=== PATIENT | female | born 1950 | race Caucasian/White ===

== ENCOUNTER 2023-09-29 11:23 | Emergency (ER) | payer MEDICARE, SELFPAY ==
[2023-09-29] VITALS (23 sets, daily range): BP systolic 127–183; BP diastolic 52–72; PULSE 76–106; RESP 14–29; TEMP 36.6; O2SAT 78–97
--- NOTE | ~2023-09-29 | CT_ITS ---
EXAMINATION: CT abd pelvis lumbar w con INDICATION: Lower abdominal pain TECHNIQUE: Computed tomographic images of the abdomen, pelvis, and lumbar spine were obtained after t he administration of 100 cc of Omnipaque 350 intravenous contrast. The dose-length product (DLP) was 1201.33 mGy-cm. Automated exposure control and iterative reconstruction technique were employed. COMPARISON: 04/05/2015 FINDINGS: Abdomen/pelvis CT: Minimal dependent atelectasis is present in the lung bases. The heart size is norm al. There is a small sliding hiatal hernia. A trace pericardial effusion is noted. Punctate calcifica tions in an otherwise normal spleen likely represent healed granulomatous disease. The liver is diffu sely low in attenuation when compared with the spleen, consistent with hepatic steatosis. The pancrea s, gallbladder, and adrenal glands are unremarkable. The kidneys are unremarkable. No pathologically enlarged abdominal or pelvic lymph nodes are identified. No free intraperitoneal gas or evidence of b owel obstruction. There is a surgical staple line in the rectum. The appendix is normal. There is marcio cified atherosclerosis of the aorta and many of the other arteries. There are changes of mesh ventral hernia repair. There are midline hernias containing fat just above the level of the hernia repair. Lumbar spine CT: An interbody device is present at L4-5. The vertebral body heights are maintained. T here is mild loss of intervertebral disc space height at L3-4. There is no fracture. There is moderat e facet joint osteoarthritis of the lower lumbar spine. IMPRESSION: 1. No acute findings of the abdomen or pelvis. 2. Mild lumbar spondylosis without acute findings. Reviewed, dictated and finalized at location B. NSKEEPER SUPERVISOR
--- NOTE | 2023-09-29 11:38 | ED.FALL ---
HPI - Fall General Chief Complaint: Fall Stated Complaint: GLF BACK AND COCCYX PAIN Time Seen by Provider: 09/29/23 11:34 History of Present Illness HPI Narrative: 73-year-old female history of diabetes presents to the emergency room for evaluation of low back pain. Patient states that she was at the [facility] earlier today when she experienced a ground-level fall, landing on her lower back. Patient states that she was able to stand herself up walk to her car and drive herself home. Patient states the pain was so bad that she ended up calling EMS and presented to the emergency room via the ambulance. In route patient was given 100 mcg fentanyl. States pain has not improved. Denies any numbness or tingling in her lower extremities, weakness. Patient states that she has been experiencing intermittent bowel and bladder incontinence for 4 to 6 weeks. Denies saddle anesthesia. Denies fevers. Denies IV drug use. Related Data Allergies Allergy/AdvReac Type Severity Reaction Status Date / Time ciprofloxacin Allergy Mild Verified 03/27/15 13:58 codeine Allergy Unknown Verified 06/12/10 08:29 Review of Systems Review of Systems: CONSTITUTIONAL: Denies fever, chills, or sweats. EYES: Denies visual changes, redness, or discharge. ENT: Denies rhinorrhea, congestion, sore throat, or otalgia. CARDIOVASCULAR: Denies chest pain, palpitations, or edema. RESPIRATORY: Denies cough or dyspnea. GASTROINTESTINAL: Denies abdominal pain, nausea, vomiting, or diarrhea. GENITOURINARY: Denies dysuria or hematuria. SKIN: Denies rash or itching. MUSCULOSKELETAL: Reports lower back pain NEUROLOGIC: Denies headache, numbness, dizziness, or weakness. PSYCHIATRIC: Denies anxiety or depression. Exam Narrative: GENERAL: Well-appearing, well-nourished, no physical limitations, and in no acute distress. HEAD: Normocephalic, atraumatic. EYES: Conjunctivae normal, PERRLA and EOMI. CHEST: Clear to auscultation. No respiratory distress. No wheezes rales or rhonchi. HEART: Regular rate and rhythm. No murmur heard. Normal peripheral pulses. ABDOMEN: Soft, lower abdominal tenderness, nondistended, normal active bowel sounds. BACK: Midline lumbar and coccyx tenderness with no step-offs. EXTREMITIES: FROM SKIN: Warm, dry, no rash. No noted wounds NEURO: No focal deficits. Alert and oriented x3. MAEW. CN's II-XI intact bilaterally PSYCH: Cooperative. Normal mood and affect. Course Vital Signs Vital signs: Vital Signs Temperature 36.6 C 09/29/23 11:53 Oxygen Delivery Room Air 09/29/23 11:53 Temperature 36.6 C 09/29/23 11:59 Pulse Rate 88 09/29/23 14:01 Respiratory Rate 14 09/29/23 14:38 Blood Pressure 183/69 H 09/29/23 14:38 Pulse Oximetry 95 09/29/23 14:38 Oxygen Delivery Room Air 09/29/23 11:53 MDM - Fall MDM Narrative Medical decision making narrative: 73-year-old female presented to the emergency room for evaluation of low back pain status post fall. Patient denies syncopal episode prior to the fall. Patient was at the [facility] when she was found on the ground. Patient was incontinent of stool and bladder. States that she is she has been experiencing bladder incontinence for several weeks. Patient was able to stand up and drive herself home.. Period of time, patient's back pain became worse and called EMS to come to the hospital. Imaging of her lower back showed no acute injuries. Lab work looked unremarkable. Patient does have a UTI. Patient was given fentanyl and Dilaudid for back pain and responded well to the pain medicine. We will send patient home with some antibiotics and anti-inflammatories. Lab Data 09/29/23 11:57 09/29/23 11:57 Labs: Lab Results 09/29/23 09/29/23 Range/Units 11:57 16:03 WBC 8.9 (4.5-10.0) K/mm3 RBC 4.76 (4.2-5.4) M/mm3 Hgb 13.2 (12.0-15.0) g/dL Hct 41.0 (37.0-47.0) % MCV 86.1 (80-100) fl MCH 27.7 (26-34) pg MCHC
--- NOTE | 2023-09-29 11:42 | ECG_ITS ---
Measurements Intervals [place] Rate: 73 P: 61 LA: 176 QRS: 11 QRSD: 86 T: 9 QT: 403 QTc: 446 Interpretive Statements SINUS RHYTHM CONSIDER INFERIOR INFARCT, AGE INDETERMINATE BASELINE ARTIFACT- I, II, III, AVR, AVL, AVF ABNORMAL ECG NO PREVIOUS ECG AVAILABLE FOR COMPARISON Electronically Signed On 09-29-2023 13:12:46 CORRECTIONAL AGENCY DIRECTOR by Jimmy Montes D.O.
[2023-09-29 12:03] LABS: Basophils Percent Auto 0.5 % (0.2-1.2); Eosinophils Absolute Auto 0.1 K/mm3 (0-0.3); Eosinophils Percent Auto 1.1 % (0-4.4); Hemoglobin 13.2 g/dL (12.0-15.0); Immature Granulocyte Absolute 0.04 K/mm3 (0.00-0.031); Immature Granulocyte Percent A 0.5 % (0-0.5); Lymphocytes Absolute Auto 1.89 K/mm3 (0.9-3.2); Lymphocytes Percent Auto 21.3 % (18.3-44.2); Mean Corpuscular HGB Conc 32.2 g/dl (32-36); Mean Corpuscular Hemoglobin 27.7 pg (26-34); Mean Corpuscular Volume 86.1 fl (80-100); Mean Platelet Volume 9.2 fl (7.4-10.4); Monocytes Absolute Auto 0.6 K/mm3 (0.1-0.6); Monocytes Percent Auto 6.3 % (2.6-8.5); Neutrophils Absolute Auto 6.3 K/mm3 (1.3-6.7); Neutrophils Percent Auto 70.3 % (45.5-73.1); Platelet Count Result 244 k/mm3 (150-375); Red Blood Count 4.76 M/mm3 (4.2-5.4); Red Cell Distribution Width 14.6 % (11.5-14.5); White Blood Count 8.9 K/mm3 (4.5-10.0)
[2023-09-29 12:16] LABS: Alanine Aminotransferase 11 U/L (6-35); Albumin Level 3.5 g/dL (3.5-5.1); Alkaline Phosphatase 134 U/L (38-126); Anion Gap 6 mmol/L (8-16); Aspartate Amino Transferase 16 U/L (14-36); Bilirubin,Total 0.6 mg/dL (0.2-1.3); Blood Urea Nitrogen 12 mg/dL (7-17); Calcium 8.4 mg/dL (8.4-10.2); Carbon Dioxide 25 mmol/L (22-30); Chloride 103 mmol/L (98-107); Estimated CRCL calculation 68 ml/min; Estimated Glomerular Filt Rate > 60; Glucose 191 mg/dL (65-110); Potassium 3.6 mmol/L (3.4-5.0); Sodium 134 mmol/L (137-145)
[2023-09-29 12:31] LABS: Troponin I < 0.012 ng/mL (0.000-0.034)
--- NOTE | 2023-09-29 12:57 | PC.NURSE ---
Pt is refusing straight cath.
[2023-09-29] MEDS: HYDROmorphone HCL INJ (*CRX) 1 MG/ML SYR IV PUSH (13:01)
[2023-09-29] MEDS: ONDANSETRON INJ 4 MG/2 ML VIAL IV PUSH ×2 (13:51→15:56)
[2023-09-29 16:29] LABS: Appearance Urine Cloudy (Clear); Bacteria Urine 4+ /hpf; Bilirubin Urine Negative (Negative); Blood Urine Negative (Negative); Color Urine Yellow (Yellow); Glucose Urine UA Negative (Negative); Hyaline Casts Urine Present /lpf; Ketones Urine Negative (Negative); Leukocyte Esterase Ur Trace LEU/UL (Negative); Nitrate Urine Positive (Negative); Non Pathogenic Casts 0-2; Protein Urine Trace mg/dL (Negative); Squamous Epithelial Cell Urine Few /hpf (Few); Urobilinogen Urine 0.2 mg/dL (<2.0); pH Urine 5.5 (5.0-9.0)
[2023-09-29 16:31] LABS: Add Urine Microscopic? YES; Specific Grav Ur 1.074 (1.001-1.035)
== END 2023-09-29 16:55 | disposition home or self-care (01) ==
PROVIDERS: Emergency Provider Nurse Practitioner Family
DX: S39.92XA Unspecified injury of lower back, initial encounter (principal); N39.0 Urinary tract infection, site not specified; R94.31 Abnormal electrocardiogram [ECG] [EKG]; W18.30XA Fall on same level, unspecified, initial encounter
CPT/HCPCS: 36415; 72132; 74177; 80053; 81001; 84484; 85025; 87086; 87088; 93005; 96374; 96375; 96376; 99284; J1170; J2405; Q9967

== ENCOUNTER 2023-10-08 21:08 | Inpatient (IN) | payer MEDICARE, SELFPAY ==
--- NOTE | ~2023-10-08 | CT_ITS ---
EXAMINATION: CT abdomen pelvis w con DATE: 10/09/2023 02:53 INDICATION: Nausea and vomiting. TECHNIQUE: Computed tomography (CT) of the abdomen and pelvis was performed with 100 mL Omnipaque 350 intravenous contrast. Automated exposure control and iterative reconstruction technique were employe d. The dose-length product was 1227.29 mGy-cm. COMPARISON: CT abdomen and pelvis 09/29/2023, 04/05/2015 FINDINGS: The visualized portions of the lung bases demonstrate mild atelectasis. Cardiomegaly is not ed. There are coronary artery calcifications. No pericardial effusion. There is a small sliding hiata l hernia. The liver, gallbladder, and pancreas are normal. Calcifications in the spleen are consisten t with old granulomatous disease. There is nodular thickening of the adrenal glands, stable from 04/05, likely benign. The kidneys are normal. There is calcified atherosclerosis of the aorta and man y of the other arteries. There are changes of ventral hernia repair. There are two supraumbilical corin tral hernias containing fat. There are no dilated loops of bowel. The appendix is normal. There are n o pathologically enlarged lymph nodes. There is no free intraperitoneal fluid. There are changes of a nterior fusion procedure at L5-S1. There is mild lumbar spondylosis. IMPRESSION: 1. Small sliding hiatal hernia. 2. Two supraumbilical ventral hernias containing fat. Reviewed, dictated and finalized at location E. SERVICE COUNTER CLERK
--- NOTE | ~2023-10-08 | XR_ITS ---
EXAMINATION: XR chest 1V DATE: 10/09/2023 02:56 INDICATION: Nausea and vomiting. TECHNIQUE: A single frontal view of the chest was obtained. COMPARISON: Chest 2 views 11/29/13, CT abdomen and pelvis 10/09/2023 FINDINGS: There is mild atelectasis in the lower lung zones. There are airspace opacities in right mi dlung zone. No pleural effusion or pneumothorax. Cardiomegaly is noted. IMPRESSION: 1. Airspace opacities in right midlung zone, consistent with pneumonia. 2. Cardiomegaly. Reviewed, dictated and finalized at location E. CHBOARD WIRE WORKER HELPER
[2023-10-08 21:42] VITALS: BP 154/72; PULSE 100; RESP 16; TEMP 36.6; O2SAT 98
[2023-10-08 21:50] LABS: Glucose Point of Care 224 mg/dl (65-105)
[2023-10-08 21:57] LABS: Basophils Absolute Auto 0.1 K/mm3 (0.0-0.1); Basophils Percent Auto 0.5 % (0.2-1.2); Eosinophils Percent Auto 0.2 % (0-4.4); Hematocrit 43.2 % (37.0-47.0); Hemoglobin 13.8 g/dL (12.0-15.0); Immature Granulocyte Absolute 0.05 K/mm3 (0.00-0.031); Immature Granulocyte Percent A 0.5 % (0-0.5); Lymphocytes Absolute Auto 2.05 K/mm3 (0.9-3.2); Lymphocytes Percent Auto 19.9 % (18.3-44.2); Mean Corpuscular HGB Conc 31.9 g/dl (32-36); Mean Corpuscular Hemoglobin 27.6 pg (26-34); Mean Corpuscular Volume 86.4 fl (80-100); Mean Platelet Volume 10.1 fl (7.4-10.4); Monocytes Absolute Auto 0.8 K/mm3 (0.1-0.6); Monocytes Percent Auto 7.7 % (2.6-8.5); Neutrophils Absolute Auto 7.4 K/mm3 (1.3-6.7); Neutrophils Percent Auto 71.2 % (45.5-73.1); Platelet Count Result 209 k/mm3 (150-375); Red Cell Distribution Width 14.6 % (11.5-14.5); White Blood Count 10.3 K/mm3 (4.5-10.0)
[2023-10-08 22:17] LABS: Alanine Aminotransferase 11 U/L (6-35); Albumin Level 3.8 g/dL (3.5-5.1); Alkaline Phosphatase 135 U/L (38-126); Anion Gap 9 mmol/L (8-16); Aspartate Amino Transferase 13 U/L (14-36); Blood Urea Nitrogen 9 mg/dL (7-17); Carbon Dioxide 28 mmol/L (22-30); Chloride 96 mmol/L (98-107); Estimated CRCL calculation 64 ml/min; Estimated Glomerular Filt Rate > 60; Glucose 222 mg/dL (65-110); Lipase 48 U/L (23-300); Potassium 3.1 mmol/L (3.4-5.0); Sodium 133 mmol/L (137-145)
[2023-10-09] VITALS (36 sets, daily range): BP systolic 131–188; BP diastolic 44–130; PULSE 73–96; RESP 14–25; TEMP 36.4–37.2; O2SAT 90–100; BMI 35.6
[2023-10-09 01:39] LABS: Appearance Urine Cloudy (Clear); Bacteria Urine 4+ /hpf; Bilirubin Urine Negative (Negative); Blood Urine Trace (Negative); Color Urine Yellow (Yellow); Glucose Urine UA 2+ mg/dL (Negative); Ketones Urine Trace mg/dL (Negative); Leukocyte Esterase Ur 1+ LEU/UL (Negative); Need Manual Microscopic Reviewed; Nitrate Urine Positive (Negative); Non Pathogenic Casts 0-2; Protein Urine 1+ mg/dL (Negative); Specific Grav Ur 1.021 (1.001-1.035); Squamous Epithelial Cell Urine None seen /hpf (Few); Urobilinogen Urine 0.2 mg/dL (<2.0); WBC Urine 21-50 /hpf; pH Urine 5.5 (5.0-9.0)
[2023-10-09 01:40] LABS: Add Urine Microscopic? YES
--- NOTE | 2023-10-09 02:32 | ED.NAVMDI ---
HPI - Nausea/Vomiting/Diarrhea General Chief complaint: Nausea/Vomiting/Diarrhea Stated complaint: vomiting Time Seen by Provider: 10/09/23 00:22 Source: patient and family Limitations: no limitations History of Present Illness HPI Narrative: Patient is a 73-year-old female presents to the emergency department accompanied by her son for nausea and vomiting this started approximately 24 hours ago. Patient denies anyone having similar symptoms around her. Patient missed approximately 15 episodes of vomiting since onset and she has not been able to keep anything down. patient denies any blood or bile in the emesis. Patient admits to chronic urinary incontinence and has not noticed any urinary discomfort her hematuria. Patient denies diarrhea or melena or hematochezia. patient admits to recent treatment for UTI and which she completed her antibiotics yesterday. Patient denies abdominal pain, chest pain, shortness of breath, cough, fever, sore throat, nasal congestion, rash. Related Data Allergies Allergy/AdvReac Type Severity Reaction Status Date / Time ciprofloxacin Allergy Mild Verified 03/27/15 13:58 codeine Allergy Unknown Verified 06/12/10 08:29 Review of Systems Review of Systems: A 10 system review of systems was completed on the patient and is negative except for what is stated in the HPI. Nursing and ancillary documentation was reviewed. [facility] Comments At time of signature, I have reviewed and agree with nursing past medical, surgical, social and family history unless otherwise noted. Please see the nursing chart for further information. There is no relevant family history pertinent to the presenting complaint. Exam Narrative: CONST: No acute distress. HENMT: Head is normocephalic and atraumatic. Dry mucous membranes. No posterior oropharynx erythema. EYES: No conjunctival icterus, injection, or pallor. PERRL. NECK: No meningeal signs. RESP: Able to speak in full sentences. Normal respiratory effort. CTAB. CARDIO: Regular rate. Regular rhythm. 2+ DP and radial pulses bilaterally. GI: Nondistended. No tenderness to palpation. Soft. : No CVA tenderness to palpation. No perineal erythema or tenderness to palpation. SKIN: No rashes or lesions noted on exposed skin. NEURO: Oriented x3. Moves all extremities. EXTREM/MSK/BACK: No pedal edema. PSYCH: Normal affect. Course Vital Signs Vital signs: Vital Signs Temperature 97.8 F 10/08/23 21:42 Pulse Rate 100 10/08/23 21:42 Respiratory Rate 16 10/08/23 21:42 Blood Pressure 154/72 H 10/08/23 21:42 Pulse Oximetry 98 10/08/23 21:42 Oxygen Delivery Room Air 10/08/23 21:42 Temperature 97.8 F 10/08/23 21:42 Pulse Rate 81 10/09/23 07:15 Respiratory Rate 24 H 10/09/23 07:15 Blood Pressure 157/71 H 10/09/23 07:01 Pulse Oximetry 94 10/09/23 07:01 Oxygen Delivery Room Air 10/09/23 01:12 MDM - Nausea/Vomiting/Diarrhea MDM Narrative Medical decision making narrative: Patient presents with the above complaint. Initial vitals are remarkable for no significant abnormalities. Physical examination as noted above. Plan discussed: laboratory analysis, EKG, chest x-ray, CT of the abdomen and pelvis with contrast, 1 g of Rocephin IV piggyback for UTI, famotidine 20 mg IV push, potassium chloride 20 mEq IV piggyback for hypokalemia, Zofran 4 mg IV push for nausea, 1 L bolus of IV fluids normal saline for hydration. Patient was reassessed at the bedside. Counseled patient regarding diagnostic results and potential diagnosis. Patient given cefuroxime and doxycycline for pneumonia. Cefuroxime will also cover for UTI. Son present at bedside notes that he is concerned about the patient's ability to perform activities of daily living and care for herself and she is currently living on her own and he would like to have the patient either get placement into a facility or obtain home health care as no one is able to prov
--- NOTE | 2023-10-09 02:33 | ECG_ITS ---
Measurements Intervals [place] Rate: 93 P: 48 AR: 193 QRS: 1 QRSD: 89 T: 40 QT: 369 QTc: 461 Interpretive Statements SINUS RHYTHM CONSIDER INFERIOR INFARCT, AGE INDETERMINATE BORDERLINE ST-T WAVE ABNORMALITY- ANTEROLAT/HIGH LAT LEADS BASELINE ARTIFACT- I, II, III, AVR, AVL, AVF, V1, V4-V6 ABNORMAL ECG COMPARED TO ECG 09/29/2023 12:01:03 NO SIGNIFICANT CHANGES Electronically Signed On 10-09-2023 7:42:27 APPROVER by Jimmy Montes D.O.
[2023-10-09 02:46] LABS: Magnesium 2.2 mg/dL (1.6-2.3)
[2023-10-09] MEDS: SODIUM CHLORIDE 0.9% IV 1,000 ML 999 ML IV CONT (02:58)
[2023-10-09 02:59] LABS: Troponin I < 0.012 ng/mL (0.000-0.034)
[2023-10-09] MEDS: ONDANSETRON INJ 4 MG/2 ML VIAL IV PUSH (02:59)
[2023-10-09] MEDS: FAMOTIDINE 20 MG/2 ML VIAL IV PUSH (02:59)
[2023-10-09] MEDS: KCL 20 MEQ/SW 100 ML 100 ML 50 MEQ IVPB (03:29)
[2023-10-09] MEDS: DOXYCYCLINE HYCLATE 100 MG TABLET PO (06:32)
[2023-10-09] MEDS: CEFUROXIME AXETIL 250 MG TABLET 500 MG PO (06:33)
--- NOTE | 2023-10-09 07:13 | PC.NURSE ---
Report given to JOSE Basilio at this time.
--- NOTE | 2023-10-09 08:52 | PM.IMHP ---
H&P: HPI History of Present Illness Date/Time: 10/09/23 08:52 Chief Complaint: Nausea/vomiting Narrative: 73-year-old female presents to the emergency department accompanied by her son for nausea and vomiting this started 1-2 days ago. Review of Systems Review of Systems: 12 point review of systems was assessed and was negative except as noted in the HPI [facility] Past Medical History Medical History (Updated 10/09/23 @ 12:35 by Shruthi Feliciano, DO) Adult failure to thrive Chronic anticoagulation Hyperlipidemia Insulin dependent type 2 diabetes mellitus Social History Social History Smoking packs per day: 2 Smoking cigarettes per day: 40.0 Smoking status: Current every day smoker Tobacco type: cigarettes Alcohol intake: never Substance use: never Lack of Transportation: No Lack of Food: Never True Current Housing: I Have Housing Concerned About Future Housing: No Difficulty Paying Gas/Electric Bills: No Difficulty Paying for Meds: No Currently Unemployed: No Education: Bachelor's Degree Difficulty w/ Childcare or Family Care: No Spiritual care concerns: Yes (Sabianism) Meds Home Medications and Allergies Home Medications Medication Instructions Recorded Confirmed Type atorvastatin 20 mg tablet 20 mg PO DAILY 10/09/23 10/09/23 History cefuroxime axetil 500 mg tablet 500 mg PO BID 5 days #10 tabs 10/09/23 Rx doxycycline hyclate 100 mg capsule 100 mg PO BID 5 days #10 caps 10/09/23 Rx insulin glargine 100 unit/mL (3 45 unit subcut DAILY 10/09/23 10/09/23 History mL) subcutaneous pen (Lantus Solostar U-100 Insulin) ondansetron 4 mg disintegrating 4 mg PO Q8H PRN nausea and 10/09/23 Rx tablet vomiting #14 tabs pen needle, diabetic 32 gauge x 10/09/23 10/09/23 History warfarin 4 mg tablet 4 mg PO DAILY 10/09/23 10/09/23 History Allergies Allergy/AdvReac Type Severity Reaction Status Date / Time ciprofloxacin Allergy Mild Verified 03/27/15 13:58 codeine Allergy Unknown Verified 06/12/10 08:29 Vital Signs Vital Signs - 24 hr 10/08/23 21:42 10/09/23 01:12 10/09/23 01:18 Temperature 97.8 F Pulse Rate 100 74 73 Respiratory Rate 16 20 24 H Blood Pressure 154/72 H 158/67 H 161/72 H Pulse Oximetry 98 95 94 Oxygen Delivery Room Air Room Air 10/09/23 01:32 10/09/23 01:47 10/09/23 02:02 Temperature Pulse Rate 73 77 73 Respiratory Rate 20 16 18 Blood Pressure 155/70 H 174/66 H 159/70 H Pulse Oximetry 95 97 Oxygen Delivery 10/09/23 02:17 10/09/23 02:32 10/09/23 03:08 Temperature Pulse Rate 73 80 95 Respiratory Rate 19 17 17 Blood Pressure 164/66 H 159/62 H 188/68 H Pulse Oximetry 98 99 97 Oxygen Delivery 10/09/23 03:17 10/09/23 03:32 10/09/23 04:02 Temperature Pulse Rate 90 92 88 Respiratory Rate 23 H 22 H 19 Blood Pressure 181/69 H 168/72 H 171/73 H Pulse Oximetry 97 92 94 Oxygen Delivery 10/09/23 04:31 10/09/23 05:01 10/09/23 05:31 Temperature Pulse Rate 92 81 82 Respiratory Rate 19 20 19 Blood Pressure 157/72 H 162/67 H 141/68 H Pulse Oximetry 94 95 90 Oxygen Delivery 10/09/23 06:15 10/09/23 06:30 10/09/23 06:31 Temperature Pulse Rate 79 81 86 Respiratory Rate 20 17 25 H Blood Pressure 173/69 H 173/69 H Pulse Oximetry 90 90 92 Oxygen Delivery 10/09/23 06:45 10/09/23 07:00 10/09/23 07:01 Temperature Pulse Rate 81 89 83 Respiratory Rate 22 H 21 H 24 H Blood Pressure 157/71 H Pulse Oximetry 93 100 94 Oxygen Delivery 10/09/23 07:15 Temperature Pulse Rate 81 Respiratory Rate 24 H Blood Pressure Pulse Oximetry Oxygen Delivery Exam Narrative: General: No acute distress, alert and oriented per baseline HEENT: Atraumatic, normocephalic, mucous membranes moist CV: Regular rate and rhythm, S1, S2 Lungs: Clear to auscultation bilaterally, no rales or crackles noted, no wheezes, go
[2023-10-09 12:21] LABS: Glucose Point of Care 201 mg/dl (65-105)
[2023-10-09 13:16] LABS: INR 1.9; Prothrombin Time 23.1 Seconds (11.1-14.7)
[2023-10-09 13:18] LABS: Hemoglobin A1C 6.9 % (<5.7)
[2023-10-09] MEDS: ATORVASTATIN 20 MG TABLET PO (15:26)
[2023-10-09] MEDS: INSULIN GLARGINE (*BKC) 100 UNITS/ML 20 UNITS SUB-Q (15:26)
[2023-10-09] MEDS: AZITHROMYCIN 500 MG/NS 250 ML 500 MG/250 ML BAG 250 MG IVPB (15:26)
--- NOTE | 2023-10-09 15:43 | PCCCNOTE ---
CC was called to consult with pt and her son, Cj in the ED. If pt was going to be discharged, they were needing home health. If patient is admitted they are going to decide whether they want placement for therapy or in home health. Spoke with them and explained that once the ER doctor decides upon admission or discharge is when I can try to help them with placement, which would be private pay, or home health. Pt. is being admitted, I explained to the pt and son that a daycare manager would follow up on the needs of the pt day by day. The pt. son, states that the pt gets very confused, [place] where she is. He said she is unable to care for herself with her daily needs, including eating, changing herself after she has soiled in her depends, and taking her medications properly. He feels as though it is not safe for her to return home by herself.
[2023-10-09 16:53] LABS: Glucose Point of Care 186 mg/dl (65-105)
[2023-10-09] MEDS: WARFARIN (*PBKC) 4 MG TABLET PO (17:06)
[2023-10-09 20:52] LABS: Glucose Point of Care 237 mg/dl (65-105)
[2023-10-10 05:03] VITALS: O2SAT 87
[2023-10-10 05:35] VITALS: BP 137/62; PULSE 89; RESP 14; TEMP 36.6; O2SAT 93
[2023-10-10 07:26] LABS: Basophils Percent Auto 0.5 % (0.2-1.2); Eosinophils Absolute Auto 0.2 K/mm3 (0-0.3); Eosinophils Percent Auto 2.3 % (0-4.4); Hematocrit 38.2 % (37.0-47.0); Hemoglobin 12.4 g/dL (12.0-15.0); Immature Granulocyte Absolute 0.03 K/mm3 (0.00-0.031); Immature Granulocyte Percent A 0.4 % (0-0.5); Lymphocytes Absolute Auto 1.62 K/mm3 (0.9-3.2); Lymphocytes Percent Auto 19.8 % (18.3-44.2); Mean Corpuscular HGB Conc 32.5 g/dl (32-36); Mean Corpuscular Hemoglobin 27.7 pg (26-34); Mean Corpuscular Volume 85.5 fl (80-100); Mean Platelet Volume 9.8 fl (7.4-10.4); Monocytes Absolute Auto 0.7 K/mm3 (0.1-0.6); Monocytes Percent Auto 7.9 % (2.6-8.5); Neutrophils Absolute Auto 5.7 K/mm3 (1.3-6.7); Neutrophils Percent Auto 69.1 % (45.5-73.1); Platelet Count Result 197 k/mm3 (150-375); Red Blood Count 4.47 M/mm3 (4.2-5.4); Red Cell Distribution Width 14.2 % (11.5-14.5); White Blood Count 8.2 K/mm3 (4.5-10.0)
[2023-10-10 07:38] LABS: Alanine Aminotransferase 9 U/L (6-35); Albumin Level 3.1 g/dL (3.5-5.1); Alkaline Phosphatase 116 U/L (38-126); Anion Gap 4 mmol/L (8-16); Aspartate Amino Transferase 13 U/L (14-36); Bilirubin,Total 0.8 mg/dL (0.2-1.3); Blood Urea Nitrogen 6 mg/dL (7-17); Calcium 8.4 mg/dL (8.4-10.2); Carbon Dioxide 31 mmol/L (22-30); Chloride 100 mmol/L (98-107); Estimated CRCL calculation 73 ml/min; Estimated Glomerular Filt Rate > 60; Glucose 174 mg/dL (65-110); Potassium 3.4 mmol/L (3.4-5.0); Sodium 135 mmol/L (137-145)
[2023-10-10 07:58] LABS: INR 1.9; Prothrombin Time 23.1 Seconds (11.1-14.7)
[2023-10-10 08:26] LABS: Glucose Point of Care 168 mg/dl (65-105)
[2023-10-10] MEDS: ATORVASTATIN 20 MG TABLET PO (08:28)
[2023-10-10 08:30] VITALS: O2SAT 94
--- NOTE | 2023-10-10 08:42 | PM.IMPN ---
Progress Note: A&P Assessment and Plan (1) Adult failure to thrive: Code(s): R62.7 - Adult failure to thrive Status: Acute Assessment and Plan: 10/09/23: PT and OT eval (2) Hyperlipidemia: Code(s): E78.5 - Hyperlipidemia, unspecified Status: Acute Assessment and Plan: 10/09/23: Continue Lipitor (3) Insulin dependent type 2 diabetes mellitus: Code(s): E11.9 - Type 2 diabetes mellitus without complications; Z79.4 - [facility]FP (current) use of insulin Status: Acute Assessment and Plan: 10/09/23: Accu checks, SSI, and lantus ordered BG ranging 168-174 (4) Pneumonia: Qualifiers: Laterality: right Lung location: middle lobe of lung Pneumonia type: due to unspecified organism Qualified Code(s): J18.9 - Pneumonia, unspecified organism Code(s): J18.9 - Pneumonia, unspecified organism Status: Acute Assessment and Plan: 10/09/23: Chest x-ray showing pneumonia Continue Rocephin and azithromycin (5) UTI (urinary tract infection): Qualifiers: Hematuria presence: with hematuria Urinary tract infection type: site unspecified Qualified Code(s): N39.0 - Urinary tract infection, site not specified; R31.9 - Hematuria, unspecified Code(s): N39.0 - Urinary tract infection, site not specified Status: Acute Assessment and Plan: 10/09/23: UA showing 1+ protein, 2+ glucose, trace ketones, positive nitrates, 1+ leukocytes, 4+ bacteria Urine culture obtained and is pending Continue with Rocephin and azithromycin Patient denies any urinary symptoms (6) Chronic anticoagulation: Code(s): Z79.01 - [facility]FP (current) use of anticoagulants Status: Acute Assessment and Plan: 10/09/23: On warfarin (7) Nausea & vomiting: Code(s): R11.2 - Nausea with vomiting, unspecified Status: Acute Assessment and Plan: 10/09/23: Denies at this time. Zofran ordered Time Spent With Patient Time with patient: Greater than 35 minutes Subjective Date/time seen: 10/10/23 08:42 Interval history: This is a 73 year old female who presented to the hospital on 10/09/23 with complaints of nausea and vomiting that started 1-2 days ago. Work up in hospital included a chest x-ray which shown airspace opacities in the right midlung zone, consistent with pneumonia, cardiomegaly. CT of the abdomen/pelvis revealed small sliding hiatal hernia, two supraumbilical ventral hernias containing fat. UA revealed protein 1+, glucose 2+, trace ketones, positive nitrates, leukocyte 1+, bacteria 4+, many urine RBC and WBC. Urine culture obtained and pending. Patient was started on Rocephin and Azithromycin. On examination today patient is alert and oriented x4, she is lying in the bed. VSS, she is afebrile, she is currently on room air. She denies any pain or discomfort at this time. She denies any fever, chills, nausea, vomiting, diarrhea, abdominal pain, shortness of breath, or chest pain. Labs today reveal PT 23.1, INR 1.9, Na+ 135, K+ 3.4, Bicarb 31, BUN 6, Creatinine 0.70, blood glucose 168-211, AST 13, Albumin 3.1. CBC is unremarkable. UC is still pending. Patient will continue on Rocephin and Azithromycin until results of culture comes back. Review of Systems Review of Systems: 12 point review of systems was assessed and was negative except as noted in the HPI All systems reviewed & are unremarkable except as noted in HPI and below Constitutional: Constitutional: Reports as per HPI and Reports no additional constitutional complaints Eyes: Eyes: Reports as per HPI and Reports no additional eye complaints ENT: Reports system reviewed and no additional complaints, except as documented and Reports as per HPI Cardiovascular: Cardiovascular: Reports as per HPI and Reports no additional cardiovascular complaints Respiratory: Respiratory: Reports as per HPI and Reports no additional respiratory complaints Ga
--- NOTE | 2023-10-10 10:24 | PCOTNOTE ---
Attempted OT evaluation. Patient was educated on ON and importance of evaluation. Patient still refuses at this time. Will follow.
--- NOTE | 2023-10-10 10:24 | PCPTNOTE ---
Attempted to see for therapy evaluation, pt refused stating she is too fatigued to get out of bed. Education on the benefits of ambulation, will continue to follow.
[2023-10-10 11:45] LABS: Glucose Point of Care 211 mg/dl (65-105)
[2023-10-10] MEDS: INSULIN ASPART (*BKC) 100 UNITS/ML SUB-Q (11:53)
[2023-10-10] MEDS: AZITHROMYCIN 500 MG/NS 250 ML 500 MG/250 ML BAG 250 MG IVPB (13:22)
[2023-10-10 14:00] VITALS: BP 132/58; PULSE 79; RESP 16; TEMP 36.8; O2SAT 96
[2023-10-10] MEDS: WARFARIN (*PBKC) 4 MG TABLET PO (16:05)
[2023-10-10] MEDS: ONDANSETRON INJ 4 MG/2 ML VIAL (16:05)
[2023-10-10 17:50] LABS: Glucose Point of Care 99 mg/dl (65-105)
[2023-10-10 20:00] VITALS: O2SAT 91
[2023-10-10 20:06] LABS: Glucose Point of Care 169 mg/dl (65-105)
[2023-10-10 20:10] VITALS: BP 141/52; PULSE 77; RESP 18; TEMP 37; O2SAT 91
[2023-10-11 05:53] VITALS: BP 161/57; PULSE 74; RESP 17; TEMP 36.9; O2SAT 92
[2023-10-11 07:16] LABS: Basophils Percent Auto 0.6 % (0.2-1.2); Eosinophils Absolute Auto 0.2 K/mm3 (0-0.3); Eosinophils Percent Auto 3.3 % (0-4.4); Hematocrit 38.8 % (37.0-47.0); Hemoglobin 12.3 g/dL (12.0-15.0); Immature Granulocyte Absolute 0.03 K/mm3 (0.00-0.031); Immature Granulocyte Percent A 0.4 % (0-0.5); Lymphocytes Absolute Auto 1.58 K/mm3 (0.9-3.2); Lymphocytes Percent Auto 21.8 % (18.3-44.2); Mean Corpuscular HGB Conc 31.7 g/dl (32-36); Mean Corpuscular Hemoglobin 27.3 pg (26-34); Mean Platelet Volume 9.9 fl (7.4-10.4); Monocytes Absolute Auto 0.6 K/mm3 (0.1-0.6); Monocytes Percent Auto 7.7 % (2.6-8.5); Neutrophils Absolute Auto 4.8 K/mm3 (1.3-6.7); Neutrophils Percent Auto 66.2 % (45.5-73.1); Platelet Count Result 208 k/mm3 (150-375); Red Blood Count 4.51 M/mm3 (4.2-5.4); Red Cell Distribution Width 14.2 % (11.5-14.5); White Blood Count 7.2 K/mm3 (4.5-10.0)
--- NOTE | 2023-10-11 07:21 | P.PNIM_ITS ---
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 Status: Acute Assessment and Plan: 10/10/23: * Accu checks, SSI, and lantus ordered * BG ranging 168-174 10/11/23: * No change to current treatment plan (4) Pneumonia: Qualifiers: Laterality: right Lung location: middle lobe of lung Pneumonia type: due to unspecified organism Qualified Code(s): J18.9 - Pneumonia, unspecified organism Code(s): J18.9 - Pneumonia, unspecified organism Status: Acute Assessment and Plan: 10/10/23: * Chest x-ray showing pneumonia * Continue Rocephin and azithromycin 10/11/23: * Azithromycin discontinued, continue Rocephin (5) UTI (urinary tract infection): Qualifiers: Hematuria presence: with hematuria Urinary tract infection type: site unspecified Qualified Code(s): N39.0 - Urinary tract infection, site not specified; R31.9 - Hematuria, unspecified Code(s): N39.0 - Urinary tract infection, site not specified Status: Acute Assessment and Plan: 10/10/23: * UA showing 1+ protein, 2+ glucose, trace ketones, positive nitrates, 1+ leukocytes, 4+ bacteria * Urine culture obtained and is pending * Continue with Rocephin and azithromycin * Patient denies any urinary symptoms 10/11/23: * Urine culture showing E coli and Morganella Morganii on preliminary read, awaiting sensitivites. 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 * Zofran ordered 10/11/23: * Denies this time * No change to current treatment plan Time Spent With Patient Time with patient: 25 - 35 minutes Subjective Date/time seen: 10/11/23 07:21 Interval history: Interval history: 10/10/23: This is a 73 year old female who presented to the hospital on 10/09/23 with complaints of nausea and vomiting that started 1-2 days ago. Work up in hospital included a chest x-ray which shown airspace opacities in the right midlung zone, consistent with pneumonia, cardiomegaly. CT of the abdomen/pelvis revealed small sliding hiatal hernia, two supraumbilical ventral hernias containing fat. UA revealed protein 1+, glucose 2+, trace ketones, positive nitrates, leukocyte 1+, bacteria 4+, many urine RBC and WBC. Urine culture obtained and pending. Patient was started on Rocephin and Azithromycin. On examination today patient is alert and oriented x4, she is lying in the bed. VSS, she is afebrile, she is currently on room air. She denies any pain or discomfort at this time. She denies any fever, chills, nausea, vomiting, diarrhea, abdominal pain, shortness of breath, or chest pain. Labs today rev
--- NOTE | 2023-10-11 07:21 | PM.IMPN ---
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 Status: Acute Assessment and Plan: 10/10/23: Accu checks, SSI, and lantus ordered BG ranging 168-174 10/11/23: No change to current treatment plan (4) Pneumonia: Qualifiers: Laterality: right Lung location: middle lobe of lung Pneumonia type: due to unspecified organism Qualified Code(s): J18.9 - Pneumonia, unspecified organism Code(s): J18.9 - Pneumonia, unspecified organism Status: Acute Assessment and Plan: 10/10/23: Chest x-ray showing pneumonia Continue Rocephin and azithromycin 10/11/23: Azithromycin discontinued, continue Rocephin (5) UTI (urinary tract infection): Qualifiers: Hematuria presence: with hematuria Urinary tract infection type: site unspecified Qualified Code(s): N39.0 - Urinary tract infection, site not specified; R31.9 - Hematuria, unspecified Code(s): N39.0 - Urinary tract infection, site not specified Status: Acute Assessment and Plan: 10/10/23: UA showing 1+ protein, 2+ glucose, trace ketones, positive nitrates, 1+ leukocytes, 4+ bacteria Urine culture obtained and is pending Continue with Rocephin and azithromycin Patient denies any urinary symptoms 10/11/23: Urine culture showing E coli and Morganella Morganii on preliminary read, awaiting sensitivites. Continue with Rocephin (6) Chronic anticoagulation: Code(s): Z79.01 - shelter (current) use of anticoagulants Status: Acute Assessment and Plan: 10/10/23: On warfarin 10/11/23: No change to current treatment plan (7) Nausea & vomiting: Code(s): R11.2 - Nausea with vomiting, unspecified Status: Acute Assessment and Plan: 10/10/23: Denies at this time. Pavithraan ordered 10/11/23: Denies this time No change to current treatment plan Time Spent With Patient Time with patient: 25 - 35 minutes Subjective Date/time seen: 10/11/23 07:21 Interval history: Interval history: 10/10/23: This is a 73 year old female who presented to the hospital on 10/09/23 with complaints of nausea and vomiting that started 1-2 days ago. Work up in hospital included a chest x-ray which shown airspace opacities in the right midlung zone, consistent with pneumonia, cardiomegaly. CT of the abdomen/pelvis revealed small sliding hiatal hernia, two supraumbilical ventral hernias containing fat. UA revealed protein 1+, glucose 2+, trace ketones, positive nitrates, leukocyte 1+, bacteria 4+, many urine RBC and WBC. Urine culture obtained and pending. Patient was started on Rocephin and Azithromycin. On examination today patient is alert and oriented x4, she is lying in the bed. VSS, she is afebrile, she is currently on room air. She denies any pain or discomfort at this time. She denies any fever, chills, nausea, vomiting, diarrhea, abdominal pain, shortness of breath, or chest pain. Labs today reveal PT 23.1, INR 1.9, Na+ 135, K+ 3.4, Bicarb 31, BUN 6, Creatinine 0.70, blood glucose 168-211, AST 13, Albumin 3.1. CBC is unremarkable. UC is still pending. Patient will continue on Rocephin and Azithromycin until results of culture comes back. 10/11/23: On examination today patient is alert oriented x3, lying in the bed eating lunch. Family is at the bedside. Vital signs have been stable, she has been afebrile, she is currently on room air. She denies
[2023-10-11 07:27] LABS: INR 2.2; Prothrombin Time 25.8 Seconds (11.1-14.7)
[2023-10-11 07:30] LABS: Alanine Aminotransferase 8 U/L (6-35); Albumin Level 3.1 g/dL (3.5-5.1); Alkaline Phosphatase 119 U/L (38-126); Anion Gap 6 mmol/L (8-16); Aspartate Amino Transferase 13 U/L (14-36); Bilirubin,Total 0.8 mg/dL (0.2-1.3); Blood Urea Nitrogen 6 mg/dL (7-17); Calcium 8.1 mg/dL (8.4-10.2); Carbon Dioxide 29 mmol/L (22-30); Chloride 99 mmol/L (98-107); Estimated CRCL calculation 73 ml/min; Estimated Glomerular Filt Rate > 60; Glucose 160 mg/dL (65-110); Potassium 3.4 mmol/L (3.4-5.0); Sodium 134 mmol/L (137-145)
[2023-10-11 08:13] LABS: Glucose Point of Care 156 mg/dl (65-105)
[2023-10-11 09:00] VITALS: O2SAT 93
[2023-10-11] MEDS: ATORVASTATIN 20 MG TABLET PO (09:25)
[2023-10-11 12:15] LABS: Glucose Point of Care 229 mg/dl (65-105)
[2023-10-11] MEDS: INSULIN ASPART (*BKC) 100 UNITS/ML SUB-Q ×2 (12:26→17:29)
[2023-10-11 14:40] VITALS: BP 127/56; PULSE 84; RESP 18; TEMP 37.1; O2SAT 93
[2023-10-11] MEDS: WARFARIN (*PBKC) 4 MG TABLET PO (17:29)
[2023-10-11 18:19] LABS: Glucose Point of Care 204 mg/dl (65-105)
[2023-10-11 20:00] VITALS: PULSE 74; RESP 20; O2SAT 94
[2023-10-11] MEDS: INSULIN GLARGINE (*BKC) 100 UNITS/ML 10 UNITS SUB-Q (20:50)
[2023-10-11 21:36] LABS: Glucose Point of Care 211 mg/dl (65-105)
[2023-10-11 21:49] VITALS: BP 147/72; PULSE 74; RESP 20; TEMP 37.2; O2SAT 94
[2023-10-12 06:00] VITALS: BP 141/54; PULSE 68; RESP 18; TEMP 36.8; O2SAT 92
[2023-10-12 06:35] LABS: Basophils Percent Auto 0.5 % (0.2-1.2); Eosinophils Absolute Auto 0.3 K/mm3 (0-0.3); Hematocrit 38.9 % (37.0-47.0); Hemoglobin 12.5 g/dL (12.0-15.0); Immature Granulocyte Absolute 0.02 K/mm3 (0.00-0.031); Immature Granulocyte Percent A 0.3 % (0-0.5); Lymphocytes Absolute Auto 1.61 K/mm3 (0.9-3.2); Lymphocytes Percent Auto 21.7 % (18.3-44.2); Mean Corpuscular HGB Conc 32.1 g/dl (32-36); Mean Corpuscular Hemoglobin 27.5 pg (26-34); Mean Corpuscular Volume 85.5 fl (80-100); Mean Platelet Volume 9.7 fl (7.4-10.4); Monocytes Absolute Auto 0.7 K/mm3 (0.1-0.6); Neutrophils Absolute Auto 4.8 K/mm3 (1.3-6.7); Neutrophils Percent Auto 64.5 % (45.5-73.1); Platelet Count Result 226 k/mm3 (150-375); Red Blood Count 4.55 M/mm3 (4.2-5.4); Red Cell Distribution Width 14.2 % (11.5-14.5); White Blood Count 7.4 K/mm3 (4.5-10.0)
[2023-10-12 06:56] LABS: Alanine Aminotransferase 8 U/L (6-35); Albumin Level 3.2 g/dL (3.5-5.1); Alkaline Phosphatase 129 U/L (38-126); Anion Gap 7 mmol/L (8-16); Aspartate Amino Transferase 14 U/L (14-36); Bilirubin,Total 0.7 mg/dL (0.2-1.3); Blood Urea Nitrogen 6 mg/dL (7-17); Calcium 8.3 mg/dL (8.4-10.2); Carbon Dioxide 29 mmol/L (22-30); Chloride 98 mmol/L (98-107); Estimated CRCL calculation 73 ml/min; Estimated Glomerular Filt Rate > 60; Glucose 157 mg/dL (65-110); Potassium 3.4 mmol/L (3.4-5.0); Sodium 134 mmol/L (137-145)
[2023-10-12 07:08] LABS: INR 2.5; Prothrombin Time 28.8 Seconds (11.1-14.7)
[2023-10-12 07:52] LABS: Glucose Point of Care 156 mg/dl (65-105)
[2023-10-12] MEDS: ATORVASTATIN 20 MG TABLET PO (08:27)
[2023-10-12 08:28] VITALS: PULSE 73; O2SAT 91
[2023-10-12 11:35] LABS: Glucose Point of Care 172 mg/dl (65-105)
[2023-10-12 14:00] VITALS: BP 118/51; PULSE 89; RESP 14; TEMP 36.8; O2SAT 94
--- NOTE | 2023-10-12 14:55 | PCOTNOTE ---
Attempted to see pt for OT however pt stated she was too tired after working with PT earlier and did not want to do anything at this time. Pt educated that working with therapy is in her best interest but still politely declines. Will continue to follow.
--- NOTE | 2023-10-12 16:17 | P.PNIM_ITS ---
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 Status: Acute Assessment and Plan: 10/10/23: * Accu checks, SSI, and lantus ordered * BG ranging 168-174 10/11/23: * No change to current treatment plan (4) Pneumonia: Qualifiers: Laterality: right Lung location: middle lobe of lung Pneumonia type: due to unspecified organism Qualified Code(s): J18.9 - Pneumonia, unspecified organism Code(s): J18.9 - Pneumonia, unspecified organism Status: Acute Assessment and Plan: 10/10/23: * Chest x-ray showing pneumonia * Continue Rocephin and azithromycin 10/11/23: * Azithromycin discontinued, continue Rocephin 10/12/23: * Continue Rocephin IV, awaiting UC sensitivites (5) UTI (urinary tract infection): Qualifiers: Hematuria presence: with hematuria Urinary tract infection type: site unspecified Qualified Code(s): N39.0 - Urinary tract infection, site not spe cified; R31.9 - Hematuria, unspecified Code(s): N39.0 - Urinary tract infection, site not specified Status: Acute Assessment and Plan: 10/10/23: * UA showing 1+ protein, 2+ glucose, trace ketones, positive nitrates, 1+ leukocytes, 4+ bacteria * Urine culture obtained and is pending * Continue with Rocephin and azithromycin * Patient denies any urinary symptoms 10/11/23: * Urine culture showing E coli and Morganella Morganii on preliminary read, awaiting sensitivites. 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 * Zofran ordered 10/11/23: * Denies this time * No change to current treatment plan Time Spent With Patient Time with patient: 25 - 35 minutes Subjective Date/time seen: 10/12/23 16:17 Interval history: Interval history: 10/10/23: This is a 73 year old female who presented to the hospital on 10/09/23 with complaints of nausea and vomiting that started 1-2 days ago. Work up in hospital included a chest x-ray which shown airspace opacities in the right midlung zone, consistent with pneumonia, cardiomegaly. CT of the abdomen/pelvis revealed small sliding hiatal hernia, two supraumbilical ventral hernias containing fat. UA revealed protein 1+, glucose 2+, trace ketones, positive nitrates, leukocyte 1+, bacteria 4+, many urine RBC and WBC. Urine culture obtained and pending. Patient was started on Rocephin and Azithromycin. On examination today pat
--- NOTE | 2023-10-12 16:17 | PM.IMPN ---
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 Status: Acute Assessment and Plan: 10/10/23: Accu checks, SSI, and lantus ordered BG ranging 168-174 10/11/23: No change to current treatment plan (4) Pneumonia: Qualifiers: Laterality: right Lung location: middle lobe of lung Pneumonia type: due to unspecified organism Qualified Code(s): J18.9 - Pneumonia, unspecified organism Code(s): J18.9 - Pneumonia, unspecified organism Status: Acute Assessment and Plan: 10/10/23: Chest x-ray showing pneumonia Continue Rocephin and azithromycin 10/11/23: Azithromycin discontinued, continue Rocephin 10/12/23: Continue Rocephin IV, awaiting UC sensitivites (5) UTI (urinary tract infection): Qualifiers: Hematuria presence: with hematuria Urinary tract infection type: site unspecified Qualified Code(s): N39.0 - Urinary tract infection, site not specified; R31.9 - Hematuria, unspecified Code(s): N39.0 - Urinary tract infection, site not specified Status: Acute Assessment and Plan: 10/10/23: UA showing 1+ protein, 2+ glucose, trace ketones, positive nitrates, 1+ leukocytes, 4+ bacteria Urine culture obtained and is pending Continue with Rocephin and azithromycin Patient denies any urinary symptoms 10/11/23: Urine culture showing E coli and Morganella Morganii on preliminary read, awaiting sensitivites. Continue with Rocephin 10/12/23: Awaiting sensitivities on urine culture, lab reports that they should be available tomorrow Continue IV Rocephin (6) Chronic anticoagulation: Code(s): Z79.01 - snf (current) use of anticoagulants Status: Acute Assessment and Plan: 10/10/23: On warfarin 10/11/23: No change to current treatment plan (7) Nausea & vomiting: Code(s): R11.2 - Nausea with vomiting, unspecified Status: Acute Assessment and Plan: 10/10/23: Denies at this time. Zofran ordered 10/11/23: Denies this time No change to current treatment plan Time Spent With Patient Time with patient: 25 - 35 minutes Subjective Date/time seen: 10/12/23 16:17 Interval history: Interval history: 10/10/23: This is a 73 year old female who presented to the hospital on 10/09/23 with complaints of nausea and vomiting that started 1-2 days ago. Work up in hospital included a chest x-ray which shown airspace opacities in the right midlung zone, consistent with pneumonia, cardiomegaly. CT of the abdomen/pelvis revealed small sliding hiatal hernia, two supraumbilical ventral hernias containing fat. UA revealed protein 1+, glucose 2+, trace ketones, positive nitrates, leukocyte 1+, bacteria 4+, many urine RBC and WBC. Urine culture obtained and pending. Patient was started on Rocephin and Azithromycin. On examination today patient is alert and oriented x4, she is lying in the bed. VSS, she is afebrile, she is currently on room air. She denies any pain or discomfort at this time. She denies any fever, chills, nausea, vomiting, diarrhea, abdominal pain, shortness of breath, or chest pain. Labs today reveal PT 23.1, INR 1.9, Na+ 135, K+ 3.4, Bicarb 31, BUN 6, Creatinine 0.70, blood glucose 168-211, AST 13, Albumin 3.1. CBC is unremarkable. UC is still pending. Patient will continue on Rocephin and Azithromycin until results
[2023-10-12 16:22] LABS: Glucose Point of Care 191 mg/dl (65-105)
[2023-10-12] MEDS: WARFARIN (*PBKC) 4 MG TABLET PO (18:26)
[2023-10-12 20:00] VITALS: PULSE 72; RESP 18; O2SAT 93
[2023-10-12 20:45] VITALS: BP 136/58; PULSE 72; RESP 18; TEMP 36.6; O2SAT 93
[2023-10-12 20:57] LABS: Glucose Point of Care 205 mg/dl (65-105)
[2023-10-12] MEDS: INSULIN GLARGINE (*BKC) 100 UNITS/ML 10 UNITS SUB-Q (21:03)
[2023-10-13 04:27] VITALS: BP 148/59; PULSE 68; RESP 16; TEMP 36.6; O2SAT 95
[2023-10-13 06:41] LABS: Basophils Percent Auto 0.7 % (0.2-1.2); Eosinophils Absolute Auto 0.2 K/mm3 (0-0.3); Eosinophils Percent Auto 3.6 % (0-4.4); Hematocrit 40.5 % (37.0-47.0); Hemoglobin 12.9 g/dL (12.0-15.0); Immature Granulocyte Absolute 0.03 K/mm3 (0.00-0.031); Immature Granulocyte Percent A 0.5 % (0-0.5); Lymphocytes Absolute Auto 1.77 K/mm3 (0.9-3.2); Lymphocytes Percent Auto 28.9 % (18.3-44.2); Mean Corpuscular HGB Conc 31.9 g/dl (32-36); Mean Corpuscular Hemoglobin 27.4 pg (26-34); Mean Corpuscular Volume 86.2 fl (80-100); Mean Platelet Volume 9.5 fl (7.4-10.4); Monocytes Absolute Auto 0.6 K/mm3 (0.1-0.6); Monocytes Percent Auto 9.1 % (2.6-8.5); Neutrophils Absolute Auto 3.5 K/mm3 (1.3-6.7); Neutrophils Percent Auto 57.2 % (45.5-73.1); Platelet Count Result 230 k/mm3 (150-375); Red Cell Distribution Width 14.1 % (11.5-14.5); White Blood Count 6.1 K/mm3 (4.5-10.0)
[2023-10-13 07:04] LABS: Alanine Aminotransferase 10 U/L (6-35); Albumin Level 3.2 g/dL (3.5-5.1); Alkaline Phosphatase 125 U/L (38-126); Anion Gap 7 mmol/L (8-16); Aspartate Amino Transferase 14 U/L (14-36); Bilirubin,Total 0.6 mg/dL (0.2-1.3); Blood Urea Nitrogen 6 mg/dL (7-17); Calcium 8.4 mg/dL (8.4-10.2); Carbon Dioxide 31 mmol/L (22-30); Chloride 98 mmol/L (98-107); Estimated CRCL calculation 73 ml/min; Estimated Glomerular Filt Rate > 60; Glucose 140 mg/dL (65-110); INR 2.8; Potassium 3.5 mmol/L (3.4-5.0); Prothrombin Time 31.7 Seconds (11.1-14.7); Sodium 136 mmol/L (137-145)
[2023-10-13 07:39] LABS: Glucose Point of Care 143 mg/dl (65-105)
[2023-10-13 09:01] VITALS: O2SAT 94
[2023-10-13] MEDS: ATORVASTATIN 20 MG TABLET PO (09:23)
[2023-10-13 11:35] LABS: Glucose Point of Care 174 mg/dl (65-105)
--- NOTE | 2023-10-13 12:23 | PM.DS ---
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 Status: Acute (4) Pneumonia: Qualifiers: Laterality: right Lung location: middle lobe of lung Pneumonia type: due to unspecified organism Qualified Code(s): J18.9 - Pneumonia, unspecified organism Code(s): J18.9 - Pneumonia, unspecified organism Status: Acute (5) UTI (urinary tract infection): Qualifiers: Hematuria presence: with hematuria Urinary tract infection type: site unspecified Qualified Code(s): N39.0 - Urinary tract infection, site not specified; R31.9 - Hematuria, unspecified Code(s): N39.0 - Urinary tract infection, site not specified Status: Acute (6) Chronic anticoagulation: Code(s): 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 Zofran ordered 10/11/23: Denies this time No change to current treatment plan DS: Summary Hospital Course Hospital Course: This is a 73-year-old female with a past medical history of diabetes, hyperlipidemia and on chronic anticoagulation for unknown reasons that presented to the ED on 10/09/2023 due to nausea vomiting. Patient's workup revealed chest x-ray showing pneumonia patient started on Rocephin azithromycin as well as UA suspicious for UTI. Rocephin covering for urinary bacteria. Urine culture showing Morganella morganii sensitive to Bactrim. Bactrim will cover both the urine and pneumonia. Patient having difficulties at home with taking care of herself such as forgetting to eat as well as having frequent falls. PT and OT ordered and patient was recommended for [facility]. She was accepted [facility] but then stated she no longer wanted to go to rehab. Patient lost her bed [facility]. Couple hours later patient was willing to go to rehab although she had already lost her bed and another 1 would not be available for several days. This was explained to the patient and she refused to go anywhere else and wanted to be discharged unless she had a bed [facility]. Home health was set up for the patient . Patient's symptoms of nausea vomiting resolved she does have some lingering weakness but is working well with therapy. Her labs and vital signs are stable she is medically clear for discharge at this time. Time Spent with Patient Time attestation: Total time spent providing and/or coordinating discharge services: DS: Data Data Completed and Pending Labs on day of discharge: Labs from last 24 hours 10/13/23 10/13/23 10/13/23 11:31 07:34 06:26 WBC 6.1 RBC 4.70 Hgb 12.9 Hct 40.5 MCV 86.2 MCH 27.4 MCHC 31.9 L RDW 14.1 Plt Count 230 MPV 9.5 Immature Gran % (Auto) 0.5 Neut % (Auto) 57.2 Lymph % (Auto) 28.9 Morrow % (Auto) 9.1 H Eos % (Auto) 3.6 Baso % (Auto) 0.7 Lymph # (Auto) 1.77 Morrow # (Auto) 0.6 Eos # (Auto) 0.2 Baso # (Auto) 0.0 Abs Immat Gran (auto) 0.03 Absolute Neuts (auto) 3.5 Absolute Nucleated RBC 0.0 Nucleated RBC % 0.0 PT 31.7 H INR 2.8 Sodium 136 L Potassium 3.5 Chloride 98 Carbon Dioxide 31 H Anion Gap 7 L BUN 6 L Creatinine 0.70 Estim Creat Clear Calc 73 Estimated GFR > 60 Glucose 140 H POC Capillary Glucose 174 H 143 H Calcium 8
[2023-10-13 14:00] VITALS: BP 148/60; PULSE 95; RESP 20; TEMP 36.9; O2SAT 92
--- NOTE | 2023-10-13 18:43 | PC.NURSE ---
At time of D/C, pt voiced concern over why she was not going to [facility]. Pt reminded that early in the shift, she had told this RN that she wanted to go home and that her 's friend often helps her with things around the house and that he lives in the same apartment building as her. Pt son Trent stated that they all thought she would be going to [facility]. Call made to Kallie, congregational care pastor, to review discharge plan. Kallie, stan RN, son Trent, and pt all discussed that this morning when she was offered the bed at [facility] she was uncertain if she wanted to go. [facility] to bedside and accepted pt. Again pt wanting to return home. Pt worked with therapy who also voiced encouragement with [facility] discharge. Pt finally agreeable. Care coordination states she called [facility], but they no longer had her bed. She told pt that she could call over to [facility] and inquire with Radha who said it might be possible to direct from community admit her. Son voiced understanding. This RN encouraged pt to be thinking and be ready in case [facility] calls her and to call them on Wednesday to inquire about a bed. Pt voices understanding. [facility] to follow; son and pt reminded that they will be following up outpt.
--- NOTE | 2023-10-15 08:18 | PC.NURSE ---
Patient's son called stating they never received the printed script for Zofran and asked if it can be sent to [facility] in [place]. Medication electronically transmitted to [facility] per family request.
== END 2023-10-13 16:45 | disposition home health service (06) | DRG 689 ==
LOC: ANHED 10-09 08:37 → ANH3MEDSUR 10-09 09:29
PROVIDERS: Emergency Medicine; Admitting Provider Student in an Organized Health Care Education/Training Program; Emergency Provider Student in an Organized Health Care Education/Training Program; PCP Family Medicine; Visit Provider Internal Medicine Critical Care Medicine
DX: N39.0 Urinary tract infection, site not specified (principal); J18.9 Pneumonia, unspecified organism; E78.5 Hyperlipidemia, unspecified; E11.9 Type 2 diabetes mellitus without complications; K43.9 Ventral hernia without obstruction or gangrene; K44.9 Diaphragmatic hernia without obstruction or gangrene; R62.7 Adult failure to thrive; R11.2 Nausea with vomiting, unspecified; B96.20 Unspecified Escherichia coli [E. coli] as the cause of diseases classified elsewhere; B96.89 Other specified bacterial agents as the cause of diseases classified elsewhere; F17.210 Nicotine dependence, cigarettes, uncomplicated; Z79.01 Long term (current) use of anticoagulants; Z68.35 Body mass index [BMI] 35.0-35.9, adult; Z79.82 Long term (current) use of aspirin; Z79.4 Long term (current) use of insulin
CPT/HCPCS: 36415; 71045; 74177; 80053; 81001; 82948; 83036; 83690; 83735; 84484; 85025; 85610; 87077; 87086; 87186; 93005; 96365; 96366; 96367; 96375; 97110; 97116; 97161; 97166; 97530; 97535; 99285; A9270; G0378; J0456; J0696; J1815; J2405; J3480; J7030; Q9967

== ENCOUNTER 2023-12-02 15:38 | Inpatient (IN) | payer MEDICARE, SELFPAY ==
--- NOTE | ~2023-12-02 | US_ITS ---
EXAMINATION: US venous doppler [facility] DATE: 12/03/2023 08:43 INDICATION: Lower limb pain and swelling. Suspicion for deep venous thrombosis in the right iliac vei ns on prior CT. TECHNIQUE: Grayscale ultrasound images without and with compression and Doppler ultrasound images of the bilateral lower extremity veins were obtained. COMPARISON: None. FINDINGS: There is extensive nearly occlusive appearing deep venous thrombosis throughout the visualized portio ns of right common femoral vein, profunda (deep) femoral vein, femoral vein, popliteal vein, posterio r tibial veins, peroneal veins, gastrocnemius vein, the greater saphenous vein at the thigh and lesse r saphenous vein. The more distal right greater saphenous vein at the calf is patent and compressible . The visualized portions of left common femoral vein, profunda femoral vein, peroneal veins, gastrocne mius vein and greater saphenous vein outflow are patent. The venous thrombosis in the partially compr essible mid to distal left femoral vein and in the noncompressible left popliteal and posterior tibia l veins. IMPRESSION: 1. Extensive bilateral deep venous thrombosis involving all of the deep veins in the right lower kahn b as well as the right greater saphenous vein above the calf and in the mid left femoral vein to the left posterior tibial veins. Reviewed, dictated and finalized at location A. YSIS MGR IMPRESSION: 1. Extensive bilateral deep venous thrombosis involving all of the deep veins in the right lower limb as well as the right greater saphenous vein above the c janelle and in the mid left femoral vein to the left posterior tibial veins.
--- NOTE | ~2023-12-02 | CT_ITS ---
EXAMINATION: CT abdomen pelvis w con DATE: 12/02/2023 22:43 INDICATION: Abdominal pain and vomiting TECHNIQUE: Computed tomography (CT) of the abdomen and pelvis was performed with 100 mL Omnipaque-350 intravenous contrast. Automated exposure control and iterative reconstruction technique were employe d. The dose-length product was 1016.74 mGy-cm. COMPARISON: 10/09/2023, 09/29/2023 and 04/05/2015 FINDINGS: Mild dependent atelectasis in the bilateral lower lobes. Mild cardiomegaly. Atherosclerotic coronary artery calcification. No pericardial or pleural effusion. Small sliding-type hiatal hernia. There is circumferential wall thickening the distal esophagus suggestive of esophagitis which could be related to reported history of vomiting. 1.7 cm hemangioma in the right hepatic lobe which is low-density cu rrent study but with varying degrees of enhancement on prior studies with characteristic peripheral p uddling on study dated 09/29/2023. Gallbladder, pancreas are normal. Chronic nodular thickening of the bilateral adrenal glands likely benign. Splenic calcific lesions consistent with old granulomatous d isease. Bilateral kidneys are normal. Postoperative change along the anterior abdominal wall of prior sensitive ventral hernia mesh repair. Consider couple small fat-containing ventral hernias cephalad to the mesh repair. Bladder, uterus and bilateral adnexa are normal. Normal appendix. Anastomotic sut ure line at the sigmoid colon suggesting prior partial colectomy. No free intraperitoneal gas or flui d. No pathologically enlarged abdominal or pelvic lymphadenopathy. There is calcified atherosclerosis of the aorta and many of the other arteries. There is asymmetric new relative dilation of the right common and external iliac vein relative to the left and relative to the prior study. There is suggest ion of a central lower density filling defect suspicious for deep venous thrombosis however specifici ty is limited by the phase of contrast and appearance could be artifact of contrast mixing. Anterior fusion with interbody fusion device at L4-L5. IMPRESSION: 1. Possible deep venous thrombosis in the right common and external iliac veins however specificity i s limited by the phase of contrast and appearance could be artifact of contrast mixing. Consider lowe r extremity Doppler for further evaluation. 2. Small sliding-type hiatal hernia with wall thickening in the distal esophagus which could be relat ed to esophagitis such as in the setting of vomiting. 3. Mild cardiomegaly. Reviewed, dictated and finalized at location A. HAND IMPRESSION: 1. Possible deep venous thrombosis in the right common and external iliac veins however specificity is limited by the phase of contrast and appearance could b e artifact of contrast mixing. Consider lower extremity Doppler for further nighat luation. 2. Small sliding-type hiatal hernia with wall thickening in the distal esophagu s which could be related to esophagitis such as in the setting of vomiting. 3. Mild cardiomegaly.
--- NOTE | ~2023-12-02 | CT_ITS ---
EXAMINATION: CT brain wo con DATE: 12/02/2023 22:40 INDICATION: Fall with increasing weakness, dizziness and altered mental status. TECHNIQUE: Computed tomography (CT) of the head was performed without intravenous contrast. Sagittal and coronal reconstructions were performed. The mA was adjusted according to patient size. Iterative reconstruction technique was employed. The dose-length product was 605.33 mGy-cm. COMPARISON: None FINDINGS: No fracture. No acute intracranial hemorrhage, acute infarction or abnormal extra axial fluid collect ion. Small old lacunar infarct at the right thalamus. There is moderate scattered white matter hypoat tenuation consistent with chronic small vessel ischemic disease. Symmetric prominence of the sulci co nsistent with moderate age-appropriate diffuse cerebral volume loss. Ventricles are normal and symmet blayne. No mass/mass effect. Intracranial calcified cerebral atherosclerosis is noted. The orbits, paran yogesh sinuses and mastoid air cells are normal. IMPRESSION: 1. No fracture or acute intracranial process. 2. Small old lacunar infarct at the right thalamus. 3. Age-related changes including moderate diffuse volume loss and moderate scattered white matter hyp oattenuation consistent with chronic small vessel ischemic disease. Reviewed, dictated and finalized at location A. BANDER OPERATOR IMPRESSION: 1. No fracture or acute intracranial process. 2. Small old lacunar infarct at the right thalamus. 3. Age-related changes including moderate diffuse volume loss and moderate scat tered white matter hypoattenuation consistent with chronic small vessel ischemi c disease.
[2023-12-02 15:39] VITALS: BP 126/71; PULSE 92; RESP 16; TEMP 36.8; O2SAT 100
[2023-12-02 18:33] VITALS: BP 128/71; PULSE 99; TEMP 37.1; O2SAT 100
[2023-12-02] MEDS: ONDANSETRON INJ 4 MG/2 ML VIAL IV PUSH (22:00)
[2023-12-02] MEDS: SODIUM CHLORIDE 0.9% IV 500 ML 999 ML IV CONT ×2 (22:00→23:56)
[2023-12-02 22:11] LABS: Basophils Absolute Auto 0.1 K/mm3 (0.0-0.1); Basophils Percent Auto 0.4 % (0.2-1.2); Eosinophils Percent Auto 0.1 % (0-4.4); Hematocrit 42.8 % (37.0-47.0); Hemoglobin 13.6 g/dL (12.0-15.0); Immature Granulocyte Absolute 0.07 K/mm3 (0.00-0.031); Immature Granulocyte Percent A 0.5 % (0-0.5); Lymphocytes Absolute Auto 1.39 K/mm3 (0.9-3.2); Lymphocytes Percent Auto 10.4 % (18.3-44.2); Mean Corpuscular HGB Conc 31.8 g/dl (32-36); Mean Corpuscular Hemoglobin 27.7 pg (26-34); Mean Corpuscular Volume 87.2 fl (80-100); Mean Platelet Volume 9.6 fl (7.4-10.4); Monocytes Absolute Auto 0.8 K/mm3 (0.1-0.6); Monocytes Percent Auto 5.8 % (2.6-8.5); Neutrophils Absolute Auto 11.1 K/mm3 (1.3-6.7); Neutrophils Percent Auto 82.8 % (45.5-73.1); Platelet Count Result 181 k/mm3 (150-375); Red Blood Count 4.91 M/mm3 (4.2-5.4); Red Cell Distribution Width 15.7 % (11.5-14.5); White Blood Count 13.4 K/mm3 (4.5-10.0)
--- NOTE | 2023-12-02 22:17 | ED.NAVMDI ---
HPI - Nausea/Vomiting/Diarrhea General Chief complaint: Nausea/Vomiting/Diarrhea Stated complaint: dehydration, abd pain, nausea Time Seen by Provider: 12/02/23 20:35 Source: patient and family Mode of arrival: EMS Limitations: no limitations History of Present Illness HPI Narrative: This is a 73-year-old female that presents to the emergency department for abdominal pain, nausea and vomiting. Ongoing over the last 4 days. Reports she has not been able to keep much down. Denies fevers, diarrhea, dysuria, or hematuria. Family provides additional history that she has not been taking very good care of herself and they are concerned if she is taking her medications properly. They report she has had some falls and her house is not suitable for living. Related Data Home Medications Medication Instructions Recorded Confirmed insulin glargine 100 unit/mL (3 45 unit subcut DAILY 10/09/23 11/17/23 mL) subcutaneous pen (Lantus Solostar U-100 Insulin) pen needle, diabetic 32 gauge x 10/09/23 11/17/23 vit C 250 mg-vit E 90 mg-zinc 40 1 tablet PO BID 10/10/23 11/17/23 mg-copper 1 [id number] capsule (PreserVision AREDS-2) rivaroxaban 10 mg tablet (Xarelto) 10 mg PO DAILY 10/19/23 11/17/23 Allergies Allergy/AdvReac Type Severity Reaction Status Date / Time ciprofloxacin Allergy Mild Vomiting Verified 11/25/23 08:34 codeine Allergy Unknown vomiting Verified 11/25/23 08:34 Review of Systems Review of Systems: CONSTITUTIONAL: Denies fever GASTROINTESTINAL: Reports abdominal pain, nausea, vomiting. Denies diarrhea. GENITOURINARY: Denies dysuria or hematuria. All systems reviewed & are unremarkable except as noted in HPI and below PMFSH Past Medical History Medical History Acute diverticulitis of intestine Adult failure to thrive Atherosclerosis of aorta with gangrene Chronic anticoagulation Coronary atherosclerosis Epidermal cyst of face Factor V deficiency Hx of deep venous thrombosis Hyperlipidemia Insulin dependent type 2 diabetes mellitus Sliding hiatal hernia Tobacco abuse Surgical History Surgical History H/O breast biopsy H/O colonoscopy with polypectomy 2012 History of lumbar fusion L5-S1 History of partial colectomy History of removal of cyst 2022, orbital, cheek and neck S/P recurrent ventral herniorrhaphy Social History Social History (Updated 11/25/23 @ 08:35 by Evelina Castillo) Social History: Smoking packs per day: 2 Smoking cigarettes per day: 40.0 Years smoked: 24 Smoking pack-years: 48.00 Smoking status: Current every day smoker Tobacco type: cigarettes Alcohol intake: current Drinks per week: 8 Alcohol use details: beer Substance use: never Substance use type: does not use Do You Feel Safe in your Home?: Yes Lack of Transportation: No Lack of Food: Never True Current Housing: I Have Housing Concerned About Future Housing: No Difficulty Paying Gas/Electric Bills: No Difficulty Paying for Meds: No Currently Unemployed: YES Education: Bachelor's Degree Difficulty w/ Childcare or Family Care: No Living arrangements: alone Occupation/Education: retired Gender identity (if verbalized by the patient): Female Sexual Orientation (if Verbalized by the Patient): Straight or Heterosexual Spiritual care concerns: Yes (Orthodoxy) Agree to blood products: Yes Exam Narrative: GENERAL: Well-appearing, well-nourished, and in no acute distress. HEAD: Normocephalic, atraumatic. EYES: PERRLA and EOMI. ENT: Nares clear, no rhinorrhea or epistaxis. Mucous membranes moist. Oropharynx without tonsillar hypertrophy exudate or other lesions. Bilateral TMs pearly stovall non-bulging NECK: Supple. No adenopathy or masses. CHEST: Clear to auscultation. No respiratory distress. No wheezes rales or rhonchi HEART: Regular ra
[2023-12-02 22:20] LABS: Alanine Aminotransferase 13 U/L (6-35); Albumin Level 3.8 g/dL (3.5-5.1); Alkaline Phosphatase 146 U/L (38-126); Anion Gap 11 mmol/L (8-16); Aspartate Amino Transferase 19 U/L (14-36); Bilirubin,Total 1.8 mg/dL (0.2-1.3); Blood Urea Nitrogen 22 mg/dL (7-17); Calcium 8.8 mg/dL (8.4-10.2); Carbon Dioxide 35 mmol/L (22-30); Chloride 92 mmol/L (98-107); Estimated CRCL calculation 45 ml/min; Estimated Glomerular Filt Rate 44; Glucose 173 mg/dL (65-110); Lipase 54 U/L (23-300); Potassium 3.2 mmol/L (3.4-5.0); Sodium 138 mmol/L (137-145)
[2023-12-02 22:59] LABS: Magnesium 2.3 mg/dL (1.6-2.3)
[2023-12-02] MEDS: POTASSIUM CHLORIDE INJ 40 MEQ in SODIUM CHLORIDE 0.9% IV 500 ML 130 MEQ IVPB (23:17)
[2023-12-02 23:37] VITALS: BP 132/58; PULSE 98; RESP 16; O2SAT 100
[2023-12-02 23:40] LABS: Bacteria Urine 4+ /hpf; Non Pathogenic Casts >20; RBC Urine >100 /hpf (0-2); Squamous Epithelial Cell Urine Occasional /hpf (Few); WBC Urine >100 /hpf
[2023-12-02 23:42] LABS: Appearance Urine Cloudy (Clear); Color Urine Dark Yellow (Yellow)
[2023-12-02 23:43] LABS: Glucose Urine UA Negative (Negative); Protein Urine 2+ mg/dL (Negative); Specific Grav Ur 1.025 (1.001-1.035)
[2023-12-02 23:44] LABS: Add Urine Microscopic? YES; Bilirubin Urine 1+ (Negative); Blood Urine 1+ (Negative); Ketones Urine Trace mg/dL (Negative); Leukocyte Esterase Ur 1+ LEU/UL (Negative); Nitrate Urine Positive (Negative)
[2023-12-03] VITALS (9 sets, daily range): BP systolic 105–153; BP diastolic 50–56; PULSE 65–89; RESP 12–20; TEMP 36.3–37.2; O2SAT 94–97; BMI 31.7
--- NOTE | 2023-12-03 00:30 | PM.IMHP ---
H&P: HPI History of Present Illness Date/Time: 12/03/23 00:30 Chief Complaint: Fall Narrative: This is a 73-year-old female with past medical history significant for insulin-dependent diabetes mellitus, factor V Leiden deficiency, coronary artery disease, deep vein thrombosis, tobacco abuse. Patient was brought to the emergency room for evaluation according to family patient was found at her [place] was in disarray and is felt that she has not been taking care of herself not taking her medications. Patient was unable to provide much history contributory in a meaningful way to history taking. Patient states that she had a fall. Has had nausea and vomiting unable to take her medications according to family. preliminary workup was significant for urinalysis with numerous WBCs present. Has been admitted for further evaluation management and treatment. EXAMINATION: CT abdomen pelvis w con DATE: 12/02/2023 22:43 INDICATION: Abdominal pain and vomiting TECHNIQUE: Computed tomography (CT) of the abdomen and pelvis was performed with 100 mL Omnipaque-350 intravenous contrast. Automated exposure control and iterative reconstruction technique were employed. The dose-length product was 1016.74 mGy-cm. COMPARISON: 10/09/2023, 09/29/2023 and 04/05/2015 FINDINGS: Mild dependent atelectasis in the bilateral lower lobes. Mild cardiomegaly. Atherosclerotic coronary artery calcification. No pericardial or pleural effusion. Small sliding-type hiatal hernia. There is circumferential wall thickening the distal esophagus suggestive of esophagitis which could be related to reported history of vomiting. 1.7 cm hemangioma in the right hepatic lobe which is low-density current study but with varying degrees of enhancement on prior studies with characteristic peripheral puddling on study dated 09/29/2023. Gallbladder, pancreas are normal. Chronic nodular thickening of the bilateral adrenal glands likely benign. Splenic calcific lesions consistent with old granulomatous disease. Bilateral kidneys are normal. Postoperative change along the anterior abdominal wall of prior sensitive ventral hernia mesh repair. Consider couple small fat-containing ventral hernias cephalad to the mesh repair. Bladder, uterus and bilateral adnexa are normal. Normal appendix. Anastomotic suture line at the sigmoid colon suggesting prior partial colectomy. No free intraperitoneal gas or fluid. No pathologically enlarged abdominal or pelvic lymphadenopathy. There is calcified atherosclerosis of the aorta and many of the other arteries. There is asymmetric new relative dilation of the right common and external iliac vein relative to the left and relative to the prior study. There is suggestion of a central lower density filling defect suspicious for deep venous thrombosis however specificity is limited by the phase of contrast and appearance could be artifact of contrast mixing. Anterior fusion with interbody fusion device at L4-L5. IMPRESSION: 1. Possible deep venous thrombosis in the right common and external iliac veins however specificity is limited by the phase of contrast and appearance could be artifact of contrast mixing. Consider lower extremity Doppler for further evaluation. 2. Small sliding-type hiatal hernia with wall thickening in the distal esophagus which could be related to esophagitis such as in the setting of vomiting. 3. Mild cardiomegaly. Review of Systems Review of Systems: ROS unobtainable: Yes unobtainable due to mental status (Confusion) [facility] Past Medical History Medical History Acute diverticulitis of intestine Adult failure to thrive Atherosclerosis of aorta with gangrene Chronic anticoagulation Coronary atherosclerosis Epidermal cyst of face Factor V deficiency Hx of deep venous thrombosis Hyperlipidemia Insulin dependent type 2 diabetes mellitus Sliding hiatal hernia Tobacco abuse Surgical History
[2023-12-03] MEDS: ENOXAPARIN 100 MG/ML SYRINGE SUB-Q (01:15)
--- NOTE | 2023-12-03 03:38 | ADMGEN ---
This patient, Diamond Pratt, was admitted to 2 Medical Room 240-. Patient/family oriented to hospital policies and general routines including ID bracelet, bed and alarms, visiting hours, pain management, procedures, bathroom and other care routines, personal items, smoking policy, room service/diet, and visiting hours. Information on how to activate the Rapid Response Team has been discussed. Patient/Family are encouraged to report perceived risks to care and to ask questions if they do not understand what they are told or what they should do.
--- NOTE | 2023-12-03 03:43 | PC.NURSE ---
Administration of Rocephin and Lovenox during downtime and documented on paper charting; back charted once system back up.
[2023-12-03 07:26] LABS: Basophils Percent Auto 0.3 % (0.2-1.2); Eosinophils Absolute Auto 0.1 K/mm3 (0-0.3); Eosinophils Percent Auto 0.7 % (0-4.4); Hematocrit 34.9 % (37.0-47.0); Hemoglobin 11.2 g/dL (12.0-15.0); Immature Granulocyte Absolute 0.04 K/mm3 (0.00-0.031); Immature Granulocyte Percent A 0.4 % (0-0.5); Lymphocytes Absolute Auto 1.98 K/mm3 (0.9-3.2); Lymphocytes Percent Auto 18.5 % (18.3-44.2); Mean Corpuscular HGB Conc 32.1 g/dl (32-36); Mean Corpuscular Hemoglobin 27.7 pg (26-34); Mean Corpuscular Volume 86.4 fl (80-100); Mean Platelet Volume 9.3 fl (7.4-10.4); Monocytes Absolute Auto 0.7 K/mm3 (0.1-0.6); Monocytes Percent Auto 6.9 % (2.6-8.5); Neutrophils Absolute Auto 7.8 K/mm3 (1.3-6.7); Neutrophils Percent Auto 73.2 % (45.5-73.1); Platelet Count Result 143 k/mm3 (150-375); Red Blood Count 4.04 M/mm3 (4.2-5.4); Red Cell Distribution Width 15.6 % (11.5-14.5); White Blood Count 10.7 K/mm3 (4.5-10.0)
[2023-12-03 07:42] LABS: Alanine Aminotransferase 7 U/L (6-35); Alkaline Phosphatase 113 U/L (38-126); Anion Gap 6 mmol/L (8-16); Aspartate Amino Transferase 15 U/L (14-36); Blood Urea Nitrogen 18 mg/dL (7-17); Calcium 7.7 mg/dL (8.4-10.2); Carbon Dioxide 29 mmol/L (22-30); Chloride 102 mmol/L (98-107); Cholesterol 150 mg/dL (0-200); Estimated CRCL calculation 61 ml/min; Estimated Glomerular Filt Rate > 60; Glucose 115 mg/dL (65-110); HDL Direct 43 mg/dL; Potassium 3.4 mmol/L (3.4-5.0); Sodium 137 mmol/L (137-145); Triglycerides 117 mg/dL (<150)
[2023-12-03 07:53] LABS: LDL Cholesterol Direct 76 mg/dL
[2023-12-03 09:20] LABS: Glucose Point of Care 118 mg/dl (65-105)
[2023-12-03] MEDS: OPTI-GEN TAB 1 TABLET PO ×2 (09:21→17:30)
[2023-12-03] MEDS: ATORVASTATIN 20 MG TABLET PO (09:21)
[2023-12-03] MEDS: PANTOPRAZOLE 40 MG TABLET PO (09:21)
[2023-12-03] MEDS: POTASSIUM CHLORIDE 20 MEQ PACKET (FOR LIQUID) 40 MEQ PO (09:22)
[2023-12-03] MEDS: INSULIN GLARGINE (*BKC) 100 UNITS/ML 45 UNITS SUB-Q (09:24)
--- NOTE | 2023-12-03 11:14 | PM.IMPN ---
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 - Hereditary deficiency of other clotting factors Status: Acute (6) Chronic anticoagulation: Code(s): Z79.01 - jail (current) use of anticoagulants Status: Acute (7) Adult failure to thrive: Code(s): R62.7 - Adult failure to thrive Status: Acute (8) Insulin dependent type 2 diabetes mellitus: Code(s): E11.9 - Type 2 diabetes mellitus without complications; Z79.4 - jail (current) use of insulin Status: Acute (9) Nausea & vomiting: Qualifiers: Vomiting type: unspecified Qualified Code(s): R11.2 - Nausea with vomiting, unspecified Code(s): R11.2 - Nausea with vomiting, unspecified Status: Acute (10) Acute DVT (deep venous thrombosis): Qualifiers: DVT location: lower extremity Affected thrombotic vein of extremity: other lower extremity vein Laterality: bilateral Qualified Code(s): I82.493 - Acute embolism and thrombosis of other specified deep vein of lower extremity, bilateral Code(s): I82.409 - Acute embolism and thrombosis of unspecified deep veins of unspecified lower extremity Status: Acute Plan Generalized Weakness -Secondary to UTI -Failure to thrive -PT/OT pending -COVID/Influenza/RSV pending Acute DVT -HX dvt/Factor V deficiency -Had been non complaint with Xarelto for 6 days -Dopplers showing extensive Bilateral DVT's -resumed patient Xarelto -education on medication compliance given UTI -Urine cultures and blood cultures -Continue IV hydration. -Monitor CBC, CMP watch for sepsis. -Monitor vital signs. -Rocephin pending cultures -Monitor for obstructive uropathy and pyelonephritis Factor V deficiency -Xarelto/HX DVT and acute -can follow-up with a tin assorter O/P Diabetes -Juan Carlosu-Shaun alston HS -sliding scale insulin -resume patient's home long-acting -Diabetic diet -consult to dietitian -Watch for hypoglycemia/hypoglycemic protocol ordered Code status: Full code per patient DVT prophylaxis: Xarelto Stress ulcer prophylaxis: Protonix 40 daily PT/OT notes: PT/OT pending Disposition: Patient continues admission for continued generalized weakness, pending urinary cultures. PT/OT pending for recommendations post discharge patient at this time is refusing any rehab or home health with re-assess following PT/OT evaluation. -Patient's previous records reviewed on admission -ER notes reviewed in detail on admission -discussed all findings and current treatment plan with patient/Family/POA -Consultations reviewed for recommendations -Patient's disposition for safe discharge discussed with case fitter Dictation performed by [employer] direct speech recognition software, therefore internal controls analyst variants and typographical errors may occur. Time Spent With Patient Time with patient: 25 - 35 minutes Subjective Date/time seen: 12/03/23 11:14 Interval history: This is a 73-year-old female with past medical history significant for insulin-dependent diabetes mellitus, factor V Leiden deficiency, coronary artery disease, deep vein thrombosis, tobacco abuse.? Patient was brought to the emergency room for evaluation according to family patient was found at her condomin[place] place was in disarray and is felt that she has not been taking care of herself not taking her medications.? Patient was unable to provide much history contributory in a meaningful way to history taking.? Patient states that she had
[2023-12-03 12:04] LABS: Glucose Point of Care 148 mg/dl (65-105)
[2023-12-03 14:17] LABS: Influenza A QL RT-PCR Negative (Negative); Influenza B QL RT-PCR Negative (Negative); RSV RNA, RT-PCR Negative (Negative); SARS-CoV-2 RNA PCR Negative (Negative)
--- NOTE | 2023-12-03 15:21 | PCPTNOTE ---
attempted PT eval 1450- pt refused, stated she was too tired Unable to convince her to get OOB. Said she would try tomorrow.
[2023-12-03 16:58] LABS: Glucose Point of Care 83 mg/dl (65-105)
[2023-12-03] MEDS: RIVAROXABAN 10 MG TABLET PO (17:30)
[2023-12-03 21:55] LABS: Glucose Point of Care 88 mg/dl (65-105)
[2023-12-04] VITALS (12 sets, daily range): BP systolic 115–134; BP diastolic 45–56; PULSE 61–87; RESP 16–18; TEMP 36.3–36.6; O2SAT 92–96
[2023-12-04 07:23] LABS: Basophils Percent Auto 0.5 % (0.2-1.2); Eosinophils Absolute Auto 0.2 K/mm3 (0-0.3); Eosinophils Percent Auto 2.7 % (0-4.4); Hematocrit 35.1 % (37.0-47.0); Hemoglobin 10.8 g/dL (12.0-15.0); Immature Granulocyte Absolute 0.05 K/mm3 (0.00-0.031); Immature Granulocyte Percent A 0.6 % (0-0.5); Lymphocytes Absolute Auto 1.83 K/mm3 (0.9-3.2); Lymphocytes Percent Auto 20.9 % (18.3-44.2); Mean Corpuscular HGB Conc 30.8 g/dl (32-36); Mean Corpuscular Hemoglobin 27.4 pg (26-34); Mean Corpuscular Volume 89.1 fl (80-100); Mean Platelet Volume 9.1 fl (7.4-10.4); Monocytes Absolute Auto 0.7 K/mm3 (0.1-0.6); Monocytes Percent Auto 7.9 % (2.6-8.5); Neutrophils Absolute Auto 5.9 K/mm3 (1.3-6.7); Neutrophils Percent Auto 67.4 % (45.5-73.1); Platelet Count Result 154 k/mm3 (150-375); Red Blood Count 3.94 M/mm3 (4.2-5.4); Red Cell Distribution Width 15.8 % (11.5-14.5); White Blood Count 8.8 K/mm3 (4.5-10.0)
[2023-12-04 07:37] LABS: Alanine Aminotransferase 6 U/L (6-35); Alkaline Phosphatase 110 U/L (38-126); Anion Gap 3 mmol/L (8-16); Aspartate Amino Transferase 16 U/L (14-36); Bilirubin,Total 0.9 mg/dL (0.2-1.3); Blood Urea Nitrogen 11 mg/dL (7-17); Calcium 8.1 mg/dL (8.4-10.2); Carbon Dioxide 34 mmol/L (22-30); Chloride 100 mmol/L (98-107); Estimated CRCL calculation 61 ml/min; Estimated Glomerular Filt Rate > 60; Glucose 70 mg/dL (65-110); Potassium 3.4 mmol/L (3.4-5.0); Sodium 137 mmol/L (137-145)
[2023-12-04 08:33] LABS: Glucose Point of Care 71 mg/dl (65-105)
[2023-12-04] MEDS: OPTI-GEN TAB 1 TABLET PO ×2 (08:58→17:17)
[2023-12-04] MEDS: PANTOPRAZOLE 40 MG TABLET PO (08:59)
[2023-12-04] MEDS: ATORVASTATIN 20 MG TABLET PO (08:59)
--- NOTE | 2023-12-04 09:05 | PM.IMPN ---
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 - Hereditary deficiency of other clotting factors Status: Acute (6) Chronic anticoagulation: Code(s): Z79.01 - [facility] (current) use of anticoagulants Status: Acute (7) Adult failure to thrive: Code(s): R62.7 - Adult failure to thrive Status: Acute (8) Insulin dependent type 2 diabetes mellitus: Code(s): E11.9 - Type 2 diabetes mellitus without complications; Z79.4 - [facility] (current) use of insulin Status: Acute (9) Nausea & vomiting: Qualifiers: Vomiting type: unspecified Qualified Code(s): R11.2 - Nausea with vomiting, unspecified Code(s): R11.2 - Nausea with vomiting, unspecified Status: Acute (10) Acute DVT (deep venous thrombosis): Qualifiers: DVT location: lower extremity Affected thrombotic vein of extremity: other lower extremity vein Laterality: bilateral Qualified Code(s): I82.493 - Acute embolism and thrombosis of other specified deep vein of lower extremity, bilateral Code(s): I82.409 - Acute embolism and thrombosis of unspecified deep veins of unspecified lower extremity Status: Acute Plan Generalized Weakness -Secondary to UTI -Failure to thrive -PT/OT pending refused by patient 12/03/2023 -COVID/Influenza/RSV negative Acute DVT -HX dvt/Factor V deficiency -Had been non complaint with Xarelto for 6 days -Dopplers showing extensive Bilateral DVT's -resumed patient Xarelto -H&H stable -education on medication compliance given UTI -Urine cultures and blood cultures -Continue IV hydration. -Monitor CBC, CMP watch for sepsis. -Monitor vital signs. -Rocephin pending cultures -Monitor for obstructive uropathy and pyelonephritis Factor V deficiency -Xarelto/HX DVT and acute -can follow-up with a wheelchair rental clerk O/P Diabetes -Accu-Shaun a.cEduardo HS -sliding scale insulin -resume patient's home long-acting -Diabetic diet -consult to dietitian -Watch for hypoglycemia/hypoglycemic protocol ordered Code status: Full code per patient DVT prophylaxis: Xarelto Stress ulcer prophylaxis: Protonix 40 daily PT/OT notes: PT/OT pending Disposition: Patient continues admission for continued generalized weakness, pending urinary cultures. PT/OT pending for recommendations post discharge patient at this time is refusing any rehab or home health with re-assess following PT/OT evaluation. -Patient's previous records reviewed on admission -ER notes reviewed in detail on admission -discussed all findings and current treatment plan with patient/Family/POA -Consultations reviewed for recommendations -Patient's disposition for safe discharge discussed with employment case manager Dictation performed by [employer] direct speech recognition software, therefore health service worker variants and typographical errors may occur. Time Spent With Patient Time with patient: 15 - 25 minutes Subjective Date/time seen: 12/04/23 09:05 Interval history: This is a 73-year-old female with past medical history significant for insulin-dependent diabetes mellitus, factor V Leiden deficiency, coronary artery disease, deep vein thrombosis, tobacco abuse.? Patient was brought to the emergency room for evaluation according to family patient was found at her condominium place was in disarray and is felt that she has not been taking care of herself not taking her medications.? Patient was unable to provide much history contributory in a meaningful way to hi
[2023-12-04 12:16] LABS: Glucose Point of Care 126 mg/dl (65-105)
--- NOTE | 2023-12-04 13:28 | PCOTNOTE ---
Attempted to see patient for OT evaluation. Patient declining any/all activity at this time stating she doesn't feel well. Offered to help her to a chair and she declined. Will continue to attempt.
[2023-12-04 17:03] LABS: Glucose Point of Care 100 mg/dl (65-105)
[2023-12-04] MEDS: ONDANSETRON INJ 4 MG/2 ML VIAL IV PUSH (17:17)
[2023-12-04] MEDS: RIVAROXABAN 10 MG TABLET PO (17:17)
[2023-12-04 21:53] LABS: Glucose Point of Care 130 mg/dl (65-105)
[2023-12-05] VITALS (11 sets, daily range): BP systolic 106–148; BP diastolic 44–64; PULSE 71–97; RESP 14–18; TEMP 36.1–37.5; O2SAT 93–100
[2023-12-05 07:41] LABS: Hematocrit 33.9 % (37.0-47.0); Hemoglobin 10.5 g/dL (12.0-15.0); Mean Corpuscular Hemoglobin 27.2 pg (26-34); Mean Corpuscular Volume 87.8 fl (80-100); Mean Platelet Volume 9.4 fl (7.4-10.4); Platelet Count Result 165 k/mm3 (150-375); Red Blood Count 3.86 M/mm3 (4.2-5.4); Red Cell Distribution Width 15.7 % (11.5-14.5); White Blood Count 5.9 K/mm3 (4.5-10.0)
[2023-12-05 08:05] LABS: Alanine Aminotransferase 8 U/L (6-35); Alkaline Phosphatase 106 U/L (38-126); Anion Gap 4 mmol/L (8-16); Aspartate Amino Transferase 17 U/L (14-36); Blood Urea Nitrogen 8 mg/dL (7-17); Calcium 8.2 mg/dL (8.4-10.2); Carbon Dioxide 33 mmol/L (22-30); Chloride 97 mmol/L (98-107); Estimated CRCL calculation 69 ml/min; Estimated Glomerular Filt Rate > 60; Glucose 112 mg/dL (65-110); Potassium 3.5 mmol/L (3.4-5.0); Sodium 134 mmol/L (137-145)
[2023-12-05 08:26] LABS: Glucose Point of Care 127 mg/dl (65-105)
[2023-12-05] MEDS: ATORVASTATIN 20 MG TABLET PO (09:04)
[2023-12-05] MEDS: PANTOPRAZOLE 40 MG TABLET PO (09:04)
[2023-12-05] MEDS: SULFAMETHOXAZOLE/TRIMETHOPRIM 800/160 MG DS TABLET 1 TAB PO ×2 (09:05→19:59)
[2023-12-05] MEDS: OPTI-GEN TAB 1 TABLET PO ×2 (09:05→17:08)
--- NOTE | 2023-12-05 10:06 | PM.IMPN ---
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 - Hereditary deficiency of other clotting factors Status: Acute (6) Chronic anticoagulation: Code(s): Z79.01 - snf (current) use of anticoagulants Status: Acute (7) Adult failure to thrive: Code(s): R62.7 - Adult failure to thrive Status: Acute (8) Insulin dependent type 2 diabetes mellitus: Code(s): E11.9 - Type 2 diabetes mellitus without complications; Z79.4 - snf (current) use of insulin Status: Acute (9) Nausea & vomiting: Qualifiers: Vomiting type: unspecified Qualified Code(s): R11.2 - Nausea with vomiting, unspecified Code(s): R11.2 - Nausea with vomiting, unspecified Status: Acute (10) Acute DVT (deep venous thrombosis): Qualifiers: DVT location: lower extremity Affected thrombotic vein of extremity: other lower extremity vein Laterality: bilateral Qualified Code(s): I82.493 - Acute embolism and thrombosis of other specified deep vein of lower extremity, bilateral Code(s): I82.409 - Acute embolism and thrombosis of unspecified deep veins of unspecified lower extremity Status: Acute Plan Generalized Weakness -Secondary to UTI -Failure to thrive -PT/OT Rehab candidate -COVID/Influenza/RSV pending Acute DVT -HX dvt/Factor V deficiency -Had been non complaint with Xarelto for 6 days -Dopplers showing extensive Bilateral DVT's -resumed patient Xarelto -education on medication compliance given UTI -Urine cultures klebsiella variicola -Continue IV hydration. -Monitor CBC, CMP watch for sepsis. -Monitor vital signs. -Rocephin switch to oral bactrim -Monitor for obstructive uropathy and pyelonephritis Factor V deficiency -Xarelto/HX DVT and acute -can follow-up with a mainframe analyst O/P -H&H stable Diabetes -Accu-Cristelaks a.cEduardo HS -sliding scale insulin -resume patient's home long-acting -Diabetic diet -consult to dietitian -Watch for hypoglycemia/hypoglycemic protocol ordered Code status: Full code per patient DVT prophylaxis: Xarelto Stress ulcer prophylaxis: Protonix 40 daily PT/OT notes: PT/OT pending Disposition: Patient continues admission for continued generalized weakness and UTI needs to work with PT/OT re-educated on the need. Patient has been reluctant to go to rehab but today states she is interested will update CC tomorrow. -Patient's previous records reviewed on admission -ER notes reviewed in detail on admission -discussed all findings and current treatment plan with patient/Family/POA -Consultations reviewed for recommendations -Patient's disposition for safe discharge discussed with manager of case Dictation performed by [employer] direct speech recognition software, therefore flooring machine operator variants and typographical errors may occur. Time Spent With Patient Time with patient: 15 - 25 minutes Subjective Date/time seen: 12/05/23 10:06 Interval history: This is a 73-year-old female with past medical history significant for insulin-dependent diabetes mellitus, factor V Leiden deficiency, coronary artery disease, deep vein thrombosis, tobacco abuse.? Patient was brought to the emergency room for evaluation according to family patient was found at her condominium place was in disarray and is felt that she has not been taking care of herself not taking her medications.? Patient was unable to provide much history contributory in a meaningful way to history taking.? Patient states that
[2023-12-05 12:06] LABS: Glucose Point of Care 153 mg/dl (65-105)
[2023-12-05] MEDS: RIVAROXABAN 10 MG TABLET PO (17:08)
[2023-12-05 17:28] LABS: Glucose Point of Care 145 mg/dl (65-105)
[2023-12-05] MEDS: ONDANSETRON INJ 4 MG/2 ML VIAL IV PUSH (20:00)
[2023-12-05 20:41] LABS: Glucose Point of Care 142 mg/dl (65-105)
[2023-12-06] VITALS (8 sets, daily range): BP systolic 113–145; BP diastolic 44–61; PULSE 68–96; RESP 16–20; TEMP 36.1–37.6; O2SAT 91–100
[2023-12-06 05:44] LABS: Hematocrit 32.2 % (37.0-47.0); Hemoglobin 10.5 g/dL (12.0-15.0); Mean Corpuscular HGB Conc 32.6 g/dl (32-36); Mean Corpuscular Hemoglobin 27.7 pg (26-34); Mean Platelet Volume 9.4 fl (7.4-10.4); Platelet Count Result 171 k/mm3 (150-375); Red Blood Count 3.79 M/mm3 (4.2-5.4); Red Cell Distribution Width 15.6 % (11.5-14.5); White Blood Count 5.5 K/mm3 (4.5-10.0)
[2023-12-06 05:50] LABS: Alanine Aminotransferase 6 U/L (6-35); Alkaline Phosphatase 104 U/L (38-126); Anion Gap 4 mmol/L (8-16); Aspartate Amino Transferase 14 U/L (14-36); Bilirubin,Total 0.7 mg/dL (0.2-1.3); Blood Urea Nitrogen 7 mg/dL (7-17); Calcium 8.1 mg/dL (8.4-10.2); Carbon Dioxide 30 mmol/L (22-30); Chloride 97 mmol/L (98-107); Estimated CRCL calculation 61 ml/min; Estimated Glomerular Filt Rate > 60; Glucose 110 mg/dL (65-110); Potassium 3.5 mmol/L (3.4-5.0); Sodium 131 mmol/L (137-145)
--- NOTE | 2023-12-06 08:26 | PCPTNOTE ---
Patient refused treatment this session. Patient reported she wanted to eat breakfast first and did not want to get up to chair for breakfast. Educated patient on the importance of therapy and participating with PT. Patient continued to refuse.
[2023-12-06] MEDS: ATORVASTATIN 20 MG TABLET PO (08:44)
[2023-12-06] MEDS: SULFAMETHOXAZOLE/TRIMETHOPRIM 800/160 MG DS TABLET 1 TAB PO ×2 (08:44→21:02)
[2023-12-06] MEDS: PANTOPRAZOLE 40 MG TABLET PO (08:44)
[2023-12-06] MEDS: OPTI-GEN TAB 1 TABLET PO ×2 (08:44→17:58)
[2023-12-06] MEDS: INSULIN GLARGINE (*BKC) 100 UNITS/ML 45 UNITS SUB-Q (08:45)
[2023-12-06 08:47] LABS: Glucose Point of Care 118 mg/dl (65-105)
--- NOTE | 2023-12-06 09:47 | PM.IMPN ---
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 - Hereditary deficiency of other clotting factors Status: Acute (6) Chronic anticoagulation: Code(s): Z79.01 - FPC (current) use of anticoagulants Status: Acute (7) Adult failure to thrive: Code(s): R62.7 - Adult failure to thrive Status: Acute (8) Insulin dependent type 2 diabetes mellitus: Code(s): E11.9 - Type 2 diabetes mellitus without complications; Z79.4 - FPC (current) use of insulin Status: Acute (9) Nausea & vomiting: Qualifiers: Vomiting type: unspecified Qualified Code(s): R11.2 - Nausea with vomiting, unspecified Code(s): R11.2 - Nausea with vomiting, unspecified Status: Acute (10) Acute DVT (deep venous thrombosis): Qualifiers: DVT location: lower extremity Affected thrombotic vein of extremity: other lower extremity vein Laterality: bilateral Qualified Code(s): I82.493 - Acute embolism and thrombosis of other specified deep vein of lower extremity, bilateral Code(s): I82.409 - Acute embolism and thrombosis of unspecified deep veins of unspecified lower extremity Status: Acute Plan Generalized Weakness -Secondary to UTI -Failure to thrive -PT/OT Rehab candidate -COVID/Influenza/RSV Negative Acute DVT -HX dvt/Factor V deficiency -Had been non complaint with Xarelto for 6 days -Dopplers showing extensive Bilateral DVT's -resumed patient Xarelto -education on medication compliance given UTI -Urine cultures klebsiella variicola -Continue IV hydration. -Monitor CBC, CMP watch for sepsis. -Monitor vital signs. -Rocephin switch to oral Bactrim Factor V deficiency -Xarelto/HX DVT and acute -can follow-up with a plumber's helper O/P Dr. Valente -H&H stable [facility] -sliding scale insulin -resume patient's home long-acting -Diabetic diet -consult to dietitian -Watch for hypoglycemia/hypoglycemic protocol ordered Code status: Full code per patient DVT prophylaxis: Xarelto Stress ulcer prophylaxis: Protonix 40 daily PT/OT notes: PT/OT Rehab recommended Disposition: Patient continues admission for continued generalized weakness and UTI needs to work with PT/OT re-educated on the need. Patient agreeable to go to rehab CC assisting in placement, medically cleared when placement found. -Patient's previous records reviewed on admission -ER notes reviewed in detail on admission -discussed all findings and current treatment plan with patient/Family/POA -Consultations reviewed for recommendations -Patient's disposition for safe discharge discussed with case resolution specialist Dictation performed by edupristine direct speech recognition software, therefore bi data modeler variants and typographical errors may occur. Time Spent With Patient Time with patient: less than 15 minutes Subjective Date/time seen: 12/06/23 09:47 Interval history: This is a 73-year-old female with past medical history significant for insulin-dependent diabetes mellitus, factor V Leiden deficiency, coronary artery disease, deep vein thrombosis, tobacco abuse.? Patient was brought to the emergency room for evaluation according to family patient was found at her condominium place was in disarray and is felt that she has not been taking care of herself not taking her medications.? Patient was unable to provide much history contributory in a meaningful way to history taking.? Patient states that she had a fall.? Has had na
[2023-12-06 12:07] LABS: Glucose Point of Care 118 mg/dl (65-105)
[2023-12-06] MEDS: ONDANSETRON INJ 4 MG/2 ML VIAL IV PUSH (14:04)
--- NOTE | 2023-12-06 15:23 | PCPTNOTE ---
Attempted to see patient for PT, however patient refused. Patient did not give reason why.
[2023-12-06 17:00] LABS: Glucose Point of Care 131 mg/dl (65-105)
[2023-12-06] MEDS: RIVAROXABAN 10 MG TABLET PO (17:58)
[2023-12-06 22:16] LABS: Glucose Point of Care 121 mg/dl (65-105)
[2023-12-07] VITALS: BP 134/49; PULSE 69; PULSE 70; RESP 20; TEMP 35.8; O2SAT 97
[2023-12-07 04:00] VITALS: BP 119/49; PULSE 64; RESP 18; TEMP 36.1; O2SAT 95
[2023-12-07 05:57] LABS: Hemoglobin 10.6 g/dL (12.0-15.0); Mean Corpuscular HGB Conc 31.2 g/dl (32-36); Mean Corpuscular Hemoglobin 27.4 pg (26-34); Mean Corpuscular Volume 87.9 fl (80-100); Mean Platelet Volume 11.1 fl (7.4-10.4); Platelet Count Result 176 k/mm3 (150-375); Red Blood Count 3.87 M/mm3 (4.2-5.4); Red Cell Distribution Width 15.9 % (11.5-14.5); White Blood Count 5.9 K/mm3 (4.5-10.0)
[2023-12-07 06:30] LABS: Albumin Level 2.9 g/dL (3.5-5.1); Alkaline Phosphatase 88 U/L (38-126); Anion Gap 7 mmol/L (8-16); Aspartate Amino Transferase 16 U/L (14-36); Bilirubin,Total 0.6 mg/dL (0.2-1.3); Blood Urea Nitrogen 9 mg/dL (7-17); Calcium 8.4 mg/dL (8.4-10.2); Carbon Dioxide 28 mmol/L (22-30); Chloride 95 mmol/L (98-107); Estimated CRCL calculation 55 ml/min; Estimated Glomerular Filt Rate > 60; Glucose 96 mg/dL (65-110); Potassium 4.4 mmol/L (3.4-5.0); Sodium 130 mmol/L (137-145)
[2023-12-07 07:16] LABS: Alanine Aminotransferase < 6 U/L (6-35)
[2023-12-07 07:27] VITALS: BP 118/45; PULSE 71; RESP 14; TEMP 37.2; O2SAT 98
[2023-12-07 07:59] LABS: Glucose Point of Care 88 mg/dl (65-105)
[2023-12-07] MEDS: ONDANSETRON INJ 4 MG/2 ML VIAL IV PUSH (08:11)
--- NOTE | 2023-12-07 08:35 | P.CDI_ITS ---
CDI Query Clarification Request BMI 31.7 Nutritional Diagnostic Statement Moderate protein calorie malnutrition as related to inadequate oral intake in the setting of nausea and vomiting at home as evidenced by significant weight loss of 10% (22 lbs) in 6 weeks and <75% of EER for >7days. Please refer to the comprehensive nutrition assessment for further information. Please clarify severity of protein calorie malnutrition if known: * Mild * Moderate * Severe * Other/ Unspecified <Loreta Rosales RN - Last Filed: 12/07/23 08:41> Clarified Diagnosis Clarified Diagnosis: Moderate protein calorie malnutrition <Loreta Milian APRN - Last Filed: 12/07/23 09:50> Provider Comments -Protein shakes with each meal <Loreta Milian APRN - Last Filed: 12/07/23 09:50>
[2023-12-07] MEDS: INSULIN GLARGINE (*BKC) 100 UNITS/ML 45 UNITS SUB-Q (08:47)
[2023-12-07] MEDS: SULFAMETHOXAZOLE/TRIMETHOPRIM 800/160 MG DS TABLET 1 TAB PO (08:47)
[2023-12-07] MEDS: OPTI-GEN TAB 1 TABLET PO (08:47)
[2023-12-07] MEDS: PANTOPRAZOLE 40 MG TABLET PO (08:47)
[2023-12-07] MEDS: ATORVASTATIN 20 MG TABLET PO (08:47)
--- NOTE | 2023-12-07 09:51 | PM.DS ---
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 - Hereditary deficiency of other clotting factors Status: Acute (6) Chronic anticoagulation: Code(s): Z79.01 - group home (current) use of anticoagulants Status: Acute (7) Adult failure to thrive: Code(s): R62.7 - Adult failure to thrive Status: Acute (8) Insulin dependent type 2 diabetes mellitus: Code(s): E11.9 - Type 2 diabetes mellitus without complications; Z79.4 - buttermaker continuous churn (current) use of insulin Status: Acute (9) Nausea & vomiting: Qualifiers: Vomiting type: unspecified Qualified Code(s): R11.2 - Nausea with vomiting, unspecified Code(s): R11.2 - Nausea with vomiting, unspecified Status: Acute (10) Acute DVT (deep venous thrombosis): Qualifiers: DVT location: lower extremity Affected thrombotic vein of extremity: other lower extremity vein Laterality: bilateral Qualified Code(s): I82.493 - Acute embolism and thrombosis of other specified deep vein of lower extremity, bilateral Code(s): I82.409 - Acute embolism and thrombosis of unspecified deep veins of unspecified lower extremity Status: Acute (11) Moderate protein malnutrition: Code(s): E44.0 - Moderate protein-calorie malnutrition Status: Acute Plan Generalized Weakness -Failure to thrive -PT/OT SNF placement Acute DVT -HX dvt/Factor V deficiency -resumed patient Xarelto -education on medication compliance given -Education on Xarelto UTI -Complete Bactrim as prescribed -Urinary hygiene Factor V deficiency -Xarelto -can follow-up with a auto transmission specialist O/P Dr. Valente Diabetes -Accu-Cheks a.c. HS -resume patient's home long-acting -Diabetic diet Moderate protein malnutrition -Protein shake with each meals -zofran PRN for Nausea DS: Summary Hospital Course Reason for hospitalization: UTI/Generalized weakness/Failure to Thrive/DVT Hospital Course: Interval history: This was a 73-year-old female with past medical history significant for insulin-dependent diabetes mellitus, factor V Leiden deficiency, coronary artery disease, deep vein thrombosis, tobacco abuse.? Patient was brought to the emergency room for evaluation according to family patient was found at her condominium place was in disarray and is felt that she has not been taking care of herself not taking her medications.? Patient was unable to provide much history contributory in a meaningful way to history taking.? Patient states that she had a fall.? Has had nausea and vomiting unable to take her medications according to family. preliminary workup was significant for urinalysis with numerous WBCs present.? Has been admitted for further evaluation management and treatment. 12/03/2023:??Patient still reporting generalized weakness, denies CP, SOB, N/V.? Patient did report she had been unable to fill her Xarelto for 6 days prior to arrival venous dopplers show extensive bilateral DVT involving all the deep veins RLL and LT posterior tibial veins.? Xarelto was resumed likely cause was non-compliance to medication regiment.? Patient educated on the continued need for compliance and risk factors for non-compliance.? Urine cultures pending. 12/04/2023:? Patient still reporting weakness and just overall not feeling well.? Patient refused PT/OT yesterday explained the need for therapy.? She does not want
[2023-12-07 12:00] VITALS: BP 102/55; PULSE 73; RESP 18; TEMP 36.1; O2SAT 95
[2023-12-07 12:11] LABS: Glucose Point of Care 176 mg/dl (65-105)
== END 2023-12-07 15:55 | DRG 690 ==
LOC: ANHED 12-03 00:36 → ANH2MED 12-03 02:57
PROVIDERS: Admitting Provider Internal Medicine; Emergency Provider Physician Assistant; PCP Family Medicine; Visit Provider Nurse Practitioner Family
DX: N39.0 Urinary tract infection, site not specified (principal); N17.9 Acute kidney failure, unspecified; I82.421 Acute embolism and thrombosis of right iliac vein; D68.2 Hereditary deficiency of other clotting factors; I82.411 Acute embolism and thrombosis of right femoral vein; I82.431 Acute embolism and thrombosis of right popliteal vein; I82.441 Acute embolism and thrombosis of right tibial vein; I82.451 Acute embolism and thrombosis of right peroneal vein; I82.811 Embolism and thrombosis of superficial veins of right lower extremity; E44.0 Moderate protein-calorie malnutrition; Z91.148 Patient's other noncompliance with medication regimen for other reason; B96.1 Klebsiella pneumoniae [K. pneumoniae] as the cause of diseases classified elsewhere; E87.6 Hypokalemia; I25.10 Atherosclerotic heart disease of native coronary artery without angina pectoris; F17.210 Nicotine dependence, cigarettes, uncomplicated; R62.7 Adult failure to thrive; E11.9 Type 2 diabetes mellitus without complications; W19.XXXA Unspecified fall, initial encounter; Z98.1 Arthrodesis status; Z79.4 Long term (current) use of insulin; Z79.01 Long term (current) use of anticoagulants; Z68.31 Body mass index [BMI] 31.0-31.9, adult
CPT/HCPCS: 36415; 70450; 74177; 80053; 80061; 81001; 82948; 83690; 83735; 85025; 85027; 87040; 87077; 87086; 87186; 87637; 93970; 96361; 96365; 96372; 96375; 97110; 97161; 97165; 97530; 97535; 99285; A9270; G0378; J0696; J1650; J1815; J2405; J3480; J7040; Q9967

== ENCOUNTER 2023-12-28 16:39 | Inpatient (IN) | payer MEDICARE, SELFPAY ==
[2023-12-28] VITALS (10 sets, daily range): BP systolic 100–135; BP diastolic 53–85; PULSE 70–109; RESP 8–22; TEMP 36.1; O2SAT 95–100
--- NOTE | ~2023-12-28 | CT_ITS ---
EXAMINATION: CTA chest PE protocol DATE: 12/29/2023 10:42 INDICATION: Shortness of breath, history of breast cancer TECHNIQUE: Computed tomography angiography (CTA) of the chest was performed with 100 mL Omnipaque-350 intravenous contrast timed to evaluate the pulmonary arteries. Coronal maximum intensity projection 3D-reconstructions were created by the technologist. The dose-length product (DLP) was 399.86 mGy-cm. Automated exposure control and iterative reconstruction technique were employed. COMPARISON: None. FINDINGS: The pulmonary arteries are well-opacified. No pulmonary embolism is identified. No patholog ically enlarged thoracic lymph nodes are identified. The heart size is normal. There is calcified cor onary artery atherosclerosis. Subendocardial fat deposition in the left ventricular apex could reflec t prior myocardial infarction. There is moderate emphysema. There are dependent airspace opacities ri ght upper lobe. There is mild dependent atelectasis of the lower lobes. There is moderate thoracic sp ondylosis. IMPRESSION: 1. No pulmonary embolus identified. 2. Minimal dependent airspace opacities of the right upper lobe, consistent with atelectasis versus p neumonia. Reviewed, dictated and finalized at location B. TAILER IMPRESSION: 1. No pulmonary embolus identified. 2. Minimal dependent airspace opacities of the right upper lobe, consistent wit h atelectasis versus pneumonia.
--- NOTE | ~2023-12-28 | CT_ITS ---
EXAMINATION: CT abdomen pelvis w con DATE: 12/28/2023 20:26 INDICATION: abdominal pain TECHNIQUE: Computed tomography (CT) of the abdomen and pelvis was performed with 100 mL Omnipaque-350 intravenous contrast. Automated exposure control and iterative reconstruction technique were employe d. The dose-length product was 774.24 mGy-cm. COMPARISON: 12/02/2023; bilateral ultrasound venous Doppler 12/03/2023. FINDINGS: Lower thorax: Coronary artery and mitral calcifications. Dependent atelectasis. Liver: 1.7 cm right lobe hemangioma. Biliary/Gallbladder: Gallbladder is normal. No bile duct dilation. Pancreas: No mass or duct dilation. Spleen: Normal. Adrenals: Stable bilateral nodular thickening. Kidneys: No suspicious mass, obstructing stone, or hydronephrosis. GI tract: Mild distal esophageal and gastric wall edema. Uncomplicated rectosigmoid anastomosis. No s mall or large bowel dilation. Normal appendix. Mesentery/Peritoneum: No ascites, mass, or free air. Retroperitoneum: No mass. Atherosclerotic abdominal aortic and/or arterial calcifications. Venous thr ombosis involving the left superficial and deep femoral veins and the right superficial femoral, deep femoral, external iliac, internal iliac, and common iliac veins, some of which are new or have progr essed slightly. Pelvis: Pelvic organs are within normal limits. Soft Tissues: Anterior hernia mesh. Small uncomplicated fat-containing ventral hernias above the leve l of the mesh. Bones: No acute osseous finding. Stable interbody devices at L4-5. IMPRESSION: Mild esophagitis/gastritis. Pelvic and femoral vein thromboses, with evidence of interval progression. Reviewed, dictated and finalized at location K. RO[facility] EM[facility]Y SERVICES MANAGER
[2023-12-28 18:20] LABS: Basophils Absolute Auto 0.1 K/mm3 (0.0-0.1); Basophils Percent Auto 0.6 % (0.2-1.2); Eosinophils Absolute Auto 0.2 K/mm3 (0-0.3); Eosinophils Percent Auto 2.3 % (0-4.4); Hematocrit 40.3 % (37.0-47.0); Hemoglobin 12.7 g/dL (12.0-15.0); Immature Granulocyte Absolute 0.06 K/mm3 (0.00-0.031); Immature Granulocyte Percent A 0.7 % (0-0.5); Lymphocytes Absolute Auto 1.51 K/mm3 (0.9-3.2); Lymphocytes Percent Auto 17.1 % (18.3-44.2); Mean Corpuscular HGB Conc 31.5 g/dl (32-36); Mean Corpuscular Hemoglobin 27.7 pg (26-34); Mean Corpuscular Volume 87.8 fl (80-100); Mean Platelet Volume 8.9 fl (7.4-10.4); Monocytes Absolute Auto 0.5 K/mm3 (0.1-0.6); Monocytes Percent Auto 5.7 % (2.6-8.5); Neutrophils Absolute Auto 6.5 K/mm3 (1.3-6.7); Neutrophils Percent Auto 73.6 % (45.5-73.1); Platelet Count Result 168 k/mm3 (150-375); Red Blood Count 4.59 M/mm3 (4.2-5.4); Red Cell Distribution Width 18.6 % (11.5-14.5); White Blood Count 8.8 K/mm3 (4.5-10.0)
[2023-12-28 18:36] LABS: Alanine Aminotransferase 13 U/L (6-35); Albumin Level 3.4 g/dL (3.5-5.1); Alkaline Phosphatase 140 U/L (38-126); Anion Gap 8 mmol/L (8-16); Aspartate Amino Transferase 28 U/L (14-36); Bilirubin,Total 0.8 mg/dL (0.2-1.3); Blood Urea Nitrogen 9 mg/dL (7-17); Calcium 8.8 mg/dL (8.4-10.2); Carbon Dioxide 28 mmol/L (22-30); Chloride 100 mmol/L (98-107); Estimated Glomerular Filt Rate > 60; Glucose 187 mg/dL (65-110); Lipase 125 U/L (23-300); Potassium 3.7 mmol/L (3.4-5.0); Sodium 136 mmol/L (137-145)
[2023-12-28 19:11] LABS: Appearance Urine Clear (Clear); Bacteria Urine None Seen /hpf; Bilirubin Urine Negative (Negative); Blood Urine Negative (Negative); Color Urine Dark Yellow (Yellow); Glucose Urine UA Negative (Negative); Ketones Urine Trace mg/dL (Negative); Leukocyte Esterase Ur Negative LEU/UL (Negative); Nitrate Urine Negative (Negative); Non Pathogenic Casts 0-2; Protein Urine 1+ mg/dL (Negative); Specific Grav Ur 1.028 (1.001-1.035); Squamous Epithelial Cell Urine None seen /hpf (Few); Urobilinogen Urine 0.2 mg/dL (<2.0); WBC Urine 0-5 /hpf; pH Urine 5.5 (5.0-9.0)
[2023-12-28 19:16] LABS: Add Urine Microscopic? YES
[2023-12-28] MEDS: SODIUM CHLORIDE 0.9% IV 1,000 ML 999 ML IV CONT (19:54)
[2023-12-28] MEDS: MORPHINE SULFATE (*CRX) 4 MG/ML INJ 2 MG IV PUSH (19:55)
[2023-12-28] MEDS: ONDANSETRON INJ 4 MG/2 ML VIAL IV PUSH ×2 (19:55→22:30)
[2023-12-28 20:20] LABS: Lactic Acid Reflex 1.4 mmol/L (0.7-2.0)
--- NOTE | 2023-12-28 23:33 | ED.GENADULT ---
HPI - General Adult General Chief complaint: Abdominal Pain Stated complaint: abd pain Time Seen by Provider: 12/28/23 19:09 History of Present Illness HPI narrative: patient 73-year-old female who presents emergency department with chief complaint of abdominal pain. The patient reports that she has been having worsening discomfort around her umbilicus the patient states that she does have prior history of factor 5 and also has had multiple DVTs the patient was on a [place] act is been managed by her primary duplication specialist at [place] the patient denies chest pain denies shortness of breath Related Data Home Medications Medication Instructions Recorded Confirmed pen needle, diabetic 32 gauge x 10/09/23 12/24/23 vit C 250 mg-vit E 90 mg-zinc 40 1 tablet PO BID 10/10/23 12/24/23 mg-copper 1 [id number] capsule (PreserVision AREDS-2) Allergies Allergy/AdvReac Type Severity Reaction Status Date / Time ciprofloxacin AdvReac Mild Vomiting Verified 12/28/23 18:07 codeine AdvReac Unknown vomiting Verified 12/28/23 18:07 Review of Systems Review of Systems: A 10 system review of systems was completed on the patient and is negative except for what is stated in the HPI. Nursing and ancillary documentation was reviewed. [facility] Past Medical History Medical History Acute diverticulitis of intestine Adult failure to thrive Atherosclerosis of aorta with gangrene Chronic anticoagulation Coronary atherosclerosis Epidermal cyst of face Factor V deficiency Hx of deep venous thrombosis Hyperlipidemia Insulin dependent type 2 diabetes mellitus Sliding hiatal hernia Tobacco abuse Surgical History Surgical History H/O breast biopsy H/O colonoscopy with polypectomy 2011 History of lumbar fusion L5-S1 History of partial colectomy History of removal of cyst 2022, orbital, cheek and neck S/P recurrent ventral herniorrhaphy Social History Social History Social History: Smoking packs per day: 1 Smoking cigarettes per day: 20.0 Years smoked: 40 Smoking pack-years: 40.00 Smoking status: Current every day smoker Tobacco type: cigarettes Alcohol intake: former Substance use: never Substance use type: does not use Do You Feel Safe in your Home?: Yes Lack of Transportation: No Lack of Food: Never True Current Housing: I Have Housing Concerned About Future Housing: No Difficulty Paying Gas/Electric Bills: No Difficulty Paying for Meds: No Currently Unemployed: No Education: Bachelor's Degree Difficulty w/ Childcare or Family Care: No Living arrangements: alone Occupation/Education: retired Gender identity (if verbalized by the patient): Female Sexual Orientation (if Verbalized by the Patient): Straight or Heterosexual Spiritual care concerns: No Agree to blood products: Yes Exam Narrative: GENERAL: Well-appearing, well-nourished, and in no acute distress. HEAD: Normocephalic, atraumatic. EYES: PERRLA and EOMI. ENT: Nares clear, no rhinorrhea or epistaxis. Mucous membranes moist. NECK: Supple. CHEST: Clear to auscultation. No respiratory distress. HEART: Regular rate and rhythm. No murmur heard. Normal peripheral pulses. ABDOMEN: Soft, diffuse mild tenderness, nondistended, normal active bowel sounds. EXTREMITIES: Normal range of motion. No edema. SKIN: Warm, dry, no rash. NEURO: No focal deficits. Alert and oriented x3. PSYCH: Normal mood and affect. Course Vital Signs Vital signs: Vital Signs Temperature 36.1 C L 12/28/23 17:04 Pulse Rate 109 H 12/28/23 17:04 Respiratory Rate 22 H 12/28/23 17:04 Blood Pressure 100/55 L 12/28/23 17:04 Pulse Oximetry 100 12/28/23 17:04 Oxygen Delivery Room Air 12/28/23 17:04 Temperature 3
[2023-12-29] MEDS: HEPARIN SODIUM 5,000 UNITS/ML VIAL 6500 UNITS IV PUSH (00:06)
[2023-12-29] MEDS: HEPARIN SOD/D5W 100 UNITS/ML 25,000 UNITS/250 ML BAG 12 UNITS IV CONT (00:07)
[2023-12-29 00:38] VITALS: BP 129/67; PULSE 68; RESP 16; O2SAT 98
[2023-12-29 01:10] LABS: INR 1.2; Prothrombin Time 15.7 Seconds (11.1-14.7)
--- NOTE | 2023-12-29 01:16 | ADMGEN ---
This patient, Diamond Pratt, was admitted to Medical Room 252-01. Patient/family oriented to hospital policies and general routines including ID bracelet, bed and alarms, visiting hours, pain management, procedures, bathroom and other care routines, personal items, smoking policy, room service/diet, and visiting hours. Information on how to activate the Rapid Response Team has been discussed. Patient/Family are encouraged to report perceived risks to care and to ask questions if they do not understand what they are told or what they should do.
[2023-12-29 01:34] VITALS: BP 113/52; PULSE 81; RESP 16; TEMP 36.4; O2SAT 100
[2023-12-29 01:35] VITALS: BMI 13.0
[2023-12-29] MEDS: MORPHINE SULFATE (*CRX) 2 MG/ML INJ IV PUSH ×3 (03:58→14:15)
[2023-12-29 05:38] LABS: Basophils Percent Auto 0.5 % (0.2-1.2); Eosinophils Absolute Auto 0.1 K/mm3 (0-0.3); Eosinophils Percent Auto 0.9 % (0-4.4); Hematocrit 34.3 % (37.0-47.0); Hemoglobin 10.9 g/dL (12.0-15.0); Immature Granulocyte Absolute 0.04 K/mm3 (0.00-0.031); Immature Granulocyte Percent A 0.5 % (0-0.5); Lymphocytes Absolute Auto 2.15 K/mm3 (0.9-3.2); Lymphocytes Percent Auto 28.5 % (18.3-44.2); Mean Corpuscular HGB Conc 31.8 g/dl (32-36); Mean Corpuscular Hemoglobin 28.2 pg (26-34); Mean Corpuscular Volume 88.6 fl (80-100); Mean Platelet Volume 8.8 fl (7.4-10.4); Monocytes Absolute Auto 0.5 K/mm3 (0.1-0.6); Monocytes Percent Auto 6.5 % (2.6-8.5); Neutrophils Absolute Auto 4.8 K/mm3 (1.3-6.7); Neutrophils Percent Auto 63.1 % (45.5-73.1); Platelet Count Result 131 k/mm3 (150-375); Red Blood Count 3.87 M/mm3 (4.2-5.4); Red Cell Distribution Width 18.3 % (11.5-14.5); White Blood Count 7.6 K/mm3 (4.5-10.0)
[2023-12-29 05:50] LABS: Partial Thromboplastin Time 58.6 SECONDS (22.3-36.8)
[2023-12-29 06:00] VITALS: BP 131/53; PULSE 74; RESP 16; TEMP 36.6; O2SAT 97
[2023-12-29] MEDS: HEPARIN SODIUM 5,000 UNITS/ML VIAL 2500 UNITS IV PUSH (06:06)
[2023-12-29] MEDS: ACETAMINOPHEN 325 MG TABLET 650 MG PO (06:13)
--- NOTE | 2023-12-29 08:08 | PM.IMHP ---
H&P: HPI History of Present Illness Date/Time: 12/29/23 08:08 Chief Complaint: Abdominal pain Narrative: This is a 73 year old female with a significant past medical history of acute diverticulitis, adult failure to thrive, CAD, Factor V deficiency on Xarelto and followed at [facility], hyperlipidemia, Insulin dependent type 2 DM, DVT who presented to the hospital with complaints of abdominal pain. Patient states that she has had abdominal pain for the last 5 days and was seen by her primary care physician on the . She has had nausea vomiting along with it. According to her office visit note patient was not participating in PT, not eating, not doing her Accu-Cheks and was reported to have low blood sugars for the last 4-5 days. Work up in hospital includes abdomen/pelvis CT which shown mild esophagitis/gastritis, pelvic and femoral vein thromboses, with evidence of slight interval progression. Labs revealed hemoglobin of 10.9, hematocrit 34.3, platelet count 131, PTT 50.6, sodium 136, blood sugars ranging 176-187, lactic acid 0.4, alk-phos 140, 3.4. UA was obtained and showed 1+ protein, trace ketones, 3-5 urine RBCs. Patient was given 1 L of normal saline, morphine for pain, 3 doses of Zofran for nausea and started on heparin infusion. CTA of the chest was negative for PE. On examination today patient is alert oriented x3, lying in the bed. She denies Any fever, chills, shortness of breath, chest pain, nausea, vomiting, diarrhea, abdominal pain. Heparin infusion was discontinued and patient was placed back on her Xarelto at her current dose. Of note, patient was seen here recently and was noted to have these DVT's on that admission. She was started on Xarelto. Cardiology was consulted for IVC filter however she is a high risk candidate and would likely need transfer if there is a need for this. Patient was discharged last admission to [facility] however it has been reported that she has not been participating in any of the rehab and has barely been eating according to her last office note in the EMR. Patient seen by primary care physician for depression workup On December 24, 2023. Review of Systems Review of Systems: All systems reviewed & are unremarkable except as noted in HPI and below Constitutional: Constitutional: Reports as per HPI and Reports no additional constitutional complaints Eyes: Eyes: Reports as per HPI and Reports no additional eye complaints ENT: Reports system reviewed and no additional complaints, except as documented and Reports as per HPI Cardiovascular: Cardiovascular: Reports as per HPI and Reports no additional cardiovascular complaints Respiratory: Respiratory: Reports as per HPI and Reports no additional respiratory complaints Gastrointestinal: Gastrointestinal: Reports as per HPI and Reports no additional gastrointestinal complaints Genitourinary: Genitourinary: Reports no additional female genitourinary complaints and Reports as per HPI Musculoskeletal: Musculoskeletal: Reports no additional musculoskeletal complaints and Reports as per HPI Integumentary/Breasts: Skin/Breast: Reports system reviewed and no additional complaints, except as docu and Reports as per HPI Neurologic: Reports system reviewed and no additional complaints, except as documented and Reports as per HPI Psychiatric: Psychiatric: Reports no additional psychiatric complaints and Reports as per HPI [facility] Past Medical History Medical History Acute diverticulitis of intestine Adult failure to thrive Atherosclerosis of aorta with gangrene Chronic anticoagulation Coronary atherosclerosis Epidermal cyst of face Factor V deficiency Hx of deep venous thrombosis Hyperlipidemia Insulin dependent type 2 diabetes mellitus Sliding hiatal hernia Tobacco abuse Surgical History Surgical History H/O breast biopsy H/O colonoscopy with polyp
[2023-12-29 08:16] VITALS: O2SAT 93
[2023-12-29] MEDS: ONDANSETRON INJ 4 MG/2 ML VIAL IV PUSH ×2 (10:24→14:15)
[2023-12-29 12:39] LABS: Partial Thromboplastin Time 73.8 SECONDS (22.3-36.8)
[2023-12-29 13:18] VITALS: BMI 30.8
[2023-12-29] MEDS: ATORVASTATIN 20 MG TABLET PO (14:10)
[2023-12-29] MEDS: RIVAROXABAN 20 MG TABLET PO (14:10)
[2023-12-29] MEDS: OPTI-GEN TAB 1 TABLET PO (14:10)
[2023-12-29 14:55] VITALS: BP 112/46; PULSE 58; RESP 16; TEMP 36.3; O2SAT 98
[2023-12-29 17:24] LABS: Glucose Point of Care 96 mg/dl (65-105)
[2023-12-29 19:52] VITALS: BP 123/55; PULSE 80; RESP 18; TEMP 36.6; O2SAT 98
[2023-12-29] MEDS: SERTRALINE HCL 25 MG TABLET PO (20:07)
[2023-12-29 20:30] LABS: Glucose Point of Care 111 mg/dl (65-105)
[2023-12-30 06:00] VITALS: BP 115/65; PULSE 73; RESP 18; TEMP 37.1; O2SAT 99
[2023-12-30 08:12] LABS: Glucose Point of Care 102 mg/dl (65-105)
[2023-12-30] MEDS: GLIMEPIRIDE 1 MG TABLET PO ×2 (08:57→17:11)
[2023-12-30] MEDS: ATORVASTATIN 20 MG TABLET PO (08:57)
[2023-12-30] MEDS: SERTRALINE HCL 25 MG TABLET PO ×2 (08:58→20:40)
[2023-12-30] MEDS: ONDANSETRON INJ 4 MG/2 ML VIAL IV PUSH (09:15)
--- NOTE | 2023-12-30 11:10 | PC.NURSE ---
On 12/30/23, the student, [Sam Zepeda], provided care and completed [facility] documentation on this patient. I have reviewed the student's documentation and agree with the findings.
[2023-12-30] MEDS: MORPHINE SULFATE (*CRX) 2 MG/ML INJ IV PUSH ×2 (11:23→18:00)
--- NOTE | 2023-12-30 11:39 | P.CDI_ITS ---
severe protein malnutrition CDI Query Clarification Request BMI 30.8 Nutritional Diagnostic Statement Severe protein calorie malnutrition related to chronic loss of appetite as evidenced by weight loss 11%/3 month, inadequate intake <75% needs >1 month; muscle wasting to temporalis, clavicle and fat loss to cheeks. Please refer to the comprehensive nutrition assessment for further information. Please clarify severity of protein calorie malnutrition if known: * Mild * Moderate * Severe * Other/Unspecified
[2023-12-30 12:05] LABS: Glucose Point of Care 102 mg/dl (65-105)
[2023-12-30 13:40] VITALS: BP 133/64; PULSE 90; RESP 18; TEMP 36; O2SAT 97
--- NOTE | 2023-12-30 15:34 | P.PNIM_ITS ---
Progress Note: A&P Assessment and Plan (1) Abdominal pain: Code(s): R10.9 - Unspecified abdominal pain Status: Acute Assessment and Plan: * reporting abdominal pain across her mid abdomen for the last 5 days with associated nausea and vomiting however she was not eating or participating in activities at her assisted living facility and was found to have a low blood sugar on those days. She was seen by her primary care physician on the 2nd and was worked up for depression. * CT of the abdomen pelvis showed mild esophagitis /gastritis, no AAA, or obstruction noted, pelvic and femoral vein thrombosis with evidence of slight interval progression * CTA of chest negative for PE * Workup so far has been negative * Lipase 125 * Will order a stool occult blood, however no active signs of bleeding. Currently on Xarelto. (2) Adult failure to thrive: Code(s): R62.7 - Adult failure to thrive Status: Acute Assessment and Plan: * was reported not to be participating with physical therapy, eating, checking her blood sugars at her assisted nursing facility * was seen at her primary care physician's office on the 2nd and was worked up for depression. * She does state that she is still mourning the loss of her 's which could be contributing to her failure to thrive. 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 - Hereditary deficiency of other clotting factors Status: Chronic Assessment and Plan: * patient has known DVTs and bilateral lower extremities extending up into the pelvis and was started on Xarelto * currently followed by a [facility]ology * continue Xarelto (6) Acute deep vein thrombosis (DVT) of pelvic vein: Code(s): I82.890 - Acute embolism and thrombosis of other specified veins Status: Acute Assessment and Plan: see above (7) Malnutrition: Code(s): E46 - Unspecified protein-calorie malnutrition Status: Acute Assessment and Plan: * Meeting severe protein calorie malnutrition due to chronic loss of appetite 11% weight loss in the last 3 months, muscle wasting, fat loss * BMI 30.8, 84 kg * patient has not been eating for the last 5 days and reports that she does not feel hungry. (8) MDD (major depressive disorder), recurrent episode, moderate: Code(s): F33.1 - Major depressive disorder, recurrent, moderate Status: Acute Assessment and Plan: * Continue Zoloft Time Spent With Patient Time with patient: 25 - 35 minutes Subjective Date/time seen: 12/30/23 15:34 Interval history: 12/29/23: This is a 73 year old female with a significant past medical history of acute diverticulitis, adult failure to thrive, CAD, Factor V deficiency on Xarelto and followed at [facility], hyperlipidemia, Insulin dependent type 2 DM, DVT who presented to the hospital with complaints of abdominal pain. Patient states that she has had abdominal pain for the last 5 days and was seen by her primary care physician on the 2nd. ? She has had nausea vomiting along with it. According to her office visit note patient was not participating in PT, not eating, not doing her Accu-Cheks an
--- NOTE | 2023-12-30 15:34 | PM.IMPN ---
Progress Note: A&P Assessment and Plan (1) Abdominal pain: Code(s): R10.9 - Unspecified abdominal pain Status: Acute Assessment and Plan: reporting abdominal pain across her mid abdomen for the last 5 days with associated nausea and vomiting however she was not eating or participating in activities at her assisted living facility and was found to have a low blood sugar on those days. She was seen by her primary care physician on the 2nd and was worked up for depression. 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 Currently on Xarelto. (2) Adult failure to thrive: Code(s): R62.7 - Adult failure to thrive Status: Acute Assessment and Plan: was reported not to be participating with physical therapy, eating, checking her blood sugars at her assisted nursing facility was seen at her primary care physician's office on the 2nd and was worked up for depression. She does state that she is still mourning the loss of her 's which could be contributing to her failure to thrive. 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 Status: Chronic Assessment and Plan: patient has known DVTs and bilateral lower extremities extending up into the pelvis and was started on Xarelto currently followed by a [facility] hematology continue Xarelto (6) Acute deep vein thrombosis (DVT) of pelvic vein: Code(s): I82.890 - Acute embolism and thrombosis of other specified veins Status: Acute Assessment and Plan: see above (7) Malnutrition: Code(s): E46 - Unspecified protein-calorie malnutrition Status: Acute Assessment and Plan: Meeting severe protein calorie malnutrition due to chronic loss of appetite 11% weight loss in the last 3 months, muscle wasting, fat loss BMI 30.8, 84 kg patient has not been eating for the last 5 days and reports that she does not feel hungry. (8) MDD (major depressive disorder), recurrent episode, moderate: Code(s): F33.1 - Major depressive disorder, recurrent, moderate Status: Acute Assessment and Plan: Continue Zoloft Time Spent With Patient Time with patient: 25 - 35 minutes Subjective Date/time seen: 12/30/23 15:34 Interval history: 12/29/23: This is a 73 year old female with a significant past medical history of acute diverticulitis, adult failure to thrive, CAD, Factor V deficiency on Xarelto and followed at [facility], hyperlipidemia, Insulin dependent type 2 DM, DVT who presented to the hospital with complaints of abdominal pain. Patient states that she has had abdominal pain for the last 5 days and was seen by her primary care physician on the . ? She has had nausea vomiting along with it. According to her office visit note patient was not participating in PT, not eating, not doing her Accu-Cheks and was reported to have low blood sugars for the last 4-5 days. Work up in hospital includes abdomen/pelvis CT which shown mild esophagitis/gastritis, pelvic and femoral vein thromboses, with evidence of slight interval progression.? Labs revealed hemoglobin of 10.9, hematocrit 34.3, platelet count 131, PTT 50.6, sodium 136, blood sugars ranging 176-187, lactic acid 0.4, alk-phos 140, 3.4.? UA was obta
--- NOTE | 2023-12-30 16:12 | PCOTNOTE ---
Attempted to see pt. for occupational therapy evaluation. Pt. declined to participate at this time, stating every time I move I puke. Pt. encouraged to participate and educated on benefits of out of bed activity, with repeated decline and report to try tomorrow. Nursing aware. Following
[2023-12-30 17:08] LABS: Glucose Point of Care 86 mg/dl (65-105)
[2023-12-30] MEDS: RIVAROXABAN 20 MG TABLET PO (17:11)
[2023-12-30 21:00] VITALS: BP 121/63; PULSE 80; RESP 18; TEMP 36.3; O2SAT 91
[2023-12-30 21:06] LABS: Glucose Point of Care 118 mg/dl (65-105)
[2023-12-30 22:12] LABS: Hematocrit 35.1 % (37.0-47.0); Mean Corpuscular HGB Conc 31.3 g/dl (32-36); Mean Corpuscular Hemoglobin 27.5 pg (26-34); Mean Corpuscular Volume 87.8 fl (80-100); Mean Platelet Volume 8.9 fl (7.4-10.4); Platelet Count Result 166 k/mm3 (150-375); Red Cell Distribution Width 18.7 % (11.5-14.5); White Blood Count 7.1 K/mm3 (4.5-10.0)
[2023-12-30 22:21] LABS: Alanine Aminotransferase 8 U/L (6-35); Albumin Level 2.8 g/dL (3.5-5.1); Alkaline Phosphatase 112 U/L (38-126); Anion Gap 2 mmol/L (8-16); Aspartate Amino Transferase 23 U/L (14-36); Bilirubin,Total 0.5 mg/dL (0.2-1.3); Blood Urea Nitrogen 8 mg/dL (7-17); Calcium 8.2 mg/dL (8.4-10.2); Carbon Dioxide 31 mmol/L (22-30); Chloride 103 mmol/L (98-107); Estimated CRCL calculation 60 ml/min; Estimated Glomerular Filt Rate > 60; Glucose 110 mg/dL (65-110); Potassium 3.5 mmol/L (3.4-5.0); Sodium 136 mmol/L (137-145)
[2023-12-30 22:28] VITALS: O2SAT 92
[2023-12-31] MEDS: MORPHINE SULFATE (*CRX) 2 MG/ML INJ IV PUSH ×2 (02:39→20:36)
[2023-12-31 04:50] VITALS: BP 128/60; PULSE 73; RESP 18; TEMP 36; O2SAT 94
[2023-12-31 06:16] LABS: Hematocrit 33.4 % (37.0-47.0); Hemoglobin 10.6 g/dL (12.0-15.0); Mean Corpuscular HGB Conc 31.7 g/dl (32-36); Mean Corpuscular Volume 88.1 fl (80-100); Mean Platelet Volume 8.8 fl (7.4-10.4); Platelet Count Result 157 k/mm3 (150-375); Red Blood Count 3.79 M/mm3 (4.2-5.4); Red Cell Distribution Width 18.5 % (11.5-14.5); White Blood Count 6.1 K/mm3 (4.5-10.0)
[2023-12-31 06:28] LABS: Alanine Aminotransferase 7 U/L (6-35); Albumin Level 2.7 g/dL (3.5-5.1); Alkaline Phosphatase 110 U/L (38-126); Anion Gap 2 mmol/L (8-16); Aspartate Amino Transferase 25 U/L (14-36); Bilirubin,Total 0.6 mg/dL (0.2-1.3); Blood Urea Nitrogen 7 mg/dL (7-17); Carbon Dioxide 31 mmol/L (22-30); Chloride 104 mmol/L (98-107); Estimated CRCL calculation 68 ml/min; Estimated Glomerular Filt Rate > 60; Glucose 73 mg/dL (65-110); Potassium 3.4 mmol/L (3.4-5.0); Sodium 137 mmol/L (137-145)
[2023-12-31 08:01] LABS: Glucose Point of Care 76 mg/dl (65-105)
[2023-12-31] MEDS: ATORVASTATIN 20 MG TABLET PO (08:29)
[2023-12-31] MEDS: GLIMEPIRIDE 1 MG TABLET PO ×2 (08:29→16:05)
[2023-12-31] MEDS: OPTI-GEN TAB 1 TABLET PO (08:29)
[2023-12-31] MEDS: SERTRALINE HCL 25 MG TABLET PO ×2 (08:29→20:10)
[2023-12-31 08:46] LABS: INR 1.4; Prothrombin Time 17.9 Seconds (11.1-14.7)
[2023-12-31 08:47] LABS: Partial Thromboplastin Time 24.3 SECONDS (22.3-36.8)
[2023-12-31] MEDS: ACETAMINOPHEN 325 MG TABLET 650 MG PO ×2 (09:53→17:35)
[2023-12-31] MEDS: ONDANSETRON INJ 4 MG/2 ML VIAL IV PUSH (09:55)
--- NOTE | 2023-12-31 10:29 | PCOTNOTE ---
Attempted to see pt. for OT evaluation. Pt. declined to participate in therapy services at this time, pt. stating reason for decline I don't feel good . Pt. encouraged at educated on benefits of therapy, repeatedly declined. Nursing aware. Following.
--- NOTE | 2023-12-31 10:36 | P.PNIM_ITS ---
Progress Note: A&P Assessment and Plan (1) Abdominal pain: Code(s): R10.9 - Unspecified abdominal pain Status: Acute Assessment and Plan: 12/30/23: * reporting abdominal pain across her mid abdomen for the last 5 days with associated nausea and vomiting however she was not eating or participating in activities at her assisted living facility and was found to have a low blood sugar on those days. She was seen by her primary care physician on the and was worked up for depression. * CT of the abdomen pelvis showed mild esophagitis /gastritis, no AAA, or obstruction noted, pelvic and femoral vein thrombosis with evidence of slight interval progression * CTA of chest negative for PE * Workup so far has been negative * Lipase 125 * Will order a stool occult blood, however no active signs of bleeding. 12/31: suspect that the majority of her pain is results of pelvic thrombosis with interval progression, will discontinue Xarelto and bridge to warfarin as recommended by Hematology at [facility] (2) Chronic anticoagulation: Code(s): Z79.01 - director long term care (current) use of anticoagulants Status: Acute Assessment and Plan: * continue Xarelto, stop heparin infusion * CTA of the chest negative for PE 12/31: Stop Xarelto, will have to bridge with heparin or Lovenox until therapeutic on warfarin (3) Factor V Leiden: Code(s): D68.51 - Activated protein C resistance Status: Acute Assessment and Plan: 12/30/23: * patient has known DVTs and bilateral lower extremities extending up into the pelvis and was started on Xarelto * currently followed by a [facility] hematology * continue Xarelto 12/31: Stop Xarelto, will have to bridge with heparin or Lovenox until therapeutic on warfarin (4) Adult failure to thrive: Code(s): R62.7 - Adult failure to thrive Status: Acute Assessment and Plan: * was reported not to be participating with physical therapy, eating, checking her blood sugars at her assisted nursing facility * was seen at her primary care physician's office on the and was worked up for depression. * She does state that she is still mourning the loss of her 's which could be contributing to her failure to thrive. * PT/OT ordered (5) Acute deep vein thrombosis (DVT) of pelvic vein: Code(s): I82.890 - Acute embolism and thrombosis of other specified veins Status: Acute Assessment and Plan: see above (6) Malnutrition: Qualifiers: Malnutrition type: protein-calorie malnutrition Protein-calorie malnutrition severity: severe Qualified Code(s): E43 - Unspecified severe protein-calorie malnutrition Code(s): E46 - Unspecified protein-calorie malnutrition Status: Acute Assessment and Plan: * Meeting severe protein calorie malnutrition due to chronic loss of appetite with 24 pound weight loss/11% weight loss in the last 3 months, muscle wasting, fat loss * BMI 30.8, 84 kg * patient has not been eating for the last 5 days and reports that she does not feel hungry. SNF reports patient barely eating anything for a month. (7) MDD (major depressive disorder), recurrent episode, moderate: Code(s): F33.1 - Major depressive disorder, recurrent, moderate Status: Acute Assessment and Plan: * Continue Zoloft (8) Hyperlipidemia: Code(s): E78.5 - Hyperlipidemia, unspecified Status: Chronic Assessment and Plan: * Continue atorvastatin Time Spent With Patient Time with patient: Greater than 35 minutes
--- NOTE | 2023-12-31 10:36 | PM.IMPN ---
Progress Note: A&P Assessment and Plan (1) Abdominal pain: Code(s): R10.9 - Unspecified abdominal pain Status: Acute Assessment and Plan: 12/30/23: reporting abdominal pain across her mid abdomen for the last 5 days with associated nausea and vomiting however she was not eating or participating in activities at her assisted living facility and was found to have a low blood sugar on those days. She was seen by her primary care physician on the and was worked up for depression. 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 of anticoagulants Status: Acute Assessment and Plan: continue Xarelto, stop heparin infusion CTA of the chest negative for PE 12/31: Stop Xarelto, will have to bridge with heparin or Lovenox until therapeutic on warfarin (3) Factor V Leiden: Code(s): D68.51 - Activated protein C resistance Status: Acute Assessment and Plan: 12/30/23: patient has known DVTs and bilateral lower extremities extending up into the pelvis and was started on Xarelto currently followed by a [facility] hematology continue Xarelto 12/31: Stop Xarelto, will have to bridge with heparin or Lovenox until therapeutic on warfarin (4) Adult failure to thrive: Code(s): R62.7 - Adult failure to thrive Status: Acute Assessment and Plan: was reported not to be participating with physical therapy, eating, checking her blood sugars at her assisted nursing facility was seen at her primary care physician's office on the and was worked up for depression. She does state that she is still mourning the loss of her 's which could be contributing to her failure to thrive. PT/OT ordered (5) Acute deep vein thrombosis (DVT) of pelvic vein: Code(s): I82.890 - Acute embolism and thrombosis of other specified veins Status: Acute Assessment and Plan: see above (6) Malnutrition: Qualifiers: Malnutrition type: protein-calorie malnutrition Protein-calorie malnutrition severity: severe Qualified Code(s): E43 - Unspecified severe protein-calorie malnutrition Code(s): E46 - Unspecified protein-calorie malnutrition Status: Acute Assessment and Plan: Meeting severe protein calorie malnutrition due to chronic loss of appetite with 24 pound weight loss/11% weight loss in the last 3 months, muscle wasting, fat loss BMI 30.8, 84 kg patient has not been eating for the last 5 days and reports that she does not feel hungry. SNF reports patient barely eating anything for a month. (7) MDD (major depressive disorder), recurrent episode, moderate: Code(s): F33.1 - Major depressive disorder, recurrent, moderate Status: Acute Assessment and Plan: Continue Zoloft (8) Hyperlipidemia: Code(s): E78.5 - Hyperlipidemia, unspecified Status: Chronic Assessment and Plan: Continue atorvastatin Time Spent With Patient Time with patient: Greater than 35 minutes Subjective Date/time seen: 12/31/23 7:36 Interval history: 12/29/23: This is a 73 year old female with a significant past medical history of acute diverticulitis, adult failure to thrive, CAD, Factor V deficiency on Xarelto and followed at [facility], hyperlipidemia, Insulin dependent type 2 DM, DVT who presented to the hospital with complaints of abdominal pain. Patient states that she has had abdominal
[2023-12-31 12:15] LABS: Glucose Point of Care 100 mg/dl (65-105)
[2023-12-31 13:54] VITALS: BP 130/66; PULSE 73; RESP 16; TEMP 37; O2SAT 99
[2023-12-31] MEDS: HEPARIN SOD/D5W 100 UNITS/ML 25,000 UNITS/250 ML BAG 12 UNITS IV CONT (16:05)
[2023-12-31 17:15] LABS: Glucose Point of Care 91 mg/dl (65-105)
[2023-12-31 20:00] VITALS: PULSE 69; RESP 16; O2SAT 100
[2023-12-31 20:03] LABS: Glucose Point of Care 90 mg/dl (65-105)
[2023-12-31 20:11] VITALS: BP 132/57; PULSE 69; RESP 16; TEMP 36.5; O2SAT 100
[2023-12-31 21:48] VITALS: O2SAT 99
[2023-12-31 22:29] LABS: Partial Thromboplastin Time 49.5 SECONDS (22.3-36.8)
[2023-12-31] MEDS: HEPARIN SODIUM 5,000 UNITS/ML VIAL 5500 UNITS IV PUSH (22:45)
[2024-01-01 05:12] VITALS: BP 130/52; PULSE 64; RESP 16; TEMP 36.4; O2SAT 96
[2024-01-01] MEDS: MORPHINE SULFATE (*CRX) 2 MG/ML INJ IV PUSH ×5 (05:17→21:50)
[2024-01-01 05:27] LABS: Partial Thromboplastin Time 58.8 SECONDS (22.3-36.8)
[2024-01-01] MEDS: HEPARIN SOD/D5W 100 UNITS/ML 25,000 UNITS/250 ML BAG 16 UNITS IV CONT (05:46)
[2024-01-01] MEDS: HEPARIN SODIUM 5,000 UNITS/ML VIAL 2500 UNITS IV PUSH ×2 (05:46→19:47)
[2024-01-01 07:49] LABS: Glucose Point of Care 98 mg/dl (65-105)
[2024-01-01] MEDS: GLIMEPIRIDE 1 MG TABLET PO ×2 (08:53→17:38)
[2024-01-01] MEDS: OPTI-GEN TAB 1 TABLET PO (08:53)
[2024-01-01] MEDS: ATORVASTATIN 20 MG TABLET PO (08:53)
[2024-01-01] MEDS: SERTRALINE HCL 25 MG TABLET PO ×2 (08:53→20:08)
[2024-01-01 09:03] LABS: Hematocrit 34.1 % (37.0-47.0); Hemoglobin 10.9 g/dL (12.0-15.0); Mean Corpuscular Hemoglobin 28.2 pg (26-34); Mean Corpuscular Volume 88.1 fl (80-100); Mean Platelet Volume 9.4 fl (7.4-10.4); Platelet Count Result 183 k/mm3 (150-375); Red Blood Count 3.87 M/mm3 (4.2-5.4); Red Cell Distribution Width 18.6 % (11.5-14.5); White Blood Count 6.7 K/mm3 (4.5-10.0)
[2024-01-01 09:21] LABS: Anion Gap 3 mmol/L (8-16); Blood Urea Nitrogen 7 mg/dL (7-17); Calcium 8.2 mg/dL (8.4-10.2); Carbon Dioxide 29 mmol/L (22-30); Chloride 104 mmol/L (98-107); Estimated CRCL calculation 68 ml/min; Estimated Glomerular Filt Rate > 60; Glucose 85 mg/dL (65-110); Potassium 3.5 mmol/L (3.4-5.0); Sodium 136 mmol/L (137-145)
[2024-01-01 11:41] LABS: Glucose Point of Care 95 mg/dl (65-105)
[2024-01-01 11:45] LABS: Partial Thromboplastin Time 136.1 SECONDS (22.3-36.8)
--- NOTE | 2024-01-01 12:52 | PM.IMPN ---
Progress Note: A&P Assessment and Plan (1) Abdominal pain: Code(s): R10.9 - Unspecified abdominal pain Status: Acute Assessment and Plan: 12/30/23: reporting abdominal pain across her mid abdomen for the last 5 days with associated nausea and vomiting however she was not eating or participating in activities at her assisted living facility and was found to have a low blood sugar on those days. She was seen by her primary care physician on the and was worked up for depression. 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 12/31: suspect that the majority of her pain is results of pelvic thrombosis with interval progression, will discontinue Xarelto and bridge to warfarin as recommended by Hematology at [facility] 01/01: Reports that eating causes nausea/vomiting and worsened abdominal pain but she can tolerate orange sherbert. Discussed Ensure and Megace. Patient agrees to try both. 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 (3) Factor V Leiden: Code(s): D68.51 - Activated protein C resistance Status: Acute Assessment and Plan: 12/30/23: patient has known DVTs and bilateral lower extremities extending up into the pelvis and was started on Xarelto currently followed by a [facility] hematology continue Xarelto 12/31: Stop Xarelto, will have to bridge with heparin or Lovenox until therapeutic on warfarin 01/01: Heparin therapeutic. Add warfarin today. (4) Adult failure to thrive: Code(s): R62.7 - Adult failure to thrive Status: Acute Assessment and Plan: was reported not to be participating with physical therapy, eating, checking her blood sugars at her assisted nursing facility was seen at her primary care physician's office on the and was worked up for depression. She does state that she is still mourning the loss of her 's which could be contributing to her failure to thrive. PT/OT ordered 01/01: Ordered Megace, patient to try to eat/drink more calories. (5) Acute deep vein thrombosis (DVT) of pelvic vein: Code(s): I82.890 - Acute embolism and thrombosis of other specified veins Status: Acute Assessment and Plan: see above (6) Malnutrition: Qualifiers: Malnutrition type: protein-calorie malnutrition Protein-calorie malnutrition severity: severe Qualified Code(s): E43 - Unspecified severe protein-calorie malnutrition Code(s): E46 - Unspecified protein-calorie malnutrition Status: Acute Assessment and Plan: Meeting severe protein calorie malnutrition due to chronic loss of appetite with 24 pound weight loss/11% weight loss in the last 3 months, muscle wasting, fat loss BMI 30.8, 84 kg patient has not been eating for the last 5 days and reports that she does not feel hungry. SNF reports patient barely eating anything for a month. 01/01: Add Megace and Ensure. (7) MDD (major depressive disorder), recurrent episode, moderate: Code(s): F33.1 - Major depressive disorder, recurrent, moderate Status: Acute Assessment and Plan: Continue Zoloft (8) Hyperlipidemia: Code(s): E78.5 - Hyperlipidemia, unspecified Status: Chronic Assessment and Plan: Continue atorvastatin Time Spent With Patient Time with patient: Greater than 35 minutes Subjective Date/time seen: 01/01
[2024-01-01] MEDS: ONDANSETRON INJ 4 MG/2 ML VIAL IV PUSH ×2 (13:18→17:38)
[2024-01-01 13:22] VITALS: BP 123/67
[2024-01-01 14:00] VITALS: BP 115/56; PULSE 63; RESP 14; TEMP 36.5; O2SAT 97
[2024-01-01 17:08] LABS: Glucose Point of Care 95 mg/dl (65-105)
[2024-01-01] MEDS: MEGESTROL ACETATE (*CHEMO) 40 MG TABLET PO (17:38)
[2024-01-01] MEDS: WARFARIN (*PBKC) 5 MG TABLET PO (17:38)
[2024-01-01 19:23] LABS: Partial Thromboplastin Time 61.1 SECONDS (22.3-36.8)
[2024-01-01] MEDS: HEPARIN SOD/D5W 100 UNITS/ML 25,000 UNITS/250 ML BAG 15 UNITS IV CONT (19:54)
[2024-01-01 20:17] VITALS: BP 116/61; PULSE 68; RESP 16; TEMP 36.7; O2SAT 98
[2024-01-01 21:36] LABS: Glucose Point of Care 125 mg/dl (65-105)
[2024-01-02 02:14] LABS: Basophils Percent Auto 0.6 % (0.2-1.2); Eosinophils Absolute Auto 0.3 K/mm3 (0-0.3); Eosinophils Percent Auto 4.2 % (0-4.4); Hematocrit 34.7 % (37.0-47.0); Hemoglobin 10.9 g/dL (12.0-15.0); Immature Granulocyte Absolute 0.05 K/mm3 (0.00-0.031); Immature Granulocyte Percent A 0.7 % (0-0.5); Lymphocytes Absolute Auto 2.48 K/mm3 (0.9-3.2); Lymphocytes Percent Auto 34.7 % (18.3-44.2); Mean Corpuscular HGB Conc 31.4 g/dl (32-36); Mean Corpuscular Hemoglobin 27.8 pg (26-34); Mean Corpuscular Volume 88.5 fl (80-100); Monocytes Absolute Auto 0.4 K/mm3 (0.1-0.6); Monocytes Percent Auto 5.6 % (2.6-8.5); Neutrophils Absolute Auto 3.9 K/mm3 (1.3-6.7); Neutrophils Percent Auto 54.2 % (45.5-73.1); Platelet Count Result 192 k/mm3 (150-375); Red Blood Count 3.92 M/mm3 (4.2-5.4); Red Cell Distribution Width 18.8 % (11.5-14.5); White Blood Count 7.1 K/mm3 (4.5-10.0)
[2024-01-02 02:29] LABS: Alanine Aminotransferase 8 U/L (6-35); Albumin Level 2.8 g/dL (3.5-5.1); Alkaline Phosphatase 115 U/L (38-126); Anion Gap 0 mmol/L (8-16); Aspartate Amino Transferase 20 U/L (14-36); Bilirubin,Total 0.4 mg/dL (0.2-1.3); Blood Urea Nitrogen 9 mg/dL (7-17); Calcium 8.2 mg/dL (8.4-10.2); Carbon Dioxide 32 mmol/L (22-30); Chloride 100 mmol/L (98-107); Estimated CRCL calculation 60 ml/min; Estimated Glomerular Filt Rate > 60; Glucose 80 mg/dL (65-110); INR 1.3; Magnesium 2.2 mg/dL (1.6-2.3); Potassium 3.3 mmol/L (3.4-5.0); Prothrombin Time 17.2 Seconds (11.1-14.7); Sodium 132 mmol/L (137-145)
[2024-01-02] MEDS: MORPHINE SULFATE (*CRX) 2 MG/ML INJ IV PUSH ×5 (02:51→21:17)
[2024-01-02 02:55] LABS: Partial Thromboplastin Time > 200.0 SECONDS (22.3-36.8)
[2024-01-02 06:00] VITALS: BP 101/57; PULSE 63; RESP 16; TEMP 36.6; O2SAT 97
[2024-01-02] MEDS: MEGESTROL ACETATE (*CHEMO) 40 MG TABLET PO ×3 (06:19→17:19)
--- NOTE | 2024-01-02 07:52 | PM.IMPN ---
Progress Note: A&P Assessment and Plan (1) Abdominal pain: Code(s): R10.9 - Unspecified abdominal pain Status: Acute Assessment and Plan: 12/30/23: reporting abdominal pain across her mid abdomen for the last 5 days with associated nausea and vomiting however she was not eating or participating in activities at her assisted living facility and was found to have a low blood sugar on those days. She was seen by her primary care physician on the and was worked up for depression. 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 12/31: suspect that the majority of her pain is results of pelvic thrombosis with interval progression, will discontinue Xarelto and bridge to warfarin as recommended by Hematology at [facility] 01/01: Reports that eating causes nausea/vomiting and worsened abdominal pain but she can tolerate orange sherbert. Discussed Ensure and Megace. Patient agrees to try both. 01/02: Will add metoclopramide TID AC 5 mg IV to see if this and Megace help promote more calorie intake/tolerance (2) Chronic anticoagulation: Code(s): Z79.01 - alf (current) use of anticoagulants Status: Acute Assessment and Plan: continue Xarelto, stop heparin infusion CTA of the chest negative for PE 12/31: Stop Xarelto, will have to bridge with heparin or Lovenox until therapeutic on warfarin 01/01: Heparin drip ongoing, warfarin to start today. 01/02: Heparin supratherapeutic. Will hold for 3 hours and drop by 3 units/kg/hr. (3) Factor V Leiden: Code(s): D68.51 - Activated protein C resistance Status: Acute Assessment and Plan: 12/30/23: patient has known DVTs and bilateral lower extremities extending up into the pelvis and was started on Xarelto currently followed by a [facility] hematology continue Xarelto 12/31: Stop Xarelto, will have to bridge with heparin or Lovenox until therapeutic on warfarin 01/01: Heparin therapeutic. Add warfarin today. 01/02: Heparin supratherapeutic, INR 1.3. (4) Adult failure to thrive: Code(s): R62.7 - Adult failure to thrive Status: Acute Assessment and Plan: was reported not to be participating with physical therapy, eating, checking her blood sugars at her assisted nursing facility was seen at her primary care physician's office on the and was worked up for depression. She does state that she is still mourning the loss of her 's which could be contributing to her failure to thrive. PT/OT ordered 01/01: Ordered Megace, patient to try to eat/drink more calories. 01/02: Will add metoclopramide TID AC 5 mg IV to see if this and Megace help promote more calorie intake/tolerance (5) Acute deep vein thrombosis (DVT) of pelvic vein: Code(s): I82.890 - Acute embolism and thrombosis of other specified veins Status: Acute Assessment and Plan: see above (6) Malnutrition: Qualifiers: Malnutrition type: protein-calorie malnutrition Protein-calorie malnutrition severity: severe Qualified Code(s): E43 - Unspecified severe protein-calorie malnutrition Code(s): E46 - Unspecified protein-calorie malnutrition Status: Acute Assessment and Plan: Meeting severe protein calorie malnutrition due to chronic loss of appetite with 24 pound weight loss/11% weight loss in the last 3 months, muscle wasting, fat loss BMI 30.8, 84 kg patient has not been eating for the last 5 days and reports that she does not feel hungry. SNF reports patient barely eating anything for a month. 01/01: Add Megace and Ensure. 01/02: Will add metoclopramide TID AC 5 mg IV to see if this and Megace help promote more calorie intake/rosa
[2024-01-02 08:01] LABS: Glucose Point of Care 87 mg/dl (65-105)
[2024-01-02] MEDS: OPTI-GEN TAB 1 TABLET PO (08:54)
[2024-01-02] MEDS: SERTRALINE HCL 25 MG TABLET PO ×2 (08:55→20:30)
[2024-01-02] MEDS: ATORVASTATIN 20 MG TABLET PO (08:55)
[2024-01-02] MEDS: POTASSIUM CHLORIDE 20 MEQ PACKET (FOR LIQUID) 40 MEQ PO (08:55)
[2024-01-02] MEDS: GLIMEPIRIDE 1 MG TABLET PO ×2 (08:55→17:19)
[2024-01-02 11:13] LABS: Partial Thromboplastin Time > 200.0 SECONDS (22.3-36.8)
[2024-01-02] MEDS: ONDANSETRON INJ 4 MG/2 ML VIAL IV PUSH (11:14)
[2024-01-02] MEDS: METOCLOPRAMIDE HCL INJ 10 MG/2 ML VIAL 5 MG IV PUSH ×2 (11:48→17:25)
[2024-01-02 11:56] LABS: Glucose Point of Care 79 mg/dl (65-105)
[2024-01-02 14:00] VITALS: BP 114/53; PULSE 71; RESP 12; TEMP 36.5; O2SAT 100
--- NOTE | 2024-01-02 15:01 | PC.NURSE ---
Spoke with Shai in pharmacy, let him know that hospitalist wanted heparin adjusted not according to taper protocol. Hold heparin for 3 hours instead of one and decrease by 3 when resumed
[2024-01-02 16:56] LABS: Glucose Point of Care 74 mg/dl (65-105)
[2024-01-02] MEDS: WARFARIN (*PBKC) 5 MG TABLET PO (17:19)
[2024-01-02] MEDS: HEPARIN SOD/D5W 100 UNITS/ML 25,000 UNITS/250 ML BAG 10 UNITS IV CONT (20:30)
[2024-01-02 21:11] LABS: Partial Thromboplastin Time 37.4 SECONDS (22.3-36.8)
[2024-01-02 21:19] VITALS: BP 118/54; PULSE 71; RESP 16; TEMP 36.4; O2SAT 100
[2024-01-02] MEDS: HEPARIN SODIUM 5,000 UNITS/ML VIAL 5500 UNITS IV PUSH (21:22)
[2024-01-02 21:44] LABS: Glucose Point of Care 48 mg/dl (65-105)
[2024-01-02 21:44] LABS: Glucose Point of Care 56 mg/dl (65-105)
[2024-01-02] MEDS: GLUCOSE ORAL GEL 15 GM OF GLUCSE IN 37.5 GM TUBE PO (21:56)
[2024-01-02 22:34] LABS: Glucose Point of Care 119 mg/dl (65-105)
[2024-01-03 04:16] LABS: Basophils Absolute Auto 0.1 K/mm3 (0.0-0.1); Basophils Percent Auto 0.5 % (0.2-1.2); Eosinophils Absolute Auto 0.2 K/mm3 (0-0.3); Eosinophils Percent Auto 2.4 % (0-4.4); Hematocrit 33.6 % (37.0-47.0); Immature Granulocyte Absolute 0.06 K/mm3 (0.00-0.031); Immature Granulocyte Percent A 0.6 % (0-0.5); Lymphocytes Absolute Auto 2.78 K/mm3 (0.9-3.2); Lymphocytes Percent Auto 27.7 % (18.3-44.2); Mean Corpuscular HGB Conc 32.7 g/dl (32-36); Mean Corpuscular Hemoglobin 28.2 pg (26-34); Mean Corpuscular Volume 86.2 fl (80-100); Mean Platelet Volume 9.2 fl (7.4-10.4); Monocytes Absolute Auto 0.8 K/mm3 (0.1-0.6); Monocytes Percent Auto 7.5 % (2.6-8.5); Neutrophils Absolute Auto 6.1 K/mm3 (1.3-6.7); Neutrophils Percent Auto 61.3 % (45.5-73.1); Platelet Count Result 218 k/mm3 (150-375); Red Cell Distribution Width 18.6 % (11.5-14.5)
[2024-01-03] MEDS: MORPHINE SULFATE (*CRX) 2 MG/ML INJ IV PUSH ×4 (04:32→20:34)
[2024-01-03 04:39] VITALS: BP 122/63; PULSE 69; RESP 16; TEMP 36.4; O2SAT 91
[2024-01-03 04:51] LABS: INR 2.3; Prothrombin Time 26.8 Seconds (11.1-14.7)
[2024-01-03 04:54] LABS: Alanine Aminotransferase 8 U/L (6-35); Albumin Level 2.8 g/dL (3.5-5.1); Alkaline Phosphatase 120 U/L (38-126); Anion Gap 2 mmol/L (8-16); Aspartate Amino Transferase 20 U/L (14-36); Bilirubin,Total 0.4 mg/dL (0.2-1.3); Blood Urea Nitrogen 8 mg/dL (7-17); Calcium 8.3 mg/dL (8.4-10.2); Carbon Dioxide 31 mmol/L (22-30); Chloride 99 mmol/L (98-107); Estimated CRCL calculation 68 ml/min; Estimated Glomerular Filt Rate > 60; Glucose 52 mg/dL (65-110); Magnesium 2.1 mg/dL (1.6-2.3); Potassium 3.1 mmol/L (3.4-5.0); Sodium 132 mmol/L (137-145)
[2024-01-03] MEDS: METOCLOPRAMIDE HCL INJ 10 MG/2 ML VIAL 5 MG IV PUSH ×3 (06:02→16:30)
[2024-01-03] MEDS: DEXTROSE 10% 1,000 ML 100 ML IV CONT ×2 (06:02→23:06)
[2024-01-03] MEDS: MEGESTROL ACETATE (*CHEMO) 40 MG TABLET PO ×3 (06:16→16:29)
[2024-01-03] MEDS: HEPARIN SOD/D5W 100 UNITS/ML 25,000 UNITS/250 ML BAG 11 UNITS IV CONT (06:18)
[2024-01-03 08:18] LABS: Glucose Point of Care 125 mg/dl (65-105)
--- NOTE | 2024-01-03 08:23 | PCPTNOTE ---
Patient refused treatment this session. Patient did not give reason why, patient stated not today. Encouraged patient to participate in PT and get up to chair, patient continued to refuse and stated again not today.
[2024-01-03] MEDS: ATORVASTATIN 20 MG TABLET PO (08:32)
[2024-01-03] MEDS: SERTRALINE HCL 25 MG TABLET PO ×2 (08:32→20:35)
[2024-01-03] MEDS: OPTI-GEN TAB 1 TABLET PO (08:32)
[2024-01-03] MEDS: POTASSIUM CHLORIDE 20 MEQ ER TABLET 40 MEQ PO (08:32)
--- NOTE | 2024-01-03 08:53 | P.PNIM_ITS ---
Progress Note: A&P Assessment and Plan (1) Abdominal pain: Code(s): R10.9 - Unspecified abdominal pain Status: Acute Assessment and Plan: 12/30/23: * reporting abdominal pain across her mid abdomen for the last 5 days with associated nausea and vomiting however she was not eating or participating in activities at her assisted living facility and was found to have a low blood sugar on those days. She was seen by her primary care physician on the and was worked up for depression. * CT of the abdomen pelvis showed mild esophagitis /gastritis, no AAA, or obstruction noted, pelvic and femoral vein thrombosis with evidence of slight interval progression * CTA of chest negative for PE * Workup so far has been negative * Lipase 125 * Will order a stool occult blood, however no active signs of bleeding. 12/31: suspect that the majority of her pain is results of pelvic thrombosis with interval progression, will discontinue Xarelto and bridge to warfarin as recommended by Hematology at [facility] 01/01: Reports that eating causes nausea/vomiting and worsened abdominal pain but she can tolerate orange sherbert. Discussed Ensure and Megace. Patient agrees to try both. 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 01/02: Heparin supratherapeutic. Will hold for 3 hours and drop by 3 units/kg/hr. 01/02/24: * Heparin drip stopped * Continue with warfarin * INR therapeutic today at 2.3 * Continue to trend labs (3) Factor V Leiden: Code(s): D68.51 - Activated protein C resistance Status: Acute Assessment and Plan: 12/30/23: * patient has known DVTs and bilateral lower extremities extending up into the pelvis and was started on Xarelto * currently followed by a [facility] hematology * continue Xarelto 12/31: Stop Xarelto, will have to bridge with heparin or Lovenox until the rapeutic on warfarin 01/01: Heparin therapeutic. Add warfarin today. 01/02: Heparin supratherapeutic, INR 1.3. 01/03/24: * INR therapeutic today at 2.3 * Heparin infusion stopped (4) Adult failure to thrive: Code(s): R62.7 - Adult failure to thrive Status: Acute Assessment and Plan: 12/31: * was reported not to be participating with physical therapy, eating, checking her blood sugars at her assisted nursing facility * was seen at her primary care physician's office on the and was worked up for depression. * She does state that she is still mourning the loss of her 's which could be contributing to her failure to thrive. * PT/OT ordered 01/01: Ordered Megace, patient to try to eat/drink more calories. 01/02: Will add metoclopramide TID AC 5 mg IV to see if this and Megace help promote more calorie intake/tolerance 01/03/24: * Continue with current treatment plan (5) Acute deep vein thrombosis (DVT) of pelvic vein: Code(s): I82.890 - Acute embolism and thrombosis of other specified veins Status: Acute Assessment and Plan: see above (6) Malnutrition: Qualifiers: Desire
--- NOTE | 2024-01-03 08:53 | PM.IMPN ---
Progress Note: A&P Assessment and Plan (1) Abdominal pain: Code(s): R10.9 - Unspecified abdominal pain Status: Acute Assessment and Plan: 12/30/23: reporting abdominal pain across her mid abdomen for the last 5 days with associated nausea and vomiting however she was not eating or participating in activities at her assisted living facility and was found to have a low blood sugar on those days. She was seen by her primary care physician on the and was worked up for depression. 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 12/31: suspect that the majority of her pain is results of pelvic thrombosis with interval progression, will discontinue Xarelto and bridge to warfarin as recommended by Hematology at [facility] 01/01: Reports that eating causes nausea/vomiting and worsened abdominal pain but she can tolerate orange sherbert. Discussed Ensure and Megace. Patient agrees to try both. 01/02: Will add metoclopramide TID AC 5 mg IV to see if this and Megace help promote more calorie intake/tolerance 01/03/24: No change to current treatment plan Pain is more controlled today (2) Chronic anticoagulation: Code(s): Z79.01 - [facility] (current) use of anticoagulants Status: Acute Assessment and Plan: 12/30/23: continue Xarelto, stop heparin infusion CTA of the chest negative for PE 12/31: Stop Xarelto, will have to bridge with heparin or Lovenox until therapeutic on warfarin 01/01: Heparin drip ongoing, warfarin to start today. 01/02: Heparin supratherapeutic. Will hold for 3 hours and drop by 3 units/kg/hr. 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 Add warfarin today. 01/02: Heparin supratherapeutic, INR 1.3. 01/03/24: INR therapeutic today at 2.3 Heparin infusion stopped (4) Adult failure to thrive: Code(s): R62.7 - Adult failure to thrive Status: Acute Assessment and Plan: 12/31: was reported not to be participating with physical therapy, eating, checking her blood sugars at her assisted nursing facility was seen at her primary care physician's office on the and was worked up for depression. She does state that she is still mourning the loss of her 's which could be contributing to her failure to thrive. PT/OT ordered 01/01: Ordered Megace, patient to try to eat/drink more calories. 01/02: Will add metoclopramide TID AC 5 mg IV to see if this and Megace help promote more calorie intake/tolerance 01/03/24: Continue with current treatment plan (5) Acute deep vein thrombosis (DVT) of pelvic vein: Code(s): I82.890 - Acute embolism and thrombosis of other specified veins Status: Acute Assessment and Plan: see above (6) Malnutrition: Qualifiers: Malnutrition type: protein-calorie malnutrition Protein-calorie malnutrition severity: severe Qualified Code(s): E43 - Unspecified severe protein-calorie malnutrition Code(s): E46 - Unspecified protein-calorie malnutrition Status: Acute Assessment and Plan: 12/31: Meeting severe protein calorie malnutrition due to chronic loss of appetite with 24 pound weight loss/11% weight loss in the last 3 month
[2024-01-03 12:03] LABS: Glucose Point of Care 103 mg/dl (65-105)
--- NOTE | 2024-01-03 14:21 | PCNFU ---
Nutrition Follow-Up Complete: Severe protein calorie malnutrition related to chronic loss of appetite as evidenced by weight loss 11%/3 months, inadequate intake <75% needs >1 month; muscle wasting to temporalis, clavicle and fat loss to cheeks Goal: Improve PO intake to at least 50% meals and supplements - Not meeting goal. Continue with same goal Pt current nutrition is Heart healthy diet. Intakes 0-10% with some incidents of vomiting on the meal tray. Ensure Compact BID for additional 220 kcal and 10 g protein each Nutrition recommendation: Continue with current nutrition care plan and supplement orders. Agree with orders Last recorded weight is 84 kg. Bowel Motility: +1 BM 01/02/23 Labs Reviewed: Hgb 11.0, Hct 33.6, Alb 2.8, Na 132, K+ 3.1 Meds Noted: Megace, Reglan started Skin: WNL Additional Notes: MD started Megace and Reglan for patient's persistent nausea, vomiting and poor appetite. Pt does not think it is working yet. 10% lunch. Continue current care plan. May need to try another appetite stimulant if Megace is not effective. Monitoring intakes, weights, labs, supplement tolerance, plan of care Follow up in 5 days
--- NOTE | 2024-01-03 14:26 | PCPTNOTE ---
Patient refused treatment this session. Patient did not give reason why, other then reporting she did not want to work with PT today.
[2024-01-03 14:47] VITALS: BP 106/46; PULSE 85; RESP 16; TEMP 36.5; O2SAT 96
[2024-01-03] MEDS: WARFARIN (*PBKC) 5 MG TABLET PO (16:29)
[2024-01-03 17:03] LABS: Glucose Point of Care 143 mg/dl (65-105)
[2024-01-03] MEDS: ONDANSETRON INJ 4 MG/2 ML VIAL IV PUSH (20:34)
[2024-01-03 20:44] LABS: Glucose Point of Care 137 mg/dl (65-105)
[2024-01-03 21:14] VITALS: BP 99/59; PULSE 75; RESP 18; TEMP 36.5; O2SAT 97
[2024-01-04 00:35] LABS: Glucose Point of Care 168 mg/dl (65-105)
[2024-01-04] MEDS: METOCLOPRAMIDE HCL INJ 10 MG/2 ML VIAL 5 MG IV PUSH ×3 (05:28→17:13)
[2024-01-04] MEDS: MEGESTROL ACETATE (*CHEMO) 40 MG TABLET PO ×3 (05:28→17:12)
[2024-01-04 05:51] VITALS: BP 140/64; PULSE 68; RESP 18; TEMP 36.6; O2SAT 98
[2024-01-04] MEDS: MORPHINE SULFATE (*CRX) 2 MG/ML INJ IV PUSH ×2 (05:55→10:02)
[2024-01-04 06:21] LABS: Glucose Point of Care 177 mg/dl (65-105)
[2024-01-04 06:21] LABS: Glucose Point of Care 159 mg/dl (65-105)
[2024-01-04 06:24] LABS: Basophils Percent Auto 0.4 % (0.2-1.2); Eosinophils Absolute Auto 0.1 K/mm3 (0-0.3); Eosinophils Percent Auto 1.4 % (0-4.4); Hemoglobin 11.7 g/dL (12.0-15.0); Immature Granulocyte Absolute 0.05 K/mm3 (0.00-0.031); Immature Granulocyte Percent A 0.6 % (0-0.5); Lymphocytes Absolute Auto 2.33 K/mm3 (0.9-3.2); Lymphocytes Percent Auto 28.9 % (18.3-44.2); Mean Corpuscular HGB Conc 32.5 g/dl (32-36); Mean Corpuscular Hemoglobin 28.1 pg (26-34); Mean Corpuscular Volume 86.3 fl (80-100); Monocytes Absolute Auto 0.5 K/mm3 (0.1-0.6); Monocytes Percent Auto 6.2 % (2.6-8.5); Neutrophils Percent Auto 62.5 % (45.5-73.1); Platelet Count Result 222 k/mm3 (150-375); Red Blood Count 4.17 M/mm3 (4.2-5.4); Red Cell Distribution Width 18.7 % (11.5-14.5); White Blood Count 8.1 K/mm3 (4.5-10.0)
[2024-01-04 06:37] LABS: INR 3.7; Prothrombin Time 39.5 Seconds (11.1-14.7)
[2024-01-04 06:40] LABS: Alanine Aminotransferase 13 U/L (6-35); Albumin Level 3.1 g/dL (3.5-5.1); Alkaline Phosphatase 121 U/L (38-126); Anion Gap 7 mmol/L (8-16); Aspartate Amino Transferase 22 U/L (14-36); Bilirubin,Total 0.4 mg/dL (0.2-1.3); Blood Urea Nitrogen 4 mg/dL (7-17); Calcium 8.6 mg/dL (8.4-10.2); Carbon Dioxide 26 mmol/L (22-30); Chloride 99 mmol/L (98-107); Estimated CRCL calculation 78 ml/min; Estimated Glomerular Filt Rate > 60; Glucose 148 mg/dL (65-110); Magnesium 2.1 mg/dL (1.6-2.3); Potassium 3.3 mmol/L (3.4-5.0); Sodium 132 mmol/L (137-145)
[2024-01-04 07:31] LABS: Glucose Point of Care 200 mg/dl (65-105)
[2024-01-04] MEDS: OPTI-GEN TAB 1 TABLET PO (08:58)
[2024-01-04] MEDS: ATORVASTATIN 20 MG TABLET PO (08:58)
[2024-01-04] MEDS: SERTRALINE HCL 25 MG TABLET PO ×2 (08:58→20:17)
--- NOTE | 2024-01-04 09:52 | PCPTNOTE ---
Patient refused treatment this session. Patient reported she was up all night sick and can not work with therapy now. Encouraged patient to participate with PT and educated patient on the importance of therapy. Patient continued to refuse.
[2024-01-04 11:18] LABS: Glucose Point of Care 176 mg/dl (65-105)
--- NOTE | 2024-01-04 13:57 | PCPTNOTE ---
Patient refused treatment this session. Patient reported she did not feel like working with therapy.
[2024-01-04 14:00] VITALS: BP 122/60; PULSE 79; RESP 14; TEMP 36.3; O2SAT 100
--- NOTE | 2024-01-04 14:46 | P.PNIM_ITS ---
Progress Note: A&P Assessment and Plan (1) Abdominal pain: Code(s): R10.9 - Unspecified abdominal pain Status: Acute Assessment and Plan: 12/30/23: * reporting abdominal pain across her mid abdomen for the last 5 days with associated nausea and vomiting however she was not eating or participating in activities at her assisted living facility and was found to have a low blood sugar on those days. She was seen by her primary care physician on the and was worked up for depression. * CT of the abdomen pelvis showed mild esophagitis /gastritis, no AAA, or obstruction noted, pelvic and femoral vein thrombosis with evidence of slight interval progression * CTA of chest negative for PE * Workup so far has been negative * Lipase 125 * Will order a stool occult blood, however no active signs of bleeding. 12/31: suspect that the majority of her pain is results of pelvic thrombosis with interval progression, will discontinue Xarelto and bridge to warfarin as recommended by Hematology at [place] 01/01: Reports that eating causes nausea/vomiting and worsened abdominal pain but she can tolerate orange sherbert. Discussed Ensure and Megace. Patient agrees to try both. 01/02: Will add metoclopramide TID AC 5 mg IV to see if this and Megace help promote more calorie intake/tolerance 01/03/24: * No change to current treatment plan * Pain is more controlled today 01/04/24: * No change to current treatment plan (2) Chronic anticoagulation: Code(s): Z79.01 - [facility] (current) use of anticoagulants Status: Acute Assessment and Plan: 12/30/23: * continue Xarelto, stop heparin infusion * CTA of the chest negative for PE 12/31: Stop Xarelto, will have to bridge with heparin or Lovenox until therapeutic on warfarin 01/01: Heparin drip ongoing, warfarin to start today. 01/02: Heparin supratherapeutic. Will hold for 3 hours and drop by 3 units /kg/hr. 01/03/24: * Heparin drip stopped * Continue with warfarin * INR therapeutic today at 2.3 * Continue to trend labs 01/04/24: * Continue warfarin, will decrease warfarin to 4mg tonight due to INR 3.7 today * Will likely switch patient back to Xarelto tomorrow, awaiting hematology at [facility] opinion. 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 Add warfarin today. 01/02: Heparin supratherapeutic, INR 1.3. 01/03/24: * INR therapeutic today at 2.3 * Heparin infusion stopped 01/04/24: * INR supratherapeutic 3.7 * Coumadin ajusted (4) Adult failure to thrive: Code(s): R62.7 - Adult failure to thrive Status: Acute Assessment and Plan: 12/31: * was reported not to be participating with physical therapy, eating, checking her blood sugars at her assisted nursing facility * was seen at her primary care physician's office on the and was worked up for depression. * She does state that she is still mourning the loss of her 's which could be contributing to her failure to thrive. * PT/OT ordered 01/01: Ordered Megace, patient to try to eat/drink more calories. 01/02: Will add metoclopramide TID AC 5 mg IV to see if this and Megace help promote more calorie intake/tolerance
--- NOTE | 2024-01-04 14:46 | PM.IMPN ---
Progress Note: A&P Assessment and Plan (1) Abdominal pain: Code(s): R10.9 - Unspecified abdominal pain Status: Acute Assessment and Plan: 12/30/23: reporting abdominal pain across her mid abdomen for the last 5 days with associated nausea and vomiting however she was not eating or participating in activities at her assisted living facility and was found to have a low blood sugar on those days. She was seen by her primary care physician on the and was worked up for depression. 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 12/31: suspect that the majority of her pain is results of pelvic thrombosis with interval progression, will discontinue Xarelto and bridge to warfarin as recommended by Hematology at [place] 01/01: Reports that eating causes nausea/vomiting and worsened abdominal pain but she can tolerate orange sherbert. Discussed Ensure and Megace. Patient agrees to try both. 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 01/02: Heparin supratherapeutic. Will hold for 3 hours and drop by 3 units/kg/hr. 01/03/24: Heparin drip stopped Continue with warfarin INR therapeutic today at 2.3 Continue to trend labs 01/04/24: Continue warfarin, will decrease warfarin to 4mg tonight due to INR 3.7 today Will likely switch patient back to Xarelto tomorrow, awaiting hematology at [facility] opinion. 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 Add warfarin today. 01/02: Heparin supratherapeutic, INR 1.3. 01/03/24: INR therapeutic today at 2.3 Heparin infusion stopped 01/04/24: INR supratherapeutic 3.7 Coumadin ajusted (4) Adult failure to thrive: Code(s): R62.7 - Adult failure to thrive Status: Acute Assessment and Plan: 12/31: was reported not to be participating with physical therapy, eating, checking her blood sugars at her assisted nursing facility was seen at her primary care physician's office on the and was worked up for depression. She does state that she is still mourning the loss of her 's which could be contributing to her failure to thrive. PT/OT ordered 01/01: Ordered Megace, patient to try to eat/drink more calories. 01/02: Will add metoclopramide TID AC 5 mg IV to see if this and Megace help promote more calorie intake/tolerance 01/03/24: Continue with current treatment plan (5) Acute deep vein thrombosis (DVT) of pelvic vein: Code(s): I82.890 - Acute embolism and thrombosis of other specified veins Status: Acute Assessment and Plan: see above (6) Malnutrition: Qualifiers: Malnutrition type: protein-calorie malnutrition Protein-calorie malnutrition severity: severe Qualified Code(s): E43 - Unspecified severe
[2024-01-04 16:07] LABS: Glucose Point of Care 159 mg/dl (65-105)
[2024-01-04] MEDS: WARFARIN (*PBKC) 4 MG TABLET PO (17:13)
[2024-01-04 20:04] VITALS: BP 109/62; PULSE 82; RESP 18; TEMP 36.3; O2SAT 98
[2024-01-04 21:45] LABS: Glucose Point of Care 159 mg/dl (65-105)
[2024-01-05 03:16] LABS: Glucose Point of Care 108 mg/dl (65-105)
[2024-01-05 03:22] VITALS: BP 120/68; PULSE 93; RESP 18; TEMP 36; O2SAT 97
[2024-01-05] MEDS: METOCLOPRAMIDE HCL INJ 10 MG/2 ML VIAL 5 MG IV PUSH ×3 (05:23→16:06)
[2024-01-05] MEDS: MEGESTROL ACETATE (*CHEMO) 40 MG TABLET PO ×3 (05:23→16:06)
[2024-01-05 05:28] LABS: Basophils Percent Auto 0.6 % (0.2-1.2); Eosinophils Absolute Auto 0.2 K/mm3 (0-0.3); Eosinophils Percent Auto 2.9 % (0-4.4); Hematocrit 35.3 % (37.0-47.0); Hemoglobin 11.5 g/dL (12.0-15.0); Immature Granulocyte Absolute 0.04 K/mm3 (0.00-0.031); Immature Granulocyte Percent A 0.6 % (0-0.5); Lymphocytes Absolute Auto 2.02 K/mm3 (0.9-3.2); Lymphocytes Percent Auto 31.3 % (18.3-44.2); Mean Corpuscular HGB Conc 32.6 g/dl (32-36); Mean Corpuscular Volume 85.9 fl (80-100); Mean Platelet Volume 9.1 fl (7.4-10.4); Monocytes Absolute Auto 0.5 K/mm3 (0.1-0.6); Monocytes Percent Auto 7.9 % (2.6-8.5); Neutrophils Absolute Auto 3.7 K/mm3 (1.3-6.7); Neutrophils Percent Auto 56.7 % (45.5-73.1); Platelet Count Result 203 k/mm3 (150-375); Red Blood Count 4.11 M/mm3 (4.2-5.4); Red Cell Distribution Width 19.1 % (11.5-14.5); White Blood Count 6.5 K/mm3 (4.5-10.0)
[2024-01-05 05:39] LABS: INR 4.6; Prothrombin Time 47.2 Seconds (11.1-14.7)
[2024-01-05 05:45] LABS: Alanine Aminotransferase 10 U/L (6-35); Albumin Level 2.9 g/dL (3.5-5.1); Alkaline Phosphatase 131 U/L (38-126); Anion Gap 4 mmol/L (8-16); Aspartate Amino Transferase 21 U/L (14-36); Bilirubin,Total 0.4 mg/dL (0.2-1.3); Blood Urea Nitrogen 4 mg/dL (7-17); Calcium 8.6 mg/dL (8.4-10.2); Carbon Dioxide 30 mmol/L (22-30); Chloride 99 mmol/L (98-107); Estimated CRCL calculation 68 ml/min; Estimated Glomerular Filt Rate > 60; Glucose 107 mg/dL (65-110); Magnesium 2.2 mg/dL (1.6-2.3); Potassium 3.4 mmol/L (3.4-5.0); Sodium 133 mmol/L (137-145)
[2024-01-05 08:03] LABS: Glucose Point of Care 107 mg/dl (65-105)
[2024-01-05] MEDS: ATORVASTATIN 20 MG TABLET PO (08:15)
[2024-01-05] MEDS: OPTI-GEN TAB 1 TABLET PO (08:15)
[2024-01-05] MEDS: SERTRALINE HCL 25 MG TABLET PO ×2 (08:15→20:24)
[2024-01-05] MEDS: MORPHINE SULFATE (*CRX) 2 MG/ML INJ IV PUSH (09:42)
[2024-01-05 12:07] LABS: Glucose Point of Care 200 mg/dl (65-105)
--- NOTE | 2024-01-05 12:58 | PCPTNOTE ---
Attempted to see patient for PT, however patient refused due to not feeling good.
[2024-01-05 13:49] VITALS: BP 121/44; PULSE 98; RESP 17; TEMP 37.2; O2SAT 100
--- NOTE | 2024-01-05 15:32 | P.PNIM_ITS ---
Progress Note: A&P Assessment and Plan (1) Abdominal pain: Code(s): R10.9 - Unspecified abdominal pain Status: Acute Assessment and Plan: 12/30/23: * reporting abdominal pain across her mid abdomen for the last 5 days with associated nausea and vomiting however she was not eating or participating in activities at her assisted living facility and was found to have a low blood sugar on those days. She was seen by her primary care physician on the and was worked up for depression. * CT of the abdomen pelvis showed mild esophagitis /gastritis, no AAA, or obstruction noted, pelvic and femoral vein thrombosis with evidence of slight interval progression * CTA of chest negative for PE * Workup so far has been negative * Lipase 125 * Will order a stool occult blood, however no active signs of bleeding. 12/31: suspect that the majority of her pain is results of pelvic thrombosis with interval progression, will discontinue Xarelto and bridge to warfarin as recommended by Hematology at [place] 01/01: Reports that eating causes nausea/vomiting and worsened abdominal pain but she can tolerate orange sherbert. Discussed Ensure and Megace. Patient agrees to try both. 01/02: Will add metoclopramide TID AC 5 mg IV to see if this and Megace help promote more calorie intake/tolerance 01/03/24: * No change to current treatment plan * Pain is more controlled today 01/04/24: * Switch pain med to Toradol 15 mg IV push x1 now and Ultram 25 mg q.6 * Start with Tylenol 1st * Morphine DC'd (2) Chronic anticoagulation: Code(s): Z79.01 - long-term (current) use of anticoagulants Status: Acute Assessment and Plan: 12/30/23: * continue Xarelto, stop heparin infusion * CTA of the chest negative for PE 12/31: Stop Xarelto, will have to bridge with heparin or Lovenox until therapeutic on warfarin 01/01: Heparin drip ongoing, warfarin to start today. 01/02: Heparin supratherapeutic. Will hold for 3 hours and drop by 3 units/kg/hr. 01/03/24: * Heparin drip stopped * Continue with warfarin * INR therapeutic today at 2.3 * Continue to trend labs 01/04/24: * Continue warfarin, will decrease warfarin to 4mg tonight due to INR 3.7 today * Will likely switch patient back to Xarelto tomorrow, awaiting hematology at [facility] opinion. 01/05/24: * Patient switch back to Xarelto today after talking with the network support analyst at [facility] * She will be following up with Dr. 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 Add warfarin today. 01/02: Heparin supratherapeutic, INR 1.3. 01/03/24: * INR therapeutic today at 2.3 * Heparin infusion stopped 01/04/24: * INR supratherapeutic 3.7 * Coumadin adjusted 01/05/2024: * INR supratherapeutic at 4.6 today * Coumadin discontinued * Will start Xarelto once INR is down to 2.0 or below per [facility] Hematology recommendations (4) Adult failure to thrive: Code(s): R62.7 - Adult failure to thrive Status: Acute Assessment and Plan: 12/31: * was reported not to be participating with physical therapy, eating, checking her blood sugars at her assisted nursing facility * was seen at her primary
--- NOTE | 2024-01-05 15:32 | PM.IMPN ---
Progress Note: A&P Assessment and Plan (1) Abdominal pain: Code(s): R10.9 - Unspecified abdominal pain Status: Acute Assessment and Plan: 12/30/23: reporting abdominal pain across her mid abdomen for the last 5 days with associated nausea and vomiting however she was not eating or participating in activities at her assisted living facility and was found to have a low blood sugar on those days. She was seen by her primary care physician on the and was worked up for depression. 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 12/31: suspect that the majority of her pain is results of pelvic thrombosis with interval progression, will discontinue Xarelto and bridge to warfarin as recommended by Hematology at [place] 01/01: Reports that eating causes nausea/vomiting and worsened abdominal pain but she can tolerate orange sherbert. Discussed Ensure and Megace. Patient agrees to try both. 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 01/02: Heparin supratherapeutic. Will hold for 3 hours and drop by 3 units/kg/hr. 01/03/24: Heparin drip stopped Continue with warfarin INR therapeutic today at 2.3 Continue to trend labs 01/04/24: Continue warfarin, will decrease warfarin to 4mg tonight due to INR 3.7 today Will likely switch patient back to Xarelto tomorrow, awaiting hematology at [facility] opinion. 01/05/24: Patient switch back to Xarelto today after talking with the drop hammer mechanic at [facility] She will be following up with Dr. 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 Add warfarin today. 01/02: Heparin supratherapeutic, INR 1.3. 01/03/24: INR therapeutic today at 2.3 Heparin infusion stopped 01/04/24: INR supratherapeutic 3.7 Coumadin adjusted 01/05/2024: INR supratherapeutic at 4.6 today Coumadin discontinued Will start Xarelto once INR is down to 2.0 or below per [facility] Hematology recommendations (4) Adult failure to thrive: Code(s): R62.7 - Adult failure to thrive Status: Acute Assessment and Plan: 12/31: was reported not to be participating with physical therapy, eating, checking her blood sugars at her assisted nursing facility was seen at her primary care physician's office on the and was worked up for depression. She does state that she is still mourning the loss of her 's which could be contributing to her failure to thrive. PT/OT ordered 01/01: Ordered Megace, patient to try to eat/drink more calories. 01/02: Will add metoclopramide TID AC 5 mg IV to see if this and Megace help promote more calorie intake/tolerance 01/03/24: Continue with current treatment plan
[2024-01-05] MEDS: KETOROLAC 15 MG/ML VIAL (*BKC) IV PUSH (16:06)
[2024-01-05] MEDS: RIVAROXABAN 20 MG TABLET PO (16:06)
[2024-01-05 17:25] LABS: Glucose Point of Care 132 mg/dl (65-105)
[2024-01-05 17:32] LABS: Glucose Point of Care 116 mg/dl (65-105)
[2024-01-05 19:48] VITALS: BP 113/58; PULSE 84; RESP 18; TEMP 35.8; O2SAT 98
[2024-01-05 21:52] LABS: Glucose Point of Care 160 mg/dl (65-105)
[2024-01-06 03:19] VITALS: BP 134/54; PULSE 83; RESP 18; TEMP 36.4; O2SAT 96
[2024-01-06 05:11] LABS: Basophils Percent Auto 0.5 % (0.2-1.2); Eosinophils Absolute Auto 0.3 K/mm3 (0-0.3); Eosinophils Percent Auto 3.5 % (0-4.4); Hematocrit 34.7 % (37.0-47.0); Hemoglobin 11.4 g/dL (12.0-15.0); Immature Granulocyte Absolute 0.04 K/mm3 (0.00-0.031); Immature Granulocyte Percent A 0.5 % (0-0.5); Lymphocytes Absolute Auto 2.89 K/mm3 (0.9-3.2); Lymphocytes Percent Auto 35.3 % (18.3-44.2); Mean Corpuscular HGB Conc 32.9 g/dl (32-36); Mean Corpuscular Hemoglobin 28.1 pg (26-34); Mean Corpuscular Volume 85.5 fl (80-100); Monocytes Absolute Auto 0.6 K/mm3 (0.1-0.6); Monocytes Percent Auto 7.5 % (2.6-8.5); Neutrophils Absolute Auto 4.3 K/mm3 (1.3-6.7); Neutrophils Percent Auto 52.7 % (45.5-73.1); Platelet Count Result 212 k/mm3 (150-375); Red Blood Count 4.06 M/mm3 (4.2-5.4); Red Cell Distribution Width 19.2 % (11.5-14.5); White Blood Count 8.2 K/mm3 (4.5-10.0)
[2024-01-06 05:21] LABS: Alanine Aminotransferase 11 U/L (6-35); Albumin Level 2.7 g/dL (3.5-5.1); Alkaline Phosphatase 129 U/L (38-126); Anion Gap 5 mmol/L (8-16); Aspartate Amino Transferase 19 U/L (14-36); Bilirubin,Total 0.4 mg/dL (0.2-1.3); Blood Urea Nitrogen 8 mg/dL (7-17); Calcium 8.1 mg/dL (8.4-10.2); Carbon Dioxide 28 mmol/L (22-30); Chloride 100 mmol/L (98-107); Estimated CRCL calculation 68 ml/min; Estimated Glomerular Filt Rate > 60; Glucose 116 mg/dL (65-110); Magnesium 2.2 mg/dL (1.6-2.3); Potassium 3.5 mmol/L (3.4-5.0); Sodium 133 mmol/L (137-145)
[2024-01-06 05:27] LABS: Prothrombin Time 61.9 Seconds (11.1-14.7)
[2024-01-06] MEDS: METOCLOPRAMIDE HCL INJ 10 MG/2 ML VIAL 5 MG IV PUSH ×3 (05:27→16:39)
[2024-01-06] MEDS: MEGESTROL ACETATE (*CHEMO) 40 MG TABLET PO ×3 (05:27→16:39)
[2024-01-06 05:44] LABS: INR 6.4
[2024-01-06 08:02] LABS: Glucose Point of Care 145 mg/dl (65-105)
[2024-01-06] MEDS: ATORVASTATIN 20 MG TABLET PO (08:56)
[2024-01-06] MEDS: SERTRALINE HCL 25 MG TABLET PO ×2 (08:56→20:10)
[2024-01-06] MEDS: OPTI-GEN TAB 1 TABLET PO (08:56)
--- NOTE | 2024-01-06 09:55 | PM.IMPN ---
Progress Note: A&P Assessment and Plan (1) Abdominal pain: Code(s): R10.9 - Unspecified abdominal pain Status: Acute Assessment and Plan: 12/30/23: reporting abdominal pain across her mid abdomen for the last 5 days with associated nausea and vomiting however she was not eating or participating in activities at her assisted living facility and was found to have a low blood sugar on those days. She was seen by her primary care physician on the and was worked up for depression. 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 12/31: suspect that the majority of her pain is results of pelvic thrombosis with interval progression, will discontinue Xarelto and bridge to warfarin as recommended by Hematology at [place] 01/01: Reports that eating causes nausea/vomiting and worsened abdominal pain but she can tolerate orange sherbert. Discussed Ensure and Megace. Patient agrees to try both. 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 01/02: Heparin supratherapeutic. Will hold for 3 hours and drop by 3 units/kg/hr. 01/03/24: Heparin drip stopped Continue with warfarin INR therapeutic today at 2.3 Continue to trend labs 01/04/24: Continue warfarin, will decrease warfarin to 4mg tonight due to INR 3.7 today Will likely switch patient back to Xarelto tomorrow, awaiting hematology at [facility] opinion. 01/05/24: Patient switch back to Xarelto today after talking with the bottom presser at [facility] She will be following up with Dr. 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 Add warfarin today. 01/02: Heparin supratherapeutic, INR 1.3. 01/03/24: INR therapeutic today at 2.3 Heparin infusion stopped 01/04/24: INR supratherapeutic 3.7 Coumadin adjusted 01/05/2024: INR supratherapeutic at 4.6 today Coumadin discontinued Will start Xarelto once INR is down to 2.[address] [facility] Hematology recommendations 01/06/2024: INR is supratherapeutic at 6.4 today Xarelto is on hold until INR is down to 2.0 or below per [facility] ([facility]) (4) Adult failure to thrive: Code(s): R62.7 - Adult failure to thrive Status: Acute Assessment and Plan: 12/31: was reported not to be participating with physical therapy, eating, checking her blood sugars at her assisted nursing facility was seen at her primary care physician's office on the and was worked up for depression. She does state that she is still mourning the loss of her 's which could be contributing to her failure to thrive. PT/OT ordered 01/01: Ordered Jovany, patient to try to eat/drink more calories.
--- NOTE | 2024-01-06 09:55 | P.PNIM_ITS ---
Progress Note: A&P Assessment and Plan (1) Abdominal pain: Code(s): R10.9 - Unspecified abdominal pain Status: Acute Assessment and Plan: 12/30/23: * reporting abdominal pain across her mid abdomen for the last 5 days with associated nausea and vomiting however she was not eating or participating in activities at her assisted living facility and was found to have a low blood sugar on those days. She was seen by her primary care physician on the and was worked up for depression. * CT of the abdomen pelvis showed mild esophagitis /gastritis, no AAA, or obstruction noted, pelvic and femoral vein thrombosis with evidence of slight interval progression * CTA of chest negative for PE * Workup so far has been negative * Lipase 125 * Will order a stool occult blood, however no active signs of bleeding. 12/31: suspect that the majority of her pain is results of pelvic thrombosis with interval progression, will discontinue Xarelto and bridge to warfarin as recommended by Hematology at [place] 01/01: Reports that eating causes nausea/vomiting and worsened abdominal pain but she can tolerate orange sherbert. Discussed Ensure and Megace. Patient agrees to try both. 01/02: Will add metoclopramide TID AC 5 mg IV to see if this and Megace help promote more calorie intake/tolerance 01/03/24: * No change to current treatment plan * Pain is more controlled today 01/04/24: * Switch pain med to Toradol 15 mg IV push x1 now and Ultram 25 mg q.6 * Start with Tylenol 1st * Morphine DC'd (2) Chronic anticoagulation: Code(s): Z79.01 - snf (current) use of anticoagulants Status: Acute Assessment and Plan: 12/30/23: * continue Xarelto, stop heparin infusion * CTA of the chest negative for PE 12/31: Stop Xarelto, will have to bridge with heparin or Lovenox until therapeutic on warfarin 01/01: Heparin drip ongoing, warfarin to start today. 01/02: Heparin supratherapeutic. Will hold for 3 hours and drop by 3 units/kg/hr. 01/03/24: * Heparin drip stopped * Continue with warfarin * INR therapeutic today at 2.3 * Continue to trend labs 01/04/24: * Continue warfarin, will decrease warfarin to 4mg tonight due to INR 3.7 today * Will likely switch patient back to Xarelto tomorrow, awaiting hematology at [facility] opinion. 01/05/24: * Patient switch back to Xarelto today after talking with the integration project manager at [facility] * She will be following up with Dr. 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 Add warfarin today. 01/02: Heparin supratherapeutic, INR 1.3. 01/03/24: * INR therapeutic today at 2.3 * Heparin infusion stopped 01/04/24: * INR supratherapeutic 3.7 * Coumadin adjusted 01/05/2024: * INR supratherapeutic at 4.6 today * Coumadin discontinued * Will start Xarelto once INR is down to 2.0 or below per [facility] Hematology recommendations 01/06/2024: INR is supratherapeutic at 6.4 today Xarelto is on hold until INR is down to 2.0 or below per [facility] ([facility]) (4) Adult failure to thrive: Code(s): R62.7 - Adult failure to thrive Status: Acute Assessment and
[2024-01-06 12:07] LABS: Glucose Point of Care 135 mg/dl (65-105)
--- NOTE | 2024-01-06 12:42 | PCPTNOTE ---
Attempted to see patient for Physical Therapy. Patient declined to participate for therapy for today. Patient stated that she was going to be leaving and stated she would work where she was going. RN notified.
[2024-01-06 13:13] VITALS: BP 110/49; PULSE 77; RESP 16; TEMP 36.3; O2SAT 96
[2024-01-06 16:57] LABS: Glucose Point of Care 130 mg/dl (65-105)
[2024-01-06 19:41] VITALS: BP 118/51; PULSE 70; RESP 18; TEMP 36.2; O2SAT 96
[2024-01-06 20:40] LABS: Glucose Point of Care 164 mg/dl (65-105)
[2024-01-07 04:42] VITALS: BP 122/53; PULSE 84; RESP 18; TEMP 36.1; O2SAT 99
[2024-01-07] MEDS: MEGESTROL ACETATE (*CHEMO) 40 MG TABLET PO ×3 (05:32→17:50)
[2024-01-07] MEDS: METOCLOPRAMIDE HCL INJ 10 MG/2 ML VIAL 5 MG IV PUSH (05:32)
[2024-01-07 05:56] LABS: Basophils Percent Auto 0.6 % (0.2-1.2); Eosinophils Absolute Auto 0.3 K/mm3 (0-0.3); Eosinophils Percent Auto 4.1 % (0-4.4); Hematocrit 35.3 % (37.0-47.0); Hemoglobin 11.4 g/dL (12.0-15.0); Immature Granulocyte Absolute 0.03 K/mm3 (0.00-0.031); Immature Granulocyte Percent A 0.5 % (0-0.5); Lymphocytes Absolute Auto 2.76 K/mm3 (0.9-3.2); Lymphocytes Percent Auto 43.9 % (18.3-44.2); Mean Corpuscular HGB Conc 32.3 g/dl (32-36); Mean Corpuscular Hemoglobin 27.9 pg (26-34); Mean Corpuscular Volume 86.3 fl (80-100); Monocytes Absolute Auto 0.4 K/mm3 (0.1-0.6); Neutrophils Absolute Auto 2.8 K/mm3 (1.3-6.7); Neutrophils Percent Auto 43.9 % (45.5-73.1); Platelet Count Result 229 k/mm3 (150-375); Red Blood Count 4.09 M/mm3 (4.2-5.4); Red Cell Distribution Width 19.2 % (11.5-14.5); White Blood Count 6.3 K/mm3 (4.5-10.0)
[2024-01-07 06:10] LABS: Alanine Aminotransferase 9 U/L (6-35); Albumin Level 2.6 g/dL (3.5-5.1); Alkaline Phosphatase 113 U/L (38-126); Anion Gap 4 mmol/L (8-16); Aspartate Amino Transferase 18 U/L (14-36); Bilirubin,Total 0.5 mg/dL (0.2-1.3); Blood Urea Nitrogen 7 mg/dL (7-17); Calcium 8.1 mg/dL (8.4-10.2); Carbon Dioxide 28 mmol/L (22-30); Chloride 101 mmol/L (98-107); Estimated CRCL calculation 68 ml/min; Estimated Glomerular Filt Rate > 60; Glucose 103 mg/dL (65-110); Magnesium 2.2 mg/dL (1.6-2.3); Potassium 3.4 mmol/L (3.4-5.0); Sodium 133 mmol/L (137-145)
[2024-01-07 06:23] LABS: Prothrombin Time 52.9 Seconds (11.1-14.7)
[2024-01-07 06:32] LABS: INR 5.3
[2024-01-07 08:19] LABS: Glucose Point of Care 108 mg/dl (65-105)
[2024-01-07] MEDS: SERTRALINE HCL 25 MG TABLET PO ×2 (08:50→20:04)
[2024-01-07] MEDS: ATORVASTATIN 20 MG TABLET PO (08:50)
[2024-01-07] MEDS: OPTI-GEN TAB 1 TABLET PO (08:50)
--- NOTE | 2024-01-07 11:13 | P.PNIM_ITS ---
Progress Note: A&P Assessment and Plan (1) Abdominal pain: Code(s): R10.9 - Unspecified abdominal pain Status: Acute Assessment and Plan: 12/30/23: * reporting abdominal pain across her mid abdomen for the last 5 days with associated nausea and vomiting however she was not eating or participating in activities at her assisted living facility and was found to have a low blood sugar on those days. She was seen by her primary care physician on the and was worked up for depression. * CT of the abdomen pelvis showed mild esophagitis /gastritis, no AAA, or obstruction noted, pelvic and femoral vein thrombosis with evidence of slight interval progression * CTA of chest negative for PE * Workup so far has been negative * Lipase 125 * Will order a stool occult blood, however no active signs of bleeding. 12/31: suspect that the majority of her pain is results of pelvic thrombosis with interval progression, will discontinue Xarelto and bridge to warfarin as recommended by Hematology at [place] 01/01: Reports that eating causes nausea/vomiting and worsened abdominal pain but she can tolerate orange sherbert. Discussed Ensure and Megace. Patient agrees to try both. 01/02: Will add metoclopramide TID AC 5 mg IV to see if this and Megace help promote more calorie intake/tolerance 01/03/24: * No change to current treatment plan * Pain is more controlled today 01/04/24: * Switch pain med to Toradol 15 mg IV push x1 now and Ultram 25 mg q.6 * Start with Tylenol 1st * Morphine DC'd 01/07/2024: -continue with plan above (2) Chronic anticoagulation: Code(s): Z79.01 - residential (current) use of anticoagulants Status: Acute Assessment and Plan: 12/30/23: * continue Xarelto, stop heparin infusion * CTA of the chest negative for PE 12/31: Stop Xarelto, will have to bridge with heparin or Lovenox until therapeutic on warfarin 01/01: Heparin drip ongoing, warfarin to start today. 01/02: Heparin supratherapeutic. Will hold for 3 hours and drop by 3 units/kg/hr. 01/03/24: * Heparin drip stopped * Continue with warfarin * INR therapeutic today at 2.3 * Continue to trend labs 01/04/24: * Continue warfarin, will decrease warfarin to 4mg tonight due to INR 3.7 today * Will likely switch patient back to Xarelto tomorrow, awaiting hematology at [facility] opinion. 01/05/24: * Patient switch back to Xarelto today after talking with the varnishing machine operator at [facility] * She will be following up with Dr. 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 Add warfarin today. 01/02: Heparin supratherapeutic, INR 1.3. 01/03/24: * INR therapeutic today at 2.3 * Heparin infusion stopped 01/04/24: * INR supratherapeutic 3.7 * Coumadin adjusted 01/05/2024: * INR supratherapeutic at 4.6 today * Coumadin discontinued * Will start Xarelto once INR is down to 2.[address] [facility] Hematology recommendations 01/06/2024: INR is supratherapeutic at 6.4 today Xarelto is on hold until INR is down to 2.0 or below per [facility] ([facility]) 01/07/2024: INR is supr
--- NOTE | 2024-01-07 11:13 | PM.IMPN ---
Progress Note: A&P Assessment and Plan (1) Abdominal pain: Code(s): R10.9 - Unspecified abdominal pain Status: Acute Assessment and Plan: 12/30/23: reporting abdominal pain across her mid abdomen for the last 5 days with associated nausea and vomiting however she was not eating or participating in activities at her assisted living facility and was found to have a low blood sugar on those days. She was seen by her primary care physician on the and was worked up for depression. 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 12/31: suspect that the majority of her pain is results of pelvic thrombosis with interval progression, will discontinue Xarelto and bridge to warfarin as recommended by Hematology at [place] 01/01: Reports that eating causes nausea/vomiting and worsened abdominal pain but she can tolerate orange sherbert. Discussed Ensure and Megace. Patient agrees to try both. 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 01/02: Heparin supratherapeutic. Will hold for 3 hours and drop by 3 units/kg/hr. 01/03/24: Heparin drip stopped Continue with warfarin INR therapeutic today at 2.3 Continue to trend labs 01/04/24: Continue warfarin, will decrease warfarin to 4mg tonight due to INR 3.7 today Will likely switch patient back to Xarelto tomorrow, awaiting hematology at [facility] opinion. 01/05/24: Patient switch back to Xarelto today after talking with the velocity shooter at [facility] She will be following up with Dr. 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 Add warfarin today. 01/02: Heparin supratherapeutic, INR 1.3. 01/03/24: INR therapeutic today at 2.3 Heparin infusion stopped 01/04/24: INR supratherapeutic 3.7 Coumadin adjusted 01/05/2024: INR supratherapeutic at 4.6 today Coumadin discontinued Will start Xarelto once INR is down to 2.0 or below per [facility] Hematology recommendations 01/06/2024: INR is supratherapeutic at 6.4 today Xarelto is on hold until INR is down to 2.0 or below per [facility] ([facility]) 01/07/2024: INR is supratherapeutic 5.3 (4) Adult failure to thrive: Code(s): R62.7 - Adult failure to thrive Status: Acute Assessment and Plan: 12/31: was reported not to be participating with physical therapy, eating, checking her blood sugars at her assisted nursing facility was seen at her primary care physician's office on the and was worked up for depression. She does state that she is still mourning the loss of her 's which could b
[2024-01-07 12:01] LABS: Glucose Point of Care 128 mg/dl (65-105)
[2024-01-07 14:49] VITALS: BP 118/51; PULSE 72; RESP 17; TEMP 36.7; O2SAT 100
[2024-01-07 17:17] LABS: Glucose Point of Care 132 mg/dl (65-105)
[2024-01-07 19:21] VITALS: BP 119/47; PULSE 78; RESP 16; TEMP 36.4; O2SAT 98
[2024-01-07 20:40] LABS: Glucose Point of Care 176 mg/dl (65-105)
[2024-01-08 03:25] VITALS: BP 135/60; PULSE 70; RESP 16; TEMP 36.6; O2SAT 96
[2024-01-08] MEDS: MEGESTROL ACETATE (*CHEMO) 40 MG TABLET PO ×3 (05:35→17:27)
[2024-01-08] MEDS: METOCLOPRAMIDE HCL INJ 10 MG/2 ML VIAL 5 MG IV PUSH (05:35)
[2024-01-08 05:43] LABS: Basophils Absolute Auto 0.1 K/mm3 (0.0-0.1); Basophils Percent Auto 0.9 % (0.2-1.2); Eosinophils Absolute Auto 0.2 K/mm3 (0-0.3); Eosinophils Percent Auto 3.1 % (0-4.4); Hematocrit 35.6 % (37.0-47.0); Hemoglobin 11.2 g/dL (12.0-15.0); Immature Granulocyte Absolute 0.03 K/mm3 (0.00-0.031); Immature Granulocyte Percent A 0.4 % (0-0.5); Lymphocytes Absolute Auto 2.55 K/mm3 (0.9-3.2); Lymphocytes Percent Auto 37.1 % (18.3-44.2); Mean Corpuscular HGB Conc 31.5 g/dl (32-36); Mean Corpuscular Hemoglobin 27.9 pg (26-34); Mean Corpuscular Volume 88.6 fl (80-100); Mean Platelet Volume 9.5 fl (7.4-10.4); Monocytes Absolute Auto 0.5 K/mm3 (0.1-0.6); Monocytes Percent Auto 7.8 % (2.6-8.5); Neutrophils Absolute Auto 3.5 K/mm3 (1.3-6.7); Neutrophils Percent Auto 50.7 % (45.5-73.1); Platelet Count Result 259 k/mm3 (150-375); Red Blood Count 4.02 M/mm3 (4.2-5.4); Red Cell Distribution Width 19.1 % (11.5-14.5); White Blood Count 6.9 K/mm3 (4.5-10.0)
[2024-01-08 05:53] LABS: Alanine Aminotransferase 9 U/L (6-35); Albumin Level 2.8 g/dL (3.5-5.1); Alkaline Phosphatase 112 U/L (38-126); Anion Gap 2 mmol/L (8-16); Aspartate Amino Transferase 16 U/L (14-36); Bilirubin,Total 0.6 mg/dL (0.2-1.3); Blood Urea Nitrogen 6 mg/dL (7-17); Calcium 8.3 mg/dL (8.4-10.2); Carbon Dioxide 26 mmol/L (22-30); Chloride 104 mmol/L (98-107); Estimated CRCL calculation 78 ml/min; Estimated Glomerular Filt Rate > 60; Glucose 111 mg/dL (65-110); Magnesium 2.1 mg/dL (1.6-2.3); Potassium 3.5 mmol/L (3.4-5.0); Sodium 132 mmol/L (137-145)
[2024-01-08 07:54] LABS: Glucose Point of Care 117 mg/dl (65-105)
[2024-01-08] MEDS: ATORVASTATIN 20 MG TABLET PO (09:57)
[2024-01-08] MEDS: SERTRALINE HCL 25 MG TABLET PO (09:57)
[2024-01-08] MEDS: OPTI-GEN TAB 1 TABLET PO (09:57)
--- NOTE | 2024-01-08 10:13 | P.PNIM_ITS ---
Progress Note: A&P Assessment and Plan (1) Abdominal pain: Code(s): R10.9 - Unspecified abdominal pain Status: Acute Assessment and Plan: 12/30/23: * reporting abdominal pain across her mid abdomen for the last 5 days with associated nausea and vomiting however she was not eating or participating in activities at her assisted living facility and was found to have a low blood sugar on those days. She was seen by her primary care physician on the and was worked up for depression. * CT of the abdomen pelvis showed mild esophagitis /gastritis, no AAA, or obstruction noted, pelvic and femoral vein thrombosis with evidence of slight interval progression * CTA of chest negative for PE * Workup so far has been negative * Lipase 125 * Will order a stool occult blood, however no active signs of bleeding. 12/31: suspect that the majority of her pain is results of pelvic thrombosis with interval progression, will discontinue Xarelto and bridge to warfarin as recommended by Hematology at [place] 01/01: Reports that eating causes nausea/vomiting and worsened abdominal pain but she can tolerate orange sherbert. Discussed Ensure and Megace. Patient agrees to try both. 01/02: Will add metoclopramide TID AC 5 mg IV to see if this and Megace help promote more calorie intake/tolerance 01/03/24: * No change to current treatment plan * Pain is more controlled today 01/04/24: * Switch pain med to Toradol 15 mg IV push x1 now and Ultram 25 mg q.6 * Start with Tylenol 1st * Morphine DC'd 01/07/2024: -continue with plan above 01/08/2024 --continue with plan above (2) Chronic anticoagulation: Code(s): Z79.01 - [facility] (current) use of anticoagulants Status: Acute Assessment and Plan: 12/30/23: * continue Xarelto, stop heparin infusion * CTA of the chest negative for PE 12/31: Stop Xarelto, will have to bridge with heparin or Lovenox until therapeutic on warfarin 01/01: Heparin drip ongoing, warfarin to start today. 01/02: Heparin supratherapeutic. Will hold for 3 hours and drop by 3 units/kg/hr. 01/03/24: * Heparin drip stopped * Continue with warfarin * INR therapeutic today at 2.3 * Continue to trend labs 01/04/24: * Continue warfarin, will decrease warfarin to 4mg tonight due to INR 3.7 today * Will likely switch patient back to Xarelto tomorrow, awaiting hematology at [facility] opinion. 01/05/24: * Patient switch back to Xarelto today after talking with the electronics recycler at [facility] * She will be following up with Dr. 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 Add warfarin today. 01/02: Heparin supratherapeutic, INR 1.3. 01/03/24: * INR therapeutic today at 2.3 * Heparin infusion stopped 01/04/24: * INR supratherapeutic 3.7 * Coumadin adjusted 01/05/2024: * INR supratherapeutic at 4.6 today * Coumadin discontinued * Will start Xarelto once INR is down to 2.0 or below per [facility] Hematology recommendations 01/06/2024: INR is supratherapeutic at 6.4 today Xarelto is on hold un
--- NOTE | 2024-01-08 10:13 | PM.IMPN ---
Progress Note: A&P Assessment and Plan (1) Abdominal pain: Code(s): R10.9 - Unspecified abdominal pain Status: Acute Assessment and Plan: 12/30/23: reporting abdominal pain across her mid abdomen for the last 5 days with associated nausea and vomiting however she was not eating or participating in activities at her assisted living facility and was found to have a low blood sugar on those days. She was seen by her primary care physician on the and was worked up for depression. 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 12/31: suspect that the majority of her pain is results of pelvic thrombosis with interval progression, will discontinue Xarelto and bridge to warfarin as recommended by Hematology at [place] 01/01: Reports that eating causes nausea/vomiting and worsened abdominal pain but she can tolerate orange sherbert. Discussed Ensure and Megace. Patient agrees to try both. 01/02: Will add metoclopramide TID AC 5 mg IV to see if this and Megace help promote more calorie intake/tolerance 01/03/24: No change to current treatment plan Pain is more controlled today 01/04/24: Switch pain med to Toradol 15 mg IV push x1 now and Ultram 25 mg q.6 Start with Tylenol 1st Morphine DC'd 01/07/2024: -continue with plan above 01/08/2024 --continue with plan above (2) Chronic anticoagulation: Code(s): Z79.01 - longterm (current) use of anticoagulants Status: Acute Assessment and Plan: 12/30/23: continue Xarelto, stop heparin infusion CTA of the chest negative for PE 12/31: Stop Xarelto, will have to bridge with heparin or Lovenox until therapeutic on warfarin 01/01: Heparin drip ongoing, warfarin to start today. 01/02: Heparin supratherapeutic. Will hold for 3 hours and drop by 3 units/kg/hr. 01/03/24: Heparin drip stopped Continue with warfarin INR therapeutic today at 2.3 Continue to trend labs 01/04/24: Continue warfarin, will decrease warfarin to 4mg tonight due to INR 3.7 today Will likely switch patient back to Xarelto tomorrow, awaiting hematology at [facility] opinion. 01/05/24: Patient switch back to Xarelto today after talking with the guest service supervisor at [facility] She will be following up with Dr. 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 Add warfarin today. 01/02: Heparin supratherapeutic, INR 1.3. 01/03/24: INR therapeutic today at 2.3 Heparin infusion stopped 01/04/24: INR supratherapeutic 3.7 Coumadin adjusted 01/05/2024: INR supratherapeutic at 4.6 today Coumadin discontinued Will start Xarelto once INR is down to 2.0 or below per [facility] Hematology recommendations 01/06/2024: INR is supratherapeutic at 6.4 today Xarelto is on hold until INR is down to 2.0 or below per [facility] ([facility]) 01/07/2024: INR is supratherapeutic 5.3 01/08/2024 -INR is currently 3.6 (4) Adult failure to thrive: Code(s): R62.7 - Adult failure to thrive Status: Acute Assessment and Plan: 12/31: was reported not to be participating with physical therapy, eating, checking her blood sugars at her assisted nursing facility was seen at her primary care physician's office on the and was worked u
[2024-01-08 10:33] LABS: INR 3.6; Prothrombin Time 38.9 Seconds (11.1-14.7)
[2024-01-08] MEDS: traMADol HCL (*CRX) 25 MG TABLET PO ×2 (10:38→18:21)
--- NOTE | 2024-01-08 11:48 | PCPTNOTE ---
Patient refused treatment this date due to not feeling well. RN notified. Will continue per PT plan of care.
[2024-01-08 12:42] LABS: Glucose Point of Care 177 mg/dl (65-105)
--- NOTE | 2024-01-08 15:29 | PC.NURSE ---
Addendum entered by Mckenzie Lucas RN 01/08/24 16:03: Student was not logged in under script writer when charting assessment. [place] Guide reviewed student's assessment and agrees with findings Original Note: Student, Tomasz Valera, charted assessment under script writer. [place] [facility] [place] Guide reviewed and agrees with all assessment findings.
[2024-01-08 15:35] VITALS: BP 117/52; PULSE 76; RESP 18; TEMP 36.8; O2SAT 100
[2024-01-08 17:13] LABS: Glucose Point of Care 160 mg/dl (65-105)
[2024-01-08 19:25] VITALS: BP 115/54; PULSE 64; RESP 16; TEMP 36.4; O2SAT 95
[2024-01-08 20:50] LABS: Glucose Point of Care 144 mg/dl (65-105)
[2024-01-09] MEDS: METOCLOPRAMIDE HCL INJ 10 MG/2 ML VIAL 5 MG IV PUSH ×3 (05:43→16:27)
[2024-01-09 06:00] VITALS: BP 117/58; PULSE 71; RESP 16; TEMP 36.6; O2SAT 100
[2024-01-09 06:04] LABS: Basophils Absolute Auto 0.1 K/mm3 (0.0-0.1); Basophils Percent Auto 0.7 % (0.2-1.2); Eosinophils Absolute Auto 0.3 K/mm3 (0-0.3); Eosinophils Percent Auto 3.1 % (0-4.4); Hematocrit 36.4 % (37.0-47.0); Hemoglobin 11.5 g/dL (12.0-15.0); Immature Granulocyte Absolute 0.04 K/mm3 (0.00-0.031); Immature Granulocyte Percent A 0.5 % (0-0.5); Lymphocytes Absolute Auto 2.51 K/mm3 (0.9-3.2); Lymphocytes Percent Auto 31.1 % (18.3-44.2); Mean Corpuscular HGB Conc 31.6 g/dl (32-36); Mean Corpuscular Volume 88.6 fl (80-100); Mean Platelet Volume 9.2 fl (7.4-10.4); Monocytes Absolute Auto 0.6 K/mm3 (0.1-0.6); Monocytes Percent Auto 7.2 % (2.6-8.5); Neutrophils Absolute Auto 4.6 K/mm3 (1.3-6.7); Neutrophils Percent Auto 57.4 % (45.5-73.1); Platelet Count Result 262 k/mm3 (150-375); Red Blood Count 4.11 M/mm3 (4.2-5.4); Red Cell Distribution Width 19.1 % (11.5-14.5); White Blood Count 8.1 K/mm3 (4.5-10.0)
[2024-01-09 06:05] LABS: Alanine Aminotransferase 8 U/L (6-35); Albumin Level 2.9 g/dL (3.5-5.1); Alkaline Phosphatase 116 U/L (38-126); Anion Gap 4 mmol/L (8-16); Aspartate Amino Transferase 16 U/L (14-36); Bilirubin,Total 0.6 mg/dL (0.2-1.3); Blood Urea Nitrogen 7 mg/dL (7-17); Calcium 8.1 mg/dL (8.4-10.2); Carbon Dioxide 24 mmol/L (22-30); Chloride 101 mmol/L (98-107); Estimated CRCL calculation 78 ml/min; Estimated Glomerular Filt Rate > 60; Glucose 109 mg/dL (65-110); Magnesium 2.2 mg/dL (1.6-2.3); Potassium 3.4 mmol/L (3.4-5.0); Sodium 129 mmol/L (137-145)
[2024-01-09 08:18] LABS: Glucose Point of Care 100 mg/dl (65-105)
[2024-01-09] MEDS: SERTRALINE HCL 25 MG TABLET PO ×2 (08:26→20:39)
[2024-01-09] MEDS: OPTI-GEN TAB 1 TABLET PO (08:26)
[2024-01-09] MEDS: ATORVASTATIN 20 MG TABLET PO (08:34)
[2024-01-09 08:46] LABS: Prothrombin Time 33.5 Seconds (11.1-14.7)
--- NOTE | 2024-01-09 10:00 | PCPTNOTE ---
Patient refused therapy treatment at this time. She states that she just wants to take a nap. The patient was educated on benefits of participating in therapy but still refused. RN notified. Will continue per PT plan of care.
--- NOTE | 2024-01-09 11:30 | P.PNIM_ITS ---
Progress Note: A&P Assessment and Plan (1) Abdominal pain: Code(s): R10.9 - Unspecified abdominal pain Status: Acute Assessment and Plan: 12/30/23: * reporting abdominal pain across her mid abdomen for the last 5 days with associated nausea and vomiting however she was not eating or participating in activities at her assisted living facility and was found to have a low blood sugar on those days. She was seen by her primary care physician on the and was worked up for depression. * CT of the abdomen pelvis showed mild esophagitis /gastritis, no AAA, or obstruction noted, pelvic and femoral vein thrombosis with evidence of slight interval progression * CTA of chest negative for PE * Workup so far has been negative * Lipase 125 * Will order a stool occult blood, however no active signs of bleeding. 12/31: suspect that the majority of her pain is results of pelvic thrombosis with interval progression, will discontinue Xarelto and bridge to warfarin as recommended by Hematology at [place] 01/01: Reports that eating causes nausea/vomiting and worsened abdominal pain but she can tolerate orange sherbert. Discussed Ensure and Megace. Patient agrees to try both. 01/02: Will add metoclopramide TID AC 5 mg IV to see if this and Megace help promote more calorie intake/tolerance 01/03/24: * No change to current treatment plan * Pain is more controlled today 01/04/24: * Switch pain med to Toradol 15 mg IV push x1 now and Ultram 25 mg q.6 * Start with Tylenol 1st * Morphine DC'd 01/07/2024: -continue with plan above 01/08/2024 --continue with plan above -01/09/2024 Continue plan above (2) Chronic anticoagulation: Code(s): Z79.01 - [facility] (current) use of anticoagulants Status: Acute Assessment and Plan: 12/30/23: * continue Xarelto, stop heparin infusion * CTA of the chest negative for PE 12/31: Stop Xarelto, will have to bridge with heparin or Lovenox until therapeutic on warfarin 01/01: Heparin drip ongoing, warfarin to start today. 01/02: Heparin supratherapeutic. Will hold for 3 hours and drop by 3 units/kg/hr. 01/03/24: * Heparin drip stopped * Continue with warfarin * INR therapeutic today at 2.3 * Continue to trend labs 01/04/24: * Continue warfarin, will decrease warfarin to 4mg tonight due to INR 3.7 today * Will likely switch patient back to Xarelto tomorrow, awaiting hematology at [facility] opinion. 01/05/24: * Patient switch back to Xarelto today after talking with the human resources designate at [facility] * She will be following up with Dr. Valente in 1 month 01/06/2024: continue with plan above 01/07/2024: INR is currently 5.3 01/08/2024 INR is currently 3.6 01/09/2024 INR is currently 3.0 (3) Factor V Leiden: Code(s): D68.51 - Activated protein C resistance Status: Acute Assessment and Plan: 12/30/23: * patient has known DVTs and bilateral lower extremities extending up into the pelvis and was started on Xarelto * currently followed by a [place] hematology * continue Xarelto 12/31: Stop Xarelto, will have to bridge with heparin or Lovenox until therapeutic on warfarin 01/01: Heparin therapeutic. Add warfarin today. 01/02: Heparin supratherapeutic, INR 1.3. 01/03/24: * INR therapeutic today at 2.3 * Heparin infusion stopped 01/04/24: * INR supratherapeutic 3.7 * Coumadin adjusted 01/05/2024: * INR supratherapeutic at 4.6 today * Coumadin discontinued * Will start Xarelto once INR is down to 2.0 or below per [facility] Hematology r
--- NOTE | 2024-01-09 11:30 | PM.IMPN ---
Progress Note: A&P Assessment and Plan (1) Abdominal pain: Code(s): R10.9 - Unspecified abdominal pain Status: Acute Assessment and Plan: 12/30/23: reporting abdominal pain across her mid abdomen for the last 5 days with associated nausea and vomiting however she was not eating or participating in activities at her assisted living facility and was found to have a low blood sugar on those days. She was seen by her primary care physician on the and was worked up for depression. 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 12/31: suspect that the majority of her pain is results of pelvic thrombosis with interval progression, will discontinue Xarelto and bridge to warfarin as recommended by Hematology at [place] 01/01: Reports that eating causes nausea/vomiting and worsened abdominal pain but she can tolerate orange sherbert. Discussed Ensure and Megace. Patient agrees to try both. 01/02: Will add metoclopramide TID AC 5 mg IV to see if this and Megace help promote more calorie intake/tolerance 01/03/24: No change to current treatment plan Pain is more controlled today 01/04/24: Switch pain med to Toradol 15 mg IV push x1 now and Ultram 25 mg q.6 Start with Tylenol 1st Morphine DC'd 01/07/2024: -continue with plan above 01/08/2024 --continue with plan above -01/09/2024 Continue plan above (2) Chronic anticoagulation: Code(s): Z79.01 - shelter (current) use of anticoagulants Status: Acute Assessment and Plan: 12/30/23: continue Xarelto, stop heparin infusion CTA of the chest negative for PE 12/31: Stop Xarelto, will have to bridge with heparin or Lovenox until therapeutic on warfarin 01/01: Heparin drip ongoing, warfarin to start today. 01/02: Heparin supratherapeutic. Will hold for 3 hours and drop by 3 units/kg/hr. 01/03/24: Heparin drip stopped Continue with warfarin INR therapeutic today at 2.3 Continue to trend labs 01/04/24: Continue warfarin, will decrease warfarin to 4mg tonight due to INR 3.7 today Will likely switch patient back to Xarelto tomorrow, awaiting hematology at [facility] opinion. 01/05/24: Patient switch back to Xarelto today after talking with the seismographer at [facility] She will be following up with Dr. Valente in 1 month 01/06/2024: continue with plan above 01/07/2024: INR is currently 5.3 01/08/2024 INR is currently 3.6 01/09/2024 INR is currently 3.0 (3) Factor V Leiden: Code(s): D68.51 - Activated protein C resistance Status: Acute Assessment and Plan: 12/30/23: patient has known DVTs and bilateral lower extremities extending up into the pelvis and was started on Xarelto currently followed by a [place] hematology continue Xarelto 12/31: Stop Xarelto, will have to bridge with heparin or Lovenox until therapeutic on warfarin 01/01: Heparin therapeutic. Add warfarin today. 01/02: Heparin supratherapeutic, INR 1.3. 01/03/24: INR therapeutic today at 2.3 Heparin infusion stopped 01/04/24: INR supratherapeutic 3.7 Coumadin adjusted 01/05/2024: INR supratherapeutic at 4.6 today Coumadin discontinued Will start Xarelto once INR is down to 2.[address] [facility] Hematology recommendations 01/06/2024: INR is supratherapeutic at 6.4 today Xarelto is on hold until INR is down to 2.0 or below per [facility] ([facility]) 01/07/2024: INR is supratherapeutic 5.3 01/08/2024 -INR is currently 3.6 (4) Adult failure to thrive: Code(s): R62.7 - Adult failure to thrive Status: Acute Assessment and Plan: 12/31: was reported not to be participating with physical therapy, eating, checking her blood sugars at her assisted nursing facility w
[2024-01-09 11:50] LABS: Glucose Point of Care 160 mg/dl (65-105)
[2024-01-09] MEDS: MEGESTROL ACETATE (*CHEMO) 40 MG TABLET PO ×2 (12:17→16:27)
[2024-01-09 14:00] VITALS: BP 107/52; PULSE 88; RESP 14; TEMP 37.4; O2SAT 96
[2024-01-09 14:43] LABS: Sodium Urine Random 51 meq/L
[2024-01-09] MEDS: SODIUM CHLORIDE 0.9% IV 1,000 ML 100 ML IV CONT (15:16)
[2024-01-09 17:08] LABS: Glucose Point of Care 113 mg/dl (65-105)
[2024-01-09 20:46] LABS: Glucose Point of Care 169 mg/dl (65-105)
[2024-01-09 20:59] VITALS: BP 115/44; PULSE 78; RESP 16; TEMP 36.7; O2SAT 96
[2024-01-10] MEDS: SODIUM CHLORIDE 0.9% IV 1,000 ML 100 ML IV CONT (01:10)
[2024-01-10 05:09] LABS: Basophils Absolute Auto 0.1 K/mm3 (0.0-0.1); Eosinophils Absolute Auto 0.2 K/mm3 (0-0.3); Hematocrit 33.6 % (37.0-47.0); Hemoglobin 10.8 g/dL (12.0-15.0); Immature Granulocyte Absolute 0.03 K/mm3 (0.00-0.031); Immature Granulocyte Percent A 0.4 % (0-0.5); Lymphocytes Absolute Auto 2.62 K/mm3 (0.9-3.2); Lymphocytes Percent Auto 37.1 % (18.3-44.2); Mean Corpuscular HGB Conc 32.1 g/dl (32-36); Mean Platelet Volume 9.2 fl (7.4-10.4); Monocytes Absolute Auto 0.5 K/mm3 (0.1-0.6); Monocytes Percent Auto 6.9 % (2.6-8.5); Neutrophils Absolute Auto 3.6 K/mm3 (1.3-6.7); Neutrophils Percent Auto 51.6 % (45.5-73.1); Platelet Count Result 259 k/mm3 (150-375); Red Blood Count 3.86 M/mm3 (4.2-5.4); Red Cell Distribution Width 18.6 % (11.5-14.5); White Blood Count 7.1 K/mm3 (4.5-10.0)
[2024-01-10 05:40] VITALS: BP 105/54; PULSE 71; RESP 16; TEMP 36.4; O2SAT 100
[2024-01-10] MEDS: METOCLOPRAMIDE HCL INJ 10 MG/2 ML VIAL 5 MG IV PUSH ×2 (06:06→11:34)
[2024-01-10] MEDS: MEGESTROL ACETATE (*CHEMO) 40 MG TABLET PO ×2 (06:06→11:33)
[2024-01-10 07:14] LABS: INR 2.5; Prothrombin Time 28.4 Seconds (11.1-14.7)
[2024-01-10 07:46] LABS: Alanine Aminotransferase 10 U/L (6-35); Albumin Level 2.6 g/dL (3.5-5.1); Alkaline Phosphatase 109 U/L (38-126); Anion Gap 4 mmol/L (8-16); Aspartate Amino Transferase 16 U/L (14-36); Bilirubin,Total 0.6 mg/dL (0.2-1.3); Blood Urea Nitrogen 5 mg/dL (7-17); Carbon Dioxide 21 mmol/L (22-30); Chloride 107 mmol/L (98-107); Estimated CRCL calculation 78 ml/min; Estimated Glomerular Filt Rate > 60; Glucose 115 mg/dL (65-110); Potassium 3.4 mmol/L (3.4-5.0); Sodium 132 mmol/L (137-145)
[2024-01-10 07:58] LABS: Glucose Point of Care 111 mg/dl (65-105)
[2024-01-10] MEDS: SERTRALINE HCL 25 MG TABLET PO (08:56)
[2024-01-10] MEDS: ATORVASTATIN 20 MG TABLET PO (08:56)
--- NOTE | 2024-01-10 10:20 | PM.DS ---
DS: Admitting Diagnosis Discharge Date 01/10/2024 Admitting Diagnosis Abdominal pain DVT DS: Summary Hospital Course Reason for hospitalization: This is a 73 year old female with a significant past medical history of acute diverticulitis, adult failure to thrive, CAD, Factor V deficiency on Xarelto and followed at [facility], hyperlipidemia, Insulin dependent type 2 DM, DVT who presented to the hospital with complaints of abdominal pain Hospital Course: Patient states that she has had abdominal pain for the last 5 days and was seen by her primary care physician on the . ? She has had nausea vomiting along with it. According to her office visit note patient was not participating in PT, not eating, not doing her Accu-Cheks and was reported to have low blood sugars for the last 4-5 days. Work up in hospital includes abdomen/pelvis CT which shown mild esophagitis/gastritis, pelvic and femoral vein thromboses, with evidence of slight interval progression.? Labs revealed hemoglobin of 10.9, hematocrit 34.3, platelet count 131, PTT 50.6, sodium 136, blood sugars ranging 176-187, lactic acid 0.4, alk-phos 140, 3.4.? UA was obtained and showed 1+ protein, trace ketones, 3-5 urine RBCs.? Patient was given 1 L of normal saline, morphine for pain, 3 doses of Zofran for nausea and started on heparin infusion.? CTA of the chest was negative for PE. On examination today patient is alert oriented x3, lying in the bed. She denies? Any fever, chills, shortness of breath, chest pain, nausea, vomiting, diarrhea, abdominal pain. Heparin infusion was discontinued and patient was placed back on her Xarelto at her current dose. Of note, patient was seen here recently and was noted to have these DVT's on that admission. She was started on Xarelto. Cardiology was consulted for IVC filter however she is a high risk candidate and would likely need transfer if there is a need for this. Patient was discharged last admission to SNF however it has been reported that she has not been participating in any of the rehab and has barely been eating according to her last office note in the EMR. Patient seen by primary care physician for depression workup? On December 24, 2023. 12/30/23: On examination today patient is alert and oriented x3, lying in the bed.? She still is reporting abdominal pain however workup has been negative so far.? She denies any other new complaints today.? Order placed for PT and OT to work with her.? Case management talked with her about rehab however she has declined this option. 12/31: ? Patient still complaining of significant abdominal pain.? Reviewed chart and imaging.? Placed a phone call to hematology at [facility] and spoke to Dr. Whelan covering for Dr. Valente. ? she reports that patient was supposed to be on warfarin and that she had previously been on Xarelto but taken off of such in February of 2023.? Especially in light of worsening clot burden despite Xarelto, recommendation is to bridge patient over to warfarin.? Transfer to [facility] is not recommended at this time.? Further, patient's history is confirmed to be factor 5 Leiden homozygous which is more prothrombotic and significant than heterozygous would be. 01/01:? Discussed poor appetite with patient.? She will try to consume Ensure.? Currently she reports no appetite and states only orange sherbert has been tolerated this admission.? She has had decreased intake for months with worsening in past 1 month.? Discussed with patient the importance of calorie intake.? Patient reports 50 pound weight loss.? Mentioned that if she continued not eating then hospice might be indicated.? Patient expressed desire to stay alive, stated don't let me . ? Patient agreeable to trying Megace to stimulate appetite.? Patient on heparin drip.? Will start Warfarin at 5 mg at 1700 with daily INR.? Will discontinue heparin when INR 2.0-3.0.? Instructed patient that Xarelto is not working for her and Hematology at [facility] wants her on warfarin from now o
[2024-01-10] MEDS: traMADol HCL (*CRX) 25 MG TABLET PO (11:33)
[2024-01-10 12:09] LABS: Glucose Point of Care 110 mg/dl (65-105)
[2024-01-10 15:09] VITALS: BP 108/50; PULSE 68; RESP 17; TEMP 36.9; O2SAT 98
[2024-01-11 00:07] LABS: SARS-CoV-2 RNA PCR Negative (Negative)
[2024-01-11 10:26] LABS: Osmolality, Urine 334 mOsm/kg (50-1200)
== END 2024-01-10 15:15 | DRG 299 ==
LOC: ANHED 23:38 → ANH2MED 23:59
PROVIDERS: Emergency Medicine; Nurse Practitioner; Nurse Practitioner Acute Care; Admitting Provider Internal Medicine; Emergency Provider Emergency Medicine; PCP Family Medicine; Visit Provider Nurse Practitioner
DX: I82.890 Acute embolism and thrombosis of other specified veins (principal); E43 Unspecified severe protein-calorie malnutrition; F33.1 Major depressive disorder, recurrent, moderate; D68.2 Hereditary deficiency of other clotting factors; D68.51 Activated protein C resistance; I82.421 Acute embolism and thrombosis of right iliac vein; I82.412 Acute embolism and thrombosis of left femoral vein; I82.411 Acute embolism and thrombosis of right femoral vein; E11.9 Type 2 diabetes mellitus without complications; E78.5 Hyperlipidemia, unspecified; I25.10 Atherosclerotic heart disease of native coronary artery without angina pectoris; R62.7 Adult failure to thrive; Z68.30 Body mass index [BMI] 30.0-30.9, adult; Z79.01 Long term (current) use of anticoagulants; Z11.52 Encounter for screening for COVID-19
CPT/HCPCS: 36415; 71275; 74177; 80048; 80053; 81001; 82948; 83605; 83690; 83735; 83930; 83935; 84300; 84443; 85025; 85027; 85610; 85730; 87635; 96361; 96365; 96366; 96375; 96376; 97110; 97161; 97165; 97530; 97535; 99285; A9270; G0378; J1644; J1885; J2270; J2405; J2765; J7030; Q9967

== ENCOUNTER 2024-02-02 16:46 | Emergency (ER) | payer MEDICARE, SELFPAY ==
[2024-02-02] VITALS (7 sets, daily range): BP systolic 122–155; BP diastolic 56–86; PULSE 88–98; RESP 13–18; TEMP 36.6–36.7; O2SAT 98–100
--- NOTE | ~2024-02-02 | CT_ITS ---
EXAMINATION: CT abdomen pelvis w con DATE: 02/02/2024 20:01 INDICATION: Lower abdominal pain TECHNIQUE: Computed tomography (CT) of the abdomen and pelvis was performed with 100 cc Omnipaque 350 intravenous contrast. The dose-length product was 605.77 mGy-cm. Automated exposure control and iter ative reconstruction technique were employed. COMPARISON: CT dated 12/28/2023. FINDINGS: Lung bases unremarkable. Heart size normal. Small hiatal hernia with thickening of the dist al esophagus, consistent with esophagitis. Fatty infiltration of the liver. There are changes of vent ral abdominal wall hernia repair. There is atherosclerosis of the aorta without aneurysm. There is pr osthetic disc device at L4-5, position unchanged from prior CT. Possible deep venous thrombosis of th e iliac and femoral veins. Consider correlation with ultrasound. IMPRESSION: 1. No acute abdominal abnormality. 2: Possible deep venous thrombosis of the iliac and femoral veins. Consider correlation with ultrasou nd. 3: Small hiatal hernia with thickening of the distal esophagus, suspicious for esophagitis. Reviewed, dictated and finalized at location A. IMPRESSION: 1. No acute abdominal abnormality. 2: Possible deep venous thrombosis of the iliac and femoral veins. Consider cor relation with ultrasound. 3: Small hiatal hernia with thickening of the distal esophagus, suspicious for esophagitis.
[2024-02-02 17:13] LABS: Basophils Absolute Auto 0.1 K/mm3 (0.0-0.1); Basophils Percent Auto 0.3 % (0.2-1.2); Eosinophils Absolute Auto 0.1 K/mm3 (0-0.3); Eosinophils Percent Auto 0.7 % (0-4.4); Hematocrit 39.7 % (37.0-47.0); Hemoglobin 13.2 g/dL (12.0-15.0); Immature Granulocyte Absolute 0.12 K/mm3 (0.00-0.031); Immature Granulocyte Percent A 0.8 % (0-0.5); Lymphocytes Absolute Auto 3.13 K/mm3 (0.9-3.2); Lymphocytes Percent Auto 20.5 % (18.3-44.2); Mean Corpuscular HGB Conc 33.2 g/dl (32-36); Mean Corpuscular Hemoglobin 28.8 pg (26-34); Mean Corpuscular Volume 86.5 fl (80-100); Monocytes Percent Auto 6.3 % (2.6-8.5); Neutrophils Absolute Auto 10.9 K/mm3 (1.3-6.7); Neutrophils Percent Auto 71.4 % (45.5-73.1); Platelet Count Result 259 k/mm3 (150-375); Red Blood Count 4.59 M/mm3 (4.2-5.4); Red Cell Distribution Width 16.4 % (11.5-14.5); White Blood Count 15.3 K/mm3 (4.5-10.0)
[2024-02-02 17:21] LABS: Alanine Aminotransferase 13 U/L (6-35); Albumin Level 3.8 g/dL (3.5-5.1); Alkaline Phosphatase 115 U/L (38-126); Anion Gap 10 mmol/L (8-16); Aspartate Amino Transferase 23 U/L (14-36); Blood Urea Nitrogen 31 mg/dL (7-17); Carbon Dioxide 27 mmol/L (22-30); Chloride 98 mmol/L (98-107); Estimated Glomerular Filt Rate 49; Glucose 97 mg/dL (65-110); Lipase 99 U/L (23-300); Potassium 3.3 mmol/L (3.4-5.0); Sodium 135 mmol/L (137-145)
[2024-02-02 17:33] LABS: Appearance Urine Turbid (Clear); Bacteria Urine 4+ /hpf; Bilirubin Urine 1+ (Negative); Blood Urine Trace (Negative); Color Urine Dark Yellow (Yellow); Glucose Urine UA Negative (Negative); Hyaline Casts Urine Present /lpf; Ketones Urine Trace mg/dL (Negative); Leukocyte Esterase Ur 3+ LEU/UL (Negative); Nitrate Urine Positive (Negative); Non Pathogenic Casts >20; Protein Urine 1+ mg/dL (Negative); RBC Urine 21-50 /hpf (0-2); Specific Grav Ur 1.023 (1.001-1.035); Squamous Epithelial Cell Urine Few /hpf (Few); WBC Urine >100 /hpf (0-3); pH Urine 5.5 (5.0-9.0)
[2024-02-02 17:36] LABS: Add Urine Microscopic? YES
[2024-02-02] MEDS: ONDANSETRON INJ 4 MG/2 ML VIAL IV PUSH ×2 (17:47→21:48)
[2024-02-02] MEDS: LACTATED RINGERS 1,000 ML 999 ML IV CONT (17:48)
[2024-02-02] MEDS: KCL 20 MEQ/SW 100 ML 100 ML 50 MEQ IVPB (18:06)
--- NOTE | 2024-02-02 18:26 | ED.ABDPAIN ---
HPI - Abdominal Pain General Chief Complaint: Abdominal Pain Stated Complaint: ABD pain with nausea Time Seen by Provider: 02/02/24 16:58 History of Present Illness HPI narrative: Patient reports lower abdominal pain that started today, states that she has had something similar in the past but cannot recall anything more. No nausea or vomiting. Related Data Home Medications Medication Instructions Recorded Confirmed pen needle, diabetic 32 gauge x 10/09/23 01/26/2432 vit C 250 mg-vit E 90 mg-zinc 40 1 tablet PO DAILY 10/10/23 01/26/24 mg-copper 1 [id number]-[id number] capsule (PreserVision AREDS-2) Allergies Allergy/AdvReac Type Severity Reaction Status Date / Time ciprofloxacin AdvReac Mild Vomiting Verified 12/28/23 18:07 codeine AdvReac Unknown vomiting Verified 12/28/23 18:07 Review of Systems Review of Systems: CONST: No fever. HEENT: No sore throat C/V: No chest pain RESP: No cough GI: Reports abdominal pain : No dysuria. M/S: No joint pain. SKIN: No rash. NEURO: [No headache or focal numbness or weakness] PSYCH: [No depression] [facility] Past Medical History Medical History (Updated 02/02/24 @ 20:25 by Maris Romero MD) Acute diverticulitis of intestine Adult failure to thrive Atherosclerosis of aorta with gangrene Chronic anticoagulation Coronary atherosclerosis Epidermal cyst of face Factor V Leiden Hx of deep venous thrombosis Hyperlipidemia Insulin dependent type 2 diabetes mellitus Sliding hiatal hernia Tobacco abuse Surgical History Surgical History H/O breast biopsy H/O colonoscopy with polypectomy 2011 History of lumbar fusion L5-S1 History of partial colectomy History of removal of cyst 2022, orbital, cheek and neck S/P recurrent ventral herniorrhaphy Family History Family History Other Unknown family medical history Social History Social History Social History: Smoking packs per day: 1 Smoking cigarettes per day: 20.0 Years smoked: 40 Smoking pack-years: 40.00 Smoking status: Current some day smoker Tobacco type: cigarettes Alcohol intake: never Substance use: never Substance use type: does not use Do You Feel Safe in your Home?: Yes Lack of Transportation: No Lack of Food: Never True Current Housing: I Have Housing Concerned About Future Housing: No Difficulty Paying Gas/Electric Bills: No Difficulty Paying for Meds: No Currently Unemployed: No Education: Master's Degree or Higher Difficulty w/ Childcare or Family Care: No Living arrangements: alone Occupation/Education: retired Gender identity (if verbalized by the patient): Female Sexual Orientation (if Verbalized by the Patient): Straight or Heterosexual Spiritual care concerns: No Agree to blood products: Yes Exam Narrative: EXAMINATION OF ORGAN SYSTEMS/BODY AREAS: Constitutional: Vital signs per nursing GENERAL:[No acute distress, non-toxic appearing.] HEAD: Normal with no signs of head trauma. EYES: EOMI, conjunctiva normal ENT: Hearing grossly intact LUNGS: Nonlabored breathing. HEART: [Regular rate and rhythm] ABD: [Soft], [very minimally tender to palpation] : with [facility] specialist: no significant adnexal tenderness, no blood in vault EXT: Normal range of motion SKIN: [No rashes or lesions.] NEURO: [Alert and oriented x 3. No gross focal sensory or strength deficits.] PSYCH: Normal affect Course Vital Signs Vital signs: Vital Signs Temperature 98.0 F 02/02/24 17:00 Pulse Rate 98 02/02/24 17:00 Respiratory Rate 16 02/02/24 17:00 Blood Pressure 122/69 02/02/24 17:00 Pulse Oximetry 98 02/02/24 17:00 Temperature 97.8 F 02/02/24 19:00 Pulse Rate 93 02/02/24 19:35 Respiratory Rate 13 02/02/24 19:35 Blood Pressure 155/8
--- NOTE | 2024-02-02 21:46 | PC.NURSE ---
Pt vomiting. EDP notified, new orders placed.
== END 2024-02-02 22:14 | disposition home or self-care (01) ==
PROVIDERS: Emergency Provider Emergency Medicine; PCP Family Medicine
DX: N39.0 Urinary tract infection, site not specified (principal); R10.30 Lower abdominal pain, unspecified; I70.0 Atherosclerosis of aorta; I25.10 Atherosclerotic heart disease of native coronary artery without angina pectoris; D68.51 Activated protein C resistance; Z86.718 Personal history of other venous thrombosis and embolism; E78.5 Hyperlipidemia, unspecified; E11.9 Type 2 diabetes mellitus without complications; Z98.1 Arthrodesis status; Z90.49 Acquired absence of other specified parts of digestive tract; F17.210 Nicotine dependence, cigarettes, uncomplicated; K44.9 Diaphragmatic hernia without obstruction or gangrene; Z79.84 Long term (current) use of oral hypoglycemic drugs; Z79.01 Long term (current) use of anticoagulants
CPT/HCPCS: 36415; 74177; 80053; 83690; 85025; 87077; 87086; 87088; 87186; 96365; 96366; 96367; 96375; 96376; 99284; J0696; J2405; J3480; J7120; Q9967

== ENCOUNTER 2024-02-10 20:12 | Emergency (ER) | payer MEDICARE, SELFPAY ==
--- NOTE | ~2024-02-10 | CT_ITS ---
CT of the Abdomen and Pelvis: Indication: Abdominal pain Technique: 2.5 mm axial scans were obtained through the abdomen and pelvis following intravenous adm inistration of 100 cc of Omnipaque 350. Dose reduction technique was used on this scan by utilizing a utomated exposure control and iterative reconstruction technique. The dose-length product (DLP) was 4 65.15 mGy-cm. COMPARISON: 02/02/2024 Findings: Scans through the lung bases are unremarkable. Focal hypodensity in the liver (axial image 27) probably represent hemangioma based on prior exam. Th e spleen, pancreas, gallbladder, adrenals and kidneys are within normal limits. There are atheroscler otic calcifications of the aorta. No lymphadenopathy. No bowel obstruction or bowel wall thickening. There is no evidence to suggest acute appendicitis. Images through the pelvis were performed. Urinary bladder unremarkable. No adnexal mass seen. No asci jermaine. There is thrombosis of the left common femoral and profunda femoral veins, propagating proximally thr ough the left external iliac vein and probably the left common iliac vein. No thrombus evident within the IVC. Impression: Extensive left-sided DVT, probably extending from the left common iliac vein through the left externa l iliac, left common femoral and left profunda femoral veins. Knee Stable hepatic hemangioma. Reviewed, dictated and finalized at location M. Impression: Extensive left-sided DVT, probably extending from the left common iliac vein th rough the left external iliac, left common femoral and left profunda femoral ve ins. Knee Stable hepatic hemangioma.
[2024-02-10 20:15] VITALS: BP 100/66; PULSE 100; RESP 20; TEMP 36.5
[2024-02-10 22:26] LABS: Basophils Absolute Auto 0.1 K/mm3 (0.0-0.1); Basophils Percent Auto 0.4 % (0.2-1.2); Eosinophils Absolute Auto 0.1 K/mm3 (0-0.3); Eosinophils Percent Auto 0.4 % (0-4.4); Hematocrit 38.3 % (37.0-47.0); Hemoglobin 12.8 g/dL (12.0-15.0); Immature Granulocyte Absolute 0.12 K/mm3 (0.00-0.031); Immature Granulocyte Percent A 0.8 % (0-0.5); Lymphocytes Absolute Auto 2.91 K/mm3 (0.9-3.2); Lymphocytes Percent Auto 18.9 % (18.3-44.2); Mean Corpuscular HGB Conc 33.4 g/dl (32-36); Mean Corpuscular Hemoglobin 28.5 pg (26-34); Mean Corpuscular Volume 85.3 fl (80-100); Mean Platelet Volume 10.1 fl (7.4-10.4); Monocytes Absolute Auto 1.1 K/mm3 (0.1-0.6); Monocytes Percent Auto 7.1 % (2.6-8.5); Neutrophils Absolute Auto 11.2 K/mm3 (1.3-6.7); Neutrophils Percent Auto 72.4 % (45.5-73.1); Platelet Count Result 329 k/mm3 (150-375); Red Blood Count 4.49 M/mm3 (4.2-5.4); Red Cell Distribution Width 15.3 % (11.5-14.5); White Blood Count 15.4 K/mm3 (4.5-10.0)
[2024-02-10 23:02] LABS: Influenza A QL RT-PCR Negative (Negative); Influenza B QL RT-PCR Negative (Negative); RSV RNA, RT-PCR Negative (Negative); SARS-CoV-2 RNA PCR Negative (Negative)
[2024-02-10 23:08] LABS: Alanine Aminotransferase 10 U/L (6-35); Albumin Level 3.7 g/dL (3.5-5.1); Alkaline Phosphatase 105 U/L (38-126); Anion Gap 8 mmol/L (8-16); Aspartate Amino Transferase 30 U/L (14-36); Bilirubin,Total 0.9 mg/dL (0.2-1.3); Blood Urea Nitrogen 19 mg/dL (7-17); Carbon Dioxide 31 mmol/L (22-30); Chloride 95 mmol/L (98-107); Estimated CRCL calculation 58 ml/min; Estimated Glomerular Filt Rate > 60; Glucose 149 mg/dL (65-110); Lipase 59 U/L (23-300); Potassium 2.7 mmol/L (3.4-5.0); Sodium 134 mmol/L (137-145)
[2024-02-10 23:57] VITALS: BP 134/60; PULSE 94; RESP 17; O2SAT 99
[2024-02-11 01:30] VITALS: BP 112/51; PULSE 89; RESP 13; O2SAT 96
--- NOTE | 2024-02-11 01:42 | ED.NAVMDI ---
HPI - Nausea/Vomiting/Diarrhea General Chief complaint: Nausea/Vomiting/Diarrhea <Susana Prescott PA-C - Last Filed: 02/11/24 03:00> Stated complaint: N/V X SEVERAL DAYS, BILAT FOOT PAIN <Susana Prescott PA-C - Last Filed: 02/11/24 03:00> Time Seen by Provider: 02/11/24 00:03 <Susana Perscott PA-C - Last Filed: 02/11/24 03:00> History of Present Illness HPI Narrative: 73-year-old female with history of factor 5 Leiden, hypertension, insulin-dependent type 2 diabetes, hyperlipidemia, chronic anticoagulation with Xarelto presents to the emergency department for abdominal pain, nausea and vomiting for 5 days. 1st patient reports to the middle of her abdomen when describing her abdominal pain is. She is unable to characterize the pain. She reports multiple episodes of emesis that is nonbloody. Last bowel movement was 3 days ago and normal. Denies fever, dysuria or hematuria. Endorses prior abdominal surgeries but is unsure what they were. Per chart review she has a history of a partial colectomy. <Susana Prescott PA-C - Last Filed: 02/11/24 03:00> Related Data Home medications: Home Medications Medication Instructions Recorded Confirmed pen needle, diabetic 32 gauge x 10/09/23 02/02/24 vit C 250 mg-vit E 90 mg-zinc 40 1 tablet PO DAILY 10/10/23 02/02/24 mg-copper 1 [id number]-lalero capsule (PreserVision AREDS-2) <Susana Prescott PA-C - Last Filed: 02/11/24 03:00> Allergies/Adverse reactions: Allergies Allergy/AdvReac Type Severity Reaction Status Date / Time ciprofloxacin AdvReac Mild Vomiting Verified 12/28/23 18:07 codeine AdvReac Unknown vomiting Verified 12/28/23 18:07 <Susana Prescott PA-C - Last Filed: 02/11/24 03:00> Review of Systems Review of Systems: CONSTITUTIONAL: Denies fever, chills, or sweats. EYES: Denies visual changes, redness, or discharge. ENT: Denies rhinorrhea, congestion, sore throat, or otalgia. CARDIOVASCULAR: Denies chest pain, palpitations, or edema. RESPIRATORY: Denies cough or dyspnea. GASTROINTESTINAL: See HPI GENITOURINARY: Denies dysuria or hematuria. SKIN: Denies rash or itching. MUSCULOSKELETAL: Denies back pain, joint pain, or myalgia. NEUROLOGIC: Denies headache, numbness, or weakness. PSYCHIATRIC: Denies anxiety or depression. <Susana Prescott PA-C - Last Filed: 02/11/24 03:00> [facility] Past Medical History Medical History: Medical History Acute diverticulitis of intestine Adult failure to thrive Atherosclerosis of aorta with gangrene Chronic anticoagulation Coronary atherosclerosis Epidermal cyst of face Factor V Leiden Hx of deep venous thrombosis Hyperlipidemia Insulin dependent type 2 diabetes mellitus Sliding hiatal hernia Tobacco abuse <Susana Prescott PA-C - Last Filed: 02/11/24 03:00> Surgical History Surgical History: Surgical History H/O breast biopsy H/O colonoscopy with polypectomy 2011 History of lumbar fusion L5-S1 History of partial colectomy History of removal of cyst 2022, orbital, cheek and neck S/P recurrent ventral herniorrhaphy <Susana Prescott PA-C - Last Filed: 02/11/24 03:00> Family History Family History: Family History Other Unknown family medical history <Susana Prescott PA-C - Last Filed: 02/11/24 03:00> Social History Social History: Social History Social History: Smoking packs per day: 1 Smoking cigarettes per day: 20.0 Years smoked: 40 Smoking pack-years: 40.00 Smoking status: Current some day smoker Tobacco type: cigarettes Alcohol intake: never Substance use: never Substance use type: does not use Do You Feel Safe in your Home?: Yes Lack of Transportati
[2024-02-11 02:11] LABS: Magnesium 2.2 mg/dL (1.6-2.3)
[2024-02-11] MEDS: POTASSIUM CHLORIDE 20 MEQ ER TABLET 40 MEQ PO (02:14)
[2024-02-11] MEDS: ONDANSETRON INJ 4 MG/2 ML VIAL IV PUSH (02:14)
[2024-02-11] MEDS: SODIUM CHLORIDE 0.9% IV 1,000 ML 999 ML IV CONT (02:14)
[2024-02-11] MEDS: POTASSIUM CHLORIDE INJ 40 MEQ in SODIUM CHLORIDE 0.9% IV 500 ML 130 MEQ IVPB (02:15)
[2024-02-11 03:03] VITALS: BP 135/74; PULSE 81; RESP 16; O2SAT 98
[2024-02-11 03:21] LABS: Appearance Urine Clear (Clear); Bacteria Urine None Seen /hpf; Bilirubin Urine 1+ (Negative); Blood Urine Negative (Negative); Color Urine Dark Yellow (Yellow); Glucose Urine UA Negative (Negative); Ketones Urine Trace mg/dL (Negative); Leukocyte Esterase Ur Negative LEU/UL (Negative); Nitrate Urine Negative (Negative); Protein Urine Trace mg/dL (Negative); RBC Urine 0-2 /hpf (0-2); Specific Grav Ur 1.022 (1.001-1.035); Squamous Epithelial Cell Urine None Seen /hpf (Few); Urobilinogen Urine 0.2 mg/dL (<2.0); WBC Urine 0-5 /hpf (0-3); pH Urine 5.5 (5.0-9.0)
[2024-02-11 03:22] LABS: Add Urine Microscopic? YES
[2024-02-11 04:31] VITALS: BP 137/65; PULSE 81; RESP 15; O2SAT 96
--- NOTE | 2024-02-11 04:42 | PC.NURSE ---
Phlebotomy contacted to obtain lactic acid lab specimen.
[2024-02-11 04:46] VITALS: BP 136/63; PULSE 78; RESP 18; O2SAT 95
[2024-02-11 05:01] VITALS: BP 143/67; PULSE 82; RESP 15; O2SAT 96
--- NOTE | 2024-02-11 05:20 | PC.NURSE ---
Two RNs attempted blood draw on pt, phlebotomy contacted and stated they would come to ED as soon as they get the chance .
[2024-02-11 06:44] VITALS: BP 115/53; PULSE 80; RESP 15; TEMP 36.7; O2SAT 97
== END 2024-02-11 06:46 | disposition home or self-care (01) ==
PROVIDERS: Emergency Medicine; Emergency Provider Physician Assistant; PCP Family Medicine
DX: R11.2 Nausea with vomiting, unspecified (principal); R10.9 Unspecified abdominal pain; E87.6 Hypokalemia; Z20.822 Contact with and (suspected) exposure to COVID-19; E11.9 Type 2 diabetes mellitus without complications; E78.5 Hyperlipidemia, unspecified; I25.10 Atherosclerotic heart disease of native coronary artery without angina pectoris; D68.51 Activated protein C resistance; I10 Essential (primary) hypertension; Z98.1 Arthrodesis status; Z86.718 Personal history of other venous thrombosis and embolism; Z86.010 Personal history of colon polyps; Z90.49 Acquired absence of other specified parts of digestive tract; F17.210 Nicotine dependence, cigarettes, uncomplicated; Z79.01 Long term (current) use of anticoagulants; Z79.84 Long term (current) use of oral hypoglycemic drugs; D18.09 Hemangioma of other sites
CPT/HCPCS: 36415; 74177; 80053; 83690; 83735; 85025; 87637; 96365; 96366; 96375; 99284; A9270; J2405; J3480; J7030; J7040; Q9967

== ENCOUNTER 2024-02-22 01:11 | Day surgery (SDC) | payer MEDICARE, SELFPAY ==
[2024-02-15 14:14] VITALS: BMI 29.3
--- NOTE | 2024-02-16 08:52 | PC.NURSE ---
Chart reviewed with Dr. Bryan per Gavino RN, pt. does not need to hold XARELTO due to her extensive DVT'S.
--- NOTE | 2024-02-18 10:52 | SUR.PREOP ---
Patient called regarding upcoming procedure. Voicemail left regarding appointment times.
--- NOTE | 2024-02-18 11:35 | PC.NURSE ---
Spoke with daughter Imelda and she confirmed Pt's son Cj will transport patient to and from procedure 02/22/2024. Called [facility] and left message for Francisca with [facility] that son will be transporting.
[2024-02-22 10:12] LABS: Glucose Point of Care 98 mg/dl (65-105)
[2024-02-22 10:13] VITALS: BP 150/81; PULSE 107; RESP 20; TEMP 36.4; O2SAT 100
--- NOTE | 2024-02-22 10:21 | PM.HPGS ---
History of Present Illness History of Present Illness Consent: Risks, benefits, and alternatives have been discussed and questions answered. Patient agrees to proceed with procedure. Chief complaint: Nausea, esophagitis Narrative: Diamond Pratt is a 73 year old female with recurrent n/v for 3 months, weight loss, Had CT scan that showed possible esophagitis and hiatal hernia, also she is been treated for DVT. Son noted weight loss, she has been in ER at least 2 times and still not getting any better. Here for EGD, had colonoscopy 2011. Liver enzymes and h/h normal. Review of Systems Review of Systems: All systems reviewed & are unremarkable except as noted in HPI and below PMFSH Past Medical History Medical History (Updated 02/22/24 @ 10:26 by Xavier Parmar MD) Acute diverticulitis of intestine Adult failure to thrive Atherosclerosis of aorta with gangrene Chronic anticoagulation Coronary atherosclerosis Epidermal cyst of face Factor V Leiden Hx of deep venous thrombosis Hyperlipidemia Insulin dependent type 2 diabetes mellitus Sliding hiatal hernia Tobacco abuse Weight loss Surgical History Surgical History H/O breast biopsy H/O colonoscopy with polypectomy 2011 History of lumbar fusion L5-S1 History of partial colectomy History of removal of cyst 2022, orbital, cheek and neck S/P recurrent ventral herniorrhaphy Family History Family History Other Unknown family medical history Social History Social History Social History: Smoking packs per day: 1 Smoking cigarettes per day: 20.0 Years smoked: 40 Smoking pack-years: 40.00 Smoking status: Current some day smoker Tobacco type: cigarettes Alcohol intake: never Substance use: never Substance use type: does not use Do You Feel Safe in your Home?: Yes Lack of Transportation: No Lack of Food: Never True Current Housing: I Have Housing Concerned About Future Housing: No Difficulty Paying Gas/Electric Bills: No Difficulty Paying for Meds: No Currently Unemployed: No Education: Master's Degree or Higher Difficulty w/ Childcare or Family Care: No Living arrangements: assisted living Occupation/Education: retired Gender identity (if verbalized by the patient): Female Sexual Orientation (if Verbalized by the Patient): Straight or Heterosexual Spiritual care concerns: No Agree to blood products: Yes Meds Home Medications and Allergies Home Medications Medication Instructions Recorded Confirmed Type pen needle, diabetic 32 gauge x 10/09/23 02/02/24 History atorvastatin 20 mg tablet 20 mg PO DAILY #100 tabs 11/25/23 02/15/24 Rx glimepiride 1 mg tablet 1 mg PO BID #90 tabs 12/24/23 02/15/24 Rx magnesium hydroxide 400 mg/5 mL 5 ml PO DAILY PRN stomach upset 12/24/23 02/15/24 Rx oral suspension (Milk of Magnesia) #3,780 mL sertraline 25 mg tablet 25 mg PO BID #90 tabs 12/24/23 02/15/24 Rx sitagliptin phos 50 mg-metformin 1 tablet PO DAILY #90 tabs 12/24/23 02/15/24 Rx ER 1,000 mg tablet,extend rel 24h mp (Janumet XR) rivaroxaban 20 mg tablet (Xarelto) 20 mg PO DAILY #90 tabs 12/25/23 02/15/24 Rx ondansetron 4 mg disintegrating 4 mg PO Q8H PRN nausea and 02/11/24 02/15/24 Rx tablet vomiting #30 tabs potassium chloride 20 mEq 20 meq PO BID #10 tabs 02/11/24 02/15/24 Rx tablet,extended release budesonide 3 mg 3 mg PO DAILY 02/15/24 02/15/24 History capsule,delayed,extended release Allergies Allergy/AdvReac Type Severity Reaction Status Date / Time ciprofloxacin AdvReac Mild Vomiting Verified 02/22/24 10:12 codeine AdvReac Unknown vomiting Verified 02/22/24 10:12 Vital Signs Vital Signs - 24 hr 02/22/24 10:13 Temperature 97.6 F Pulse Rate 107 H Respiratory Rate 20 Bl
[2024-02-22] MEDS: LACTATED RINGERS 1,000 ML 150 ML IV CONT (10:22)
[2024-02-22 10:52] VITALS: BP 138/77; PULSE 94; RESP 20; O2SAT 100
[2024-02-22 11:02] VITALS: BP 149/86; PULSE 91; RESP 19; O2SAT 100
[2024-02-22 11:12] VITALS: BP 148/83; PULSE 97; RESP 22; O2SAT 100
--- NOTE | 2024-02-25 11:38 | WPDANESEPPF ---
Anes - Initial Pre Proc Eval Procedure: Operation Date: 02/22/24 11:30 Proposed Procedures p Esophagogastroduodenoscopy - Xavier Parmar MD Date/Time: 02/25/24 11:38 Surgeon: Xavier Parmar MD Pre Op Diagnosis: Nausea, esophagitis Patient Data Age: 73 Gender: F Height: 1.65 m Weight: 80 kg Last Vital Signs Temp 97.6 F 02/22/24 10:13 Pulse 97 02/22/24 11:12 Resp 22 H 02/22/24 11:12 BP 148/83 H 02/22/24 11:12 Pulse Ox 100 02/22/24 11:12 O2 Del Method Room Air 02/22/24 11:12 O2 Flow Rate 6 02/22/24 10:52 Allergies Allergy/AdvReac Type Severity Reaction Status Date / Time ciprofloxacin AdvReac Mild Vomiting Verified 02/22/24 10:12 codeine AdvReac Unknown vomiting Verified 02/22/24 10:12 Home Medications Medication Instructions Recorded Confirmed Type pen needle, diabetic 32 gauge x 10/09/23 02/02/24 History atorvastatin 20 mg tablet 20 mg PO DAILY #100 tabs 11/25/23 02/15/24 Rx glimepiride 1 mg tablet 1 mg PO BID #90 tabs 12/24/23 02/15/24 Rx magnesium hydroxide 400 mg/5 mL 5 ml PO DAILY PRN stomach upset 12/24/23 02/15/24 Rx oral suspension (Milk of Magnesia) #3,780 mL sertraline 25 mg tablet 25 mg PO BID #90 tabs 12/24/23 02/15/24 Rx sitagliptin phos 50 mg-metformin 1 tablet PO DAILY #90 tabs 12/24/23 02/15/24 Rx ER 1,000 mg tablet,extend rel 24h mp (Janumet XR) rivaroxaban 20 mg tablet (Xarelto) 20 mg PO DAILY #90 tabs 12/25/23 02/15/24 Rx ondansetron 4 mg disintegrating 4 mg PO Q8H PRN nausea and 02/11/24 02/15/24 Rx tablet vomiting #30 tabs potassium chloride 20 mEq 20 meq PO BID #10 tabs 02/11/24 02/15/24 Rx tablet,extended release budesonide 3 mg 3 mg PO DAILY 02/15/24 02/15/24 History capsule,delayed,extended release pantoprazole 40 mg tablet,delayed 40 mg PO Q12H #60 tabs 02/22/24 Rx release sucralfate 100 mg/mL oral 1 g (10 mL) PO TID #1,000 mL 02/22/24 Rx suspension (Carafate) Patient hx anesthesia problems: none Family hx anesthesia problems: none Results Review: All pre-operative results and documents have been reviewed as part of the pre-operative evaluation. [facility] Past Medical History Medical History (Updated 02/22/24 @ 10:47 by Xavier Parmar MD) Acute diverticulitis of intestine Adult failure to thrive Atherosclerosis of aorta with gangrene Chronic anticoagulation Coronary atherosclerosis Epidermal cyst of face Factor V Leiden Hx of deep venous thrombosis Hyperlipidemia Insulin dependent type 2 diabetes mellitus Neck enlargement Sliding hiatal hernia Tobacco abuse Weight loss Surgical History Surgical History H/O breast biopsy H/O colonoscopy with polypectomy 2011 History of lumbar fusion L5-S1 History of partial colectomy History of removal of cyst 2022, orbital, cheek and neck S/P recurrent ventral herniorrhaphy Family History Family History Other Unknown family medical history Social History Social History Social History: Smoking packs per day: 1 Smoking cigarettes per day: 20.0 Years smoked: 40 Smoking pack-years: 40.00 Smoking status: Current some day smoker Tobacco type: cigarettes Alcohol intake: never Substance use: never Substance use type: does not use Do You Feel Safe in your Home?: Yes Lack of Transportation: No Lack of Food: Never True Current Housing: I Have Housing Concerned About Future Housing: No Difficulty Paying Gas/Electric Bills: No Difficulty Paying for Meds: No Currently Unemployed: No Education: Master's Degree or Higher Difficulty w/ Childcare or Family Care: No Living arrangements: assisted living Occupation/Education: retired Gender identity (if verbalized by the patient): Female Sexual Orientation
== END 2024-02-22 11:27 | disposition home or self-care (01) ==
PROVIDERS: PCP Family Medicine; Visit Provider Internal Medicine Gastroenterology
PROC: 0DJ08ZZ Inspection of Upper Intestinal Tract, Via Natural or Artificial Opening Endoscopic (ICD-10-PCS; CPT 43235; principal; 2024-02-22 11:30)
DX: K21.00 Gastro-esophageal reflux disease with esophagitis, without bleeding (principal); K29.50 Unspecified chronic gastritis without bleeding; K44.9 Diaphragmatic hernia without obstruction or gangrene; I25.10 Atherosclerotic heart disease of native coronary artery without angina pectoris; D68.51 Activated protein C resistance; E78.5 Hyperlipidemia, unspecified; Z98.1 Arthrodesis status; Z90.49 Acquired absence of other specified parts of digestive tract; Z86.718 Personal history of other venous thrombosis and embolism; F17.210 Nicotine dependence, cigarettes, uncomplicated; Z79.84 Long term (current) use of oral hypoglycemic drugs; Z79.01 Long term (current) use of anticoagulants
CPT/HCPCS: 43239; 82948; 88305; 88312; 88342; J0330; J1100; J2405; J2704; J7120

== ENCOUNTER 2024-03-07 08:14 | Inpatient (IN) | payer MEDICARE, SELFPAY ==
[2024-03-07] VITALS (18 sets, daily range): BP systolic 93–127; BP diastolic 53–72; PULSE 90–111; RESP 12–17; TEMP 35.6–36.6; O2SAT 98–100
--- NOTE | ~2024-03-07 | CT_ITS ---
CT of the Abdomen and Pelvis: Indication: Abdominal pain Technique: 2.5 mm axial scans were obtained through the abdomen and pelvis following intravenous adm inistration of 100 cc of Omnipaque 350. Dose reduction technique was used on this scan by utilizing a utomated exposure control and iterative reconstruction technique. The dose-length product (DLP) was 8 22.05 mGy-cm. COMPARISON: 02/11/2024 Findings: Scans through the lung bases are unremarkable. Stable hypodense lesion in the right hepatic lobe (axial image 28). The spleen, pancreas, gallbladder , adrenals and kidneys are within normal limits. There are atherosclerotic calcifications of the aort a. No lymphadenopathy. No bowel obstruction or bowel wall thickening. There is no evidence to suggest acute appendicitis. Zaman spected thrombus again noted in the left external iliac and common femoral veins. Images through the pelvis were performed. Urinary bladder unremarkable. No pelvic mass seen. No ascit es. Impression: Suspected thrombus again noted in the left external iliac and common femoral veins. Stable hypodense lesion right hepatic lobe, likely hemangioma. Reviewed, dictated and finalized at location . Impression: Suspected thrombus again noted in the left external iliac and common femoral ve ins. Stable hypodense lesion right hepatic lobe, likely hemangioma.
--- NOTE | ~2024-03-07 | US_ITS ---
EXAMINATION:US venous doppler LE BI INDICATION:History of deep venous thrombosis. Factor V Leiden deficiency TECHNIQUE: Multiple grayscale, color flow and Doppler images of the right and left lower extremity de ep venous systems were obtained and reviewed. COMPARISON:Ultrasound dated 12/03/2023 FINDINGS: The right common femoral, superficial femoral and popliteal veins demonstrate normal respir atory variation, augmentation and compressibility. Color flow is also seen within the posterior tibi al, peroneal, greater saphenous and profunda veins. There is deep venous thrombosis of the left common femoral, profunda femoral, femoral, popliteal and gastrocnemius veins. IMPRESSION: 1: Extensive deep venous thrombosis of the left lower extremity veins, possibly chronic. Reviewed, dictated and finalized at location B.
--- NOTE | 2024-03-07 08:20 | ED.ABDPAIN ---
HPI - Abdominal Pain General Chief Complaint: Abdominal Pain Stated Complaint: abd pain History of Present Illness HPI narrative: 73-year-old female presenting to the emergency department for evaluation of abdominal pain. Patient was at the assisted living when the assisted-living staff became concerned that the patient was having abdominal pain. EMS was called. Upon arrival to the emergency department patient is quiet but denies any pain complaint at time of examination. Patient did have lower abdominal tenderness to palpation. Related Data Allergies Allergy/AdvReac Type Severity Reaction Status Date / Time ciprofloxacin AdvReac Mild Vomiting Verified 03/07/24 08:22 codeine AdvReac Unknown vomiting Verified 03/07/24 08:22 Review of Systems Review of Systems: All systems reviewed & are unremarkable except as noted in HPI and below PMFSH Past Medical History Medical History (Updated 03/07/24 @ 15:40 by Susu Vilalfana PA-C) Chronic anticoagulation Coronary atherosclerosis Deep venous thrombosis Depression Diverticulitis Esophagitis with gastritis Factor V Leiden Hyperlipidemia Sliding hiatal hernia Tobacco abuse Type 2 diabetes mellitus Surgical History Surgical History (Updated 03/07/24 @ 15:32 by Susu Villafana PA-C) History of breast biopsy History of colonoscopy with polypectomy (2011) History of lumbar fusion L5-S1 History of partial colectomy History of ventral hernia repair Family History Family History Other Unknown family medical history Social History Social History (Updated 03/07/24 @ 15:36 by Susu Villafana PA-C) Social History: Surrogate medical decision maker: Anatoliy or bela Nassar. Code status: Full code. Smoking packs per day: 1 Smoking cigarettes per day: 20.0 Years smoked: 40 Smoking pack-years: 40.00 Smoking status: Former smoker Tobacco type: cigarettes Alcohol intake: never Substance use: never Substance use type: does not use Do You Feel Safe in your Home?: Yes Lack of Transportation: No Lack of Food: Never True Current Housing: I Have Housing Concerned About Future Housing: No Difficulty Paying Gas/Electric Bills: No Difficulty Paying for Meds: No Currently Unemployed: No Education: Bachelor's Degree Difficulty w/ Childcare or Family Care: No Living arrangements: assisted living Additional living arrangements comments: . Lives in assisted living. Occupation/Education: retired Spiritual care concerns: No Agree to blood products: Yes Exam Narrative: APPEARANCE: Well appearing, no pain, no distress, well-nourished. HEAD: normocephalic, atraumatic. EYES: PERRLA/EOMI, conjunctivae clear. NOSE: Normal no drainage NECK: Supple. No adenopathy, no masses. RESPIRATORY: Airway patent, respirations nonlabored. Clear to auscultation bilaterally, no rales, rhonchi, wheezing. CARDIOVASCULAR: Regular rate and rhythm without murmurs rubs or gallops. ABDOMINAL: Diffuse abdominal tenderness, nondistended, normal bowel sounds MUSCULOSKELETAL: Moves all extremities. Strength/ROM intact, No edema, No calf tenderness. NEURO: Alert. Cranial nerves II through XII intact. Good gait. Good coordination SKIN: Warm, dry. Normal Color PSYCHIATRIC: Normal affect/mood. Course Course Emergency Course: Patient was diagnosed with urinary tract infection and admitted to the hospitalist. Vital Signs Vital signs: Vital Signs Temperature 97.8 F 03/07/24 08:14 Pulse Rate 110 H 03/07/24 08:14 Respiratory Rate 03/07/24 08:14 Blood Pressure 114/71 03/07/24 08:14 Pulse Oximetry 100 03/07/24 08:14 Oxygen Delivery Room Air 03/07/24 08:14 Temperature 96.0 F L 03/07/24 14:29 Pulse Rate 94 03/07/24 14:29 Respiratory Rate 16 03/07/24 14:29 Blood Pressure 127/67 03/07/24 14:29 Pulse Oximetry 98 03/07/24 14:29 Oxygen Deli
--- NOTE | 2024-03-07 09:02 | PC.NURSE ---
IV attempted x4 unsuccessful. [facility] Access called, Sandra RN to come start IV
[2024-03-07 09:57] LABS: Alanine Aminotransferase 12 U/L (6-35); Albumin Level 3.8 g/dL (3.5-5.1); Alkaline Phosphatase 104 U/L (38-126); Anion Gap 13 mmol/L (4-12); Aspartate Amino Transferase 33 U/L (14-36); Bilirubin,Total 1.3 mg/dL (0.2-1.3); Blood Urea Nitrogen 23 mg/dL (7-17); Calcium 8.8 mg/dL (8.4-10.2); Carbon Dioxide 25 mmol/L (22-30); Chloride 107 mmol/L (98-107); Estimated CRCL calculation 45 ml/min; Estimated Glomerular Filt Rate > 60; Glucose 150 mg/dL (65-110); Lipase 283 U/L (23-300); Potassium 2.5 mmol/L (3.4-5.0); Sodium 145 mmol/L (137-145)
[2024-03-07] MEDS: BELLADONNA ALK/PHENOB ELIX 10 ML, MAG HYDROX/ALUMINUM HYD/SIMETH 30 ML, LIDOCAINE HCL 2... PO (10:08)
[2024-03-07] MEDS: SODIUM CHLORIDE 0.9% IV 1,000 ML 999 ML IV CONT ×2 (10:08→12:09)
[2024-03-07] MEDS: ONDANSETRON INJ 4 MG/2 ML VIAL IV PUSH (10:23)
--- NOTE | 2024-03-07 10:23 | PC.NURSE ---
Pt began gasping Sao2 dropped to 87%, followed by dry henile, continues to have episodes of gasping Sao2 increased to 97%. Dr. Kay called to bedside & orders received. Notified all blood specimens clotted lab unable to perform test
--- NOTE | 2024-03-07 10:39 | PC.NURSE ---
Amara care performed. Large amount thick white vaginal noted.
[2024-03-07 11:20] LABS: Appearance Urine Turbid (Clear); Bacteria Urine 4+ /hpf; Bilirubin Urine Negative (Negative); Blood Urine Trace (Negative); Color Urine Dark Yellow (Yellow); Glucose Urine UA Negative (Negative); Ketones Urine 1+ mg/dL (Negative); Leukocyte Esterase Ur 3+ LEU/UL (Negative); Need Manual Microscopic Reviewed; Nitrate Urine Negative (Negative); Non Pathogenic Casts >20; Protein Urine 2+ mg/dL (Negative); RBC Urine 51-100 /hpf (0-2); Specific Grav Ur 1.022 (1.001-1.035); Squamous Epithelial Cell Urine Occasional /hpf (Few); WBC Urine >100 /hpf (0-3)
[2024-03-07 11:24] LABS: Add Urine Microscopic? YES
[2024-03-07 11:32] LABS: Basophils Percent Auto 0.2 % (0.2-1.2); Eosinophils Percent Auto 0.4 % (0-4.4); Hematocrit 32.3 % (37.0-47.0); Hemoglobin 10.5 g/dL (12.0-15.0); Immature Granulocyte Absolute 0.02 K/mm3 (0.00-0.031); Immature Granulocyte Percent A 0.4 % (0-0.5); Lymphocytes Absolute Auto 0.98 K/mm3 (0.9-3.2); Lymphocytes Percent Auto 19.7 % (18.3-44.2); Mean Corpuscular HGB Conc 32.5 g/dl (32-36); Mean Corpuscular Hemoglobin 28.2 pg (26-34); Mean Corpuscular Volume 86.6 fl (80-100); Mean Platelet Volume 10.1 fl (7.4-10.4); Monocytes Absolute Auto 0.3 K/mm3 (0.1-0.6); Monocytes Percent Auto 5.2 % (2.6-8.5); Neutrophils Absolute Auto 3.7 K/mm3 (1.3-6.7); Neutrophils Percent Auto 74.1 % (45.5-73.1); Nucleated Red Blood Cells Perc 0.4 % (0.0-0.2); Platelet Count Result 141 k/mm3 (150-375); Red Blood Count 3.73 M/mm3 (4.2-5.4); Red Cell Distribution Width 16.8 % (11.5-14.5)
[2024-03-07 11:46] LABS: Lactic Acid Reflex 2.8 mmol/L (0.7-2.0)
[2024-03-07] MEDS: KCL 20 MEQ/SW 100 ML 100 ML 50 MEQ IVPB (12:09)
[2024-03-07 13:10] LABS: INR 1.2; Prothrombin Time 15.9 Seconds (11.1-14.7)
--- NOTE | 2024-03-07 14:16 | PC.NURSE ---
patient to floor with KCL and IVF infusing
[2024-03-07 14:30] LABS: Reflex Lactic Acid Yes or No Add Lactic
[2024-03-07 15:11] LABS: Lactic Acid 2.3 mmol/L (0.7-2.0)
--- NOTE | 2024-03-07 15:25 | PM.IMHP ---
H&P: HPI History of Present Illness Date/Time: 03/07/24 16:00 Chief Complaint: Abdominal pain. Narrative: This is a 73-year-old female with history of gastritis, esophagitis, diverticulitis status post partial bowel resection, small hiatal hernia, factor 5 Leiden with history of DVT on chronic anticoagulation, arthritis, depression, and type 2 diabetes mellitus who presented to the emergency department via EMS from her assisted living facility with abdominal pain. The patient provides the following history however she is very soft-spoken and vague. She reports ongoing issues with abdominal pain, poor appetite, and weight loss and had an EGD on 02/22/[address] Parmar which showed grade 4 reflux esophagitis (chronic ulcers with exudate diffuse edema) in the mid and distal esophagus, small hiatal hernia, and moderate gastritis with ulcerative changes. She was started on Carafate and pantoprazole of which she states compliance. It is not unusual for her to have abdominal pain but today she seemed to be complaining of pain in the lower abdomen and was sent in for evaluation. She did not voice any complaints to the ED physician or myself however she has obvious tenderness to palpation the suprapubic region. She denies fever, chills, sweats, vomiting, diarrhea, constipation, bloating, belching, epigastric pain, melena, hematochezia, and urinary symptoms. In the ED: Vital signs were stable on arrival. Labs were significant for a WBC count of 5.0, hemoglobin 10.5, platelet 141, potassium 2.5, BUN 23, creatinine 0.90, lactic acid 2.8. Urine showed 2+ protein, 1+ ketones, 3+ leukocyte esterase, 51 to 100 RBCs, greater than 100 WBCs, and 4+ bacteria. CT of the abdomen and pelvis showed a suspected thrombus in the left external iliac and common femoral veins and stable hypodense lesion in the right hepatic lobe which is likely a hemangioma. She was given 1 g ceftriaxone for presumed urinary tract infection and a GI cocktail and she is being admitted in this setting for further treatment and evaluation. Review of Systems Review of Systems: 12 systems were reviewed and are negative except for as per HPI. [facility] Past Medical History Medical History (Updated 03/07/24 @ 20:34 by Susu Villafana PA-C) Chronic anticoagulation Coronary atherosclerosis Deep venous thrombosis Depression Diverticulitis Esophagitis with gastritis Factor V Leiden Hyperlipidemia Sliding hiatal hernia Tobacco abuse Type 2 diabetes mellitus Surgical History Surgical History (Updated 03/07/24 @ 15:32 by Susu Villafana PA-C) History of breast biopsy History of colonoscopy with polypectomy (2011) History of lumbar fusion L5-S1 History of partial colectomy History of ventral hernia repair Family History Family History Other Unknown family medical history Social History Social History (Updated 03/07/24 @ 15:36 by Susu Villafana PA-C) Social History: Surrogate medical decision maker: Anatoliy or bela Nassar. Code status: Full code. Smoking packs per day: 1 Smoking cigarettes per day: 20.0 Years smoked: 40 Smoking pack-years: 40.00 Smoking status: Former smoker Tobacco type: cigarettes Alcohol intake: never Substance use: never Substance use type: does not use Do You Feel Safe in your Home?: Yes Lack of Transportation: No Lack of Food: Never True Current Housing: I Have Housing Concerned About Future Housing: No Difficulty Paying Gas/Electric Bills: No Difficulty Paying for Meds: No Currently Unemployed: No Education: Bachelor's Degree Difficulty w/ Childcare or Family Care: No Living arrangements: assisted living Additional living arrangements comments: . Lives in assisted living. Occupation/Education: retired Spiritual care concerns: No Agree to blood products: Yes Meds Home Medications and Allergies Home
[2024-03-07 16:29] LABS: Glucose Point of Care 106 mg/dl (65-105)
[2024-03-07] MEDS: POTASSIUM CHLORIDE 20 MEQ ER TABLET PO (18:21)
[2024-03-07] MEDS: GLIMEPIRIDE 1 MG TABLET PO (18:21)
[2024-03-07] MEDS: RIVAROXABAN 20 MG TABLET PO (18:21)
[2024-03-07] MEDS: SUCRALFATE SUSP 100 MG/ML 10 ML UDC 1000 MG PO (18:21)
[2024-03-07] MEDS: SERTRALINE HCL 25 MG TABLET PO (18:21)
[2024-03-07] MEDS: PANTOPRAZOLE 40 MG TABLET PO (18:21)
[2024-03-07 21:03] LABS: Glucose Point of Care 150 mg/dl (65-105)
[2024-03-07 22:38] LABS: Hematocrit 33.7 % (37.0-47.0); Hemoglobin 10.5 g/dL (12.0-15.0)
[2024-03-07 22:59] LABS: Anion Gap 10 mmol/L (4-12); Blood Urea Nitrogen 19 mg/dL (7-17); Calcium 8.1 mg/dL (8.4-10.2); Carbon Dioxide 21 mmol/L (22-30); Chloride 114 mmol/L (98-107); Estimated CRCL calculation 57 ml/min; Estimated Glomerular Filt Rate > 60; Glucose 143 mg/dL (65-110); Magnesium 2.4 mg/dL (1.6-2.3); Potassium 2.4 mmol/L (3.4-5.0); Sodium 145 mmol/L (137-145)
[2024-03-08] MEDS: POTASSIUM CHLORIDE INJ 40 MEQ in SODIUM CHLORIDE 0.9% IV 500 ML 130 MEQ IVPB (00:02)
[2024-03-08] MEDS: POTASSIUM CHLORIDE 20 MEQ PACKET (FOR LIQUID) 40 MEQ PO (00:02)
[2024-03-08 06:00] VITALS: BP 101/52; PULSE 76; RESP 12; TEMP 36.1; O2SAT 95
[2024-03-08 06:34] LABS: Hematocrit 31.7 % (37.0-47.0); Hemoglobin 9.9 g/dL (12.0-15.0); Mean Corpuscular HGB Conc 31.2 g/dl (32-36); Mean Corpuscular Volume 89.5 fl (80-100); Mean Platelet Volume 10.2 fl (7.4-10.4); Platelet Count Result 126 k/mm3 (150-375); Red Blood Count 3.54 M/mm3 (4.2-5.4); Red Cell Distribution Width 16.7 % (11.5-14.5); White Blood Count 4.1 K/mm3 (4.5-10.0)
[2024-03-08 06:49] LABS: Anion Gap 10 mmol/L (4-12); Blood Urea Nitrogen 16 mg/dL (7-17); Carbon Dioxide 22 mmol/L (22-30); Chloride 117 mmol/L (98-107); Estimated CRCL calculation 57 ml/min; Estimated Glomerular Filt Rate > 60; Glucose 117 mg/dL (65-110); Potassium 3.3 mmol/L (3.4-5.0); Sodium 149 mmol/L (137-145)
[2024-03-08] MEDS: SUCRALFATE SUSP 100 MG/ML 10 ML UDC 1000 MG PO ×4 (07:42→21:02)
[2024-03-08 08:10] LABS: Glucose Point of Care 108 mg/dl (65-105)
[2024-03-08] MEDS: POTASSIUM CHLORIDE 20 MEQ ER TABLET PO ×2 (08:45→15:59)
[2024-03-08] MEDS: ATORVASTATIN 20 MG TABLET PO (08:45)
[2024-03-08] MEDS: GLIMEPIRIDE 1 MG TABLET PO ×2 (08:45→15:59)
[2024-03-08] MEDS: SERTRALINE HCL 25 MG TABLET PO ×2 (08:46→15:59)
[2024-03-08] MEDS: PANTOPRAZOLE 40 MG TABLET PO ×2 (08:46→15:59)
[2024-03-08 11:15] VITALS: BMI 26.7
[2024-03-08 11:59] LABS: Glucose Point of Care 131 mg/dl (65-105)
[2024-03-08 14:00] VITALS: BP 131/65; PULSE 91; RESP 18; TEMP 36; O2SAT 97
--- NOTE | 2024-03-08 14:41 | PM.IMPN ---
Progress Note: A&P Assessment and Plan (1) Abdominal pain: Code(s): R10.9 - Unspecified abdominal pain Status: Acute (2) Urinary tract infection: Code(s): N39.0 - Urinary tract infection, site not specified Status: Acute (3) Hypokalemia: Code(s): E87.6 - Hypokalemia Status: Acute (4) Esophagitis with gastritis: Code(s): K29.70 - Gastritis, unspecified, without bleeding; K20.90 - Esophagitis, unspecified without bleeding Status: Acute (5) Elevated lactic acid level: Code(s): R79.89 - Other specified abnormal findings of blood chemistry Status: Acute (6) Factor V Leiden: Code(s): D68.51 - Activated protein C resistance Status: Acute (7) Chronic anticoagulation: Code(s): Z79.01 - 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 Labs, imaging, EKG, and all reports were personally reviewed. CT scan did not show any acute findings. Her pain in part is likely stemming from esophagitis and gastritis seen on recent EGD as detailed in HPI. On exam however she was more tender in the suprapubic region and given the abnormal urinalysis she is being started on ceftriaxone, pending urine culture. Continue pantoprazole and sucralfate. CT scan did show suggestion of thrombosis in the left external iliac and common femoral veins which has been noted on prior scans. 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 Lower extremity venous Doppler ultrasounds ordered to further assess chronicity to help determine whether not she may need to be started on a different anticoagulant. Hemoglobin is lower than what it was last month and will be monitored. Platelets are also a bit lower than usual and will be monitored. Potassium has been replaced and will be monitored. Lactic acid level was slightly elevated without significant change with IV fluid and is likely related to lab draw technique. Doubt underlying sepsis; there is no evidence on CT scan or on her abdominal exam to suggest ischemia or acute abdomen. Blood cultures have been obtained and are pending. Pt changed from xarelto to eliquis for resistant clots IV rocephin continue for UTi Potassium low continue supplements and watch bmp Subjective Date/time seen: 03/08/24 14:41 Interval history: This is a 73-year-old female with history of gastritis, esophagitis, diverticulitis status post partial bowel resection, small hiatal hernia, factor 5 Leiden with history of DVT on chronic anticoagulation, arthritis, depression, and type 2 diabetes mellitus who presented to the emergency department via EMS from her assisted living facility with abdominal pain. Urine showed 2+ protein, 1+ ketones, 3+ leukocyte esterase, 51 to 100 RBCs, greater than 100 WBCs, and 4+ bacteria. CT of the abdomen and pelvis showed a suspected thrombus in the left external iliac and common femoral veins and stable hypodense lesion in the right hepatic lobe which is likely a hemangioma. 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 Review of Systems Review of Systems: Some abdominal discomfort Exam Narrative: General: elder lady chronically ill Neck: Supple. Anterior neck is diffusely enlarged and the thyroid appears enlarged more notably on the left side. The area is nontender to palpation. Respiratory: Lungs are clear to auscultation bilaterally. Cardiovascular: Regular rate and rhythm with S1-S2. Gastrointestinal: Abdomen is soft and nondistended with p
[2024-03-08 16:55] LABS: Glucose Point of Care 136 mg/dl (65-105)
[2024-03-08 20:00] VITALS: PULSE 91; RESP 18; O2SAT 97
[2024-03-08] MEDS: ACETAMINOPHEN 325 MG TABLET 650 MG PO (21:02)
[2024-03-08] MEDS: APIXABAN 5 MG TABLET 10 MG PO (21:02)
[2024-03-08 22:00] VITALS: BP 121/62; PULSE 86; RESP 16; TEMP 36.2; O2SAT 100
[2024-03-08 22:28] LABS: Glucose Point of Care 104 mg/dl (65-105)
[2024-03-09] VITALS (7 sets, daily range): BP systolic 105–136; BP diastolic 58–75; PULSE 55–96; RESP 13–19; TEMP 35.9–36.1; O2SAT 98–100
[2024-03-09] MEDS: SUCRALFATE SUSP 100 MG/ML 10 ML UDC 1000 MG PO ×4 (06:19→21:59)
[2024-03-09 06:48] LABS: Anion Gap 4 mmol/L (4-12); Blood Urea Nitrogen 13 mg/dL (7-17); Calcium 8.1 mg/dL (8.4-10.2); Carbon Dioxide 24 mmol/L (22-30); Chloride 117 mmol/L (98-107); Estimated CRCL calculation 77 ml/min; Estimated Glomerular Filt Rate > 60; Glucose 116 mg/dL (65-110); Potassium 3.3 mmol/L (3.4-5.0); Sodium 145 mmol/L (137-145)
[2024-03-09 07:38] LABS: Glucose Point of Care 104 mg/dl (65-105)
[2024-03-09] MEDS: POTASSIUM CHLORIDE 20 MEQ ER TABLET PO (08:38)
[2024-03-09] MEDS: PANTOPRAZOLE 40 MG TABLET PO ×2 (08:38→16:59)
[2024-03-09] MEDS: SERTRALINE HCL 25 MG TABLET PO ×2 (08:38→17:00)
[2024-03-09] MEDS: ATORVASTATIN 20 MG TABLET PO (08:38)
[2024-03-09] MEDS: APIXABAN 5 MG TABLET 10 MG PO ×2 (08:39→22:00)
[2024-03-09] MEDS: GLIMEPIRIDE 1 MG TABLET PO ×2 (08:39→16:59)
[2024-03-09 11:19] LABS: Glucose Point of Care 125 mg/dl (65-105)
--- NOTE | 2024-03-09 12:32 | PM.IMPN ---
Progress Note: A&P Assessment and Plan (1) Abdominal pain: Code(s): R10.9 - Unspecified abdominal pain Status: Acute (2) Urinary tract infection: Code(s): N39.0 - Urinary tract infection, site not specified Status: Acute (3) Hypokalemia: Code(s): E87.6 - Hypokalemia Status: Acute (4) Esophagitis with gastritis: Code(s): K29.70 - Gastritis, unspecified, without bleeding; K20.90 - Esophagitis, unspecified without bleeding Status: Acute (5) Elevated lactic acid level: Code(s): R79.89 - Other specified abnormal findings of blood chemistry Status: Acute (6) Factor V Leiden: Code(s): D68.51 - Activated protein C resistance Status: Acute (7) Chronic anticoagulation: Code(s): Z79.01 - foil wrapper (current) use of anticoagulants Status: Acute (8) Type 2 diabetes mellitus: Code(s): E11.9 - Type 2 diabetes mellitus without complications Status: Acute (9) Neck enlargement: Code(s): R22.1 - Localized swelling, mass and lump, neck Status: Acute Plan The patient presented to the emergency department for evaluation of abdominal pain as detailed in HPI. Labs, imaging, EKG, and all reports were personally reviewed. CT scan did not show any acute findings. Her pain in part is likely stemming from esophagitis and gastritis seen on recent EGD as detailed in HPI. On exam however she was more tender in the suprapubic region and given the abnormal urinalysis she is being started on ceftriaxone, pending urine culture. Continue pantoprazole and sucralfate. CT scan did show suggestion of thrombosis in the left external iliac and common femoral veins which has been noted on prior scans. Continue Xarelto (was previously on warfarin but her receptionist nurse at [facility] has transitioned her back to Xarelto). Lower extremity venous Doppler ultrasounds ordered to further assess chronicity to help determine whether not she may need to be started on a different anticoagulant. Hemoglobin is lower than what it was last month and will be monitored. Platelets are also a bit lower than usual and will be monitored. Potassium has been replaced and will be monitored. Lactic acid level was slightly elevated without significant change with IV fluid and is likely related to lab draw technique. Doubt underlying sepsis; there is no evidence on CT scan or on her abdominal exam to suggest ischemia or acute abdomen. Blood cultures have been obtained and are pending. Pt changed from xarelto to eliquis for resistant clots Potassium low continue supplements and watch bmp Urine culture is negative can dc IV rocephin today Continue PT/ OT plan Dc aime back home tomorrow with home health services Subjective Date/time seen: 03/09/24 12:32 Interval history: This is a 73-year-old female with history of gastritis, esophagitis, diverticulitis status post partial bowel resection, small hiatal hernia, factor 5 Leiden with history of DVT on chronic anticoagulation, arthritis, depression, and type 2 diabetes mellitus who presented to the emergency department via EMS from her assisted living facility with abdominal pain. Urine showed 2+ protein, 1+ ketones, 3+ leukocyte esterase, 51 to 100 RBCs, greater than 100 WBCs, and 4+ bacteria. CT of the abdomen and pelvis showed a suspected thrombus in the left external iliac and common femoral veins and stable hypodense lesion in the right hepatic lobe which is likely a hemangioma. 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 Urine culture is negative can DC IV abx today Continue to watch pt in hospital advised PT/ OT today Review of Systems Review of Systems: Tired and weak No specific complaints Exam Narrative: General: elder lady chronically ill Neck: Supple. Anterior neck is diffusely enlarged and the thyroid appears enlarged more notably on the lef
--- NOTE | 2024-03-09 12:59 | PCPTNOTE ---
attempted to see pt at 1057, at the time pt was dizzy and vomiting with OT, will follow
--- NOTE | 2024-03-09 13:56 | PC.NURSE ---
Pts current IV access not functioning, pt states it arguello when being flushed. Unable to administer IV abx at this time. This RN called IV therapist to get new access. at the time of new iv placement the IV abx were discontinued. Todays dose was not given.
[2024-03-09 16:27] LABS: Glucose Point of Care 104 mg/dl (65-105)
[2024-03-09] MEDS: POTASSIUM CHLORIDE 20 MEQ PACKET (FOR LIQUID) 40 MEQ PO (17:05)
[2024-03-09 20:31] LABS: Glucose Point of Care 108 mg/dl (65-105)
[2024-03-10 05:42] VITALS: BP 127/57; PULSE 89; RESP 13; TEMP 36.1; O2SAT 100
[2024-03-10] MEDS: SUCRALFATE SUSP 100 MG/ML 10 ML UDC 1000 MG PO ×3 (06:03→20:45)
[2024-03-10 06:35] LABS: Hematocrit 30.4 % (37.0-47.0); Hemoglobin 9.7 g/dL (12.0-15.0); Mean Corpuscular HGB Conc 31.9 g/dl (32-36); Mean Corpuscular Hemoglobin 27.9 pg (26-34); Mean Corpuscular Volume 87.4 fl (80-100); Mean Platelet Volume 10.6 fl (7.4-10.4); Platelet Count Result 128 k/mm3 (150-375); Red Blood Count 3.48 M/mm3 (4.2-5.4); White Blood Count 4.3 K/mm3 (4.5-10.0)
[2024-03-10 06:55] LABS: Anion Gap 2 mmol/L (4-12); Blood Urea Nitrogen 12 mg/dL (7-17); Calcium 8.4 mg/dL (8.4-10.2); Carbon Dioxide 27 mmol/L (22-30); Chloride 112 mmol/L (98-107); Estimated CRCL calculation 77 ml/min; Estimated Glomerular Filt Rate > 60; Glucose 96 mg/dL (65-110); Potassium 3.6 mmol/L (3.4-5.0); Sodium 141 mmol/L (137-145)
[2024-03-10 07:48] LABS: Glucose Point of Care 93 mg/dl (65-105)
[2024-03-10] MEDS: ONDANSETRON INJ 4 MG/2 ML VIAL IV PUSH (08:56)
--- NOTE | 2024-03-10 11:20 | P.CDI_ITS ---
CDI Query Clarification Request BMI 26.7 Nutritional Diagnostic Statement Severe protein calorie malnutrition related to chronic loss of appetite as evidenced by intakes <75% needs > 1 month; weight loss 16%/3 months; moderate muscle wasting to temporalis,clavicles, shoulders. Please refer to comprehensive nutrition assessment for further information. Please clarify severity of protein calorie malnutrition if known: * Mild * Moderate * Severe * Other/Unspecified <Loreta Rosales RN - Last Filed: 03/10/24 11:26> Clarified Diagnosis Clarified Diagnosis: Moderate protein calorie malnutrition <Awilda Torres MD - Last Filed: 03/10/24 12:29>
[2024-03-10 11:23] LABS: Glucose Point of Care 106 mg/dl (65-105)
--- NOTE | 2024-03-10 12:03 | PC.NURSE ---
This RN attempted to give pt morning medication. The pt attempted to take said medication and starting dry heaving. This RN provided pt with an emesis bag, which 50 mL was collected. This RN administered zofran and gave the pt time to settle and returned to the room at approximately 1201. This RN asked the pt if we could try to take the medication again, and she refused. RN notified MD and no new orders were received.
--- NOTE | 2024-03-10 12:22 | PM.IMPN ---
Progress Note: A&P Assessment and Plan (1) Abdominal pain: Code(s): R10.9 - Unspecified abdominal pain Status: Acute Assessment and Plan: See below (2) Urinary tract infection: Code(s): N39.0 - Urinary tract infection, site not specified Status: Acute (3) Hypokalemia: Code(s): E87.6 - Hypokalemia Status: Acute (4) Esophagitis with gastritis: Code(s): K29.70 - Gastritis, unspecified, without bleeding; K20.90 - Esophagitis, unspecified without bleeding Status: Acute (5) Elevated lactic acid level: Code(s): R79.89 - Other specified abnormal findings of blood chemistry Status: Acute (6) Factor V Leiden: Code(s): D68.51 - Activated protein C resistance Status: Acute (7) Chronic anticoagulation: Code(s): Z79.01 - [facility] (current) use of anticoagulants Status: Acute (8) Type 2 diabetes mellitus: Code(s): E11.9 - Type 2 diabetes mellitus without complications Status: Acute (9) Neck enlargement: Code(s): R22.1 - Localized swelling, mass and lump, neck Status: Acute Plan The patient presented to the emergency department for evaluation of abdominal pain as detailed in HPI. Labs, imaging, EKG, and all reports were personally reviewed. CT scan did not show any acute findings. Her pain in part is likely stemming from esophagitis and gastritis seen on recent EGD as detailed in HPI. On exam however she was more tender in the suprapubic region and given the abnormal urinalysis she is being started on ceftriaxone, pending urine culture. Continue pantoprazole and sucralfate. CT scan did show suggestion of thrombosis in the left external iliac and common femoral veins which has been noted on prior scans. Continue Xarelto (was previously on warfarin but her corporate investigator at [place] has transitioned her back to Xarelto). Lower extremity venous Doppler ultrasounds ordered to further assess chronicity to help determine whether not she may need to be started on a different anticoagulant. Hemoglobin is lower than what it was last month and will be monitored. Platelets are also a bit lower than usual and will be monitored. Potassium has been replaced and will be monitored. Lactic acid level was slightly elevated without significant change with IV fluid and is likely related to lab draw technique. Doubt underlying sepsis; there is no evidence on CT scan or on her abdominal exam to suggest ischemia or acute abdomen. Blood cultures have been obtained and are pending. Pt changed from xarelto to eliquis for resistant clots Potassium levels are corrected BC and Urine culture is negative, Rocephin stopped Continue PT/ OT plan Dc aime back to Assisted living tomorrow Subjective Date/time seen: 03/10/24 12:22 Interval history: This is a 73-year-old female with history of gastritis, esophagitis, diverticulitis status post partial bowel resection, small hiatal hernia, factor 5 Leiden with history of DVT on chronic anticoagulation, arthritis, depression, and type 2 diabetes mellitus who presented to the emergency department via EMS from her assisted living facility with abdominal pain. 03/08/2024Urine showed 2+ protein, 1+ ketones, 3+ leukocyte esterase, 51 to 100 RBCs, greater than 100 WBCs, and 4+ bacteria. CT of the abdomen and pelvis showed a suspected thrombus in the left external iliac and common femoral veins and stable hypodense lesion in the right hepatic lobe which is likely a hemangioma. 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 03/09/2024 Urine culture is negative can DC IV abx today Continue to watch pt in hospital advised PT/ OT today 03/10/2024 Pt appears weak and tired, continue PT/ OT today hopeful DC back to her Assisted living aime Review of Systems Review of Systems: Weakness Exam Narrative: General: elder lady chronically ill N
[2024-03-10 14:00] VITALS: BP 105/61; PULSE 105; RESP 16; TEMP 36.3; O2SAT 96
[2024-03-10 16:30] LABS: Glucose Point of Care 156 mg/dl (65-105)
[2024-03-10] MEDS: POTASSIUM CHLORIDE 20 MEQ PACKET (FOR LIQUID) 40 MEQ PO (18:53)
[2024-03-10] MEDS: PANTOPRAZOLE 40 MG TABLET PO (18:53)
[2024-03-10] MEDS: SERTRALINE HCL 25 MG TABLET PO (18:53)
[2024-03-10] MEDS: POTASSIUM CHLORIDE 20 MEQ ER TABLET PO (18:53)
[2024-03-10] MEDS: GLIMEPIRIDE 1 MG TABLET PO (18:56)
[2024-03-10 20:12] LABS: Glucose Point of Care 144 mg/dl (65-105)
[2024-03-10 21:39] VITALS: BP 105/55; PULSE 96; RESP 13; TEMP 36.4; O2SAT 95
[2024-03-11 05:39] VITALS: BP 135/64; PULSE 87; RESP 14; TEMP 36.1; O2SAT 97
[2024-03-11] MEDS: SUCRALFATE SUSP 100 MG/ML 10 ML UDC 1000 MG PO ×4 (06:32→20:32)
[2024-03-11 07:15] LABS: Glucose Point of Care 78 mg/dl (65-105)
[2024-03-11 08:51] LABS: Hematocrit 30.7 % (37.0-47.0); Hemoglobin 9.5 g/dL (12.0-15.0); Mean Corpuscular HGB Conc 30.9 g/dl (32-36); Mean Corpuscular Hemoglobin 27.8 pg (26-34); Mean Corpuscular Volume 89.8 fl (80-100); Platelet Count Result 133 k/mm3 (150-375); Red Blood Count 3.42 M/mm3 (4.2-5.4); Red Cell Distribution Width 17.3 % (11.5-14.5); White Blood Count 4.8 K/mm3 (4.5-10.0)
[2024-03-11 08:55] VITALS: O2SAT 96
[2024-03-11] MEDS: ONDANSETRON INJ 4 MG/2 ML VIAL IV PUSH ×2 (10:30→20:41)
[2024-03-11] MEDS: ATORVASTATIN 20 MG TABLET PO (10:32)
[2024-03-11] MEDS: APIXABAN 5 MG TABLET 10 MG PO ×2 (10:32→20:31)
[2024-03-11] MEDS: POTASSIUM CHLORIDE 20 MEQ PACKET (FOR LIQUID) 40 MEQ PO ×2 (10:33→18:10)
[2024-03-11] MEDS: FERROUS SULFATE 325 MG TABLET DR PO (10:33)
[2024-03-11] MEDS: ACETAMINOPHEN 325 MG TABLET 650 MG PO ×2 (10:33→18:14)
[2024-03-11] MEDS: PANTOPRAZOLE 40 MG TABLET PO ×2 (10:33→18:11)
[2024-03-11] MEDS: SERTRALINE HCL 25 MG TABLET PO ×2 (10:33→18:10)
[2024-03-11] MEDS: GLIMEPIRIDE 1 MG TABLET PO ×2 (10:35→18:13)
[2024-03-11 11:20] LABS: Glucose Point of Care 112 mg/dl (65-105)
--- NOTE | 2024-03-11 11:36 | PCPTNOTE ---
10:55 Pt refused participation in therapy due to current bout of nausea.
--- NOTE | 2024-03-11 13:18 | PM.IMPN ---
Progress Note: A&P Assessment and Plan (1) Abdominal pain: Code(s): R10.9 - Unspecified abdominal pain Status: Acute (2) Urinary tract infection: Code(s): N39.0 - Urinary tract infection, site not specified Status: Acute (3) Hypokalemia: Code(s): E87.6 - Hypokalemia Status: Acute (4) Esophagitis with gastritis: Code(s): K29.70 - Gastritis, unspecified, without bleeding; K20.90 - Esophagitis, unspecified without bleeding Status: Acute (5) Elevated lactic acid level: Code(s): R79.89 - Other specified abnormal findings of blood chemistry Status: Acute (6) Factor V Leiden: Code(s): D68.51 - Activated protein C resistance Status: Acute (7) Chronic anticoagulation: Code(s): Z79.01 - 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 test 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 of anticoagulants Status: Acute (8) Type 2 diabetes mellitus: Code(s): E11.9 - Type 2 diabetes mellitus without complications Status: Acute (9) Neck enlargement: Code(s): R22.1 - Localized swelling, mass and lump, neck Status: Acute Plan This is a 73-year-old female with history of gastritis, esophagitis, diverticulitis status post partial bowel resection, small hiatal hernia, factor 5 Leiden with history of DVT on chronic anticoagulation, arthritis, depression, and type 2 diabetes mellitus who presented to the emergency department via EMS on 03/07/2024 from her assisted living facility with abdominal pain. She reported ongoing issues with abdominal pain, poor appetite and weight loss. She had an EGD done on 02/22/[address] Bryan which showed grade 4 reflux esophagitis chronic ulcers with exudate diffuse edema in the mid and distal esophagus small hiatal hernia and moderate gastritis with ulcerative changes. She was started Carafate. In the ED vital signs were stable. Laboratory evaluation showed WBC of 5 hemoglobin of 10.5 platelet of potassium 2.5 creatinine 0.9 BUN 23 lactic acid was 2.8. Urine showed 2+ protein, 1+ ketones, 3+ leukocyte esterase, 51 to 100 RBCs, greater than 100 WBCs, and 4+ bacteria. Suggestive of UTI. CT abdomen pelvis showed suspected thrombus in the left external iliac and common femoral veins and stable hypodense lesion in right hepatic lobe which is likely a hemangioma. She was given 1 g ceftriaxone for UTI and was admitted for further treatment. Pt had venous Doppler which showed extensive deep venous thrombosis of the left lower extremity veins, possibly chronic. Urine cultures no growth. PT OT was consulted for generalized weakness She has chronic mild anemia Mild thrombocytopenia She has been started on Eliquis used to be on Xarelto and prior to that was on warfarin Hypokalemia has resolved DVT prophylaxis on Eliquis Subjective Date/time seen: 03/11/24 13:18 Interval history: This is a 73-year-old female with history of gastritis, esophagitis, diverticulitis status post partial bowel resection, small hiatal hernia, factor 5 Leiden with history of DVT on chronic anticoagulation, arthritis, depression, and type 2 diabetes mellitus who presented to the emergency department via EMS on 03/07/2024 from her assisted living facility with abdominal pain. She reported ongoing issues with abdominal pain, poor appetite and weight loss. She had an EGD done on 02/22/[address] Bryan which showed grade 4 reflux esophagitis chronic ulcers with exudate diffuse edema in the mid and distal esophagus small hiatal hernia and moderate gastritis with ulcerative changes. She was started Carafate. In the ED vital signs were stable. Laboratory evaluation showed WBC of 5 hemoglobin of 10.5 platelet of potassium 2.5 creatinine 0.9 BUN 23 lactic acid was 2.8. Urine showed 2+ protein, 1+ ketones, 3+ leukocyte esterase, 51 to 100 RBCs, greater than 100 WBCs, and 4+ bacteria. Suggestive of UTI. CT abdomen pelvis showed suspected thrombus in the left external iliac and common femoral veins and stable hypodense
[2024-03-11 14:00] VITALS: BP 112/56; PULSE 90; RESP 20; TEMP 36.1; O2SAT 100
[2024-03-11 16:45] LABS: Glucose Point of Care 104 mg/dl (65-105)
[2024-03-11 21:09] LABS: Glucose Point of Care 122 mg/dl (65-105)
[2024-03-11 21:21] VITALS: BP 118/49; PULSE 91; RESP 20; TEMP 36.3; O2SAT 100
[2024-03-12 06:00] VITALS: BP 117/62; PULSE 87; RESP 16; TEMP 35.9; O2SAT 100
[2024-03-12 06:20] LABS: Basophils Percent Auto 0.5 % (0.2-1.2); Eosinophils Absolute Auto 0.1 K/mm3 (0-0.3); Eosinophils Percent Auto 2.3 % (0-4.4); Hematocrit 32.7 % (37.0-47.0); Hemoglobin 9.7 g/dL (12.0-15.0); Immature Granulocyte Absolute 0.04 K/mm3 (0.00-0.031); Lymphocytes Absolute Auto 1.63 K/mm3 (0.9-3.2); Lymphocytes Percent Auto 41.1 % (18.3-44.2); Mean Corpuscular HGB Conc 29.7 g/dl (32-36); Mean Corpuscular Hemoglobin 27.6 pg (26-34); Mean Corpuscular Volume 92.9 fl (80-100); Mean Platelet Volume 10.2 fl (7.4-10.4); Monocytes Absolute Auto 0.2 K/mm3 (0.1-0.6); Neutrophils Percent Auto 50.1 % (45.5-73.1); Platelet Count Result 136 k/mm3 (150-375); Red Blood Count 3.52 M/mm3 (4.2-5.4); Red Cell Distribution Width 17.2 % (11.5-14.5)
[2024-03-12] MEDS: SUCRALFATE SUSP 100 MG/ML 10 ML UDC 1000 MG PO ×2 (06:33→15:51)
[2024-03-12 06:37] LABS: Alanine Aminotransferase 11 U/L (6-35); Albumin Level 3.1 g/dL (3.5-5.1); Alkaline Phosphatase 82 U/L (38-126); Anion Gap 5 mmol/L (4-12); Aspartate Amino Transferase 19 U/L (14-36); Bilirubin,Total 0.9 mg/dL (0.2-1.3); Blood Urea Nitrogen 12 mg/dL (7-17); Calcium 8.6 mg/dL (8.4-10.2); Carbon Dioxide 23 mmol/L (22-30); Chloride 113 mmol/L (98-107); Estimated CRCL calculation 66 ml/min; Estimated Glomerular Filt Rate > 60; Glucose 103 mg/dL (65-110); Magnesium 2.3 mg/dL (1.6-2.3); Sodium 141 mmol/L (137-145)
[2024-03-12 06:58] LABS: Anisocytosis 1+; Hypochromasia 1+; Platelet Estimate Decreased (Adequate); Schistocytes None Seen
[2024-03-12 07:28] LABS: Glucose Point of Care 83 mg/dl (65-105)
[2024-03-12] MEDS: ONDANSETRON INJ 4 MG/2 ML VIAL IV PUSH (09:24)
[2024-03-12] MEDS: POTASSIUM CHLORIDE 20 MEQ PACKET (FOR LIQUID) 40 MEQ PO (09:24)
[2024-03-12] MEDS: ACETAMINOPHEN 325 MG TABLET 650 MG PO (09:24)
[2024-03-12] MEDS: PANTOPRAZOLE 40 MG TABLET PO (09:24)
[2024-03-12] MEDS: ATORVASTATIN 20 MG TABLET PO (09:25)
[2024-03-12] MEDS: GLIMEPIRIDE 1 MG TABLET PO (09:25)
[2024-03-12] MEDS: SERTRALINE HCL 25 MG TABLET PO (09:25)
[2024-03-12] MEDS: APIXABAN 5 MG TABLET 10 MG PO (09:25)
[2024-03-12 11:20] LABS: Glucose Point of Care 115 mg/dl (65-105)
--- NOTE | 2024-03-12 12:16 | PM.DS ---
DS: Admitting Diagnosis Discharge Date 03/12/2024 Admitting Diagnosis Abdominal pain DS: Discharge Diagnosis Discharge Diagnosis (1) Abdominal pain: Code(s): R10.9 - Unspecified abdominal pain Status: Acute (2) Urinary tract infection: Code(s): N39.0 - Urinary tract infection, site not specified Status: Acute (3) Hypokalemia: Code(s): E87.6 - Hypokalemia Status: Acute (4) Esophagitis with gastritis: Code(s): K29.70 - Gastritis, unspecified, without bleeding; K20.90 - Esophagitis, unspecified without bleeding Status: Acute (5) Elevated lactic acid level: Code(s): R79.89 - Other specified abnormal findings of blood chemistry Status: Acute (6) Factor V Leiden: Code(s): D68.51 - Activated protein C resistance Status: Acute (7) Chronic anticoagulation: Code(s): Z79.01 - [facility] (current) use of anticoagulants Status: Acute (8) Type 2 diabetes mellitus: Code(s): E11.9 - Type 2 diabetes mellitus without complications Status: Acute (9) Neck enlargement: Code(s): R22.1 - Localized swelling, mass and lump, neck Status: Acute DS: Summary Hospital Course Hospital Course: This is a 73-year-old female with history of gastritis, esophagitis, diverticulitis status post partial bowel resection, small hiatal hernia, factor 5 Leiden with history of DVT on chronic anticoagulation, arthritis, depression, and type 2 diabetes mellitus who presented to the emergency department via EMS on 03/07/2024 from her assisted living facility with abdominal pain.? She reported ongoing issues with abdominal pain, poor appetite and weight loss.? She had an EGD done on 02/22/[address] Bryan which showed grade 4 reflux esophagitis chronic ulcers with exudate diffuse edema in the mid and distal esophagus small hiatal hernia and moderate gastritis with ulcerative changes.? She was started Carafate. She remains on Protonix. In the ED vital signs were stable.? Laboratory evaluation showed WBC of 5 hemoglobin of 10.5 platelet of potassium 2.5 creatinine 0.9 BUN 23 lactic acid was 2.8.? Urine showed 2+ protein, 1+ ketones, 3+ leukocyte esterase, 51 to 100 RBCs, greater than 100 WBCs, and 4+ bacteria.? Suggestive of UTI.? CT abdomen pelvis showed suspected thrombus in the left external iliac and common femoral veins and stable hypodense lesion in right hepatic lobe which is likely a hemangioma.? She was given 1 g ceftriaxone for UTI and was admitted for further treatment. She finished her IV antibiotics for ulcer were no growth. 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 Urine cultures no growth.? PT OT was consulted for generalized weakness. Will go back to nursing facility for continued rehabilitation She has chronic mild anemia Mild thrombocytopenia She has been started on Eliquis used to be on Xarelto and prior to that was on warfarin. Continue Eliquis as ordered Hypokalemia has resolved potassium dosing increased to 40 b.i.d. recheck labs in 1 week DVT prophylaxis on Eliquis Time Spent with Patient Time attestation: Total time spent providing and/or coordinating discharge services: 35 minutes Exam Narrative: General: elder lady chronically ill Neck: Supple. Anterior neck is diffusely enlarged and the thyroid appears enlarged more notably on the left side. The area is nontender to palpation. Respiratory: Lungs are clear to auscultation bilaterally. Cardiovascular: Regular rate and rhythm with S1-S2. Gastrointestinal: Abdomen is soft and nondistended with positive bowel sounds. She has tenderness to palpation over the suprapubic region. No CVA tenderness. No guarding or rebound tenderness. Skin: Warm and dry. Extremities: No cyanosis or clubbing. 1+ bilateral lower extremity edema. Neurological: Alert. Cranial nerves 2-12 are grossly intact. No gross focal deficits
[2024-03-12 14:00] VITALS: BP 110/64; PULSE 82; RESP 18; TEMP 36.1; O2SAT 100
[2024-03-12] MEDS: FERROUS SULFATE 325 MG TABLET DR PO (15:50)
[2024-03-12 16:29] LABS: SARS-CoV-2 RNA PCR Negative (Negative)
== END 2024-03-12 17:50 | DRG 690 ==
LOC: ANHED 12:13 → ANH3MEDSUR 13:55
PROVIDERS: Family Medicine; Physician Assistant; Admitting Provider General Practice; Emergency Provider Emergency Medicine; PCP Family Medicine; Visit Provider Internal Medicine
DX: N39.0 Urinary tract infection, site not specified (principal); D68.51 Activated protein C resistance; I82.512 Chronic embolism and thrombosis of left femoral vein; I82.522 Chronic embolism and thrombosis of left iliac vein; I82.502 Chronic embolism and thrombosis of unspecified deep veins of left lower extremity; E44.0 Moderate protein-calorie malnutrition; K21.00 Gastro-esophageal reflux disease with esophagitis, without bleeding; K29.70 Gastritis, unspecified, without bleeding; K57.30 Diverticulosis of large intestine without perforation or abscess without bleeding; K44.9 Diaphragmatic hernia without obstruction or gangrene; I25.10 Atherosclerotic heart disease of native coronary artery without angina pectoris; D69.6 Thrombocytopenia, unspecified; E87.6 Hypokalemia; E78.5 Hyperlipidemia, unspecified; E11.9 Type 2 diabetes mellitus without complications; M19.90 Unspecified osteoarthritis, unspecified site; F32.A Depression, unspecified; Z11.52 Encounter for screening for COVID-19; Z79.01 Long term (current) use of anticoagulants; Z86.010 Personal history of colon polyps; Z98.1 Arthrodesis status; Z87.891 Personal history of nicotine dependence
CPT/HCPCS: 36415; 74177; 80048; 80053; 81001; 82948; 83605; 83690; 83735; 85014; 85018; 85025; 85027; 85610; 85730; 86140; 87040; 87086; 87088; 87635; 93970; 96361; 96374; 96375; 96376; 97162; 97165; 97530; 99285; A9270; G0378; J0696; J2405; J3480; J7030; J7040; Q9967

== ENCOUNTER 2024-03-17 09:29 | Inpatient (IN) | payer MEDICARE, SELFPAY ==
[2024-03-17] VITALS (9 sets, daily range): BP systolic 111–153; BP diastolic 60–110; PULSE 102–110; RESP 12–20; TEMP 36.2–36.8; O2SAT 98–100; BMI 26.9
--- NOTE | ~2024-03-17 | CT_ITS ---
EXAMINATION: CT abdomen pelvis w con DATE: 03/17/2024 12:03 INDICATION: Abdominal pain. TECHNIQUE: Computed tomography (CT) of the abdomen and pelvis was performed with 100 mL of Omnipaque 320 intravenous contrast. Automated exposure control and iterative reconstruction technique were empl oyed. The dose-length product was 628.27 mGy-cm. COMPARISON: CT abdomen and pelvis 03/07/2024 FINDINGS: There is no visible contrast in the abdomen or pelvis. The visualized portions of the lung bases demonstrate mild atelectasis. No pleural effusion. The heart size is normal. There is a small p ericardial effusion. There are coronary artery calcifications. Calcifications in the liver and spleen are consistent with old granulomatous disease. The gallbladder, pancreas, and right adrenal gland ar e normal. There is nodular thickening of left adrenal gland, likely benign. The kidneys are normal. T here is no urolithiasis. There is calcified atherosclerosis of the aorta and many of the other arteri es. There are changes of ventral hernia repair. There are no dilated loops of bowel. The appendix is normal. There are no pathologically enlarged lymph nodes. There are 2 supraumbilical ventral hernias containing fat. There is no free intraperitoneal fluid. There are changes of anterior fusion procedur e at L4-L5. There is mild lumbar spondylosis. Thoracolumbar levoscoliosis is noted. IMPRESSION: 1. Two supraumbilical ventral hernias containing fat. 2. Small pericardial effusion. 3. IV infiltration with no detectable contrast in the abdomen or pelvis, which decreases sensitivity. Reviewed, dictated and finalized at location A.
--- NOTE | ~2024-03-17 | XR_ITS ---
XR chest 1V portable 03/17/2024 10:24 Indication: Syncope. Procedure: AP portable chest Comparison: 10/09/2023 Findings: There are ill-defined infiltrates of the right upper lobe, likely sequela of previous pneum onia. Heart size normal. No acute focal pneumonia, pleural effusion or pneumothorax. No acute osseous abnormality. Impression: 1: Ill-defined right upper lobe infiltrate, likely scarring from prior pneumonia. Reviewed, dictated and finalized at location B. Impression: 1: Ill-defined right upper lobe infiltrate, likely scarring from prior pneumoni a.
--- NOTE | ~2024-03-17 | CT_ITS ---
EXAMINATION: CT brain wo con DATE: 03/17/2024 12:03 INDICATION: Headache. Near syncope. TECHNIQUE: Computed tomography (CT) of the head was performed without intravenous contrast. The mA wa s adjusted according to patient size. Iterative reconstruction technique was employed. The dose-lengt h product was 605.33 mGy-cm. COMPARISON: Head CT of 12/02/2023 FINDINGS: There are scattered areas of low attenuation in the cerebral white matter and deep stovall nuc lei. There is no intracranial hemorrhage, acute infarction, or abnormal intracranial mass lesion. The ventricles are normal in size. The orbits are normal. There is mild mucosal thickening in the ethmoi d sinuses. The mastoid air cells are normal. There is cerumen in the left external auditory canal. IMPRESSION: 1. Stable extensive nonspecific cerebral white matter disease and disease of the deep stovall nuclei, wh ich likely represents chronic small vessel ischemic disease. Reviewed, dictated and finalized at location A. IMPRESSION: 1. Stable extensive nonspecific cerebral white matter disease and disease of th e deep stovall nuclei, which likely represents chronic small vessel ischemic disea se.
--- NOTE | ~2024-03-17 | US_ITS ---
EXAMINATION: US venous doppler [facility] DATE: 03/17/2024 19:23 INDICATION: Left upper limb swelling TECHNIQUE: Grayscale images without and with compression and Doppler images of the bilateral upper ex tremity veins were obtained. COMPARISON: None. FINDINGS: Noncompressible occlusive appearing thrombus in the left cephalic vein at the upper arm. The left int ernal jugular vein, subclavian vein, axillary vein, brachial vein, basilic vein, radial vein, and uln ar vein are patent. IMPRESSION: 1. Occlusive thrombosis of the left cephalic vein. Reviewed, dictated and finalized at location A.
--- NOTE | 2024-03-17 09:44 | ED.SYNCOPE ---
HPI - Syncope General Chief Complaint: Altered Mental Status Stated Complaint: ams, near syncopy Time Seen by Provider: 03/17/24 09:31 Source: patient, EMS and other (facility personnel; ) Mode of arrival: EMS History of Present Illness HPI narrative: Patient presents with report of a near syncopal episode and possible mental status change though staff at the facility are unable to say how given none of them are familiar with the patient and do not know her baseline. She was working with physical therapy at the facility when she Became weak and felt like she might pass out. Patient denies actually losing consciousness or muscle tone. No falls. no loss of consciousness, patient recalls this incident. Patient is complaining of a headache. She is also having low/left sided abdominal pain. she denies any chest pain or shortness of breath. Per review of [facility] documentation, patient did receive yesterday's doses of medications. She is on Eliquis for known thrombus. patient recalls that she was recently diagnosed with urinary tract infection. Related Data Home Medications Medication Instructions Recorded Confirmed ferrous sulfate 220 mg (44 mg 220 mg PO DAILY 03/17/24 03/17/24 iron)/5 mL oral elixir nitroglycerin 0.4 mg sublingual 0.4 mg sublingual ONCE 03/17/24 03/17/24 tablet vit C 250 mg-vit E 90 mg-zinc 40 1 tablet PO DAILY 03/17/24 03/17/24 mg-copper 1 [id number] capsule (PreserVision AREDS-2) Allergies Allergy/AdvReac Type Severity Reaction Status Date / Time ciprofloxacin AdvReac Mild Vomiting Verified 03/17/24 09:47 codeine AdvReac Unknown vomiting Verified 03/17/24 09:47 [facility] Past Medical History Medical History (Updated 03/19/24 @ 16:59 by Roge Fernandez MD) Chronic anticoagulation Coronary atherosclerosis Deep venous thrombosis Depression Diverticulitis Esophagitis with gastritis Factor V Leiden Hyperlipidemia Iron deficiency anemia MDD (major depressive disorder), recurrent episode, moderate Sliding hiatal hernia Tobacco abuse Type 2 diabetes mellitus Surgical History Surgical History History of breast biopsy History of colonoscopy with polypectomy (2011) History of lumbar fusion L5-S1 History of partial colectomy History of ventral hernia repair Family History Family History Other Unknown family medical history Social History Social History Social History: Surrogate medical decision maker: bela Mendoza. Code status: Full code. Smoking packs per day: 1 Smoking cigarettes per day: 20.0 Years smoked: 40 Smoking pack-years: 40.00 Smoking status: Current every day smoker Tobacco type: cigarettes Alcohol intake: never Substance use: never Substance use type: does not use Do You Feel Safe in your Home?: Yes Lack of Transportation: No Lack of Food: Never True Current Housing: I Have Housing Concerned About Future Housing: No Difficulty Paying Gas/Electric Bills: No Difficulty Paying for Meds: No Currently Unemployed: No Education: Bachelor's Degree Difficulty w/ Childcare or Family Care: No Additional living arrangements comments: . [address] [facility] since 03/12/24 Occupation/Education: retired Spiritual care concerns: No Agree to blood products: Yes Exam Narrative: GENERAL: Well-appearing, well-nourished, and in no acute distress. HEAD: Normocephalic, atraumatic. EYES: Non injected, non icteric ENT: Nares clear, no rhinorrhea or epistaxis. NECK: Supple. CHEST: Speaking in full sentences. No respiratory distress. clear to auscultation bilaterally HEART: tachycardic rate and rhythm. . ABDOMEN: Soft, nondistended. EXTREMITIES: No gross deficits. SKIN: Warm, dry. Multiple scattered a
--- NOTE | 2024-03-17 09:45 | ECG_ITS ---
SEE SCANNED COPY FOR CONFIRMED REPORT MTDD
[2024-03-17 10:58] LABS: Basophils Percent Auto 0.3 % (0.2-1.2); Eosinophils Absolute Auto 0.1 K/mm3 (0-0.3); Eosinophils Percent Auto 1.1 % (0-4.4); Hematocrit 33.1 % (37.0-47.0); Hemoglobin 10.8 g/dL (12.0-15.0); Immature Granulocyte Absolute 0.13 K/mm3 (0.00-0.031); Lymphocytes Absolute Auto 1.29 K/mm3 (0.9-3.2); Lymphocytes Percent Auto 19.8 % (18.3-44.2); Mean Corpuscular HGB Conc 32.6 g/dl (32-36); Mean Corpuscular Hemoglobin 28.5 pg (26-34); Mean Corpuscular Volume 87.3 fl (80-100); Mean Platelet Volume 10.1 fl (7.4-10.4); Monocytes Absolute Auto 0.4 K/mm3 (0.1-0.6); Monocytes Percent Auto 5.5 % (2.6-8.5); Neutrophils Absolute Auto 4.6 K/mm3 (1.3-6.7); Neutrophils Percent Auto 71.3 % (45.5-73.1); Nucleated Red Blood Cells Perc 0.9 % (0.0-0.2); Platelet Count Result 183 k/mm3 (150-375); Red Blood Count 3.79 M/mm3 (4.2-5.4); Red Cell Distribution Width 18.2 % (11.5-14.5); White Blood Count 6.5 K/mm3 (4.5-10.0)
[2024-03-17] MEDS: SODIUM CHLORIDE 0.9% IV 1,000 ML 999 ML IV CONT (11:10)
[2024-03-17 11:16] LABS: Alanine Aminotransferase 19 U/L (6-35); Albumin Level 3.7 g/dL (3.5-5.1); Alkaline Phosphatase 97 U/L (38-126); Anion Gap 6 mmol/L (4-12); Aspartate Amino Transferase 29 U/L (14-36); Bilirubin,Total 1.2 mg/dL (0.2-1.3); Blood Urea Nitrogen 11 mg/dL (7-17); Calcium 8.6 mg/dL (8.4-10.2); Carbon Dioxide 21 mmol/L (22-30); Chloride 110 mmol/L (98-107); Estimated CRCL calculation 53 ml/min; Estimated Glomerular Filt Rate > 60; Glucose 203 mg/dL (65-110); Magnesium 1.9 mg/dL (1.6-2.3); Potassium 4.8 mmol/L (3.4-5.0); Sodium 137 mmol/L (137-145)
[2024-03-17 11:21] LABS: Troponin I 0.092 ng/mL (0.000-0.034)
[2024-03-17 11:22] LABS: INR 1.3; Prothrombin Time 16.8 Seconds (11.1-14.7)
[2024-03-17 11:23] LABS: Appearance Urine Turbid (Clear); Bacteria Urine 4+ /hpf; Bilirubin Urine Negative (Negative); Blood Urine 1+ (Negative); Color Urine Yellow (Yellow); Glucose Urine UA Negative (Negative); Ketones Urine Trace mg/dL (Negative); Leukocyte Esterase Ur 3+ LEU/UL (Negative); Mucus Urine Present /lpf; Need Manual Microscopic Reviewed; Nitrate Urine Positive (Negative); Non Pathogenic Casts >20; Protein Urine 1+ mg/dL (Negative); Specific Grav Ur 1.018 (1.001-1.035); Squamous Epithelial Cell Urine Few /hpf (Few); WBC Urine >100 /hpf (0-3); White Blood Cell Casts Urine Present /lpf
[2024-03-17 11:23] LABS: Partial Thromboplastin Time 20.6 Seconds (22.3-36.8)
[2024-03-17 11:24] LABS: Add Urine Microscopic? YES
[2024-03-17] MEDS: ASPIRIN 81 MG CHEWABLE TABLET 324 MG PO (12:33)
--- NOTE | 2024-03-17 12:39 | PC.NURSE ---
This RN went into pt room to start medications, noticed reddening at IV site. Had 2nd RN confirm IV infiltrated, warm blanket applied. Vascular access called for further evaluation.
--- NOTE | 2024-03-17 13:23 | PC.NURSE ---
Pt a very difficult IV stick. Has had multiple staff attempts and one IV placed per ultrasound was infiltrated after CT scan. Vascular access attempted but states unable to find an IV site.
--- NOTE | 2024-03-17 14:54 | ECG_ITS ---
SEE SCANNED COPY FOR CONFIRMED REPORT MTDD
--- NOTE | 2024-03-17 15:37 | PM.IMHP ---
H&P: HPI History of Present Illness Date/Time: 03/17/24 15:15 Chief Complaint: Near syncope. Narrative: This is a 73-year-old female with history of gastritis, esophagitis, diverticulitis status post partial bowel resection, small hiatal hernia, factor 5 Leiden on chronic anticoagulation, arthritis, depression, and type 2 diabetes mellitus who presented to the emergency department via EMS from her assisted living facility for evaluation after a near syncopal episode. She is known to myself and the hospitalist service from recent admissions with abdominal pain at which time she was found to have reflux esophagitis and gastritis with ulcerative changes. She is currently at a rehab facility and while working with physical therapy today she started to feel dizzy, lightheaded, and weak. Staff members were able to sit her down and there was no fall or loss of consciousness. She reports dysuria and states she is currently on medication for a urinary tract infection. She denies fever, sinus congestion, sore throat, cough, chest pain, pleuritic pain, palpitations, shortness of breath, current abdominal pain, vomiting, and diarrhea. In the ED: She was afebrile on arrival with stable blood pressures. She has been in a sinus tachycardia with rates in the low 100 since arrival. SpO2 has been in the upper 90s on room air since arrival. Labs were significant for WBC count of 6.5, hemoglobin 10.8, platelet 183, INR 1.3, glucose 203, troponin 0.092. Urine is nitrate and leukocyte esterase positive with greater than 100 wbc's and 4+ bacteria noted on microscopy. CT of the abdomen and pelvis showed 2 supraumbilical ventral hernias containing fat and a small pericardial effusion. Brain CT showed stable but extensive nonspecific cerebral white matter disease. Chest x-ray revealed an ill-defined right upper lobe infiltrate, likely scarring from prior pneumonia. Left upper extremity venous Doppler ultrasound was positive for occlusive thrombosis of the left cephalic vein. She was given a dose of ceftriaxone for urinary tract infection and is being admitted in this setting for further monitoring and evaluation. Review of Systems Review of Systems: 12 systems were reviewed and are negative except for as per HPI. [facility] Past Medical History Medical History (Updated 03/17/24 @ 22:46 by Susu Villafana PA-C) Chronic anticoagulation Coronary atherosclerosis Deep venous thrombosis Depression Diverticulitis Esophagitis with gastritis Factor V Leiden Hyperlipidemia Iron deficiency anemia MDD (major depressive disorder), recurrent episode, moderate Sliding hiatal hernia Tobacco abuse Type 2 diabetes mellitus Surgical History Surgical History History of breast biopsy History of colonoscopy with polypectomy (2011) History of lumbar fusion L5-S1 History of partial colectomy History of ventral hernia repair Family History Family History Other Unknown family medical history Social History Social History Social History: Surrogate medical decision maker: bela Mendoza. Code status: Full code. Smoking packs per day: 1 Smoking cigarettes per day: 20.0 Years smoked: 40 Smoking pack-years: 40.00 Smoking status: Current every day smoker Tobacco type: cigarettes Alcohol intake: never Substance use: never Substance use type: does not use Do You Feel Safe in your Home?: Yes Lack of Transportation: No Lack of Food: Never True Current Housing: I Have Housing Concerned About Future Housing: No Difficulty Paying Gas/Electric Bills: No Difficulty Paying for Meds: No Currently Unemployed: No Education: Bachelor's Degree Difficulty w/ Childcare or Family Care: No Additional living arrangements comments: . [facility]ortun[facility]
--- NOTE | 2024-03-17 15:45 | PC.NURSE ---
This RN has replaced tele monitor x6, patient refuses to keep leads on.,
[2024-03-17 16:01] LABS: Troponin I 0.072 ng/mL (0.000-0.034)
--- NOTE | 2024-03-17 17:42 | ADMGEN ---
This patient, Diamond Pratt, was admitted to IMU Room 202-01 at 1653. Patient/family oriented to hospital policies and general routines including ID bracelet, bed and alarms, visiting hours, pain management, procedures, bathroom and other care routines, personal items, smoking policy, room service/diet, and visiting hours. Information on how to activate the Rapid Response Team has been discussed. Patient/Family are encouraged to report perceived risks to care and to ask questions if they do not understand what they are told or what they should do.
[2024-03-17 21:10] LABS: Troponin I 0.066 ng/mL (0.000-0.034)
[2024-03-17] MEDS: APIXABAN 5 MG TABLET PO (23:18)
[2024-03-17] MEDS: PANTOPRAZOLE 40 MG TABLET PO (23:18)
[2024-03-18] VITALS (16 sets, daily range): BP systolic 120–156; BP diastolic 51–90; PULSE 97–116; RESP 14–20; TEMP 36–36.4; O2SAT 98–100
--- NOTE | 2024-03-18 | ECHO_ITS ---
Patient Info Name: Diamond Pratt Age: 73 years : 1950 Gender: Female Ht: 65 in Wt: 163 lbs BSA: 1.86 m2 HR: 97 bpm BP: 120 / 58 mmHg Heart Rhythm: Indeterminant Technical Quality: Fair Exam Date: 03/18/2024 9:12 AM Exam Location: Echo Lab Patient Status: Inpatient Admit Date: 03/17/2024 Staff Ordering Physician: Susu Villafana PA-C Freight Checker: Shae Rojas RDCS Attending Provider: Richie Ge MD Referring Physician: Broderick OCHOA; Exam Type: CA echo doppler color flow Study Info Indications - elevated troponin, near syncope Complete two-dimensional, color flow and Doppler transthoracic echocardiogram is performed. Summary 1. Complete two-dimensional, color flow and Doppler transthoracic echocardiogram is performed. 2. Left ventricular chamber dimension is normal. 3. Left ventricular systolic function is normal, estimated at 60-65%. 4. There is no increased left ventricular wall thickness. 5. The left ventricular diastolic function is grade I diastolic dysfunction. 6. There is no aortic valve stenosis. 7. There is trace mitral valve regurgitation. 8. There is trace tricuspid valve regurgitation. 9. No pulmonary hypertension, estimated pulmonary arterial systolic pressure is 29 mmHg. Left Ventricle Left ventricular chamber dimension is normal. Left ventricular systolic function is normal, estimated at 60-65%. There is no increased left ventricular wall thickness. The left ventricular diastolic function is grade I diastolic dysfunction. Right Ventricle Right ventricular chamber dimension is normal. Right ventricular systolic function is normal. Left Atria Left atrial chamber dimension is normal. Right Atria Right atrial chamber dimension is normal. Aortic Valve The aortic valve is not well visualized. There is no aortic valve stenosis. There is no aortic valve regurgitation. Pulmonic Valve The pulmonic valve is not well visualized. Mitral Valve The mitral valve has thickened leaflets. There is trace mitral valve regurgitation. The mitral valve annulus is severely calcified. Tricuspid Valve The tricuspid valve leaflets are normal. There is trace tricuspid valve regurgitation. No pulmonary hypertension, estimated pulmonary arterial systolic pressure is 29 mmHg. Pericardium/Pleural The pericardium appears epicardial fat pad. There is small pericardial effusion. Inferior Vena Cava Normal inferior vena cava with >50% collapse upon inspiration consistent with normal right atrial pressure, 5 mmHg. Aorta The aortic root size at the sinus of Valsalva is normal. Left Ventricular Outflow Tract Name Value Normal LVOT 2D LVOT Diameter 1.9 cm LVOT Doppler LVOT Peak Gradient 8 mmHg LVOT Mean Gradient 4 mmHg LVOT VTI 18 cm LVOT VTI/AV VTI Ratio 0.7 LVOT Stroke Volume 49 ml LVOT CO 5.3 l/min LVOT CI 2.9 l/min/m2 Pulmonic Valve Name Value
[2024-03-18 00:20] LABS: Glucose Point of Care 95 mg/dl (65-105)
[2024-03-18 04:52] LABS: Hematocrit 28.2 % (37.0-47.0); Hemoglobin 9.1 g/dL (12.0-15.0); Mean Corpuscular HGB Conc 32.3 g/dl (32-36); Mean Corpuscular Hemoglobin 27.8 pg (26-34); Mean Corpuscular Volume 86.2 fl (80-100); Mean Platelet Volume 10.4 fl (7.4-10.4); Platelet Count Result 158 k/mm3 (150-375); Red Blood Count 3.27 M/mm3 (4.2-5.4); Red Cell Distribution Width 17.8 % (11.5-14.5); White Blood Count 5.4 K/mm3 (4.5-10.0)
[2024-03-18 05:05] LABS: Anion Gap 5 mmol/L (4-12); Blood Urea Nitrogen 10 mg/dL (7-17); Carbon Dioxide 19 mmol/L (22-30); Chloride 113 mmol/L (98-107); Estimated CRCL calculation 51 ml/min; Estimated Glomerular Filt Rate > 60; Glucose 91 mg/dL (65-110); Magnesium 1.9 mg/dL (1.6-2.3); Potassium 3.6 mmol/L (3.4-5.0); Sodium 137 mmol/L (137-145)
[2024-03-18] MEDS: SUCRALFATE SUSP 100 MG/ML 10 ML UDC 1000 MG PO ×2 (05:15→22:18)
[2024-03-18 08:05] LABS: Glucose Point of Care 94 mg/dl (65-105)
[2024-03-18] MEDS: APIXABAN 5 MG TABLET PO ×2 (09:03→22:18)
--- NOTE | 2024-03-18 09:04 | PC.NURSE ---
Pt refusing meds this morning. I was able to educate her on the importance of Eliquis to treat her blood clots, and was only able to convince her to take that one pill. She is somewhat confused. Alert and oriented to person, place and time, but cannot remember why she's in the hospital. Will attempt to give meds again later this morning
[2024-03-18 11:52] LABS: Glucose Point of Care 112 mg/dl (65-105)
[2024-03-18 16:41] LABS: Glucose Point of Care 114 mg/dl (65-105)
--- NOTE | 2024-03-18 17:48 | PM.IMPN ---
Progress Note: A&P Assessment and Plan (1) Near syncope: Code(s): R55 - Syncope and collapse Status: Acute Assessment and Plan: The patient presented to the emergency department for evaluation after a near syncopal episode. Etiology is not entirely clear. CXR showing RUL scarring. CT brain showing no acute findings but did show extensive nonspecific cerebral white matter dz. CT A/P showing no acute findings. WBC normal. UA consistent with UTI. Orthostatic VS ordered. No cardiac dysrhythmias by tele. PE is a consideration given tachycardia, elevated troponin, and known DVTs although she is on chronic anticoagulation. Consider cardiac ischemia with Troponin to 0.92. EKG showing sinus tach (104) with nonspecific T wave changes. Echo showing normal LV systolic fxn with EF 60-65%, Grade I diastolic dysfunction and trace valvular disease. Could be related to UTI. She is confused so will follow for now on abx to see if her mental status improves. Consider stress test wednesday. Consider CTA chest but unclear if she warrents a filter Consider TIA/CVA and may need MRI (2) Elevated troponin: Code(s): R79.89 - Other specified abnormal findings of blood chemistry Status: Acute Assessment and Plan: She has coronary atherosclerosis listed but details lacking. As above (3) Urinary tract infection: Code(s): N39.0 - Urinary tract infection, site not specified Status: Acute Assessment and Plan: UA is consistent with UTI. UCx collected. Rocephin started. UCx pending. Follow up on UCx results. Add BCx (4) Acute DVT (deep venous thrombosis): Qualifiers: DVT location: lower extremity Affected thrombotic vein of extremity: other lower extremity vein Laterality: bilateral Qualified Code(s): I82.493 - Acute embolism and thrombosis of other specified deep vein of lower extremity, bilateral Code(s): I82.409 - Acute embolism and thrombosis of unspecified deep veins of unspecified lower extremity Status: Acute Assessment and Plan: Patient with Factor V leiden and was on Xarelto but was noncompliant with treatment. She was admitted in Nov 2023: CT A/P showing possible DVT in the right common and external iliac veins however specificity is limited. Doppler showing extensive bilateral DVT involving all of the deep veins in the right lower limb as well as the right greater saphenous vein above the calf and in the mid left femoral vein to the left posterior tibial veins. She was resumed on her Xarelto. Dec 2023: CT A/P showing DVT involving the left superficial and deep femoral veins and the right superficial femoral, deep femoral, external iliac, internal iliac, and common iliac veins, some of which are new or have progressed slightly. CTA chest was negative for PE. No change in her Xarelto February 02 2024: CT A/P showing possible DVT of the iliac and femoral veins. February 11, 2024: CT A/P extensive left-sided DVT, probably extending from the left common iliac vein through the left external iliac, left common femoral and left profunda femoral veins. No thrombus evident within the IVC. March 07, 2024: CT A/P suspected thrombus again noted in the left external iliac and common femoral veins. LE venous doppler showing extensive deep venous thrombosis of the left lower extremity veins, possibly chronic. She was changed from Xarelto to Eliquis 10mg Q12 x 1 week and now currently on Eliquis 5mg Q12h. CT A/P this admission had infiltration of IV contrast so unable to comment on pelvic veins. Too soon to determine if she has failed Eliquis therapy. Left UE doppler showing superficial vein thrombus. Add heating pad. Consider CTA but if acute, could be related to recent admission and not new. Will continue Eliquis. (5) Factor V Leiden: Code(s): D68.51 - Activated protein C resistance Status: Acute Assessment and Plan: As above. Has had extensive LE DVTs and now on Eliquis.
[2024-03-18 21:11] LABS: Glucose Point of Care 86 mg/dl (65-105)
[2024-03-18] MEDS: PANTOPRAZOLE 40 MG TABLET PO (22:18)
[2024-03-19] VITALS (11 sets, daily range): BP systolic 109–149; BP diastolic 51–69; PULSE 88–107; RESP 12–20; TEMP 36.1–36.6; O2SAT 99–100
[2024-03-19 04:54] LABS: Basophils Percent Auto 0.2 % (0.2-1.2); Eosinophils Absolute Auto 0.1 K/mm3 (0-0.3); Eosinophils Percent Auto 1.1 % (0-4.4); Hematocrit 24.9 % (37.0-47.0); Hemoglobin 8.2 g/dL (12.0-15.0); Immature Granulocyte Absolute 0.09 K/mm3 (0.00-0.031); Lymphocytes Percent Auto 48.6 % (18.3-44.2); Mean Corpuscular HGB Conc 32.9 g/dl (32-36); Mean Corpuscular Hemoglobin 27.6 pg (26-34); Mean Corpuscular Volume 83.8 fl (80-100); Mean Platelet Volume 9.9 fl (7.4-10.4); Monocytes Absolute Auto 0.3 K/mm3 (0.1-0.6); Monocytes Percent Auto 5.7 % (2.6-8.5); Neutrophils Absolute Auto 1.9 K/mm3 (1.3-6.7); Neutrophils Percent Auto 42.4 % (45.5-73.1); Nucleated Red Blood Cells Perc 1.1 % (0.0-0.2); Platelet Count Result 156 k/mm3 (150-375); Red Blood Count 2.97 M/mm3 (4.2-5.4); Red Cell Distribution Width 18.2 % (11.5-14.5); White Blood Count 4.5 K/mm3 (4.5-10.0)
[2024-03-19 05:19] LABS: Hemoglobin A1C 5.5 % (<5.7)
[2024-03-19 05:36] LABS: Iron 135 ug/dL (37-170)
[2024-03-19 05:45] LABS: Percent Iron Saturation 76 % (20-50)
[2024-03-19 05:48] LABS: Alanine Aminotransferase 14 U/L (6-35); Albumin Level 2.8 g/dL (3.5-5.1); Alkaline Phosphatase 75 U/L (38-126); Anion Gap 7 mmol/L (4-12); Aspartate Amino Transferase 23 U/L (14-36); Bilirubin,Total 0.8 mg/dL (0.2-1.3); Blood Urea Nitrogen 10 mg/dL (7-17); Calcium 8.5 mg/dL (8.4-10.2); Carbon Dioxide 19 mmol/L (22-30); Chloride 113 mmol/L (98-107); Estimated CRCL calculation 57 ml/min; Estimated Glomerular Filt Rate > 60; Glucose 99 mg/dL (65-110); Magnesium 1.8 mg/dL (1.6-2.3); Phosphorus 1.8 mg/dL (2.5-4.5); Potassium 3.5 mmol/L (3.4-5.0); Sodium 139 mmol/L (137-145)
[2024-03-19] MEDS: SUCRALFATE SUSP 100 MG/ML 10 ML UDC 1000 MG PO ×4 (06:15→20:34)
[2024-03-19 06:42] LABS: Folic Acid 2.3 ng/mL (2.76->20)
[2024-03-19 07:30] LABS: Glucose Point of Care 78 mg/dl (65-105)
--- NOTE | 2024-03-19 08:04 | PCCCNOTE ---
On 03/19/24, the student, [Ktay Anderson ], provided care and completed [facility] documentation on this patient. I have reviewed the student's documentation and agree with the findings.
[2024-03-19] MEDS: SERTRALINE HCL 25 MG TABLET PO ×2 (09:00→17:31)
[2024-03-19] MEDS: ATORVASTATIN 20 MG TABLET PO (09:00)
[2024-03-19] MEDS: APIXABAN 5 MG TABLET PO ×2 (09:00→20:34)
[2024-03-19] MEDS: PANTOPRAZOLE 40 MG TABLET PO ×2 (09:00→20:34)
[2024-03-19] MEDS: CYANOCOBALAMIN 1,000 MCG TABLET 1000 MCG PO (09:00)
[2024-03-19] MEDS: GLIMEPIRIDE 1 MG TABLET PO (09:02)
[2024-03-19] MEDS: FOLIC ACID 1 MG/0.2 ML INJ IV PUSH (09:02)
[2024-03-19] MEDS: OPTI-GEN TAB 1 TABLET PO (09:02)
[2024-03-19] MEDS: CYANOCOBALAMIN INJ 1,000 MCG/ML VIAL 1000 MCG IM (09:02)
[2024-03-19] MEDS: POTASSIUM CHLORIDE 20 MEQ ER TABLET 40 MEQ PO ×2 (09:12→17:31)
[2024-03-19] MEDS: POTASSIUM/PHOSPHORUS/SODIUM 1.5 GM PACKET 1 PACKET PO ×2 (09:12→11:51)
[2024-03-19 11:20] LABS: Glucose Point of Care 112 mg/dl (65-105)
--- NOTE | 2024-03-19 11:41 | PM.IMPN ---
Progress Note: A&P Assessment and Plan (1) Near syncope: Code(s): R55 - Syncope and collapse Status: Acute Assessment and Plan: The patient presented to the emergency department for evaluation after a near syncopal episode. Etiology is not entirely clear. CXR showing RUL scarring. CT brain showing no acute findings but did show extensive nonspecific cerebral white matter dz. CT A/P showing no acute findings. WBC normal. UA consistent with UTI. Orthostatic VS ordered. No cardiac dysrhythmias by tele. PE is a consideration given tachycardia, elevated troponin, and known DVTs although she is on chronic anticoagulation. Consider cardiac ischemia with Troponin to 0.92. EKG showing sinus tach (104) with nonspecific T wave changes. Echo showing normal LV systolic fxn with EF 60-65%, Grade I diastolic dysfunction and trace valvular disease. Could be related to UTI. She is confused so will follow for now on abx to see if her mental status improves. Will hold on stress test and CTA chest. Add IV fluids given her poor oral intake. (2) Confusion: Code(s): R41.0 - Disorientation, unspecified Status: Acute Assessment and Plan: Patient with confusion. Unclear on cognitive baseline. CT of the brain shows extensive nonspecific cerebral white matter disease in disease of the deep stovall nuclei. B12 and folate levels are low and these are being replaced Patient does have UTI being treated Confusion may be acute resulting in B12/folate deficiency and/or UTI. She may also have acute on chronic confusion. Need to determine baseline. Will check brain MRI (3) Elevated troponin: Code(s): R79.89 - Other specified abnormal findings of blood chemistry Status: Acute Assessment and Plan: She has coronary atherosclerosis listed but details lacking. As above (4) Urinary tract infection: Code(s): N39.0 - Urinary tract infection, site not specified Status: Acute Assessment and Plan: UA is consistent with UTI. UCx collected. Rocephin started. UCx growing GNB. BCx pending Follow up on Cx results. (5) Acute DVT (deep venous thrombosis): Qualifiers: Affected thrombotic vein of extremity: other lower extremity vein DVT location: lower extremity Laterality: bilateral Qualified Code(s): I82.493 - Acute embolism and thrombosis of other specified deep vein of lower extremity, bilateral Code(s): I82.409 - Acute embolism and thrombosis of unspecified deep veins of unspecified lower extremity Status: Acute Assessment and Plan: Patient with Factor V leiden and was on Xarelto but was noncompliant with treatment. She was admitted in Nov 2023: CT A/P showing possible DVT in the right common and external iliac veins however specificity is limited. Doppler showing extensive bilateral DVT involving all of the deep veins in the right lower limb as well as the right greater saphenous vein above the calf and in the mid left femoral vein to the left posterior tibial veins. She was resumed on her Xarelto. Dec 2023: CT A/P showing DVT involving the left superficial and deep femoral veins and the right superficial femoral, deep femoral, external iliac, internal iliac, and common iliac veins, some of which are new or have progressed slightly. CTA chest was negative for PE. No change in her Xarelto February 02 2024: CT A/P showing possible DVT of the iliac and femoral veins. February 11, 2024: CT A/P extensive left-sided DVT, probably extending from the left common iliac vein through the left external iliac, left common femoral and left profunda femoral veins. No thrombus evident within the IVC. March 07, 2024: CT A/P suspected thrombus again noted in the left external iliac and common femoral veins. LE venous doppler showing extensive deep venous thrombosis of the left lower extremity veins, possibly chronic. She was changed from Xarelto to Eliquis 10mg Q12 x 1 week and now currently on
[2024-03-19 16:29] LABS: Glucose Point of Care 99 mg/dl (65-105)
[2024-03-19] MEDS: KCL 20 MEQ/D5/0.9% SOD CHL 1,000 ML 70 ML IV CONT (17:31)
[2024-03-19 20:07] LABS: Glucose Point of Care 112 mg/dl (65-105)
[2024-03-20] VITALS: BP 149/88; PULSE 90; PULSE 92; RESP 12; TEMP 36.4; O2SAT 100
[2024-03-20 04:00] VITALS: BP 147/74; PULSE 85; RESP 14; TEMP 36.4; O2SAT 100
[2024-03-20 04:42] LABS: Basophils Percent Auto 0.6 % (0.2-1.2); Eosinophils Absolute Auto 0.1 K/mm3 (0-0.3); Eosinophils Percent Auto 1.4 % (0-4.4); Hematocrit 30.1 % (37.0-47.0); Hemoglobin 9.3 g/dL (12.0-15.0); Immature Granulocyte Absolute 0.12 K/mm3 (0.00-0.031); Immature Granulocyte Percent A 2.4 % (0-0.5); Lymphocytes Absolute Auto 1.77 K/mm3 (0.9-3.2); Lymphocytes Percent Auto 35.7 % (18.3-44.2); Mean Corpuscular HGB Conc 30.9 g/dl (32-36); Mean Corpuscular Hemoglobin 27.9 pg (26-34); Mean Corpuscular Volume 90.4 fl (80-100); Mean Platelet Volume 10.4 fl (7.4-10.4); Monocytes Absolute Auto 0.3 K/mm3 (0.1-0.6); Monocytes Percent Auto 6.3 % (2.6-8.5); Neutrophils Absolute Auto 2.7 K/mm3 (1.3-6.7); Neutrophils Percent Auto 53.6 % (45.5-73.1); Nucleated Red Blood Cells Perc 1.2 % (0.0-0.2); Platelet Count Result 169 k/mm3 (150-375); Red Blood Count 3.33 M/mm3 (4.2-5.4); Red Cell Distribution Width 19.2 % (11.5-14.5)
[2024-03-20 04:58] LABS: Alanine Aminotransferase 14 U/L (6-35); Alkaline Phosphatase 80 U/L (38-126); Anion Gap 6 mmol/L (4-12); Aspartate Amino Transferase 18 U/L (14-36); Bilirubin,Total 0.9 mg/dL (0.2-1.3); Blood Urea Nitrogen 9 mg/dL (7-17); Calcium 8.2 mg/dL (8.4-10.2); Carbon Dioxide 17 mmol/L (22-30); Chloride 117 mmol/L (98-107); Estimated CRCL calculation 57 ml/min; Estimated Glomerular Filt Rate > 60; Glucose 143 mg/dL (65-110); Magnesium 2.1 mg/dL (1.6-2.3); Phosphorus 1.8 mg/dL (2.5-4.5); Sodium 140 mmol/L (137-145)
[2024-03-20] MEDS: SUCRALFATE SUSP 100 MG/ML 10 ML UDC 1000 MG PO ×3 (06:24→22:06)
[2024-03-20 07:39] LABS: Glucose Point of Care 140 mg/dl (65-105)
[2024-03-20 08:00] VITALS: BP 100/56; PULSE 90; RESP 22; TEMP 36.4; O2SAT 100
[2024-03-20 08:13] LABS: Glucose Point of Care 161 mg/dl (65-105)
[2024-03-20] MEDS: FOLIC ACID 1 MG/0.2 ML INJ IV PUSH (10:00)
[2024-03-20] MEDS: APIXABAN 5 MG TABLET PO ×2 (10:40→22:03)
[2024-03-20 11:25] LABS: Glucose Point of Care 140 mg/dl (65-105)
[2024-03-20 11:31] VITALS: BMI 27.8
[2024-03-20] MEDS: KCL 20 MEQ/D5/0.9% SOD CHL 1,000 ML 70 ML IV CONT (11:42)
[2024-03-20 12:00] VITALS: BP 131/53; PULSE 86; PULSE 92; RESP 20; TEMP 36.1; O2SAT 93
[2024-03-20 16:00] VITALS: BP 126/61; PULSE 88; RESP 20; TEMP 36.2; O2SAT 99
--- NOTE | 2024-03-20 16:24 | PM.IMPN ---
Progress Note: A&P Assessment and Plan (1) Near syncope: Code(s): R55 - Syncope and collapse Status: Acute Assessment and Plan: The patient presented to the emergency department for evaluation after a near syncopal episode. Etiology is not entirely clear. CXR showing RUL scarring. CT brain showing no acute findings but did show extensive nonspecific cerebral white matter dz. CT A/P showing no acute findings. WBC normal. UA consistent with UTI. Orthostatic VS ordered. No cardiac dysrhythmias by tele. PE is a consideration given tachycardia, elevated troponin, and known DVTs although she is on chronic anticoagulation (but refusing doses). Consider cardiac ischemia with Troponin to 0.92. EKG showing sinus tach (104) with nonspecific T wave changes. Echo showing normal LV systolic fxn with EF 60-65%, Grade I diastolic dysfunction and trace valvular disease. Could be related to UTI. She is confused but this is chronic No recurrence. Add PT/OT (2) Confusion: Code(s): R41.0 - Disorientation, unspecified Status: Acute Assessment and Plan: Patient with confusion. CT of the brain shows extensive nonspecific cerebral white matter disease in disease of the deep stovall nuclei. B12 and folate levels are low and these are being replaced. Patient does have UTI which is being treated Per family in the room, patient has underlying chronic confusion. Hold on checking MRI since this is her baseline. (3) Elevated troponin: Code(s): R79.89 - Other specified abnormal findings of blood chemistry Status: Acute Assessment and Plan: She has coronary atherosclerosis listed but details lacking. As above (4) Urinary tract infection: Code(s): N39.0 - Urinary tract infection, site not specified Status: Acute Assessment and Plan: UA is consistent with UTI. UCx collected. Rocephin started. UCx growing Citrobacter yonugae. BCx NGTD Sensitivities noted. Change to Bactrim (5) Acute DVT (deep venous thrombosis): Qualifiers: Affected thrombotic vein of extremity: other lower extremity vein DVT location: lower extremity Laterality: bilateral Qualified Code(s): I82.493 - Acute embolism and thrombosis of other specified deep vein of lower extremity, bilateral Code(s): I82.409 - Acute embolism and thrombosis of unspecified deep veins of unspecified lower extremity Status: Acute Assessment and Plan: Patient with Factor V leiden and was on Xarelto but was noncompliant with treatment. She was admitted in Nov 2023: CT A/P showing possible DVT in the right common and external iliac veins however specificity is limited. Doppler showing extensive bilateral DVT involving all of the deep veins in the right lower limb as well as the right greater saphenous vein above the calf and in the mid left femoral vein to the left posterior tibial veins. She was resumed on her Xarelto. Dec 2023: CT A/P showing DVT involving the left superficial and deep femoral veins and the right superficial femoral, deep femoral, external iliac, internal iliac, and common iliac veins, some of which are new or have progressed slightly. CTA chest was negative for PE. No change in her Xarelto February 02 2024: CT A/P showing possible DVT of the iliac and femoral veins. February 11, 2024: CT A/P extensive left-sided DVT, probably extending from the left common iliac vein through the left external iliac, left common femoral and left profunda femoral veins. No thrombus evident within the IVC. March 07, 2024: CT A/P suspected thrombus again noted in the left external iliac and common femoral veins. LE venous doppler showing extensive deep venous thrombosis of the left lower extremity veins, possibly chronic. She was changed from Xarelto to Eliquis 10mg Q12 x 1 week and now currently on Eliquis 5mg Q12h. CT A/P this admission had infiltration of IV contrast so unable to comment on pelvic veins. Too soon to determine
[2024-03-20 16:53] LABS: Glucose Point of Care 143 mg/dl (65-105)
[2024-03-20] MEDS: CYANOCOBALAMIN INJ 1,000 MCG/ML VIAL 1000 MCG IM (17:17)
[2024-03-20] MEDS: POTASSIUM/PHOSPHORUS/SODIUM 1.5 GM PACKET 1 PACKET PO (17:28)
[2024-03-20 20:00] VITALS: BP 118/70; PULSE 92; PULSE 94; RESP 16; TEMP 36.4; O2SAT 100
[2024-03-20] MEDS: ONDANSETRON INJ 4 MG/2 ML VIAL IV PUSH (20:51)
[2024-03-20 21:06] LABS: Glucose Point of Care 109 mg/dl (65-105)
[2024-03-20] MEDS: SULFAMETHOXAZOLE/TRIMETHOPRIM 800/160 MG DS TABLET 1 TAB PO (22:04)
[2024-03-20] MEDS: PANTOPRAZOLE 40 MG TABLET PO (22:06)
[2024-03-21] VITALS: BP 119/64; PULSE 64; PULSE 93; RESP 18; TEMP 36.4; O2SAT 95
--- NOTE | 2024-03-21 01:56 | PC.NURSE ---
Pt transferred from IMU to 2nd Medical room 242 at shift change (approx. 1920).
[2024-03-21] MEDS: KCL 20 MEQ/D5/0.9% SOD CHL 1,000 ML 70 ML IV CONT (02:05)
[2024-03-21 04:00] VITALS: BP 120/67; PULSE 73; PULSE 89; RESP 20; TEMP 36.2; O2SAT 97
[2024-03-21] MEDS: SUCRALFATE SUSP 100 MG/ML 10 ML UDC 1000 MG PO ×4 (05:41→20:42)
[2024-03-21 08:38] LABS: Glucose Point of Care 112 mg/dl (65-105)
[2024-03-21 09:03] LABS: Albumin Level 3.1 g/dL (3.5-5.1); Anion Gap 8 mmol/L (4-12); Blood Urea Nitrogen 6 mg/dL (7-17); Calcium 8.3 mg/dL (8.4-10.2); Carbon Dioxide 15 mmol/L (22-30); Chloride 118 mmol/L (98-107); Estimated CRCL calculation 57 ml/min; Estimated Glomerular Filt Rate > 60; Glucose 138 mg/dL (65-110); Magnesium 1.8 mg/dL (1.6-2.3); Phosphorus 1.6 mg/dL (2.5-4.5); Potassium 3.9 mmol/L (3.4-5.0); Sodium 141 mmol/L (137-145)
[2024-03-21] MEDS: SULFAMETHOXAZOLE/TRIMETHOPRIM 800/160 MG DS TABLET 1 TAB PO ×2 (09:11→20:42)
[2024-03-21] MEDS: APIXABAN 5 MG TABLET PO ×2 (09:11→20:42)
[2024-03-21] MEDS: FOLIC ACID 1 MG/0.2 ML INJ IV PUSH (09:14)
[2024-03-21] MEDS: CYANOCOBALAMIN INJ 1,000 MCG/ML VIAL 1000 MCG IM (09:14)
[2024-03-21 10:28] LABS: Basophils Percent Auto 0.3 % (0.2-1.2); Eosinophils Absolute Auto 0.1 K/mm3 (0-0.3); Eosinophils Percent Auto 2.1 % (0-4.4); Hematocrit 26.9 % (37.0-47.0); Hemoglobin 8.7 g/dL (12.0-15.0); Immature Granulocyte Percent A 1.7 % (0-0.5); Lymphocytes Absolute Auto 1.68 K/mm3 (0.9-3.2); Lymphocytes Percent Auto 28.8 % (18.3-44.2); Mean Corpuscular HGB Conc 32.3 g/dl (32-36); Mean Corpuscular Hemoglobin 28.2 pg (26-34); Mean Corpuscular Volume 87.1 fl (80-100); Mean Platelet Volume 10.5 fl (7.4-10.4); Monocytes Absolute Auto 0.4 K/mm3 (0.1-0.6); Monocytes Percent Auto 7.4 % (2.6-8.5); Neutrophils Absolute Auto 3.5 K/mm3 (1.3-6.7); Neutrophils Percent Auto 59.7 % (45.5-73.1); Nucleated Red Blood Cells Perc 1.4 % (0.0-0.2); Platelet Count Result 204 k/mm3 (150-375); Red Blood Count 3.09 M/mm3 (4.2-5.4); Red Cell Distribution Width 19.4 % (11.5-14.5); White Blood Count 5.8 K/mm3 (4.5-10.0)
[2024-03-21] MEDS: POTASSIUM/PHOSPHORUS/SODIUM 1.5 GM PACKET 1 PACKET PO ×2 (10:42→15:17)
--- NOTE | 2024-03-21 11:21 | P.CDI_ITS ---
CDI Query Clarification Request BMI 27.8 Nutritional Diagnostic Statement Moderate protein calorie malnutrition related to inadequate energy intake as evidenced by poor po intake for greater than 1 month, noted -11% wt loss x 3 months, and NFPE findings for moderate subcutaneous fat loss (cheeks) and moderate muscle wasting ( presybeterian,clavicle). Please refer to the comprehensive nutrition assessment for further information. Please clarify severity of protein calorie malnutrition if known: * Mild * Moderate * Severe * Other/Unspecified
[2024-03-21 12:03] LABS: Glucose Point of Care 120 mg/dl (65-105)
[2024-03-21] MEDS: ONDANSETRON INJ 4 MG/2 ML VIAL IV PUSH (12:23)
[2024-03-21 12:57] VITALS: BP 124/88; PULSE 94; RESP 18; TEMP 36; O2SAT 96
--- NOTE | 2024-03-21 13:28 | PM.IMPN ---
Progress Note: A&P Assessment and Plan (1) Near syncope: Code(s): R55 - Syncope and collapse Status: Acute Assessment and Plan: The patient presented to the emergency department for evaluation after a near syncopal episode. Etiology is not entirely clear. CXR showing RUL scarring. CT brain showing no acute findings but did show extensive nonspecific cerebral white matter dz. CT A/P showing no acute findings. WBC normal. UA consistent with UTI. Orthostatic VS ordered. No cardiac dysrhythmias by tele. PE is a consideration given tachycardia, elevated troponin, and known DVTs although she is on chronic anticoagulation (but refusing doses). Consider cardiac ischemia with Troponin to 0.92. EKG showing sinus tach (104) with nonspecific T wave changes. Echo showing normal LV systolic fxn with EF 60-65%, Grade I diastolic dysfunction and trace valvular disease. Could be related to UTI. She is confused but this is chronic per family No recurrence. PT/OT ordered. Okay to stop tele. Discussed with dtr (POCasey) and spoke about goals of care. The patient has had multiple hospitalizations and is refusing care here. Spoke about hospice or palliative care and dtr is agreeable for hospice. Care coordination consult for hospice consult. All questions answered to her satisfaction (2) Confusion: Code(s): R41.0 - Disorientation, unspecified Status: Acute Assessment and Plan: Patient with confusion. CT brain shows extensive nonspecific cerebral white matter disease in disease of the deep stovall nuclei. B12 and folate levels are low and these are being replaced. Patient does have UTI which is being treated Per family, patient has underlying chronic confusion. Hold on checking MRI since this is probably her baseline. (3) Elevated troponin: Code(s): R79.89 - Other specified abnormal findings of blood chemistry Status: Acute Assessment and Plan: She has coronary atherosclerosis listed but details lacking. As above (4) Urinary tract infection: Code(s): N39.0 - Urinary tract infection, site not specified Status: Acute Assessment and Plan: UA is consistent with UTI. UCx collected. Rocephin started. UCx growing Citrobacter yonugae. BCx NGTD Sensitivities noted. Changed to Bactrim (5) Acute DVT (deep venous thrombosis): Qualifiers: DVT location: lower extremity Affected thrombotic vein of extremity: other lower extremity vein Laterality: bilateral Qualified Code(s): I82.493 - Acute embolism and thrombosis of other specified deep vein of lower extremity, bilateral Code(s): I82.409 - Acute embolism and thrombosis of unspecified deep veins of unspecified lower extremity Status: Acute Assessment and Plan: Patient with Factor V leiden and was on Xarelto but was noncompliant with treatment. She was admitted in Nov 2023: CT A/P showing possible DVT in the right common and external iliac veins however specificity is limited. Doppler showing extensive bilateral DVT involving all of the deep veins in the right lower limb as well as the right greater saphenous vein above the calf and in the mid left femoral vein to the left posterior tibial veins. She was resumed on her Xarelto. Dec 2023: CT A/P showing DVT involving the left superficial and deep femoral veins and the right superficial femoral, deep femoral, external iliac, internal iliac, and common iliac veins, some of which are new or have progressed slightly. CTA chest was negative for PE. No change in her Xarelto February 02 2024: CT A/P showing possible DVT of the iliac and femoral veins. February 11, 2024: CT A/P extensive left-sided DVT, probably extending from the left common iliac vein through the left external iliac, left common femoral and left profunda femoral veins. No thrombus evident within the IVC. March 07, 2024: CT A/P suspected thrombus again noted in the left external iliac and common femoral veins. FRANCO henderson
--- NOTE | 2024-03-21 14:55 | PCCCNOTE ---
On 03/21/24, the student, Katy Anderson, provided care and completed [facility] documentation on this patient. I have reviewed the student's documentation and agree with the findings.
--- NOTE | 2024-03-21 15:42 | PCOTNOTE ---
Attempted to see pt. for occupational therapy evaluation. Pt. declined to participate at this time. Nursing also reports hospice consult in. Following for possible therapy needs.
[2024-03-21 16:59] LABS: Glucose Point of Care 128 mg/dl (65-105)
[2024-03-21] MEDS: SERTRALINE HCL 25 MG TABLET PO (17:09)
[2024-03-21] MEDS: SODIUM BICARBONATE TAB 650 MG TABLET PO (17:09)
[2024-03-21 20:00] VITALS: BP 116/70; BP 126/84; PULSE 100; RESP 17; TEMP 36.1; O2SAT 80
[2024-03-21 20:15] LABS: Glucose Point of Care 92 mg/dl (65-105)
[2024-03-21] MEDS: PANTOPRAZOLE 40 MG TABLET PO (20:42)
[2024-03-21 22:12] VITALS: PULSE 88; O2SAT 95
[2024-03-22] VITALS (8 sets, daily range): BP systolic 102–126; BP diastolic 56–85; PULSE 85–102; RESP 12–20; TEMP 35.8–37.2; O2SAT 92–100
[2024-03-22] MEDS: SUCRALFATE SUSP 100 MG/ML 10 ML UDC 1000 MG PO ×2 (05:55→16:45)
[2024-03-22 06:10] LABS: Glucose Point of Care 77 mg/dl (65-105)
--- NOTE | 2024-03-22 06:12 | PC.NURSE ---
Addendum entered by Gosia Summers RN 03/22/24 06:58: Able to convince pt to have some apple juice and blood sugar rechecked after 15 minutes. Result 104. Original Note: Noticed pt shaking. Asked pt if something was wrong and pt kept saying no but kept groaning. Checked pt's blood sugar, result was 77. Asked pt if she wanted a snack, pt refused. Educated pt on importance of eating to maintain blood sugars. Pt still refused snack at this time. Checked pt's oral temp and it was 97.4 F.
[2024-03-22 06:58] LABS: Glucose Point of Care 104 mg/dl (65-105)
[2024-03-22 08:03] LABS: Glucose Point of Care 66 mg/dl (65-105)
[2024-03-22] MEDS: SULFAMETHOXAZOLE/TRIMETHOPRIM 800/160 MG DS TABLET 1 TAB PO ×2 (08:39→21:12)
[2024-03-22] MEDS: APIXABAN 5 MG TABLET PO ×2 (08:39→21:12)
[2024-03-22 08:50] LABS: Glucose Point of Care 94 mg/dl (65-105)
--- NOTE | 2024-03-22 11:07 | PM.IMPN ---
Progress Note: A&P Assessment and Plan (1) Near syncope: Code(s): R55 - Syncope and collapse Status: Acute Assessment and Plan: The patient presented to the emergency department for evaluation after a near syncopal episode. Etiology is not entirely clear. CXR showing RUL scarring. CT brain showing no acute findings but did show extensive nonspecific cerebral white matter dz. CT A/P showing no acute findings. WBC normal. UA consistent with UTI. Orthostatic VS ordered. No cardiac dysrhythmias by tele. PE is a consideration given tachycardia, elevated troponin, and known DVTs although she is on chronic anticoagulation (but refusing doses). Consider cardiac ischemia with Troponin to 0.92. EKG showing sinus tach (104) with nonspecific T wave changes. Echo showing normal LV systolic fxn with EF 60-65%, Grade I diastolic dysfunction and trace valvular disease. Could be related to UTI. She is confused but this is chronic per family No recurrence. PT/OT ordered. Okay to stop tele. Discussed with dtr (POCasey) and spoke about goals of care. The patient has had multiple hospitalizations and is refusing care here. Spoke about hospice or palliative care and dtr is agreeable for hospice. Care coordination consult for hospice consult. All questions answered to her satisfaction (2) Confusion: Code(s): R41.0 - Disorientation, unspecified Status: Acute Assessment and Plan: Patient with confusion. CT brain shows extensive nonspecific cerebral white matter disease in disease of the deep stovall nuclei. B12 and folate levels are low and these are being replaced. (3) Elevated troponin: Code(s): R79.89 - Other specified abnormal findings of blood chemistry Status: Acute Assessment and Plan: She has coronary atherosclerosis listed but details lacking. As above (4) Urinary tract infection: Code(s): N39.0 - Urinary tract infection, site not specified Status: Acute Assessment and Plan: Urine cultures and sensitivity. reviewed Continue IV hydration. Monitor CBC CMP monitor Monitor vital signs Start antibiotics Bactrim ds twice a day Start probiotics to prevent antibiotic induced diarrhea (5) Acute DVT (deep venous thrombosis): Qualifiers: DVT location: lower extremity Affected thrombotic vein of extremity: other lower extremity vein Laterality: bilateral Qualified Code(s): I82.493 - Acute embolism and thrombosis of other specified deep vein of lower extremity, bilateral Code(s): I82.409 - Acute embolism and thrombosis of unspecified deep veins of unspecified lower extremity Status: Acute Assessment and Plan: Patient with Factor V leiden and was on Xarelto but was noncompliant with treatment. She was admitted in Nov 2023: CT A/P showing possible DVT in the right common and external iliac veins however specificity is limited. Doppler showing extensive bilateral DVT involving all of the deep veins in the right lower limb as well as the right greater saphenous vein above the calf and in the mid left femoral vein to the left posterior tibial veins. She was resumed on her Xarelto. Dec 2023: CT A/P showing DVT involving the left superficial and deep femoral veins and the right superficial femoral, deep femoral, external iliac, internal iliac, and common iliac veins, some of which are new or have progressed slightly. CTA chest was negative for PE. No change in her Xarelto February 02 2024: CT A/P showing possible DVT of the iliac and femoral veins. February 11, 2024: CT A/P extensive left-sided DVT, probably extending from the left common iliac vein through the left external iliac, left common femoral and left profunda femoral veins. No thrombus evident within the IVC. March 07, 2024: CT A/P suspected thrombus again noted in the left external iliac and common femoral veins. LE venous doppler showing extensive deep venous thrombosis of the left lower extremity veins, pos
[2024-03-22 12:09] LABS: Glucose Point of Care 167 mg/dl (65-105)
--- NOTE | 2024-03-22 14:25 | PCPTNOTE ---
Attempted to see patient for PT, however patient declined. Patient very lethargic this date, however patient able to wake up enough to reported no to PT.
[2024-03-22] MEDS: SERTRALINE HCL 25 MG TABLET PO (16:45)
[2024-03-22] MEDS: SODIUM BICARBONATE TAB 650 MG TABLET PO (16:45)
[2024-03-22 16:46] LABS: Glucose Point of Care 122 mg/dl (65-105)
[2024-03-22 19:50] LABS: Glucose Point of Care 108 mg/dl (65-105)
[2024-03-23 04:00] VITALS: BP 156/54; PULSE 64; RESP 16; TEMP 36.2; O2SAT 96
--- NOTE | 2024-03-23 04:55 | PC.NURSE ---
Pt has not urinated for this shift at this time. Pt has had no oral fluid intake this shift except sips taken with medications at 2100. Bladder scanned pt and only 195 cc found.
[2024-03-23 08:00] VITALS: BP 118/60; PULSE 115; RESP 17; TEMP 36.2; O2SAT 94
[2024-03-23 08:14] LABS: Glucose Point of Care 153 mg/dl (65-105)
[2024-03-23] MEDS: SULFAMETHOXAZOLE/TRIMETHOPRIM 800/160 MG DS TABLET 1 TAB PO (09:19)
--- NOTE | 2024-03-23 09:21 | PM.IMPN ---
Progress Note: A&P Assessment and Plan (1) Near syncope: Code(s): R55 - Syncope and collapse Status: Acute Assessment and Plan: Discussed with dtr (ZOË) and spoke about goals of care. The patient has had multiple hospitalizations and is refusing care here. Spoke about hospice or palliative care and dtr is agreeable for hospice. Care coordination consult for hospice consult. All questions answered to her satisfaction (2) Confusion: Code(s): R41.0 - Disorientation, unspecified Status: Acute Assessment and Plan: Patient with confusion. CT brain shows extensive nonspecific cerebral white matter disease in disease of the deep stovall nuclei. B12 and folate levels are low and these are being replaced. (3) Elevated troponin: Code(s): R79.89 - Other specified abnormal findings of blood chemistry Status: Acute Assessment and Plan: She has coronary atherosclerosis listed but details lacking. As above (4) Urinary tract infection: Code(s): N39.0 - Urinary tract infection, site not specified Status: Acute Assessment and Plan: Urine cultures and sensitivity. reviewed Continue IV hydration. Monitor CBC CMP monitor Monitor vital signs antibiotics Bactrim ds twice a day Start probiotics to prevent antibiotic induced diarrhea (5) Acute DVT (deep venous thrombosis): Qualifiers: DVT location: lower extremity Affected thrombotic vein of extremity: other lower extremity vein Laterality: bilateral Qualified Code(s): I82.493 - Acute embolism and thrombosis of other specified deep vein of lower extremity, bilateral Code(s): I82.409 - Acute embolism and thrombosis of unspecified deep veins of unspecified lower extremity Status: Acute Assessment and Plan: Patient with Factor V leiden and was on Xarelto but was noncompliant with treatment. She was admitted in Nov 2023: CT A/P showing possible DVT in the right common and external iliac veins however specificity is limited. Doppler showing extensive bilateral DVT involving all of the deep veins in the right lower limb as well as the right greater saphenous vein above the calf and in the mid left femoral vein to the left posterior tibial veins. She was resumed on her Xarelto. Dec 2023: CT A/P showing DVT involving the left superficial and deep femoral veins and the right superficial femoral, deep femoral, external iliac, internal iliac, and common iliac veins, some of which are new or have progressed slightly. CTA chest was negative for PE. No change in her Xarelto February 02 2024: CT A/P showing possible DVT of the iliac and femoral veins. February 11, 2024: CT A/P extensive left-sided DVT, probably extending from the left common iliac vein through the left external iliac, left common femoral and left profunda femoral veins. No thrombus evident within the IVC. March 07, 2024: CT A/P suspected thrombus again noted in the left external iliac and common femoral veins. LE venous doppler showing extensive deep venous thrombosis of the left lower extremity veins, possibly chronic. She was changed from Xarelto to Eliquis 10mg Q12h x 1 week and now currently on Eliquis 5mg Q12h. CT A/P this admission had infiltration of IV contrast so unable to comment on pelvic veins. Too soon to determine if she has failed Eliquis therapy. Left UE doppler showing superficial vein thrombus. Heating pad added. Consider CTA chest but if acute, could be related to last admission and not new. Will continue Eliquis and encouraged compliance (6) Factor V Leiden: Code(s): D68.51 - Activated protein C resistance Status: Acute Assessment and Plan: As above. Has had extensive LE DVTs and now on Eliquis. Follow (7) Type 2 diabetes mellitus: Code(s): E11.9 - Type 2 diabetes mellitus without complications Status: Acute Assessment and Plan: HBA1c 5.5 ( goal <7.0%) , Renal functions, Li
--- NOTE | 2024-03-23 10:49 | PCOTNOTE ---
Per RN, stated that pt is going comfort care. Will d/c OT orders at this time. Please re-order should pt's status change.
[2024-03-23 11:45] LABS: Glucose Point of Care 146 mg/dl (65-105)
--- NOTE | 2024-03-23 11:54 | PM.DS ---
DS: Admitting Diagnosis Discharge Date 03/23/24 Admitting Diagnosis Resp failure DS: Discharge Diagnosis Discharge Diagnosis (1) Confusion: Code(s): R41.0 - Disorientation, unspecified Status: Acute (2) Chronic anemia: Code(s): D64.9 - Anemia, unspecified Status: Acute (3) Non-ST elevation [place] (NSTEMI): Code(s): I21.4 - Non-ST elevation (NSTEMI) myocardial infarction Status: Acute (4) Type 2 diabetes mellitus: Code(s): E11.9 - Type 2 diabetes mellitus without complications Status: Acute DS: Summary Hospital Course Reason for hospitalization: This is a 73-year-old female with history of gastritis, esophagitis, diverticulitis status post partial bowel resection, small hiatal hernia, factor 5 Leiden on chronic anticoagulation, arthritis, depression, and type 2 diabetes mellitus who presented to the emergency department via EMS from her assisted living facility for evaluation after a near syncopal episode. She is known to myself and the hospitalist service from recent admissions with abdominal pain at which time she was found to have reflux esophagitis and gastritis with ulcerative changes. She is currently at a rehab facility and while working with physical therapy today she started to feel dizzy, lightheaded, and weak. Staff members were able to sit her down and there was no fall or loss of consciousness. She reports dysuria and states she is currently on medication for a urinary tract infection. She denies fever, sinus congestion, sore throat, cough, chest pain, pleuritic pain, palpitations, shortness of breath, current abdominal pain, vomiting, and diarrhea. In the ED: She was afebrile on arrival with stable blood pressures. She has been in a sinus tachycardia with rates in the low 100 since arrival. SpO2 has been in the upper 90s on room air since arrival. Labs were significant for WBC count of 6.5, hemoglobin 10.8, platelet 183, INR 1.3, glucose 203, troponin 0.092. Urine is nitrate and leukocyte esterase positive with greater than 100 wbc's and 4+ bacteria noted on microscopy. CT of the abdomen and pelvis showed 2 supraumbilical ventral hernias containing fat and a small pericardial effusion. Brain CT showed stable but extensive nonspecific cerebral white matter disease. Chest x-ray revealed an ill-defined right upper lobe infiltrate, likely scarring from prior pneumonia. Left upper extremity venous Doppler ultrasound was positive for occlusive thrombosis of the left cephalic vein. She was given a dose of ceftriaxone for urinary tract infection and is being admitted in this setting for further monitoring and evaluation. Family and decided to go with hospice because of portions poor intake patient has chronic DVTs although medication has been discontinued Hospital Course: as above Status at Discharge Cognitive/behavioral status at discharge: for Functional status at discharge: bed bound Time Spent with Patient Time attestation: Total time spent providing and/or coordinating discharge services: Exam Narrative: GENERAL: Well appearing, no acute distress. HEAD: Normocephalic, atraumatic. NECK: Supple. No adenopathy, no masses. RESPIRATORY: respirations nonlabored. , no rales, wheezing. CARDIOVASCULAR: Regular rate and rhythm without murmurs, . Peripheral pulses 2+ and equal bilaterally. ABDOMINAL: Soft, nontender, nondistended, no hepatosplenomegaly. Normoactive BS. MUSCULOSKELETAL: no Epigastric and no hypochondrial tenderness SKIN: Warm, dry, DS: Data Data Completed and Pending Labs on day of discharge: Labs from last 24 hours 03/23/24 03/23/24 03/22/24 11:41 07:57 19:34 POC Capillary Glucose 146 H 153 H 108 H 03/22/24 03/22/24 16:42 11:45 POC Capillary Glucose 122 H 167 H Preliminary micro results at discharge 03/18/24 20:45 Blood Culture - Preliminary Blood 03/18/24 20:45 Blood Culture - Preliminary Blood Discharge Plan Dis
[2024-03-23 12:18] VITALS: PULSE 113; RESP 18; TEMP 36; O2SAT 100
[2024-03-23 13:13] LABS: SARS-CoV-2 RNA PCR Negative (Negative)
[2024-03-23 16:30] VITALS: BP 118/52; PULSE 96; RESP 17; TEMP 36.3; O2SAT 97
== END 2024-03-23 16:54 | disposition hospice, home (50) | DRG 690 ==
LOC: ANHED 13:57 → ANHIMU 15:25 → ANH2MED 03-20 19:00
PROVIDERS: Internal Medicine; Physician Assistant; Admitting Provider Hospitalist; Emergency Provider Student in an Organized Health Care Education/Training Program; PCP Family Medicine; Visit Provider Internal Medicine
DX: N39.0 Urinary tract infection, site not specified (principal); D68.51 Activated protein C resistance; E44.0 Moderate protein-calorie malnutrition; I82.612 Acute embolism and thrombosis of superficial veins of left upper extremity; I82.593 Chronic embolism and thrombosis of other specified deep vein of lower extremity, bilateral; E87.21 Acute metabolic acidosis; R55 Syncope and collapse; B96.89 Other specified bacterial agents as the cause of diseases classified elsewhere; I25.10 Atherosclerotic heart disease of native coronary artery without angina pectoris; R79.89 Other specified abnormal findings of blood chemistry; K29.70 Gastritis, unspecified, without bleeding; K20.90 Esophagitis, unspecified without bleeding; E78.5 Hyperlipidemia, unspecified; E11.9 Type 2 diabetes mellitus without complications; D50.9 Iron deficiency anemia, unspecified; F17.210 Nicotine dependence, cigarettes, uncomplicated; F32.A Depression, unspecified; M19.90 Unspecified osteoarthritis, unspecified site; Z11.52 Encounter for screening for COVID-19; Z79.01 Long term (current) use of anticoagulants; Z98.1 Arthrodesis status; Z68.29 Body mass index [BMI] 29.0-29.9, adult; Z51.5 Encounter for palliative care
CPT/HCPCS: 36415; 70450; 71045; 74177; 80048; 80053; 80069; 81001; 82607; 82728; 82746; 82948; 83036; 83540; 83550; 83735; 84100; 84484; 85025; 85027; 85610; 85730; 87040; 87077; 87086; 87088; 87186; 87635; 93005; 93306; 93971; 96361; 96365; 97161; 99285; A9270; G0378; J0696; J2405; J3420; J3480; J7030; Q9967

== ENCOUNTER 2024-03-24 10:04 | Emergency (ER) | payer MEDICARE, SELFPAY ==
[2024-03-24] VITALS (7 sets, daily range): BP systolic 97–106; BP diastolic 57–61; PULSE 82–101; RESP 15–18; TEMP 36.4; O2SAT 98–100
--- NOTE | 2024-03-24 10:14 | ECG_ITS ---
SEE SCANNED COPY FOR CONFIRMED REPORT MTDD
--- NOTE | 2024-03-24 10:53 | PCCCNOTE ---
Called to ED to meet with pt and family. Pt was discharged on 03/23/24 to retirement bed at [facility] with plans to meet with [facility] on 03/27/24 to sign consents and admit. Pt condition worsened at the facility today and pt was brought to ED. Dr. Field spoke with OA, Imelda Bravo, who is en route to meet with a [facility] admissions representative, to sign consents today and be evaluated to return to [facility] with Hospice or become GIP. Aviva, intake nurse at [facility], is aware of situation and sending staff to meet with family.
--- NOTE | 2024-03-24 12:35 | ED.GENADULT ---
HPI - General Adult General Chief complaint: Altered Mental Status Stated complaint: AMS Time Seen by Provider: 03/24/24 10:05 History of Present Illness HPI narrative: patient is a 73-year-old female who presents ER with agitation and altered mental status. Patient was discharged from the hospital yesterday to care home on hospice. there is no paperwork signed and they are actually going to meet in a couple of days. Patient became increasingly agitated and there are no orders for medications to help care for the patient so patient was sent back to the ER. Patient is oriented x1. Related Data Home Medications Medication Instructions Recorded Confirmed ferrous sulfate 220 mg (44 mg 220 mg PO DAILY 03/17/24 03/17/24 iron)/5 mL oral elixir nitroglycerin 0.4 mg sublingual 0.4 mg sublingual ONCE 03/17/24 03/17/24 tablet Allergies Allergy/AdvReac Type Severity Reaction Status Date / Time ciprofloxacin AdvReac Mild Vomiting Verified 03/17/24 09:47 codeine AdvReac Unknown vomiting Verified 03/17/24 09:47 Review of Systems Review of Systems: ROS unobtainable: Yes unobtainable due to medical condition [facility] Past Medical History Medical History (Updated 03/24/24 @ 13:11 by Ashkan Myers MD) Chronic anticoagulation Coronary atherosclerosis Deep venous thrombosis Depression Diverticulitis Esophagitis with gastritis Factor V Leiden Hyperlipidemia Iron deficiency anemia MDD (major depressive disorder), recurrent episode, moderate Sliding hiatal hernia Tobacco abuse Type 2 diabetes mellitus Surgical History Surgical History History of breast biopsy History of colonoscopy with polypectomy (2011) History of lumbar fusion L5-S1 History of partial colectomy History of ventral hernia repair Family History Family History Other Unknown family medical history Social History Social History Social History: Surrogate medical decision maker: Anatoliy or bela Nassar. Code status: Full code. Smoking packs per day: 1 Smoking cigarettes per day: 20.0 Years smoked: 40 Smoking pack-years: 40.00 Smoking status: Current every day smoker Tobacco type: cigarettes Alcohol intake: never Substance use: never Substance use type: does not use Do You Feel Safe in your Home?: Yes Lack of Transportation: No Lack of Food: Never True Current Housing: I Have Housing Concerned About Future Housing: No Difficulty Paying Gas/Electric Bills: No Difficulty Paying for Meds: No Currently Unemployed: No Education: Bachelor's Degree Difficulty w/ Childcare or Family Care: No Additional living arrangements comments: . [address] [facility] since 03/12/24 Occupation/Education: retired Spiritual care concerns: No Agree to blood products: Yes Exam Narrative: GENERAL: Chronically ill-appearing, obese, mild distress. HEAD: Normocephalic, atraumatic. EYES: PERRL and EOMI. ENT: Dry mucous membranes. CHEST: Clear to auscultation. No respiratory distress. HEART: Tachycardic and regular. Normal peripheral pulses. ABDOMEN: Soft, nontender, nondistended. EXTREMITIES: Normal range of motion. 2+ edema. SKIN: Warm, dry, Scattered bruising from IVs in previous sticks. NEURO: Alert and oriented x1. PSYCH: Normal mood and affect. Course Course Emergency Course: Abdomen on the phone with the patient's DPOA and noted been speaking with care coordination. The overall determination is the patient should be on hospice and that we should do no aggressive measures to resuscitate the patient at this time. Family has started to show up and VITAS will be showing up to place patient on hospice. Patient is now established on hospice. They will be writing orders when she arrives back at the
[2024-03-24] MEDS: LORazepam INJ (*CRX) 2 MG/ML VIAL 1 MG IM (12:36)
[2024-03-24] MEDS: HYDROmorphone HCL INJ (*CRX) 1 MG/ML SYR IM (13:21)
== END 2024-03-24 14:35 | disposition hospice, home (50) ==
PROVIDERS: Emergency Provider Emergency Medicine; PCP Family Medicine
DX: R62.7 Adult failure to thrive (principal); R45.1 Restlessness and agitation; I25.10 Atherosclerotic heart disease of native coronary artery without angina pectoris; E78.5 Hyperlipidemia, unspecified; E11.9 Type 2 diabetes mellitus without complications; D68.51 Activated protein C resistance; D50.9 Iron deficiency anemia, unspecified; F17.210 Nicotine dependence, cigarettes, uncomplicated; Z98.1 Arthrodesis status; Z90.49 Acquired absence of other specified parts of digestive tract; Z86.718 Personal history of other venous thrombosis and embolism; Z86.010 Personal history of colon polyps; R94.31 Abnormal electrocardiogram [ECG] [EKG]
CPT/HCPCS: 93005; 96372; 99284; J1170; J2060